=== PATIENT | female | born 1945 | race Caucasian/White ===

== ENCOUNTER 2025-03-04 10:39 | Emergency (ER) | payer MEDICARE, SELFPAY ==
[2025-03-04] VITALS (7 sets, daily range): BP systolic 109–129; BP diastolic 63–90; PULSE 73–83; RESP 12–18; TEMP 36.4; O2SAT 96–100
--- NOTE | ~2025-03-04 | XR_ITS ---
Clinical Indication: Shortness of breath PA and lateral views of the chest: Comparison: None Findings: Questionable minimal bibasilar pulmonary edema. Cardiomediastinal silhouette is prominent, with pacemaker device. Bones and soft tissues are unremarkable. Impression: Questionable minimal bibasilar pulmonary edema. Mild cardiomegaly, with pacemaker device. Reviewed, dictated and finalized at location . Impression: Questionable minimal bibasilar pulmonary edema. Mild cardiomegaly, with pacemaker device.
--- NOTE | 2025-03-04 10:40 | ECG_ITS ---
Test Date: 2025-03-04 11:11:01 Measurements Intervals [place] Rate: 79 P: -4 OR: 148 QRS: -59 QRSD: 126 T: 107 QT: 410 QTc: 471 Interpretive Statements ATRIAL SENSE- ELECTRONIC VENTRICULAR PACEMAKER BASELINE ARTIFACT- I, II, III, AVR, AVL NO FURTHER INTERPRETATION IS POSSIBLE ATYPICAL ECG No previous ECG available for comparison Electronically Signed On 03-04-2025 11:39:24 CDT by Sherwin Perrin D.O.
[2025-03-04 11:42] LABS: Basophils Absolute Auto 0.1 K/mm3 (0.0-0.1); Basophils Percent Auto 0.7 % (0.2-1.2); Eosinophils Absolute Auto 0.2 K/mm3 (0-0.3); Eosinophils Percent Auto 1.2 % (0-4.4); Hematocrit 46.8 % (37.0-47.0); Hemoglobin 14.5 g/dL (12.0-15.0); Immature Granulocyte Percent A 0.8 % (0-0.5); Lymphocytes Absolute Auto 1.68 K/mm3 (0.9-3.2); Lymphocytes Percent Auto 13.5 % (18.3-44.2); Mean Corpuscular Hemoglobin 29.1 pg (26-34); Mean Platelet Volume 10.1 fl (7.4-10.4); Monocytes Percent Auto 8.3 % (2.6-8.5); Neutrophils Absolute Auto 9.4 K/mm3 (1.3-6.7); Neutrophils Percent Auto 75.5 % (45.5-73.1); Platelet Count Result 170 k/mm3 (150-375); Red Blood Count 4.98 M/mm3 (4.2-5.4); Red Cell Distribution Width 14.6 % (11.5-14.5); White Blood Count 12.4 K/mm3 (4.5-10.0)
[2025-03-04 11:54] LABS: Alanine Aminotransferase 14 U/L (6-35); Albumin Level 4.7 g/dL (3.5-5.1); Alkaline Phosphatase 141 U/L (38-126); Anion Gap 10 mmol/L (4-12); Aspartate Amino Transferase 27 U/L (14-36); Bilirubin,Total 1.7 mg/dL (0.2-1.3); Blood Urea Nitrogen 46 mg/dL (7-17); Calcium 10.1 mg/dL (8.4-10.2); Carbon Dioxide 30 mmol/L (22-30); Chloride 100 mmol/L (98-107); Estimated Glomerular Filt Rate 31; Glucose 124 mg/dL (65-110); Potassium 4.3 mmol/L (3.4-5.0); Sodium 140 mmol/L (137-145)
--- OUTSIDE RECORDS SUMMARY | 2025-03-04 11:58 | XMS_ITS | CONTINUITY OF CARE DOCUMENT ---
Author Name amilcar fitzgerald Address Unknown Organization [facility] Address [address] [place] [address] Phone [phone] Care Team Providers Care Lottery Office Manager Name Role Phone Emi BLANCO, Doe Unavailable Pancho Velazquez MD Unavailable Pancho Velazquez MD Unavailable PROBLEMS Condition Status Date Provider Notes S/P BiV ICD gen change Medtronic 02/13/17// Gen change BiV ICD Biotronik 02/11/24 (NOT MRI SAFE //Medtronic Leads) active Valarie Daniel Preoperative cardiovascular examination active Gita Lee OBESITY active Hailey Stahlschmidt FIBROMYALGIA active Hailey Stahlschmidt ARTHRITIS active Hailey Stahlschmidt DIABETES MELLITUS active Hailey Stamckaymid t SHORTNESS OF BREATH completed - David Deleon MD 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 Doe Middleton MD Family History Coronary Heart Disease female < 65: active ? Doe Middleton MD Family History of Sudden Cardiac : active ? Doe Middleton MD Fatigue active Doe Middleton MD C V A / Stroke active ? Doe Middleton MD (His tory of) Edema, chronic active Doe Middleton MD Cardiology examination active Doe Middleton MD Family History of Sudden Cardiac : active ? Doe Middleton MD CAD;NEG COR ANGIO AND CAROTID DUPELX active David Deleon MD HTN ESSENTIAL;LABS PER PRIMARY active David Deleon MD CHF-04/13 CATH LV DYS LBBB EF 15 completed - David Deleon MD ENCOUNTERS Date Type Provider Location Encounter Diag nosis - In-person encounter Office Visit Doe Middleton MD [facility] Cardiology examination - In-person encounter Office Visit Doe Middleton MD [facility] - In-person encounter Office Visit Doe Middleton MD [facility] - In-person encounter Office Visit Doe Middleton MD [facility] Office - In-person encounter Office Visit Doe Middleton MD [facility] - In-person encounter Office Visit Doe Middleton MD [facility] - In-person encounter Office Visit Doe Middleton MD [facility] - In-person encounter Office Visit Doe Middleton MD [facility] Edema, chronic - In-person encounter Office Visit Doe Middleton MD [facility] - In-person encounter Office Visit Doe Middleton MD [facility] - In-person encounter Office Visit Doe Middleton MD [facility] - In-person encounter Office Visit Doe Middleton MD [facility] - In-person encounter Office Visit Doe Middleton MD [facility] - In-person encounter Office Visit Doe Middleton MD [facility] - In-person encounter Office Visit Doe Middleton MD [facility] - In-person encounter Office Visit Tariq Garay MD [facility] - In-person encounter Office Visit Doe Middleton MD [facility] - In-person encounter Office Visit Doe Middleton MD [facility] - In-person encounter Office Visit Doe Middleton MD [facility] - In-person encounter Office Visit Doe Middleton MD [facility] - In-person encounter Office Visit Doe Middleton MD [facility] - In-person encounter Office Visit Doe Middleton MD [facility] - In-person encounter Office Visit Jeremiah Nelson MD [facility] - In-person encounter Office Visit Doe Middleton MD [facility] - In-person encounter Office Visit Doe Middleton MD [facility] - In-person encounter Office Visit Doe Middleton MD [facility] - In-person encounter Office Visit Doe Middleton MD [facility] - In-person encounter Office Visit Doe Middleton MD [facility] - In-person encounter Office Visit Doe Middleton MD [facility] C V A / Stroke - In-person encounter Office Visit Doe Middleton MD [facility] Fatigue - In-person encounter Office Visit Doe Middleton MD [facility] - In-person encounter Office Visit Doe Middleton MD [facility] Cardiomyopathy, dilated - In-person encounter Office Visit Doe Middleton MD [facility] - In-person encounter Office Visit Doe Middleton MD [facility] - In-person encounter Office Visit Doe Middleton MD [facility] CHF - In-person encounter Office Visit Doe Middleton MD [facility] - In-person encounter Office Visit Doe Middleton MD [facility] Family History of Sudden Cardiac :Family History Coronary Heart Disease female < 65:Family History of Sudden Cardiac : - In-person encounter Office Visit Doe Middleton MD [facility] - In-person encounter Office Visit Doe Middleton MD [facility] PALPITATIONS - In-person encounter Office Visit Doe Middleton MD [facility] - In-person encounter Office Visit David Deleon MD [facility] SHORTNESS OF BREATHCHF-04/13 CATH LV DYS LBBB EF 15HTN ESSENTIAL;LABS PER PRIMARY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 ECHO LV HYPOK LVE EF 15CAD;NEG COR ANGIO AND CAROTID DUPELXVENOUS INSUFFICIENCYBI-VAICD - MEDTRONICSCardiomyopa thy, dilatedMITRAL REGURGITATION, MILDCHFSLEEP APNEA - In-person encounter Office Visit Doe Middleton MD [facility] - In-person encounter Office Visit Doe Middleton MD [facility] VENOUS INSUFFICIENCY - In-person encounter Office Visit Doe Middleton MD [facility] - In-person encounter Office Visit Doe Middleton MD [facility] - In-person encounter Office Visit Doe Middleton MD [facility] - In-person encounter Office Visit Doe Middleton MD [facility] - In-person encounter Office Visit Doe Middleton MD [facility] - In-person encounter Office Visit Tariq Garay MD [facility] - In-person encounter Office Visit Doe Middleton MD [facility] - In-person encounter Office Visit Doe Middleton MD [facility] - In-person encounter Office Visit Doe Middleton MD [facility] - In-person encounter Office Visit Doe Middleton MD [facility] - In-person encounter Office Visit Doe Middleton MD [facility] - In-person encounter Office Visit Doe Middleton MD [facility] - In-person encounter Office Visit Doe Middleton MD [facility] 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 ECHO LV HYPOK LVE EF 15 VITAL SIGNS Date Observation Value Provider Body Mass Index (Ratio) 30.82 kg/m2 Hiram Middleton MD blood pressure, diastolic 67 mm[Hg] Viktoriya [facility] blood pressure, systolic 124 mm[Hg] Imelda [facility] oxygen saturation, oximetry 95 % [facility] pulse rate 82 /min [facility] weight E&M 191 [lb_av] [facility] height E&M 66 [in_i] Esther Wilson Body Mass Index (Ratio) 33.50 kg/m2 Hiram Middleton MD weight E&M 207.6 [lb_av] Alicia Gilbert blood pressure, cuff size regular Ta judi Gilbert blood pressure, diastolic 68 mm[Hg] Ta judi Gilbert blood pressure, systolic 122 mm[Hg] Tab pierre Gilbert pulse rate 77 /min Alicia Gilbert oxygen saturation, oximetry 95 % Alicia Gilbert respiratory rate E&M 12 /min Alicia Gilbert height E&M 66 [in_i] [facility] Body Mass Index (Ratio) 33.41 kg/m2 Hiram Middleton MD blood pressure, cuff size regular Bryan [facility] blood pressure, diastolic 61 mm[Hg] [facility] blood pressure, systolic 109 mm[Hg] [facility] pulse rate 81 /min [place] respiratory rate E&M 16 /min [place] oxygen saturation, oximetry 96 % [place] weight E&M 207 [lb_av] [place] [facility] y height E&M 66 [in_i] [facility] y Body Mass Index (Ratio) 33.89 kg/m2 Hiram Middleton MD blood pressure, cuff size regular [facility] blood pressure, diastolic 62 mm[Hg] [facility] blood pressure, systolic 103 mm[Hg] [facility] 80 /min Emma Gilbert oxygen saturation, oximetry 98 % Emma Gilbert respiratory rate E&M 16 /min Emma manzanares weight E&M 210 [lb_av] [facility] height E&M 66 [in_i] [facility] Body Mass Index (Ratio) 34.86 kg/m2 Hiram Middleton MD Inhaled O2 2 L/min [facility] blood pressure, cuff size regular [facility] blood pressure, diastolic 81 mm[Hg] [facility] blood pressure, systolic 116 mm[Hg] [facility] pulse rate 72 /min [facility] oxygen saturation, oximetry 99 % [facility] respiratory rate E&M 16 /min Emma Mani [facility] weight E&M 216 [lb_av] [facility] height E&M 66 [in_i] [facility] Body Mass Index (Ratio) 34.21 kg/m2 Hiram Middleton MD pulse rate 70 /min [place] y blood pressure, cuff size regular [facility] blood pressure, diastolic 68 mm[Hg] Ja rret blood pressure, systolic 114 mm[Hg] Jar ret oxygen saturation, oximetry 98 % [place] respiratory rate E&M 12 /min [place] weight E&M 212 [lb_av] [place] y height E&M 66 [in_i] [place] y Body Mass Index (Ratio) 35.02 kg/m2 Hiram Middleton MD pulse rate 61 /min [place] y blood pressure, cuff size regular rret blood pressure, diastolic 57 mm[Hg] Ja rret blood pressure, systolic 115 mm[Hg] Jar ret respiratory rate E&M 12 /min [place] oxygen saturation, oximetry 95 % [place] weight E&M 217 [lb_av] [place] y height E&M 66 [in_i] [place] y Body Mass Index (Ratio) 35.34 kg/m2 Hiram Middleton MD blood pressure, diastolic 68 mm[Hg] nkLogjuan carlos blood pressure, systolic 121 mm[Hg] Debbie og blood pressure, diastolic 68 mm[Hg] eddieLog blood pressure, systolic 121 mm[Hg] [facility] pulse rate 76 /min Valeria Bates blood pressure, diastolic 68 mm[Hg] Donta Bates blood pressure, systolic 121 mm[Hg] Carline Bates blood pressure, cuff size regular Donta Bates oxygen saturation, oximetry 98 % Valeria Bates respiratory rate E&M 18 /min Valeria Bates weight E&M 219 [lb_av] Valeria Bates height E&M 66 [in_i] Valeria Bates Body Mass Index (Ratio) 35.18 kg/m2 Hiram Middleton MD blood pressure, diastolic 54 mm[Hg] [place] blood pressure, systolic 113 mm[Hg] [facility] joana [place] oxygen saturation, oximetry 98 % Angelique Angeles pulse rate 69 /min Angelique fisher weight E&M 218 [lb_av] Angelique fisher respiratory rate E&M 16 /min Aishwarya [place] blood pressure, cuff size large [place] height E&M 66 [in_i] Angelique fisher Body Mass Index (Ratio) 35.34 kg/m2 Hiram Middleton MD blood pressure, cuff size large [place] pino Austin blood pressure, diastolic 95 mm[Hg] [place] pino Austin blood pressure, systolic 159 mm[Hg] Kam bernard Austin oxygen saturation, oximetry 98 % Angelique Angeles respiratory rate E&M 16 /min Aishwarya daugherty [place] pulse rate 80 /min Angelique Ocasio micki weight E&M 219 [lb_av] Angelique Ocasio micki height E&M 66 [in_i] Angelique Ocasio micki Body Mass Index (Ratio) 35.18 kg/m2 Hiram Middleton MD blood pressure, cuff size large Tr garo Arnaud blood pressure, diastolic 70 mm[Hg] Tr mauricedarcy Lares blood pressure, systolic 122 mm[Hg] Len darcy Lares oxygen saturation, oximetry 91 % Kyra Lares respiratory rate E&M 18 /min Kyra Lares pulse rate 97 /min Kyra Lares weight E&M 218 [lb_av] Kyra Lares height E&M 66 [in_i] Kyra Lares Body Mass Index (Ratio) 36.34 kg/m2 Hiram Middleton MD blood pressure, diastolic 70 mm[Hg] Martha Richards blood pressure, systolic 112 mm[Hg] Melissa Richards oxygen saturation, oximetry 97 % Haylee Richards respiratory rate E&M 16 /min Taran Richards pulse rate 100 /min Haylee steven weight E&M 225.2 [lb_av] Haylee rae height E&M 66 [in_i] Haylee steven Body Mass Index (Ratio) 35.83 kg/m2 Hiram Middleton MD blood pressure, diastolic 77 mm[Hg] Sh patricia Hartmanford blood pressure, systolic 126 mm[Hg] She evan Hartmanford oxygen saturation, oximetry 98 % Maira Layne pulse rate 86 /min Maira Hartman clark respiratory rate E&M 18 /min Gale Layne weight E&M 222 [lb_av] Maira Hartman clark height E&M 66 [in_i] Maira Hartman clark Body Mass Index (Ratio) 35.51 kg/m2 Hiram Middleton MD blood pressure, cuff size regular Cy harpal Aldana blood pressure, diastolic 72 mm[Hg] Cy ntcolin Aldana blood pressure, systolic 128 mm[Hg] Shweta edel Aldana oxygen saturation, oximetry 98 % Lynnette Aldana pulse rate 96 /min Lynnette Campbel l respiratory rate E&M 16 /min Lynnette Aldana weight E&M 220 [lb_av] Lynnette Campbel l height E&M 66 [in_i] Lynnette Campbel l Body Mass Index (Ratio) 37.12 kg/m2 Taryn Garay MD blood pressure, cuff size large Ke rri Gruenenfelder blood pressure, diastolic 62 mm[Hg] Ke rri Gruenenfelder blood pressure, systolic 98 mm[Hg] Ubaldo Alberto oxygen saturation, oximetry 96 % Dafne Dolly respiratory rate E&M 18 /min Dafne peña pulse rate 87 /min Dafne Alston lder weight E&M 230 [lb_av] Dafne Alston lder height E&M 66 [in_i] Dafne Alston [facility] Body Mass Index (Ratio) 36.80 kg/m2 Hiram Middleton MD blood pressure, diastolic 67 mm[Hg] Cy harpal Aldana blood pressure, systolic 127 mm[Hg] Shweta edel Aldana blood pressure, cuff size regular Cy ntcolin Aldana pulse rate 69 /min Lynnette Travonbel l oxygen saturation, oximetry 95 % Lynnette Aldana respiratory rate E&M 16 /min Lynnette Aldana weight E&M 228 [lb_av] Lynnette Campbel l height E&M 66 [in_i] Lynnette Campbel l Body Mass Index (Ratio) 37.12 kg/m2 Hiram Middleton MD blood pressure, diastolic 63 mm[Hg] Cy ntcolin Aldana blood pressure, systolic 108 mm[Hg] Hsweta edel Aldana blood pressure, cuff size regular Cy ntcolin Aldana pulse rate 70 /min Lynnette Campbel l respiratory rate E&M 16 /min Lynnette Aldana oxygen saturation, oximetry 93 % Lynnetteedel Aldana weight E&M 230 [lb_av] Lynnette Campbel l height E&M 66 [in_i] Lynnette Campbel l Body Mass Index (Ratio) 37.28 kg/m2 Hiram Middleton MD blood pressure, diastolic 62 mm[Hg] Cy ntcolin Aldana blood pressure, systolic 107 mm[Hg] Shweta charmainea Aldana respiratory rate E&M 16 /min Lynnette Aldana pulse rate 98 /min Lynnette Campbel l oxygen saturation, oximetry 94 % Lynnette Aldana weight E&M 231 [lb_av] Lynnette Campbel l blood pressure, cuff size regular Cy harpal Aldana height E&M 66 [in_i] Lynnette Campbel l temperature site temporal Juliette [facility] temperature E&M 96.4 [degF] Juliette Sirena mackenzie Body Mass Index (Ratio) 38.25 kg/m2 Hiram Middleton MD blood pressure, diastolic 78 mm[Hg] Martha Richards blood pressure, systolic 132 mm[Hg] Melissa Roberto Richards oxygen saturation, oximetry 96 % HayleeAdelia Richards respiratory rate E&M 18 /min Taran Richards pulse rate 96 /min Haylee Rosas martinezjacek weight E&M 237 [lb_av] Haylee Rosas jacek height E&M 66 [in_i] Haylee Rosas jacek temperature site temporal Juliette [facility] temperature E&M 96.8 [degF] Juliette Sirena mackenzie Body Mass Index (Ratio) 37.60 kg/m2 Hiram Middleton MD blood pressure, cuff size regular Cy harpal Aldana blood pressure, diastolic 80 mm[Hg] Cy ntmelea Aldana blood pressure, systolic 122 mm[Hg] Shweta charmainevalerie Aldana oxygen saturation, oximetry 97 % Lynnette Aldana respiratory rate E&M 16 /min Lynnette Aldana pulse rate 99 /min Lynnette Campbel l weight E&M 233 [lb_av] Lynnette Campbel l height E&M 66 [in_i] Lynnette Campbel l Body Mass Index (Ratio) 37.93 kg/m2 Hiram Midldeton MD blood pressure, diastolic 93 mm[Hg] Martha vaughan O'Alex blood pressure, systolic 112 mm[Hg] Melissa houston O'Alex oxygen saturation, oximetry 96 % Marianna Rasheed respiratory rate E&M 16 /min Marianna OArnoldAlex pulse rate 98 /min Marianna OArnoldAlex weight E&M 235 [lb_av] Marianna O'Alex height E&M 66 [in_i] [facility] OArnoldAlex Body Mass Index (Ratio) 37.93 kg/m2 Puma Nelson MD blood pressure, cuff size regular Bryan grijalva Olivares RN blood pressure, diastolic 72 mm[Hg] Bryan Olivares RN blood pressure, systolic 123 mm[Hg] Galen Olivares RN oxygen saturation, oximetry 97 % Galen Lunaarlene NAYLOR respiratory rate E&M 18 /min Galen Florinda arlene NAYLOR pulse rate 88 /min Galen Lunas RN weight E&M 235 [lb_av] Galen Lunas RN Body Mass Index (Ratio) 37.93 kg/m2 Hiram Middleton MD blood pressure, cuff size regular Cy harpal Aldana blood pressure, diastolic 64 mm[Hg] Cy harpal Jovan blood pressure, systolic 120 mm[Hg] Shweta hollingsworth Aldana respiratory rate E&M 18 /min Lynnette Aldana oxygen saturation, oximetry 96 % Lynnette Aldana pulse rate 95 /min Lynnette Coolcharlotte l weight E&M 235 [lb_av] Lynnette Campbel l height E&M 66 [in_i] Lynnette Campbel l Body Mass Index (Ratio) 37.44 kg/m2 Hiram Middleton MD oxygen saturation, oximetry 96 % Torie Lehman pulse rate 68 /min Torie jacobs respiratory rate E&M 17 /min Torie Lehman blood pressure, cuff size large Cr sondra Lehman blood pressure, diastolic 60 mm[Hg] Cr sondra Lehman blood pressure, systolic 110 mm[Hg] Cry marco Dominik weight E&M 232 [lb_av] Torie Roman s height E&M 66 [in_i] Torie Roman s blood pressure, diastolic 70 mm[Hg] Cy harpal Aldana blood pressure, systolic 110 mm[Hg] Shweta Aldana pulse rate 91 /min Lynnette sutherland height E&M 66 [in_i] Lynnette Murillo l height in centimeters E&M 167.64 cm Cy harpal Aldana Body Mass Index (Ratio) 38.89 kg/m2 Hiram Middleton MD blood pressure, cuff size large Ke trace Alberto blood pressure, diastolic 71 mm[Hg] Ke trace Alberto blood pressure, systolic 117 mm[Hg] Ubaldo Alberto oxygen saturation, oximetry 98 % Dafne Alberto respiratory rate E&M 20 /min Dafen peña pulse rate 97 /min Dafne Alston [facility] weight E&M 241 [lb_av] Dafne Alston er height E&M 66 [in_i] Dafne Alston er Body Mass Index (Ratio) 38.57 kg/m2 Hiram Middleton MD blood pressure, diastolic 80 mm[Hg] Da hayes Hardy blood pressure, systolic 122 mm[Hg] Dac ia Hardy oxygen saturation, oximetry 96 % Eryn Hardy respiratory rate E&M 16 /min Eryn V oss pulse rate 97 /min Eryn Hardy weight E&M 239 [lb_av] Eryn Hardy height E&M 66 [in_i] Eryn Hardy Body Mass Index (Ratio) 38.15 kg/m2 Hiram Middleton MD blood pressure, diastolic 73 mm[Hg] Martha Yoni Richards blood pressure, systolic 130 mm[Hg] Melissa Avilezenson oxygen saturation, oximetry 97 % Haylee Richards respiratory rate E&M 20 /min IvonneSarah Avilezenson pulse rate 89 /min Haylee steven weight E&M 236.4 [lb_av] Haylee rae height E&M 66 [in_i] Haylee steven Body Mass Index (Ratio) 38.25 kg/m2 Hiram Middleton MD blood pressure, diastolic 67 mm[Hg] Martha Yoni Richards blood pressure, systolic 125 mm[Hg] Melissa Avilezenson oxygen saturation, oximetry 97 % Haylee Richards respiratory rate E&M 18 /min Taran vladislav Maurice pulse rate 97 /min Haylee steven weight E&M 237 [lb_av] Haylee steven height E&M 66 [in_i] Haylee steven Body Mass Index (Ratio) 38.22 kg/m2 Hiram Middleton MD blood pressure, resting Yes Ivonne Richards blood pressure, diastolic 69 mm[Hg] Martha Yoni Richards blood pressure, systolic 115 mm[Hg] Melissa Richards oxygen saturation, oximetry 96 % Haylee Richards respiratory rate E&M 20 /min Taran Richards pulse rate 85 /min Haylee steven weight E&M 236.8 [lb_av] Haylee rae height E&M 66 [in_i] Haylee steven Body Mass Index (Ratio) 38.25 kg/m2 Hiram Middleton MD blood pressure, cuff size large Ke rrdiane Arthurulisesakira blood pressure, diastolic 80 mm[Hg] Garcia rrdiane Dolly blood pressure, systolic 122 mm[Hg] Ubaldo oscar Dolly oxygen saturation, oximetry 96 % Dafne Dolly respiratory rate E&M 18 /min Dafne Dominique mariana pulse rate 84 /min Dafne Alecia lder weight E&M 237 [lb_av] Dafne Alston lder height E&M 66 [in_i] Dafne Riancassulisesdat er Body Mass Index (Ratio) 37.76 kg/m2 Hiram Middleton MD blood pressure, cuff size large Ernestine ragland Brendon blood pressure, diastolic 62 mm[Hg] Ernestine ragland Brendon blood pressure, systolic 130 mm[Hg] Julienne Olivas oxygen saturation, oximetry 97 % Rayna Olivas respiratory rate E&M 16 /min Rayna Olivas pulse rate 62 /min Rayna Olivas weight E&M 234 [lb_av] Rayna Olivas height E&M 66 [in_i] Rayna Olivas Body Mass Index (Ratio) 38.15 kg/m2 Hiram Middleton MD blood pressure, diastolic 68 mm[Hg] Martha Richards blood pressure, systolic 117 mm[Hg] Melissa Richards oxygen saturation, oximetry 96 % Haylee Richards respiratory rate E&M 18 /min Taran Richards pulse rate 91 /min Haylee steven weight E&M 236.4 [lb_av] Haylee rae height E&M 66 [in_i] Haylee steven blood pressure, diastolic 64 mm[Hg] Garcia thompsoni Rianneuliseslesterer blood pressure, systolic 130 mm[Hg] Ubaldo ri Zaidmarconenfelder pulse rate 78 /min Dafne Munoze lder oxygen saturation, oximetry 97 % Dafne Munozlesterer respiratory rate E&M 16 /min Dafne Dominique whitneyenenfelder Body Mass Index (Ratio) 39.70 kg/m2 Walker diane Arthurulisesakira weight E&M 246 [lb_av] Dafne Modineulisese lder blood pressure, diastolic 68 mm[Hg] Martha Richards blood pressure, systolic 124 mm[Hg] Melissa Richards Body Mass Index (Ratio) 41.09 kg/m2 Ivonne Delvalle Richards pulse rate 84 /min Haylee Rosas martinezjacek oxygen saturation, oximetry 97 % Haylee Richards respiratory rate E&M 18 /min Taran Richards weight E&M 254.6 [lb_av] Haylee rae blood pressure, diastolic 73 mm[Hg] Martha Richards blood pressure, systolic 129 mm[Hg] Melissa Richards Body Mass Index (Ratio) 41.25 kg/m2 Ivonne Richards pulse rate 94 /min Haylee Rosas martinezjacek oxygen saturation, oximetry 96 % Haylee Richards respiratory rate E&M 18 /min Taran Richards weight E&M 255.6 [lb_av] Haylee rae Body Mass Index (Ratio) 39.38 kg/m2 Marina ssa Julian blood pressure, diastolic 76 mm[Hg] Me junie Julian blood pressure, systolic 133 mm[Hg] Agatha jayna Julian pulse rate 100 /min Milagros Julian oxygen saturation, oximetry 97 % Milagros Julian respiratory rate E&M 16 /min Milagros Julian weight E&M 244 [lb_av] Milagros Julian Body Mass Index (Ratio) 38.88 kg/m2 Marina ball Julian blood pressure, diastolic 72 mm[Hg] Me zaman Julian blood pressure, systolic 131 mm[Hg] Agatha dorantes Julian pulse rate 80 /min Milagros Julian oxygen saturation, oximetry 97 % Milagros Julian respiratory rate E&M 16 /min Milagros Julian weight E&M 240 [lb_av] Milagros Julian blood pressure, diastolic 64 mm[Hg] Bryan Olivares RN blood pressure, systolic 120 mm[Hg] Galen Olivares RN pulse rate 87 /min Galen Olivares RN oxygen saturation, oximetry 97 % Galen Olivares RN respiratory rate E&M 14 /min Galen lockwood RN Body Mass Index (Ratio) 39.20 kg/m2 Galen Olivares RN weight E&M 242 [lb_av] Galen Olivares RN blood pressure, diastolic 61 mm[Hg] Bryan Olivares RN blood pressure, systolic 112 mm[Hg] Galen Olivares RN pulse rate 73 /min Galen Olivares RN oxygen saturation, oximetry 97 % Galen Olivares RN respiratory rate E&M 22 /min Galen lockwood RN Body Mass Index (Ratio) 38.39 kg/m2 Galen Olivares RN weight E&M 237 [lb_av] Galen Olivares RN blood pressure, diastolic 96 mm[Hg] Bryan Olivares RN blood pressure, systolic 168 mm[Hg] Galen Olivares RN pulse rate 112 /min Galen Olivares RN oxygen saturation, oximetry 96 % Galen Olivares RN respiratory rate E&M 22 /min Galen coffmanarlene RN Body Mass Index (Ratio) 43.25 kg/m2 Galen Olivares CYNDY weight E&M 267 [lb_av] Galen Olivares CYNDY Body Mass Index (Ratio) 43.06 kg/m2 Dot padilla Stueber blood pressure, diastolic 68 mm[Hg] Ta rubio Stueber blood pressure, systolic 128 mm[Hg] Jaya mojica Stueber pulse rate 74 /min Jeniffer Stueber oxygen saturation, oximetry 98 % Jeniffer Stueber respiratory rate E&M 16 /min Jeniffer burgesseber weight E&M 265.8 [lb_av] Jeniffer Stueber height E&M 66 [in_i] Jeniffer [facility] blood pressure, diastolic 76 mm[Hg] Bryan grijalva Marshall CYNDY blood pressure, systolic 122 mm[Hg] Galen Olivares CYNDY pulse rate 84 /min Galen Olivares CYNDY oxygen saturation, oximetry 96 % Galen Olivares CYNDY respiratory rate E&M 20 /min Galen lockwood RN Body Mass Index (Ratio) 42.28 kg/m2 Galen Olivares CYNDY weight E&M 269.0 [lb_av] Galen Olivares CYNDY Body Mass Index (Ratio) 40.87 kg/m2 Darron blanco [place] blood pressure, diastolic 68 mm[Hg] Gita seph [place] blood pressure, systolic 120 mm[Hg] Edward eph [place] pulse rate 78 /min [place] oxygen saturation, oximetry 95 % [place] respiratory rate E&M 20 /min [place] weight E&M 260 [lb_av] [place] Body Mass Index (Ratio) 40.87 kg/m2 Jordan Epps blood pressure, diastolic 84 mm[Hg] Lim blood pressure, systolic 160 mm[Hg] Ko Epps pulse rate 80 /min Tony Epps oxygen saturation, oximetry 96 % Tony Epps respiratory rate E&M 18 /min Tony Epps weight E&M 260 [lb_av] Tony Epps height E&M 67 [in_i] Tony Epps blood pressure, diastolic 59 mm[Hg] Lim blood pressure, systolic 112 mm[Hg] Ko Epps pulse rate 85 /min Tony Epps oxygen saturation, oximetry 96 % Tony Epps respiratory rate E&M 16 /min Tony Epps weight E&M 256 [lb_av] Tony Epps blood pressure, diastolic 80 mm[Hg] Lim blood pressure, systolic 166 mm[Hg] Ko Epps pulse rate 86 /min Tony Epps oxygen saturation, oximetry 93 % Tony Epps respiratory rate E&M 16 /min Tony Epps weight E&M 254 [lb_av] Tony Epps blood pressure, diastolic 74 mm[Hg] Martha rsha O'Alex blood pressure, systolic 180 mm[Hg] Melissa sha O'[place] pulse rate 85 /min Marianna O'Alex oxygen saturation, oximetry 96 % Marianna O'Alex respiratory rate E&M 18 /min Marianna O'Alex weight E&M 255 [lb_av] Marianna O'Alex blood pressure, diastolic 74 mm[Hg] Martha rsha O'Alex blood pressure, systolic 161 mm[Hg] Melissa sha [place] pulse rate 104 /min Marianna O'Alex oxygen saturation, oximetry 96 % Marianna O'Alex respiratory rate E&M 18 /min Marianna O'Alex weight E&M 259 [lb_av] Marianna O'Alex blood pressure, diastolic 113 mm[Hg] Martha vaughan O'Alex blood pressure, systolic 159 mm[Hg] Melissa houston O'Alex pulse rate 96 /min Marianna O'Alex oxygen saturation, oximetry 98 % Marianna O'Alex respiratory rate E&M 18 /min Marianna O'Alex weight E&M 255 [lb_av] Marianna O'Alex blood pressure, diastolic 87 mm[Hg] Bryan Olivares RN blood pressure, systolic 156 mm[Hg] Galen Olivares RN pulse rate 86 /min Galen Olivares RN oxygen saturation, oximetry 95 % Galen Olivares RN respiratory rate E&M 20 /min Galen lockwood RN weight E&M 257 [lb_av] Galen Olivares RN blood pressure, diastolic 77 mm[Hg] Eddie Tavarez blood pressure, systolic 138 mm[Hg] [place] pulse rate 82 /min Kady Tavarez oxygen saturation, oximetry 94 % Kady Tavarez respiratory rate E&M 18 /min Mike Tavarez weight E&M 248 [lb_av] Kady Tavarez blood pressure, diastolic 82 mm[Hg] Bryan Olivares RN blood pressure, systolic 149 mm[Hg] Galen Olivares RN pulse rate 85 /min Galen Olivares RN oxygen saturation, oximetry 97 % Galen Olivares RN respiratory rate E&M 18 /min Galen lockwood RN weight E&M 250 [lb_av] Galen Olivares RN blood pressure, diastolic 79 mm[Hg] Bryan Olivares RN blood pressure, systolic 155 mm[Hg] Galen Olivares RN pulse rate 82 /min Galen Olivares RN oxygen saturation, oximetry 98 % Galen Olivares RN respiratory rate E&M 18 /min Galen lockwood RN weight E&M 240 [lb_av] Galen Marshall NAYLOR blood pressure, diastolic 72 mm[Hg] Gita seph [place] blood pressure, systolic 119 mm[Hg] Edward eph [place] pulse rate 81 /min [place] oxygen saturation, oximetry 98 % [place] respiratory rate E&M 16 /min [place] weight E&M 231 [lb_av] [place] blood pressure, diastolic 81 mm[Hg] Bryan Olivares RN blood pressure, systolic 145 mm[Hg] Galen Olivares RN pulse rate 83 /min Galen Olivares RN oxygen saturation, oximetry 98 % Galen Olivares RN respiratory rate E&M 16 /min Galen lockwood RN weight E&M 244 [lb_av] Galen Olivares RN ALLERGIES Allergy Name Onset Date Reaction Criticality Status DYES High Criticality suspende d IVP DYE High Criticality suspende d CILLIANS Low Criticality active IODINE Low Criticality active GLYBURIDE Low Criticality active DIOVAN Low Criticality active RESULTS Date Observation Value Provider Reference Range Interpretation Location ferritin, serum 265 ng/mL [facility] 15-150 High iron saturation percent, serum 24 % [facility] 15-55 iron, serum 92 ug/dL [facility] 27-139 iron binding capacity, unsaturated 288 ug/dL [facility] 312-225 6367/11 /29 iron binding capacity, total 380 ug/dL [facility] 309-111 8174/11 /29 basophil count, absolute 0.1 x10E3/uL [facility] 0.0-0.2 Eosinophil Absolute Count 0.2 X10E3/UL [facility] 0.0-0.4 monocyte count, blood, automated 0.9 X10E3/UL [facility] 0.1-0.9 lymphocyte count, blood, automated 3.5 X10E3/UL [facility] 0.7-3.1 High Absolute Neutrophils 5.7 X10E3/UL [facility] 1.4-7.0 basophils as percent of blood leukocytes 1 % [facility] Not Estab. eosinophils as percent of blood leukocytes 2 % [facility] Not Estab. monocytes as percent of blood leukocytes 8 % [facility] Not Estab. lymphocytes as percent of blood leukocytes 34 % [facility] Not Estab. neutrophils as percent of blood leukocytes 55 % [facility] Not Estab. platelet count 242 X10E3/UL [facility] 927-270 6963/11 /29 red blood cell distribution width 13.2 % [facility] 12.3-15.4 mean corpuscular hemoglobin concentration, RBC 32.3 G/DL [facility] 31.5-35.7 mean corpuscular hemoglobin, RBC 31.0 pg [facility] 26.6-33.0 mean corpuscular volume, RBC 96 fL [facility] 79-97 hematocrit, blood 42.7 % [facility] 34.0-46.6 hemoglobin, blood 13.8 g/dL [facility] 11.1-15.9 erythrocyte (RBC) count 4.45 X10E6/UL [facility] 3.77-5.28 leukocyte count, blood 10.4 X10E3/UL [facility] 3.4-10.8 trichomonas vaginalis, urine None seen [facility] urine crystals, microscopic Present [facility] casts, urine, microscopic None seen [facility] mucus on urinalysis None seen [facility] Not Estab. bacteria, urine microscopy Moderate [facility] None seen / Few epithelial cells, urine > 10 / lpf [facility] 0 - 10 /lpf (non renal) RBC urine by microscopy 0 - 3 /hpf [facility] 0 - 3 /hpf WBC urine on microscopy 21-30 /hpf [facility] 0 - 5 /hpf Nitrite Urine Negative [facility] Negative urobilinogen, urine 0.2 E.U./dL mg/dl [facility] 0.2 - 1.0 specific gravity, urine >=1.030 [facility] 1.001 - 1.035 KETONES, URINE Trace [facility] Negative bilirubin, urine 1+ [facility] Negative Glucose Urine Negative [facility] Negative clarity, urine, point Slightly Cloudy [facility] Yellow urine color [place] [facility] yellow to calixto red blood cell distribution width, size density 51.0 fL [facility] - immature granulocytes, percentage of total cells, blood 0.7 % [facility] - nucleated red blood cells as percent of blood leukocytes 0.0 % [facility] - red blood cell (erythrocyte) count, per high power field 0.0 10*3/UL [facility] - eosinophils as percent of blood leukocytes 1.3 % [facility] - neutrophils as percent of blood leukocytes 55.5 % [facility] - Absolute Neutrophils 5.5 CELLS/UL [facility] 1.5 - 7.8 basophils as percent of blood leukocytes 0.9 % [facility] - Absolute Basophils 0.1 CELLS/UL [facility] 0.0 - 0.2 monocytes as percent of blood leukocytes 8.1 % [facility] - Absolute Monocytes 0.8 CELLS/UL [facility] 0.2 - 1.0 lymphocytes as percent of blood leukocytes 33.5 % [facility] - Absolute Lymphocytes 3.3 CELLS/UL [facility] 0.9 - 3.9 mean platelet volume 10.8 (?) [facility] - platelet count 204.0 THOUSAND/UL [facility] 100.0 - 400.0 mean corpuscular hemoglobin concentration, RBC 31.7 G/DL [facility] 31.0 - 38.0 mean corpuscular hemoglobin, RBC 31.7 pg [facility] 25.0 - 35.0 mean corpuscular volume, RBC 100.0 fL [facility] 75.0 - 100.0 hematocrit, blood 43.6 % [facility] 35.0 - 55.0 hemoglobin, blood 13.8 g/dL [facility] 11.5 - 16.5 erythrocyte count, whole blood 4.4 MILLION/UL [facility] 3.5 - 5.5 activated partial thromboplastin time 24.3 SECONDS [facility] 23.0 - 33.0 prothrombin time (patient) 10.2 s [facility] 9.0 - 11.5 international normalized ratio (INR) 1.0 [facility] 0.9 - 1.1 anion gap, serum 14.6 [facility] - albumin/globulin ratio, serum 2.8 g/dL [facility] 1.1 - 2.5 High globulin, serum 3.1 [facility] 2.3 - 3.8 urea nitrogen/creatinine ratio, serum 14.0 [facility] - Estimated Glomerular Filtration Rate (calc) 36.8 (?) [facility] 59.0 - Low chloride, serum 101.4 mmol/L [facility] 98.0 - 107.0 potassium, serum 4.6 mmol/L [facility] 3.5 - 5.1 sodium, serum 142.0 mmol/L [facility] 136.0 - 145.0 creatine, serum 1.5 mg/dL [facility] 0.5 - 0.9 High carbon dioxide, venous blood 26.0 mmol/L [facility] 23.0 - 31.0 albumin, serum 4.7 g/dL [facility] 3.5 - 5.2 calcium, serum 10.0 mg/dL [facility] 8.6 - 10.2 aspartate aminotransferase (SGOT), serum 16.0 1/L [facility] 0.0 - 32.0 alkaline phosphatase, serum 94.0 1/L [facility] 40.0 - 130.0 alanine aminotransferase (SGPT), serum 12.0 1/L [facility] 0.0 - 33.0 protein, total, serum 7.8 g/dL [facility] 6.6 - 8.7 urea nitrogen, blood 21.0 mg/dL [facility] 8.0 - 23.0 Glucose Urine 224.0 mg/dL [facility] 74.0 - 99.0 High bilirubin, serum, total 1.0 mg/dL [facility] 0.0 - 1.2 thyroid stimulating hormone, serum 1.750 u[IU]/mL Araceli Man calcium, serum 10.0 mg/dL [facility] 8.6-10.0 Normal blood glucose, random 256 mg/dL [facility] 74-109 High eGFR if 64 mL/min/{1.73_ m2} [facility] >60 Normal eGFR if not 53 mL/min/{1.73_ m2} [facility] >60 Low urea nitrogen/creatinine ratio, serum 16.4 ratio [facility] 8.0-25.0 Normal creatinine, serum 1.1 mg/dL [facility] 0.50-0.90 High urea nitrogen, blood 18 mg/dL [facility] 6-20 Normal carbon dioxide, venous blood 28 mmol/L [facility] 22-29 Normal chloride, serum 96 MEQ/L [facility] 98-107 Low potassium, serum 4.4 MEQ/L [facility] 3.5-5.1 Normal sodium, serum 139 MEQ/L [facility] 136-145 Normal platelet count 260 10*3/mm3 [facility] hematocrit, blood 45.2 % [facility] international normalized ratio (INR) 1.1 [facility] B-type natriuretic peptide 652 pg/mL [facility] alanine aminotransferase (SGPT), serum 30 1/L [facility] aspartate aminotransferase (SGOT), serum 31 1/L [facility] creatinine, serum 1.47 mg/dL [facility] potassium, serum 3.7 mmol/L [facility] sodium, serum 144 mmol/L [facility] folate, serum 17.6 ng/mL [facility] Normal B-12, serum 294 [facility] Normal thyroid stimulating hormone, serum 1.20 u[IU]/mL [facility] 0.40-4.50 Normal basophils as percent of blood leukocytes 0.6 % [facility] Normal eosinophils as percent of blood leukocytes 1.3 % [facility] Normal monocyte count, blood 7.1 % [facility] Normal lymphocyte count, blood 34.1 % [facility] Normal neutrophils as percent of blood leukocytes 56.9 % [facility] Normal basophils, absolute, manual 47 cells/mcL [facility] 0-200 Normal eosinophils, absolute, manual 101 cells/mcL [facility] 15-500 Normal monocytes, absolute, manual 554 cells/mcL [facility] 200-950 Normal lymphocytes, absolute 2660 CELLS/UL [facility] 850-3900 Normal Absolute Neutrophil count 4438 cells/mcL [facility] 1731-5558 Normal platelet count 187 THOUSAND/UL [facility] 140-400 Normal red blood cell distribution width 13.3 % [facility] 11.0-15.0 Normal mean corpuscular hemoglobin concentration, RBC 34.0 G/DL [facility] 32.0-36.0 Normal mean corpuscular hemoglobin, RBC 32.4 pg [facility] 27.0-33.0 Normal mean corpuscular volume, RBC 95.5 fL [facility] 80.0-100.0 Normal hematocrit, blood 38.5 % [facility] 35.0-45.0 Normal hemoglobin electrophoresis, blood 13.1 [facility] 11.7-15.5 Normal erythrocyte (RBC) count 4.04 MILLION/UL [facility] 3.80-5.10 Normal leukocyte (white blood cells) count, blood 7.8 THOUSAND/UL [facility] 3.8-10.8 Normal alanine aminotransferase (SGPT), serum 13 1/L [facility] 6-40 Normal aspartate aminotransferase (SGOT), serum 13 1/L [facility] 10-35 Normal alkaline phosphatase, serum 81 1/L [facility] 33-130 Normal bilirubin, serum, total 0.7 mg/dL [facility] 0.2-1.2 Normal albumin/globulin ratio, serum 2.0 (calc) [facility] 1.0-2.1 Normal globulins, serum, total 2.3 G/DL (CALC) [facility] 2.2-3.9 Normal albumin, serum 4.5 g/dL [facility] 3.6-5.1 Normal protein, total, serum 6.8 g/dL [facility] 6.2-8.3 Normal calcium, serum 9.5 mg/dL [facility] 8.6-10.4 Normal carbon dioxide, venous blood 26 mmol/L [facility] 21-33 Normal chloride, serum 104 mmol/L [facility] 98-110 Normal potassium, serum 4.1 mmol/L [facility] 3.5-5.3 Normal sodium, serum 140 mmol/L [facility] 135-146 Normal urea nitrogen/creatinine ratio, serum NOT APPLICABLE (calc) [facility] 6-22 Estimated Glomerular Filtration Rate (calc) 78 mL/min/{1.73_ m2} [facility] > OR = 60 Normal creatinine, serum 0.90 mg/dL [facility] 0.50-0.99 Normal urea nitrogen, blood 15 mg/dL [facility] 7-25 Normal blood glucose, random 161 mg/dL [facility] 65-99 High calcium, serum 9.6 mg/dL [facility] (8.6-10.2) Normal carbon dioxide, venous blood 22 mmol/L [facility] (21-33) Normal chloride, serum 104 mmol/L [facility] (98-110) Normal potassium, serum 4.3 mmol/L [facility] (3.5-5.3) Normal sodium, serum 140 mmol/L [facility] (135-146) Normal urea nitrogen/creatinine ratio, serum NOT APPLICABLE (calc) [facility] (6-22) Estimated Glomerular Filtration Rate (calc) >60 mL/min/1.73m2 [facility] (> OR = 60) Normal creatinine, serum 0.84 mg/dL [facility] (0.60-1.18) Normal urea nitrogen, blood 16 mg/dL [facility] (7-25) Normal blood glucose, random 162 mg/dL [facility] (65-99) High rheumatoid factor 12 [iU]/mL [facility] <14 Normal erythrocyte sedimentation rate 27 mm/h [facility] < OR = 30 Normal creatine kinase, serum 74 1/L [facility] 29-143 Normal alanine aminotransferase (SGPT), serum 16 1/L [facility] 6-40 Normal aspartate aminotransferase (SGOT), serum 17 1/L [facility] 10-35 Normal alkaline phosphatase, serum 73 1/L [facility] 33-130 Normal bilirubin, serum, total 0.8 mg/dL [facility] 0.2-1.2 Normal albumin/globulin ratio, serum 1.6 (calc) [facility] 1.0-2.1 Normal globulins, serum, total 2.8 G/DL (CALC) [facility] 2.2-3.9 Normal albumin, serum 4.6 g/dL [facility] 3.6-5.1 Normal protein, total, serum 7.4 g/dL [facility] 6.2-8.3 Normal calcium, serum 9.9 mg/dL [facility] 8.6-10.2 Normal carbon dioxide, venous blood 23 mmol/L [facility] 21-33 Normal chloride, serum 106 mmol/L [facility] 98-110 Normal potassium, serum 4.2 mmol/L [facility] 3.5-5.3 Normal sodium, serum 142 mmol/L [facility] 135-146 Normal urea nitrogen/creatinine ratio, serum NOT APPLICABLE (calc) [facility] 6-22 Estimated Glomerular Filtration Rate (calc) >60 mL/min/1.73m2 [facility] > OR = 60 Normal creatinine, serum 0.98 mg/dL [facility] 0.60-1.18 Normal urea nitrogen, blood 17 mg/dL [facility] 7-25 Normal blood glucose, random 143 mg/dL [facility] 65-99 High thyroid stimulating hormone, serum 1.84 u[IU]/mL [facility] 0.40-4.50 Normal free thyroxine index 3.3 [facility] 1.4-3.8 Normal thyroxine, serum, total 10.6 ug/dL [facility] 4.5-12.5 Normal triiodothyronine resin uptake 31 % [facility] 22-35 Normal B-type natriuretic peptide 91 pg/mL [facility] <100 Normal calcium, serum 9.3 mg/dL [facility] 8.6-10.2 Normal carbon dioxide, venous blood 28 mmol/L [facility] 21-33 Normal chloride, serum 104 mmol/L [facility] 98-110 Normal potassium, serum 4.1 mmol/L [facility] 3.5-5.3 Normal sodium, serum 141 mmol/L [facility] 135-146 Normal urea nitrogen/creatinine ratio, serum NOT APPLICABLE (calc) [facility] 6-22 Estimated Glomerular Filtration Rate (calc) >60 mL/min/1.73m2 [facility] > OR = 60 Normal creatinine, serum 0.83 mg/dL [facility] 0.60-1.18 Normal urea nitrogen, blood 18 mg/dL [facility] 7-25 Normal blood glucose, random 143 mg/dL [facility] 65-99 High thyroid stimulating hormone, serum 1.790 u[IU]/mL Araceli Man mucus on urinalysis Yes [facility] epithelial cells, urine, per microscopy 0-10 Araceli aMn casts, urine Present abnormal Denbecca Man WBC urine on microscopy 1+ abnormal [facility] bacteria, urine microscopy Few Denetrobinna Man RBC urine by microscopy 0-3 [facility] urobilinogen, urine, semiquantitative (dipstick) 0.2 Araceli Man nitrite, urine, semiquantitative Negative [facility] RBC, urine, dipstick Negative [facility] bilirubin, urine Negative [facility] ketones, urine, by test strip Negative [facility] glucose, urine, semiquantitative Negative [facility] protein, urine, semiquantitative (dipstick) Negative [facility] pH, urine, semiquantitative 5.0 Araceli Man specific gravity, urine 1.011 Koetrobinna Man urine color Yellow Denbecca Man appearance, urine Clear [facility] albumin/globulin ratio, serum 1.4 [facility] protein, total, serum 7.8 g/dL [facility] albumin, serum 4.6 g/dL [facility] bilirubin, serum, total 0.6 mg/dL [facility] alkaline phosphatase, serum 84 1/L [facility] alanine aminotransferase (SGPT), serum 15 1/L [facility] aspartate aminotransferase (SGOT), serum 18 1/L [facility] calcium, serum 9.6 mg/dL [facility] blood glucose, fasting 113 mg/dL [facility] creatinine, serum 0.84 mg/dL [facility] urea nitrogen, blood 15 mg/dL [facility] carbon dioxide, serum, total 26 mmol/L [facility] chloride, serum 102 mmol/L [facility] potassium, serum 4.4 mmol/L [facility] sodium, serum 141 mmol/L [facility] alanine aminotransferase (SGPT), serum 18 1/L [facility] 6-40 Normal aspartate aminotransferase (SGOT), serum 21 1/L [facility] 10-35 Normal alkaline phosphatase, serum 104 1/L [facility] 33-130 Normal bilirubin, serum, total 0.6 mg/dL [facility] 0.2-1.2 Normal albumin/globulin ratio, serum 1.4 (calc) [facility] 1.0-2.1 Normal globulins, serum, total 3.1 G/DL (CALC) [facility] 2.2-3.9 Normal albumin, serum 4.3 g/dL [facility] 3.6-5.1 Normal protein, total, serum 7.4 g/dL [facility] 6.2-8.3 Normal calcium, serum 9.7 mg/dL [facility] 8.6-10.2 Normal carbon dioxide, venous blood 26 mmol/L [facility] 21-33 Normal chloride, serum 103 mmol/L [facility] 98-110 Normal potassium, serum 4.4 mmol/L [facility] 3.5-5.3 Normal sodium, serum 141 mmol/L [facility] 135-146 Normal urea nitrogen/creatinine ratio, serum NOT APPLICABLE (calc) [facility] - Estimated Glomerular Filtration Rate (calc) >60 mL/min/1.73m2 [facility] > OR = 60 Normal creatinine, serum 0.91 mg/dL [facility] 0.60-1.18 Normal urea nitrogen, blood 14 mg/dL [facility] 7-25 Normal blood glucose, random 142 mg/dL [facility] 65-99 High thyroid stimulating hormone, serum 1.83 u[IU]/mL [facility] 0.40-4.50 Normal free thyroxine index 2.6 [facility] 1.4-3.8 Normal thyroxine, serum, total 9.2 ug/dL [facility] 4.5-12.5 Normal triiodothyronine resin uptake 28 % [facility] 22-35 Normal B-type natriuretic peptide 145 pg/mL [facility] <100 High calcium, serum 9.6 mg/dL [facility] 8.6-10.2 Normal carbon dioxide, venous blood 28 mmol/L [facility] 21-33 Normal chloride, serum 103 mmol/L [facility] 98-110 Normal potassium, serum 4.0 mmol/L [facility] 3.5-5.3 Normal sodium, serum 141 mmol/L [facility] 135-146 Normal urea nitrogen/creatinine ratio, serum NOT APPLICABLE (calc) [facility] - Estimated Glomerular Filtration Rate (calc) >60 mL/min/1.73m2 [facility] > OR = 60 Normal creatinine, serum 0.83 mg/dL [facility] 0.60-1.18 Normal urea nitrogen, blood 13 mg/dL [facility] 7-25 Normal blood glucose, random 124 mg/dL [facility] 65-99 High blood glucose, random 139 mg/dL [facility] creatinine, serum 0.99 mg/dL [facility] urea nitrogen, blood 18 mg/dL [facility] carbon dioxide, serum, total 28 mmol/L [facility] chloride, serum 106 mmol/L [facility] potassium, serum 5.1 mmol/L [facility] sodium, serum 145 mmol/L [facility] platelet count 238 10*3/uL [facility] hematocrit, blood 43.1 % [facility] hemoglobin, blood 14.1 g/dL [facility] erythrocyte (RBC) count 4.63 10*6/mm3 [facility] leukocyte count, blood 8.6 10*3/mm3 [facility] urine crystals, microscopic none [facility] epithelial cells, urine, per microscopy many [facility] casts, urine none [facility] WBC urine on microscopy 40-60 [facility] bacteria, urine microscopy few [facility] RBC urine by microscopy 2-4 [facility] leukocyte esterase, urine, by dipstick 500 [facility] urobilinogen, urine, semiquantitative (dipstick) normal [facility] nitrite, urine, semiquantitative Negative [facility] RBC, urine, dipstick 25 [facility] bilirubin, urine Negative [facility] ketones, urine, by test strip Negative [facility] glucose, urine, semiquantitative Negative [facility] protein, urine, semiquantitative (dipstick) Negative [facility] pH, urine, semiquantitative 5.0 [facility] Steven NAYLOR specific gravity, urine 1.020 Ivonen Steven NAYLOR urine color calixto Ivonne Harris RN appearance, urine sl cloudy Ivonne Harris RN HISTORY OF MEDICATION USE Medication Status Instructions Dates Provider Indications Com ments carvedilol 6.25 mg tablet active TAKE 1 TABLET BY MOUTH TWICE A DAY 12/24 Laverne Beverly RN furosemide 40 mg tablet active TAKE 2 TABLETS BY MOUTH EVERY MORNING AND 1 TABLET BY MOUTH EVERY EVENING DIRECTED 07/03 Luli Lehman RN aspirin 81 mg capsule active Take 1 capsule by mouth once a day [facility] clindamycin HCl 300 mg capsule completed Take 1 capsule by mouth every six hours 02/12 - 03/18 [facility] Bactrim DS 800-160 mg tablet completed 1 tablet twice a day 02/10 - 03/18 [facility] Cipro 500 mg tablet completed 1 tablet twi ce a day 02/10 - 02/10 Doe Middleton MD tramadol 50 mg tablet active 1 tablet every six hours for pain 02/10 Doe Middleton MD spironolactone 50 mg tablet active TAKE 1 TABLET BY MOUTH TWICE A DAY *white pills only* (Dye allergy) 12/06 Amanda Anuj PAGE Specialist furosemide 40 mg tablet completed TAKE TWO TABLETS BY MOUTH EVERY MORNING AND TAKE ONE TABLET BY MOUTH EVERY EVENING DIRECTED 12/01 - 07/03 Luli Lehman RN spironolactone 50 mg tablet completed TAKE 1 TABLET BY MOUTH TWICE A DAY 12/01 - [facility] Diflucan 150 mg tablet completed 1 tablet by mouth single dose 07/17 - 03/18 [facility] Farxiga 10 mg tablet completed 1 tablet by mouth once a day - 12/02 Esther Valencia NP furosemide 40 mg tablet completed Take 2 tablet by mouth as directed TAKE TWO TABLETS BY MOUTH EVERY MORNING AND TAKE ONE TABLET BY MOUTH EVERY EVENING 12/04 - 12/01 Yvonne Cotton spironolactone 50 mg tablet completed Take 1 tablet by mouth twice a day 12/04 - 12/01 Yvonne Cotton nitroglycerin 0.4 mg tablet, sublingual active 1 tablet under tongue as directed as needed 1 tablet under tongue for chest pain. May repeat every 5 minutes if still having chest pain- to max of 3 tablets per episode.If no relief after 3rd dose, go to ER 11/28 [facility] hydroxychloroquine 200 mg tablet completed - 05/29 [facility] spironolactone 50 mg tablet completed TAKE 1 TABLET BY MOUTH TWICE A DAY 04/19 - 12/04 Dafne Alberto albuterol sulfate 90 mcg/actuation HFA aerosol inhaler completed Inhale - 05/30 Angelique Angeles Corlanor 5 mg tablet active Take 1 tabl et by mouth twice a day 05/31 Doe Middleton MD 4 sample bottles 01/24/23 dicyclomine 10 mg capsule completed - 05/30 Angelique Angeles duloxetine 30 mg capsule, delayed rel sprinkle completed - 02/27 [facility] fluticasone propion-salmeterol unspecified unspecified active as needed [facility] furosemide 40 mg tablet completed - 12/04 Dafne Alberto glimepiride 4 mg tablet completed - 05/30 Angelique Angeles metolazone 2.5 mg tablet completed - 05/30 Angelique Angeles rosuvastatin 20 mg tablet completed - 02/27 [facility] spironolactone 50 mg tablet completed - 04/19 Kyra Vasquez Respimat 2.5-2.5 mcg/actuation mist completed - 05/30 Angelique Angeles Vitamin B-12 1,000 mcg tablet extended release active Take 1 tablet by mouth once a day [facility] Vitamin D3 125 mcg (5,000 unit) tablet completed - 03/18 [facility] spironolactone 50 mg tablet completed TAKE ONE TABLET BY MOUTH TWICE A DAY 08/03 - 04/19 Tia Ella aspirin 325 mg capsule completed 1 capsule by mouth once a day - 03/18 [place] Spivey Spiriva with HandiHaler 18 mcg capsule, w/inhalation device active 2 puff by mouth once a day Haylee Richards tramadol 50 mg tablet completed Take 1 tablet once a day as needed 01/11 - 02/10 Doe Middleton MD EMGALITY 120 MG/ML SUBCUTANEOUS SOLUTION AUTO-INJECTOR completed inject once a month 01/12 - 06/07 Haylee Richards Restasis 0.05% dropperette completed 11/30 - 07/19 Galen Olivares RN Arnuity Ellipta 100 mcg/actuation blister with device completed 11/30 - 07/19 Galen Olivares RN metolazone 2.5 mg tablet completed 1 by mouth every morning as needed 07/15 - 05/30 Angelique Angeles PRAVASTATIN SODIUM 20 MG ORAL TABLET completed take 1 tab daily 07/15 - 06/07 Haylee Richards SPIRIVA RESPIMAT 2.5 MCG/ACT INHALATION AEROSOL SOLUTION completed TAke 1 puff twice a day 07/15 - 11/30 Galen Olivares RN LEVAQUIN 500 MG ORAL TABLET completed 1 po q day x 7 days 11/29 - 07/15 Lynnette Aldana CORLANOR 5 MG ORAL TABLET completed one tab twice daily 04/03 - 06/07 Haylee Richards ENTRESTO 24-26 MG ORAL TABLET completed one tablet twice a day 04/03 - 01/12 Doe Middleton MD ASPIRIN 81 325mg TBEC completed 1 tablet by mouth once a day 04/03 - 07/19 Haylee Richards ENTRESTO (SACUBITRIL/VALSARTA N) 24MG/26MG completed 1 po bid 03/26 - 06/07 Dafne Alberto PRAVASTATIN SODIUM 20 MG ORAL TABLET completed ONE TAB. DAILY - 06/07 Dafne Alberto CALCIUM TABLET completed once a day 06/26 - 06/07 Haylee Richards TRIAMCINOLONE ACETONIDE 0.1 % EXTERNAL CREAM completed as directed 06/26 - 06/07 Haylee Richards ONDANSETRON 4 MG ORAL TABLET DISINTEGRATING completed take as needed 03/13 - 06/07 Haylee Richards ergocalciferol (vitamin D2) 1,250 mcg (50,000 unit) capsule completed once a week - 05/29 Dayton Spivey Pepcid 40 mg tablet active 1 tablet onc e a day 12/26 Haylee Richards METFORMIN HCL 500 MG ORAL TABLET completed twice daily - 06/07 Dafne Alberto potassium chloride 10 mEq tablet,ER particles/crystals completed 1 tablet once a day 03/15 - 03/18 [place] Spivey Probiotic 10 billion cell capsule completed once a day - 05/30 Angelique Angeles Aldactone 50 mg tablet completed 1 twice a day 11/29 - 08/03 David Deleon MD CALCIUM CARBONATE 600 MG ORAL TABLET completed ONE TAB BY MOUTH DAILY - 12/26 Haylee Richards hydrocodone-acetamin ophen 5-325 mg tablet completed 1 three times a day as needed 03/30 - 05/29 [place] Spivey LEVOTHROXINE 500 MCG completed once daily - 06/07 Dafne Alberto SPIRONOLACTONE 25 MG ORAL TABLET completed ONE TAB. DAILY 02/10 - 11/29 Galen Brantley RN METOLAZONE 5 MG ORAL TABLET completed as needed 11/22 - 06/07 Haylee Richards KLOR-CON M10 10 MEQ ORAL TABLET EXTENDED RELEASE completed 1 Tab; Once a Day. 11/22 - 11/29 Galen Brantley RN DICLOFENAC SODIUM 75 MG ORAL TABLET DELAYED RELEASE completed 1 bid 11/22 - 06/07 Haylee Richards NEXIUM 40 MG ORAL CAPSULE DELAYED RELEASE completed 1 daily 11/22 - 06/07 Dafne Alberto PROAIR HFA 108 (90 Base) MCG/ACT INHALATION AEROSOL SOLUTION completed NEEDED - 11/22 Milagros Julian OMEPRAZOLE 40 MG ORAL CAPSULE DELAYED RELEASE completed 1 capsule by mouth daily 04/10 - 11/22 Milagros Julian furosemide 40 mg tablet completed TAKE TWO TABLETS BY MOUTH EVERY MORNING AND TAKE ONE TABLET BY MOUTH EVERY EVENING 01/18 - 12/04 Dafne Alberto ASPIRIN 81 MG ORAL TABLET DELAYED RELEASE completed Take one (1) tablet by mouth daily 02/24 - 11/22 Milagros Julian HYDROXYZINE HCL 25 MG ORAL TABLET completed tid - 06/07 Haylee Richards SPIRONOLACTONE 25 MG ORAL TABLET completed ONE TAB DAILY 01/20 - 11/22 Doe Middleton MD ISOSORBIDE MONONITRATE ER 30 MG ORAL TABLET EXTENDED RELEASE 24 HOUR completed one tab daily 01/20 - 06/07 Dafne Alberto CARVEDILOL 6.25 MG ORAL TABLET completed bid 01/20 - 04/28 Doe Middleton MD PROTONIX 40 MG ORAL TABLET DELAYED RELEASE completed daily - 06/07 Milagros Julian FLAGYL 500 MG ORAL TABLET completed bid - 02/24 Galen Olivares RN ULTRAM 50 MG ORAL TABLET completed - 06/07 Haylee Richards ASPIRIN 325 MG ORAL TABLET completed ONE TAB. DAILY - 11/22 Milagros Julian LEVAQUIN 500 MG ORAL TABLET completed 1 tab daily till gone - 01/20 Galen Olivares RN Cinnamon 500 mg capsule completed 2-3 capsule once a day - 05/30 Angelique Angeles METOLAZONE 5 MG ORAL TABLET completed 1/2 tab daily - 01/20 Galen Olivares RN FLUOXETINE HCL 10 MG ORAL TABLET completed 1 tab daily as needed - 01/20 Galen Olivares RN LORAZEPAM 0.5 MG ORAL TABLET completed 1 tab daily as needed - 01/20 Galen Olivares RN ASTELIN SOLUTION active 2 spray once a day as needed Hayleevalentine OLIVARESZEM CD 240 MG ORAL CAPSULE EXTENDED RELEASE 24 HOUR completed one tablet daily 07/08 - 12/25 David Deleon MD METOPROLOL SUCCINATE ER 50 MG ORAL TABLET EXTENDED RELEASE 24 HOUR completed 1 tab by mouth daily - 07/11 Doe Middleton MD METOPROLOL SUCCINATE ER 50 MG ORAL TABLET EXTENDED RELEASE 24 HOUR completed 1 tab po qd 12/14 - 12/23 Gita Lee LISINOPRIL 10 MG ORAL TABLET completed 1 tablet twice daily 07/11 - 01/08 Doe Middleton MD KLOR-CON M10 10 MEQ ORAL TABLET EXTENDED RELEASE completed 1 daily 01/20 - 02/24 Galen Olivares RN DICLOFENAC SODIUM 75 MG ORAL TABLET DELAYED RELEASE completed 1 tablet twice daily 07/11 - 01/20 Galen Olivares RN AVELOX 400 MG ORAL TABLET completed ONE TAB. DAILY - 06/07 Tony Epps LEXAPRO 10 MG ORAL TABLET completed one per day 11/27 - 12/14 Galen Olivares RN CARDIZEM CD 360 MG ORAL CAPSULE EXTENDED RELEASE 24 HOUR completed one daily 11/27 - 12/14 Tariq Garay MD NORVASC 10 MG ORAL TABLET completed ONE TAB. DAILY - 11/27 Doe Middleton MD PREDNISONE 10 MG ORAL TABLET completed Alternate 1 tab with 1/2 tab daily for 2 weeks. Then 1/2 tab daily. - 12/14 Galen Olivares RN LEXAPRO 10 MG ORAL TABLET completed 1 tablet daily 07/11 - 06/07 Tony Epps JANUVIA 100 MG ORAL TABLET completed once daily - 06/07 Doe Middleton MD NITROFURANTOIN MONOHYD MACRO 100 MG ORAL CAPSULE completed as directed - 12/14 Galen Olivares RN glimepiride 2 mg tablet completed 2 tablet twice a day 12/15 - 05/30 Angelique Angeles AMIODARONE HCL 200 MG ORAL TABLET completed ONE TAB. DAILY 06/29 - 06/07 Renea Figueroa MA VISTARIL 50 MG ORAL CAPSULE completed 1 tablet every 8 hours as needed 06/29 - 06/07 Tony Epps PEPCID AC completed as needed - 06/07 Renea Figueroa MA DARVOCET-N 100 TABS completed as needed - 06/07 Tony Epps METFORMIN HCL 500 MG ORAL TABLET completed 1 tablet by mouth daily - 06/07 Renea Figueroa MA GLYBURIDE 2.5 MG ORAL TABLET completed 1./2 tablet by mouth twice daily - 06/07 Renea Figueroa MA RELAFEN 500MG completed 1 tablet by mouth twice daily - 12/14 Galen Olivares RN ProAir HFA 90 mcg/actuation HFA aerosol inhaler active as directed 02/04 Doe Middleton MD FLOVENT HFA 110 MCG/ACT INHALATION AEROSOL completed 2 puffs twice a day 11/10 - 06/07 Humbel Manacop LEVAQUIN 250 MG ORAL TABLET completed 1 tablet by mouth daily - 06/07 Humble Manacoshala LORAZEPAM 0.5 MG ORAL TABLET completed 1 tablet by mouth every four hours as needed - 06/07 Tony Epps KLOR-CON M20 20 MEQ ORAL TABLET EXTENDED RELEASE completed 1 tablet by mouth daily - 06/07 Doe Middleton MD SPIRONOLACTONE 25 MG ORAL TABLET completed 1/2 tablet by mouth daily - 06/07 Doe Middleton MD CARVEDILOL 6.25 MG ORAL TABLET completed ONE TAB. TWICE DAILY - 06/07 Doe Middleton MD LASIX 40 MG ORAL TABLET completed 1 tablets in am and 1/2 to 1 tablet pm - 01/20 Galen Olivares RN GLYBURIDE 2.5 MG ORAL TABLET completed 1/2 tablet by mouth twice daily - 05/11 Galen Olivares RN SOCIAL HISTORY Date Observation Value Provider drug use no Doe Fisher alcohol use no Doe Fisher passive cigarette sm john exposure yes Doe Middleton MD smoking status Never smoker Doe Middleton MD drug use no Doe Fisher alcohol use no Doe Fisher passive cigarette sm john exposure yes Doe Middleton MD smoking status Never smoker Doe Middleton MD drug use no Doe Fisher alcohol use no Doe Fisher passive cigarette sm john exposure yes Doe Middleton MD smoking status Never smoker Doe Middleton MD drug use no Doe Fsiher alcohol use no Doe Fisher passive cigarette sm john exposure yes Doe Middleton MD smoking status Never smoker Doe Middleton MD drug use no [facility] alcohol use no [facility] passive cigarette sm john exposure yes [facility] smoking status Never smoker [facility] drug use no Esther C 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 alcohol use no Esther C 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 passive cigarette sm john exposure yes Esther C Tourville SUPERVISOR WELDING EQUIPMENT REPAIRER smoking status Never smoker Esther C Tourv ille SUPERVISOR WELDING EQUIPMENT REPAIRER drug use no Cecy Ventimig mahamed [facility] alcohol use no Cecy Ventimig mahamed [facility] smoking status Never smoker Cecy Ventim iglia [facility] social history reviewed E&M revi ewed - no changes required Doe Middleton MD smoking status Never smoker Valeria Bates drug use no Cecy Ventimig mahamed [facility] alcohol use no Cecy Ventimig mahamed [facility] smoking status Never smoker Cecy Ventim iglia [facility] social history E&M Marital Statu s: Single L fozia alone E thnicity: Smoking History: P atyuriy has never smoked. Doe Middleton MD social history reviewed E&M revi ewed - no changes required Doe Middleton MD seatbelt usage 0 % Angelique Blake and caffeine use, averag e drinks per day Yes Angelique Blakeand passive cigarette sm john exposure yes Angelique Blakeand smoking status Never smoker Angelique Blake and social history E&M Marital Statu s: Single L fozia alone E thnicity: Smoking History: P atyuriy has never smoked. Doe Middleton MD social history reviewed E&M revi ewed - no changes required Doe Middleton MD smoking status Never smoker Kyra meehan social history E&M Marital Statu s: Single L fozia alone E thnicity: Smoking History: P atyuriy has never smoked. Doe Middleton MD social history reviewed E&M revi ewed - no changes required Doe Middleton MD seatbelt usage 0 % Haylee Renteria caffeine use, averag e drinks per day Yes Haylee Maurice passive cigarette sm john exposure yes Haylee Maurice smoking status Never smoker Haylee Tank cohn social history E&M Marital Statu s: Single L fozia alone E thnicity: Smoking History: P atyuriy has never smoked. Doe Middleton MD social history reviewed E&M revi ewed - no changes required Doe Middleton MD seatbelt usage 0 % Maira fox caffeine use, averag e drinks per day Yes Maira Layne passive cigarette sm john exposure yes Maira Layne smoking status Never smoker Maira fox social history E&M Marital Statu s: Single L fozia alone E thnicity: Smoking History: P manish has never smoked. Doe Middleton MD social history reviewed E&M revi ewed - no changes required Doe Middleton MD seatbelt usage 0 % Lynnette alvares caffeine use, averag e drinks per day Yes Lynnette Aldana passive cigarette sm john exposure yes Lynnette Aldana smoking status Never smoker Lynnette alvares number of grandchildren Tariq Garay MD U cecilia Garay MD drug use none Tariq Garay MD alcohol use no Tariq Garay MD social history E&M Marital Statu s: Single L fozia alone E thnicity: Smoking History: P manish has never smoked. Tariq Garay MD social history reviewed E&M revi ewed - no changes required Tariq Garay MD seatbelt usage 0 % Dafne christensen caffeine use, averag e drinks per day Yes Dafne Alberto passive cigarette sm john exposure yes Dafne Alberto smoking status Never smoker Dafne christensen social history E&M Marital Statu s: Single L fozia alone E thnicity: Smoking History: P manish has never smoked. Doe Middleton MD social history reviewed E&M revi ewed - no changes required Doe Middleton MD seatbelt usage 0 % Lynnette alvares caffeine use, averag e drinks per day Yes Lynnette Aldana passive cigarette sm john exposure yes Lynnette Aldana smoking status Never smoker Lynnette alvares social history E&M Marital Statu s: Single L fozia alone E thnicity: Smoking History: P manish has never smoked. Doe Middleton MD social history reviewed E&M revi ewed - no changes required Doe Middleton MD seatbelt usage 0 % Lynnette alvares caffeine use, averag e drinks per day Yes Lynnette Aldana passive cigarette sm john exposure yes Lynnette Aldana smoking status Never smoker Lynnette alvares social history E&M Marital Statu s: Single L fozia alone E thnicity: Smoking History: P manish has never smoked. Doe Middleton MD social history reviewed E&M revi ewed - no changes required Doe Middleton MD seatbelt usage 0 % Lynnette alvares caffeine use, averag e drinks per day Yes Lynnette Aldana passive cigarette sm john exposure yes Lynnette Aldana smoking status Never smoker Lynnette alvares social history E&M Marital Statu s: Single L fozia alone E thnicity: Smoking History: P manish has never smoked. Doe Middleton MD social history reviewed E&M revi ewed - no changes required Doe Middleton MD seatbelt usage 0 % Haylee Renteria caffeine use, averag e drinks per day Yes Haylee Richards passive cigarette sm john exposure yes Haylee Richards smoking status Never smoker HayleeAdelia Renteria social history E&M Marital Statu s: Single L fozia alone E thnicity: Smoking History: P manish has never smoked. Doe Middleton MD social history reviewed E&M revi ewed - no changes required Doe Middleton MD seatbelt usage 0 % Lynnette alvares caffeine use, averag e drinks per day Yes Lynnette Aldana passive cigarette sm john exposure yes Lynnette Aldana smoking status Never smoker Lynnette alvares social history E&M Marital Statu s: Single L fozia alone E thnicity: Smoking History: P atient has never smoked. Doe Middleton MD social history reviewed E&M revi ewed - no changes required Doe Middleton MD seatbelt usage 0 % Marianna O'Alex caffeine use, averag e drinks per day Yes Marianna O'Alex passive cigarette sm john exposure yes Marianna O'Alex smoking status Never smoker Marianna O'Alex number of grandchildren Jeremiah Nelson MD T davis Nelson MD social history reviewed E&M revi ewed - no changes required Jeremiah Nelson MD social history E&M Marital Statu s: Single L fozia alone E thnicity: Smoking History: P atient has never smoked. Doe Middleton MD social history reviewed E&M revi ewed - no changes required Doe Middleton MD seatbelt usage 0 % Lynnette alvares caffeine use, averag e drinks per day Yes Lynnette Aldana passive cigarette sm john exposure yes Lynnette Aldana smoking status Never smoker Lynnette Julius alvares social history E&M Marital Statu s: Single L fozia alone E thnicity: Smoking History: P atyuriy has never smoked. Doe Middleton MD social history reviewed E&M revi ewed - no changes required Doe Middleton MD smoking status Never smoker Torei Gongora [facility] social history E&M Marital Statu s: Single L fozia alone E thnicity: Smoking History: P atyuriy has never smoked. Doe Middleton MD social history reviewed E&M revi ewed - no changes required Doe Middleton MD seatbelt usage 0 % Dafne christensen alcohol use, average drinks per day none Dafne Alberto alcohol use no Dafne Alston lder caffeine use, averag e drinks per day Yes Dafne Alberto drug use none Dafne Alston lder passive cigarette sm john exposure yes Dafne Alberto smoking status Never smoker Dafne Call amparo social history E&M Marital Statu s: Single L fozia alone E thnicity: Smoking History: P manish has never smoked. Doe Middleton MD social history reviewed E&M revi ewed - no changes required Doe Middleton MD seatbelt usage 0 % Eryn Hardy alcohol use, average drinks per day none Eryn Hardy alcohol use no Eryn Hardy caffeine use, averag e drinks per day Yes Eryn Hardy drug use none Eryn Hardy passive cigarette sm john exposure yes Eryn Hardy smoking status Never smoker Eryn Hardy seatbelt usage 0 % Haylee Renteria alcohol use, average drinks per day none Haylee Richards alcohol use no Haylee steven caffeine use, averag e drinks per day Yes Haylee Richards drug use none Haylee steven passive cigarette sm john exposure yes Haylee Richards smoking status Never smoker Haylee Renteria social history E&M Marital Statu s: Single L fozia alone E thnicity: Smoking History: P manish has never smoked. Doe Middleton MD social history reviewed E&M revi ewed - no changes required Doe Middleton MD seatbelt usage 0 % Haylee Renteria alcohol use, average drinks per day none Haylee Richards alcohol use no Haylee steven caffeine use, averag e drinks per day Yes Haylee Richards drug use none Haylee steven passive cigarette sm john exposure yes Haylee Richards smoking status Never smoker Haylee Renteria social history E&M Marital Statu s: Single L fozia alone E thnicity: Smoking History: Shala hammond has never smoked. Doe Middleton MD social history reviewed E&M revi ewed - no changes required Doe Middleton MD seatbelt usage 0 % Haylee Renteria alcohol use, average drinks per day none Haylee Richards alcohol use no Haylee steven caffeine use, averag e drinks per day Yes Haylee Richards drug use none Haylee steven passive cigarette sm john exposure yes Haylee Richards smoking status Never smoker Haylee Renteria social history E&M Marital Statu s: Single L fozia alone E thnicity: Smoking History: Shala hammond has never smoked. Doe Middleton MD social history reviewed E&M revi ewed - no changes required Doe Middleton MD seatbelt usage 0 % Dafne christensen alcohol use, average drinks per day none Dafne Alberto alcohol use no Dafne gomez caffeine use, averag e drinks per day Yes Dafne Alberto drug use none Dafne gomez passive cigarette sm john exposure yes Dafne Alberto smoking status Never smoker Dafne christensen social history reviewed E&M revi ewed - no changes required Doe Middleton MD seatbelt usage 0 % Rayna Olivas alcohol use, average drinks per day none Rayna Olivas alcohol use no Rayna Olivas caffeine use, averag e drinks per day Yes Rayna Olivas drug use none Rayna Olivas passive cigarette sm john exposure yes Rayna Olivas smoking status Never smoker Rayna Olivas social history reviewed E&M revi ewed - no changes required Doe Middleton MD seatbelt usage 0 % Haylee Fu suki alcohol use, average drinks per day none Haylee Richards alcohol use no Haylee Rosas nson caffeine use, averag e drinks per day Yes Haylee Richards drug use none Haylee Ralph nson passive cigarette sm john exposure yes Haylee Richards smoking status Never smoker Hayleevalentine Renteria social history reviewed E&M revi ewed - no changes required Doe Middleton MD alcohol use no Dafne Alecia gomez smoking status Never smoker Dafne Jakub christensen social history reviewed E&M revi ewed - no changes required Doe Middleton MD seatbelt usage 0 % Haylee Tank suki alcohol use, average drinks per day none Haylee Richards caffeine use, averag e drinks per day Yes Haylee Richards drug use none HayleeAdelia Rosas nson passive cigarette sm john exposure yes Haylee Richards smoking status Never smoker Haylee Fu suki social history reviewed E&M revi ewed - no changes required Doe Middleton MD smoking status Never smoker Haylee Fu suki seatbelt usage 0 % Milagros grijalva alcohol use, average drinks per day none Milagros Julian caffeine use, averag e drinks per day Yes Milagros Julian drug use none Milagros Julian passive cigarette sm john exposure yes Milagros Julian smoking status Never smoker Milagros Lott valentine social history reviewed E&M reviewed Doe Middleton MD social history reviewed E&M reviewed Galen Olivares RN social history reviewed E&M reviewed Galen Olivares RN social history reviewed E&M reviewed Galen Olivares RN social history reviewed E&M reviewed Doe Middleton MD social history reviewed E&M reviewed Galen Olivares RN drug use none Doe Fisher social history reviewed E&M reviewed Galen Olivares RN caffeine use, averag e drinks per day Yes Humble Valenzuela passive cigarette sm john exposure yes Humble Manacop seatbelt usage 0 % Doe Middleton MD drug use no Doe Fisher passive cigarette sm john exposure no Doe Middleton MD smoking status never smoker Doe Middleton MD social history reviewed E&M reviewed Doe Middleton MD social history reviewed E&M reviewed Galen Olivares RN social history reviewed E&M reviewed Doe Middleton MD social history reviewed E&M reviewed Doe Middleton MD social history reviewed E&M reviewed Galen Olivares RN social history reviewed E&M reviewed Doe Middleton MD social history reviewed E&M reviewed Galen Olivares RN social history reviewed E&M reviewed Doe Middleton MD social history reviewed E&M reviewed Galen Olivares RN social history reviewed E&M reviewed Galen Olivares RN social history reviewed E&M reviewed Galen Olivares RN drug use none Doe Fisher social history E&M Marital Statu s: Single L fozia alone E thnicity: Galen Olivares RN social history reviewed E&M reviewed Galen Olivares RN alcohol use, average drinks per day none [employer] smoking status Non-smoker [employer] FUNCTIONAL STATUS Date Observation Value Provider HRA, CV Assess/Plan, Angina (inactive) Management Plan continue current therapy Esther Valencia SUPERVISOR WELDING EQUIPMENT 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 HRA, CV Assess/Plan, Angina (inactive) Management Plan continue current therapy Cecy Ventimiglia ASSISTANT PROFESSOR OF DIETETICS HRA, CV Assess/Plan, Angina (inactive) Management Plan continue current therapy Cecy Ventimiglia ASSISTANT PROFESSOR OF DIETETICS HRA, CV Assess/Plan, Angina (inactive) Management Plan continue current therapy Doe Mdidleton MD HRA, CV Assess/Plan, Angina (inactive) Management Plan continue current therapy Doe Middleton MD HRA, CV Assess/Plan, Angina (inactive) Management Plan continue current therapy Doe Middleton MD HRA, CV Assess/Plan, Angina (inactive) Management Plan continue current therapy Doe Middleton MD HRA, CV Assess/Plan, Angina (inactive) Management Plan continue current therapy Doe Middleton MD HRA, CV Assess/Plan, Angina (inactive) Management Plan continue current therapy Doe Middleton MD HRA, CV Assess/Plan, Angina (inactive) Management Plan continue current therapy Doe Middleton MD HRA, CV Assess/Plan, Angina (inactive) Management Plan continue current therapy Doe Middleton MD HRA, CV Assess/Plan, Angina (inactive) Management Plan continue current therapy Doe Middleton MD HRA, CV Assess/Plan, Angina (inactive) Management Plan continue current therapy Jeremiah Nelson MD HRA, CV Assess/Plan, Angina (inactive) Management Plan continue current therapy Doe Middleton MD HRA, CV Assess/Plan, Angina (inactive) Management Plan continue current therapy Doe Middleton MD HRA, CV Assess/Plan, Angina (inactive) Management Plan continue current therapy Doe Middleton MD HRA, CV Assess/Plan, Angina (inactive) Management Plan continue current therapy Doe Middleton MD HRA, CV Assess/Plan, Angina (inactive) Management Plan continue current therapy Deo Middleton MD HRA, CV Assess/Plan, Angina (inactive) Management Plan continue current therapy Doe Middleton MD HRA, CV Assess/Plan, Angina (inactive) Management Plan continue current therapy Doe Middleton MD HRA, CV Assess/Plan, Angina (inactive) Management Plan continue current therapy Doe Middleton MD HRA, CV Assess/Plan, Angina (inactive) Management Plan continue current therapy Doe Middleton MD HRA, CV Assess/Plan, Angina (inactive) Management Plan continue current therapy Doe Middleton MD HRA, CV Assess/Plan, Angina (inactive) Management Plan continue current therapy Doe Middleton MD MENTAL STATUS Date Observation Value Provider assessment of judgme nt and insight E&M Alert and oriented to time, place and person. Mood and affect are normal. Doe Middleton MD assessment of judgme nt and insight E&M Alert and oriented to time, place and person. Mood and affect are normal. Galen Olivares RN assessment of judgme nt and insight E&M Alert and oriented to time, place and person. Mood and affect are normal. Galen Olivares RN assessment of judgme nt and insight E&M Alert and oriented to time, place and person. Mood and affect are normal. David Deleon MD assessment of judgme nt and insight E&M Alert and oriented to time, place and person. Mood and affect are normal. Doe Middleton MD assessment of judgme nt and insight E&M Alert and oriented to time, place and person. Mood and affect are normal. Galen Olivares RN assessment of judgme nt and insight E&M Alert and oriented to time, place and person. Mood and affect are normal. Galen Olivares RN assessment of judgme nt and insight E&M Alert and oriented to time, place and person. Mood and affect are normal. Doe Middleton MD assessment of judgme nt and insight E&M Alert and oriented to time, place and person. Mood and affect are normal. Galen Olivares RN assessment of judgme nt and insight E&M Alert and oriented to time, place and person. Mood and affect are normal. Doe Middleton MD assessment of judgme nt and insight E&M Alert and oriented to time, place and person. Mood and affect are normal. Doe Middleton MD assessment of judgme nt and insight E&M Alert and oriented to time, place and person. Mood and affect are normal. Galen Olivares RN assessment of judgme nt and insight E&M Alert and oriented to time, place and person. Mood and affect are normal. Doe Middleton MD assessment of judgme nt and insight E&M Alert and oriented to time, place and person. Mood and affect are normal. Galen Olivares RN assessment of judgme nt and insight E&M Alert and oriented to time, place and person. Mood and affect are normal. Doe Middleton MD assessment of judgme nt and insight E&M Alert and oriented to time, place and person. Mood and affect are normal. Galen Olivares RN assessment of judgme nt and insight E&M Alert and oriented to time, place and person. Mood and affect are normal. Galen Olivares RN assessment of judgme nt and insight E&M Alert and oriented to time, place and person. Mood and affect are normal. Galen Olivares RN assessment of judgme nt and insight E&M Alert and oriented to time, place and person. Mood and affect are normal. Galen Olivares RN FAMILY HISTORY Family Member Condition Mother [place] female <65 Full Sister Family History of Co ronary Artery Disease: Mother Family History of Lazo dden Cardiac : Mother Family History Coron cornelia Heart Disease female < 65: Father Family History of Lazo dden Cardiac : INSURANCE PROVIDERS Payer name Policy type / Coverage type Desdemona red libertarian ID [employer] MEDICARE ADVANTAGE ST [id number] 003 (O POS) Medicare [id number] ADVANCE DIRECTIVES Name Date SEE ADVANCE DIRECTIVE ON FILE DISCUSSED - NO DECISION MADE TREATMENT PLAN Date Name Performer [id number],S,weight loss e ncouraged. Cecy Chacon [facility] [id number],S, Cecy saez [facility] [id number],C,B P well controlled will continue present regimen H er updated medication list for this problem includes: Furosemide 40 Mg Tablet (Furosemide) ..... Take 2 tablet by mouth as directed take two tablets by mouth every morning and take one tablet by mouth every evening Spironolactone 50 Mg Tablet (Spironolactone) ..... Take 1 tablet by mouth twice a day [place] Rochellemari [facility] [id number],C,c hronic. some fatigue may be residual post covid. Will monitor Cecysamantha Byrdmari [facility] [id number],C,E F 15%. On tolerated medication therapy. ICD in placed. H er updated medication list for this problem includes: Furosemide 40 Mg Tablet (Furosemide) ..... Take 2 tablet by mouth as directed take two tablets by mouth every morning and take one tablet by mouth every evening Spironolactone 50 Mg Tablet (Spironolactone) ..... Take 1 tablet by mouth twice a day Nitroglycerin 0.4 Mg Tablet, Sublingual (Nitroglycerin) ..... 1 tablet under tongue as directed as needed 1 tablet under tongue for chest pain. may repeat every 5 minutes if still having chest pain- to max of 3 tablets per episode.if no relief after 3rd dose, go to er Cecysamantha Chacon [facility] [id number],C,P atient compensated and at baseline. Farxiga added on IP basis. patient however reporting yeast symptoms. We will treat yeast infection. Will have her hold farxiga. Concern yeast related to recent abx use. Will retrial farxiga after yeast resolved. Will return in one month as scheduled or sooner if needed. H er updated medication list for this problem includes: Furosemide 40 Mg Tablet (Furosemide) ..... Take 2 tablet by mouth as directed take two tablets by mouth every morning and take one tablet by mouth every evening Spironolactone 50 Mg Tablet (Spironolactone) ..... Take 1 tablet by mouth twice a day Nitroglycerin 0.4 Mg Tablet, Sublingual (Nitroglycerin) ..... 1 tablet under tongue as directed as needed 1 tablet under tongue for chest pain. may repeat every 5 minutes if still having chest pain- to max of 3 tablets per episode.if no relief after 3rd dose, [facility] [id number],S, Doe grijalva [place] [id number],S, Doe grijalva [place] [id number],S, Doe grijalva [place] [id number],S, Doe grijalva [place] [id number],B, Doejareth grijalva [place] [id number],C,Venous duplex Doe Middleton [place] [id number],C,off statin d/ t intolerance. [facility] [id number],C,follows with endocrionolgy [facility] [id number],C,c ontrolled. continue present medication regimen H er updated medication list for this problem includes: Furosemide 40 Mg Tablet (Furosemide) ..... Take 2 tablet by mouth as directed take two tablets by mouth every morning and take one tablet by mouth every evening Spironolactone 50 Mg Tablet (Spironolactone) ..... Take 1 tablet by mouth twice a day [facility] [id number],C,E F of 15% per last echo. Will continue present medication regimen as noted above. 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 Take 2 tablet by mouth as directed take two tablets by mouth every morning and take one tablet by mouth every evening Spironolactone 50 Mg Tablet (Spironolactone) ..... Take 1 tablet by mouth twice a day Nitroglycerin 0.4 Mg Tablet, Sublingual (Nitroglycerin) ..... 1 tablet under tongue as directed as needed 1 tablet under tongue for chest pain. may repeat every 5 minutes if still having chest pain- to max of 3 tablets per episode.if no relief after 3rd dose, go to er [facility] [id number],C,m ild to moderate on most recent echo. Will montior [facility] [id number],C,s ystolic dysfunction, EF of 15% per recent echo with mild-mod MR. She is on aldactone, lasix and corlanor. She does not tolerate BB and declines resuming. She did not toleate Entresto d/t hypotension. Jardiance caused yeast infection. Have recommended Verquvo trial as not afffordable for her. Patient will reach out to research to enroll er updated medication list for this problem includes: Furosemide 40 Mg Tablet (Furosemide) ..... Take 2 tablet by mouth as directed take two tablets by mouth every morning and take one tablet by mouth every evening Spironolactone 50 Mg Tablet (Spironolactone) ..... Take 1 tablet by mouth twice a day Nitroglycerin 0.4 Mg Tablet, Sublingual (Nitroglycerin) ..... 1 tablet under tongue as directed as needed 1 tablet under tongue for chest pain. may repeat every 5 minutes if still having chest pain- to max of 3 tablets per episode.if no relief after 3rd dose, go to er [facility] [id number],C,c ontrolled today 113/54. continue present medication regimen er updated medication list for this problem includes: Furosemide 40 Mg Tablet (Furosemide) ..... Take two tablets by mouth every morning and take one tablet by mouth every evening Spironolactone 50 Mg Tablet (Spironolactone) ..... Take 1 tablet by mouth twice a day Furosemide 40 Mg Tablet (Furosemide) Cecysamantha Chacon [facility] [id number],C,encouraged us e of home night O2 Cecysamantha Chacon [facility] [id number],C,will update e cho [place] Oswaldo [facility] [id number],C,H Fref-EF of 20% per last echo. Will update echo and labs as some mild LE edema and crackles on exam. Will add additional lasix to home regimen x 1 week. Will f/u in 3 mos or sooner if needed. H er updated medication list for this problem includes: Nitroglycerin 0.4 Mg Tablet, Sublingual (Nitroglycerin) ..... 1 tablet under tongue as directed as needed 1 tablet under tongue for chest pain. may repeat every 5 minutes if still having chest pain- to max of 3 tablets per episode.if no relief after 3rd dose, go to er Furosemide 40 Mg Tablet (Furosemide) ..... Take two tablets by mouth every morning and take one tablet by mouth every evening Spironolactone 50 Mg Tablet (Spironolactone) ..... Take 1 tablet by mouth twice a day Furosemide 40 Mg Tablet (Furosemide) Cecysamantha Chacon [facility] [id number],C,c ontinues to have these chronic issues of chest pain and SOB. She had cardiac cath in 2019 that revealed nml coronaries. 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 Will have her take evening lasix, update labs and echo. We will also prescribe nitro to see if it helps with recurrent episodes. Patient seen and examined with Dr. Middleton and plan reviewed. O rders: 9213 MOD 30-39min (CPT-06567) 9213 MOD 30-39min (CPT-85184) C omplete Echo (CPT-97383) C omplete Echo (CPT-22030) C OMPREHENSIVE METABOLIC PANEL, W/EGFR (72073) C OMPREHENSIVE METABOLIC PANEL, W/EGFR (03259) P ROBNP, N TERMINAL (63917) C BC (H/H, RBC, INDICES, WBC, PLT) (1759) Cecy Ventimiglia ASSISTANT PROFESSOR OF DIETETICS [id number],S, Doe Ramada n [id number],S, Doe Ramada n [id number],S, Doe Ramada n [id number],S, Doe Ramada n [id number],S,Needs Preethio r Doe Ramadan [id number],S, Doe Ramada n [id number],S, Doe Ramada n [id number],S, Doe Ramada n [id number],S, Doe Ramada n [id number],S, Doe Ramada n [id number],S, Doe Ramada n [id number],S, Doe Ramada n [id number],S, Doe Ramada n [id number],S, Doe Ramada n [id number],S, Doe Ramada n [id number],S, Doe Ramada n [id number],S, Doe Ramada valentine [facility] Doe Ramana [facility] Doe Ramadavalentine [facility] Doe Ramadavalentine [facility] Doe Ramadavalentine [facility] Cardiology:This visi t has been a part of the consistent, comprehensive, and ongoing management of the chronic medical condition(s) listed above for the patient. S/P ICD Doe Emi [facility] Doe Ramadan Cardiology Doe Ramadan Cardiology Doe Ramadan Cardiology Doe Ramadan Cardiology Doe Ramadan Cardiology Doe Ramadan Cardiology Doe Ramadan Cardiology Doe Ramadan Cardiology Doe Ramadan Cardiology Doe Ramadan Cardiology Doe Ramadan Cardiology Doe Ramadan Cardiology Doe Ramadan Cardiology Doe Ramadan Cardiology Doe Ramadan Cardiology Doe Ramadan Cardiology Doe Ramadan Cardiology Doe Ramadan Cardiology:ICD at ER I S chedule replacement Doe Middleton MD Cardiology: E F 15%. On tolerated medication therapy. ICD in placed. N o farxiga d/t recurrent yeast infections. Her updated medication list for this problem includes: Spironolactone 50 Mg Tablet (Spironolactone) ..... Take 1 tablet by mouth twice a day Furosemide 40 Mg Tablet (Furosemide) ..... Take two tablets by mouth every morning and take one tablet by mouth every evening as directed Nitroglycerin 0.4 Mg Tablet, Sublingual (Nitroglycerin) ..... 1 tablet under tongue as directed as needed 1 tablet under tongue for chest pain. may repeat every 5 minutes if still having chest pain- to max of 3 tablets per episode.if no relief after 3rd dose, go to er Esther Valencia SUPERVISOR WELDING EQUIPMENT REPAIRER Cardiology:per patie nt a1c 6.3 u nable to take farxiga due to recurrent yeast infections Esther Valencia SUPERVISOR WELDING EQUIPMENT REPAIRER Cardiology: B P today: 116/81 P rior BP: 114/68 (07/17/2023) Labs Reviewed: Isaiah reat: 1.1 (02/26/2014) Her updated medication list for this problem includes: Spironolactone 50 Mg Tablet (Spironolactone) ..... Take 1 tablet by mouth twice a day Furosemide 40 Mg Tablet (Furosemide) ..... Take two tablets by mouth every morning and take one tablet by mouth every evening as directed Esther Valencia SUPERVISOR WELDING EQUIPMENT REPAIRER Cardiology: i mproved o n diuretics V enous insufficinecy of L GSV Estherphoenix Valencia SUPERVISOR WELDING EQUIPMENT REPAIRER Cardiology:weight loss encourage d. [facility] Cardiology:BP well c ontrolled will continue present regimen H er updated medication list for this problem includes: Furosemide 40 Mg Tablet (Furosemide) ..... Take 2 tablet by mouth as directed take two tablets by mouth every morning and take one tablet by mouth every evening Spironolactone 50 Mg Tablet (Spironolactone) ..... Take 1 tablet by mouth twice a day [facility]:chronic. some fatigue may be residual post covid. Will monitor [facility] Cardiology:EF 15%. O n tolerated medication therapy. ICD in placed. H er updated medication list for this problem includes: Furosemide 40 Mg Tablet (Furosemide) ..... Take 2 tablet by mouth as directed take two tablets by mouth every morning and take one tablet by mouth every evening Spironolactone 50 Mg Tablet (Spironolactone) ..... Take 1 tablet by mouth twice a day Nitroglycerin 0.4 Mg Tablet, Sublingual (Nitroglycerin) ..... 1 tablet under tongue as directed as needed 1 tablet under tongue for chest pain. may repeat every 5 minutes if still having chest pain- to max of 3 tablets per episode.if no relief after 3rd dose, [facility] er [facility] Cardiology:Patient c ompensated and at baseline. Farxiga added on IP basis. patient however reporting yeast symptoms. We will treat yeast infection. Will have her hold harinder. Concern yeast related to recent abx use. Will retrial harinder after yeast resolved. Will return in one month as scheduled or sooner if needed. H er updated medication list for this problem includes: Furosemide 40 Mg Tablet (Furosemide) ..... Take 2 tablet by mouth as directed take two tablets by mouth every morning and take one tablet by mouth every evening Spironolactone 50 Mg Tablet (Spironolactone) ..... Take 1 tablet by mouth twice a day Nitroglycerin 0.4 Mg Tablet, Sublingual (Nitroglycerin) ..... 1 tablet under tongue as directed as needed 1 tablet under tongue for chest pain. may repeat every 5 minutes if still having chest pain- to max of 3 tablets per episode.if no relief after 3rd dose, go to er Cecysamantha Chacon [facility] Cardiology Doe Middleton MD Cardiology Doe Middleton MD Cardiology Doe Middleton MD Cardiology Doe Middleton MD Cardiology Doe Middleton MD Cardiology:Venous duplex Doe cain MD Cardiology:off statin d/t intole hammad. Cecysamantha Chacon [facility] Cardiology:follows with alycia gamez [place] Oswaldo [facility] Cardiology:controlle d. continue present medication regimen H er updated medication list for this problem includes: Furosemide 40 Mg Tablet (Furosemide) ..... Take 2 tablet by mouth as directed take two tablets by mouth every morning and take one tablet by mouth every evening Spironolactone 50 Mg Tablet (Spironolactone) ..... Take 1 tablet by mouth twice a day Cecysamantha Chacon [facility] Cardiology:EF of 15% per last echo. Will continue present medication regimen as noted above. 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 Take 2 tablet by mouth as directed take two tablets by mouth every morning and take one tablet by mouth every evening Spironolactone 50 Mg Tablet (Spironolactone) ..... Take 1 tablet by mouth twice a day Nitroglycerin 0.4 Mg Tablet, Sublingual (Nitroglycerin) ..... 1 tablet under tongue as directed as needed 1 tablet under tongue for chest pain. may repeat every 5 minutes if still having chest pain- to max of 3 tablets per episode.if no relief after 3rd dose, go to er [facility] Cardiology:mild to m oderate on most recent echo. Will montior [facility] Cardiology:systolic dysfunction, EF of 15% per recent echo with mild-mod MR. She is on aldactone, lasix and corlanor. She does not tolerate BB and declines resuming. She did not toleate Entresto d/t hypotension. Jardiance caused yeast infection. Have recommended Verquvo trial as not afffordable for her. Patient will reach out to research to enroll H er updated medication list for this problem includes: Furosemide 40 Mg Tablet (Furosemide) ..... Take 2 tablet by mouth as directed take two tablets by mouth every morning and take one tablet by mouth every evening Spironolactone 50 Mg Tablet (Spironolactone) ..... Take 1 tablet by mouth twice a day Nitroglycerin 0.4 Mg Tablet, Sublingual (Nitroglycerin) ..... 1 tablet under tongue as directed as needed 1 tablet under tongue for chest pain. may repeat every 5 minutes if still having chest pain- to max of 3 tablets per episode.if no relief after 3rd dose, go to er [facility] Cardiology:controlle d today 113/54. continue present medication regimen H er updated medication list for this problem includes: Furosemide 40 Mg Tablet (Furosemide) ..... Take two tablets by mouth every morning and take one tablet by mouth every evening Spironolactone 50 Mg Tablet (Spironolactone) ..... 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 Will update echo and labs as some mild LE edema and crackles on exam. Will add additional lasix to home regimen x 1 week. Will f/u in 3 mos or sooner if needed. H er updated medication list for this problem includes: Nitroglycerin 0.4 Mg Tablet, Sublingual (Nitroglycerin) ..... 1 tablet under tongue as directed as needed 1 tablet under tongue for chest pain. may repeat every 5 minutes if still having chest pain- to max of 3 tablets per episode.if no relief after 3rd dose, go to er Furosemide 40 Mg Tablet (Furosemide) ..... Take two tablets by mouth every morning and take one tablet by mouth every evening Spironolactone 50 Mg Tablet (Spironolactone) ..... Take 1 tablet by mouth twice a day Furosemide 40 Mg Tablet (Furosemide) Cecy Byrdrafael [facility] Cardiology:continues to have these chronic issues of chest pain and SOB. She had cardiac cath in 2019 that revealed nml coronaries. 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 Will have her take evening lasix, update labs and echo. We will also prescribe nitro to see if it helps with recurrent episodes. Patient seen and examined with Dr. Middleton and plan reviewed. O rders: 9 9214 MOD 30-39min (CPT-08299) 9 9214 MOD 30-39min (CPT-36726) C omplete Echo (CPT-32258) C omplete Echo (CPT-91300) C OMPREHENSIVE METABOLIC PANEL, W/EGFR (35792) C OMPREHENSIVE METABOLIC PANEL, W/EGFR (80522) P ROBNP, N TERMINAL (33573) C BC (H/H, RBC, INDICES, WBC, PLT) (1759) Cecy Chacon [facility] Cardiology Doe Middleton MD Cardiology Doe Middleton MD Cardiology Doe Middleton MD Cardiology Doe Middleton MD Cardiology:Needs Corlanor Doe Middleton MD Cardiology Doe Middleton MD Cardiology Doe Emi BLANCO Cardiology Doe Emi BLANCO Cardiology Doe Emi BLANCO Cardiology Doe Emi BLANCO Cardiology Ode Emi [facility] Cardiology Doe Emi BL[facility] Cardiology Doe Emi BLANCO Cardiology Doe Emi BLANCO Cardiology Doe Emi BLANCO Cardiology Doe Emi BLANCO Cardiology Doe Emi BLANCO Cardiology Doe Emi BLANCO Cardiology Doe Emi BLANCO Cardiology Doe Emi BLANCO Cardiology Doe Emi BLANCO Cardiology Doe Emi BLANCO Cardiology:K+ low. K CL called in. Doe Middleton MD Cardiology follow up Doe arreola MD Cardiology follow up Doe arreola MD Cardiology follow up Doe arreola MD Cardiology follow up Doe arreola MD Cardiology follow up Doe arreola MD Cardiology follow up Doe arreola MD Cardiology Follow up :Per PCP Us andrea Garay MD Cardiology Follow up : B P today: 98/62 P rior BP: 127/67 (2020) Labs Reviewed: C reat: 1.1 (02/26/2014) Her updated medication list for this problem includes: Metolazone 2.5 Mg Oral Tablet (Metolazone) ..... 1 po q sunday, Aspirin 81 81 Mg Oral Tablet Delayed Release (Aspirin) ..... One tab by mouth daily Aldactone 50 Mg Oral Tablet (Spironolactone) ..... One pill twide a day Furosemide 40 Mg Tablet (Furosemide) ..... Take two tablets by mouth every morning and take one tablet by mouth every evening Tariq Garay MD Cardiology Follow up :Has pain, hyperpigmentation and swelling worse on the RLE than L. 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 No wounds at present. Recommended that she obtain compression socks. 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 Tariq Garay MD Cardiology follow up Doe arreola MD Cardiology follow up Doe arreola MD Cardiology follow up Doe arreola MD Cardiology follow up Doe arreola MD Cardiology follow up Doe arreola MD Cardiology follow up :Take 2 metolazone and 2 lasix in AM for 7 days. Doe Middleton MD Cardiology follow up Doe arreola MD Cardiology follow up Doe arreola MD Cardiology follow up Doe arreola MD Cardiology follow up Doe arreola MD Cardiology follow up Doe arreola MD Cardiology Doe Middleton MD Cardiology Doe Middleton MD Cardiology Doe Middleton MD Cardiology Doe Middleton MD Cardiology Doe Middleton MD Cardiology:Patient t o weigh herself daily. If 2-3 pound weight gain, she is to take a 3rd lasix. Cannot afford metolazone. Doe Middleton MD Cardiology Doe Middleton MD Cardiology Doe Middleton MD Cardiology Doe Middleton MD Cardiology:Needs 2 week monitor. Doe Middleton MD Cardiology follow up Doe arreola MD Cardiology follow up Doe arreola MD Cardiology follow up Doe arreola MD Cardiology follow up Doe arreola MD Cardiology follow up Doe arreola MD Cardiology follow up Doe arreola MD Cardiology Doe Middleton MD Cardiology Doe Middleton MD Cardiology Doe Middleton MD Cardiology Doejareth Middleton MD Cardiology Doejareth Middleton MD Cardiology Jeremiah Nelson MD Cardiology Jeremiah Nelson MD Cardiology Jeremiah Nelson MD Cardiology Jeremiah Nelson MD Cardiology followup Doejareth grijalva MD Cardiology followup Doejareth grijalva MD Cardiology followup Doejareth grijalva MD Cardiology followup Doe grijalva MD Cardiology followup Doejareth grijalva MD Cardiology followup :Average EF is 15% Doe Middleton MD Cardiology Doejareth Middleton MD Cardiology Doejareth Middleton MD Cardiology Doejareth Middleton MD Cardiology Doejareth Middleton MD Cardiology Doejareth Middleton MD Cardiology Follow up Doe arreola MD Cardiology Follow up Doe arreola MD Cardiology Follow up Doe arreola MD Cardiology Follow up Doe arreola MD Cardiology Follow up Doe arreola MD Cardiology Follow up Doe arreola MD Cardiology Follow up Doe arreola MD Cardiology follow up Doe arreola MD Cardiology follow up Doe arreola MD Cardiology follow up Doe arreola MD Cardiology follow up Doe arreola MD Cardiology follow up Doe arreola MD Cardiology Doe Middleton MD Cardiology Doejareth Middleton MD Cardiology Doe Middleton MD Cardiology Doejareth Middleton MD Cardiology Doe Middleton MD Cardiology Doejareth Middleton MD Cardiology Doe Middleton MD Cardiology Doe Middleton MD Cardiology Doe Middleton MD Cardiology Doe Middleton MD Cardiology Doe Middleton MD Cardiology Doe Middleton MD Cardiology Doe Middleton MD Cardiology Doe Middleton MD Cardiology Doe Middleton MD Cardiology Doe Middleton MD Cardiology Follow up Doe arreola MD Cardiology Follow up Doe arreola MD Cardiology Follow up Doe arreola MD Cardiology Follow up Doe arreola MD Cardiology Follow up Doe arreola MD Cardiology Follow up Doe arreola MD Cardiology Hospital Follow up [facility] Follow [facility] Follow [facility] Follow up [facility] Follow [facility] Follow up [facility] Follow up Ra fiq Emi [facility] Cardiology Doe Middleton MD Cardiology Doe Middleton MD Cardiology Doe Middleton MD Cardiology Doe Middleton MD Cardiology Doe Middleton MD Cardiology Follow up Doe arreola MD Cardiology Follow up Doe arreola MD Cardiology Follow up Doe arreola MD Cardiology Follow up Doe arreola MD Cardiology Follow up Doe arreola MD Cardiology Follow up :Battery at [facility], but patient declines to have generator replaced. Offered change to BiV pacer, but still declined. Doe Middleton MD Cardiology Doe Middleton MD Cardiology Doe Middleton MD Cardiology Doe Middleton MD Cardiology Doe Middleton MD Cardiology Doe Middleton MD defib check & FU: H er updated medication list for this problem includes: Isosorbide Mononitrate Cr 30 Mg Tb24 (Isosorbide mononitrate) ..... One tab daily Doe Middleton MD defib check & FU Doe Fisher defib check & FU: H er updated medication list for this problem includes: Spironolactone 25 Mg Tabs (Spironolactone) ..... One tab. daily Metolazone 5 Mg Tabs (Metolazone) ..... As needed Furosemide 40 Mg Tabs (Furosemide) ..... 2 tablets in am and 1 tablet in pm Isosorbide Mononitrate Cr 30 Mg Tb24 (Isosorbide mononitrate) ..... One tab daily Doe Middleton MD defib check & FU: T he following medications were removed from the medication list: Hydroxyzine Hcl 25 Mg Tabs (Hydroxyzine hcl) ..... Tid Her updated medication list for this problem includes: Isosorbide Mononitrate Cr 30 Mg Tb24 (Isosorbide mononitrate) ..... One tab daily Orders: E KG (CPT-29700) Doe Middleton MD defib check & FU: H er updated medication list for this problem includes: Spironolactone 25 Mg Tabs (Spironolactone) ..... One tab. daily Metolazone 5 Mg Tabs (Metolazone) ..... As needed Furosemide 40 Mg Tabs (Furosemide) ..... 2 tablets in am and 1 tablet in pm Isosorbide Mononitrate Cr 30 Mg Tb24 (Isosorbide mononitrate) ..... One tab daily Orders: B i-V AICD Implant - GC (*) Doe Middleton MD follow up Doe Middleton MD follow up Doe Middleton MD follow up: T he following medications were removed from the medication list: Aspirin 81 Mg Ec Tab (Aspirin) ..... Take one (1) tablet by mouth daily Aspirin 325 Mg Tabs (Aspirin) ..... One tab. daily Her updated medication list for this problem includes: Metolazone 5 Mg Tabs (Metolazone) ..... As needed Furosemide 40 Mg Tabs (Furosemide) ..... 2 tablets in am and 1 tablet in pm Spironolactone 25 Mg Tabs (Spironolactone) ..... One tab daily Doe Middleton MD follow up Doe Middleton MD FOLLOW UP: H er updated medication list for this problem includes: Glimepiride 2 Mg Tabs (Glimepiride) ..... Twice daily Aspirin 325 Mg Tabs (Aspirin) ..... One tab. daily Aspirin 81 Mg Ec Tab (Aspirin) ..... Take one (1) tablet by mouth daily Doe Middleton MD FOLLOW UP: T he following medications were removed from the medication list: Carvedilol 6.25 Mg Tabs (Carvedilol) ..... Bid Her updated medication list for this problem includes: Aspirin 325 Mg Tabs (Aspirin) ..... One tab. daily Lasix 40 Mg Tabs (Furosemide) ..... One and half tablet in am and one tablet in pm Isosorbide Mononitrate Cr 30 Mg Tb24 (Isosorbide mononitrate) ..... One tab daily Spironolactone 25 Mg Tabs (Spironolactone) ..... One tab daily Aspirin 81 Mg Ec Tab (Aspirin) ..... Take one (1) tablet by mouth daily Doe Middleton MD FOLLOW UP: T he following medications were removed from the medication list: Carvedilol 6.25 Mg Tabs (Carvedilol) ..... Bid Her updated medication list for this problem includes: Aspirin 325 Mg Tabs (Aspirin) ..... One tab. daily Isosorbide Mononitrate Cr 30 Mg Tb24 (Isosorbide mononitrate) ..... One tab daily Hydroxyzine Hcl 25 Mg Tabs (Hydroxyzine hcl) ..... Tid Aspirin 81 Mg Ec Tab (Aspirin) ..... Take one (1) tablet by mouth daily Doe Middleton MD : P rior BP: 112/61 (01/20/2014) Labs Reviewed: C reat: 1.47 (12/30/2013) Doe Middleton MD : B P today: / Prior BP: 112/61 (01/20/2014) Labs Reviewed: C reat: 1.47 (12/30/2013) Doe Middleton MD : B P today: / Prior BP: 112/61 (01/20/2014) C ardiac Cath: Nonobstructive coronary artery disease involving the major vessels. Likely 50% to 70% lesion in a 1st diagonal branch and a small caliber vessel, which really is not amenable for revascularization, which may be a cause of this patient?s intermittent chest discomfort. Markedly dilated left ventricular chamber, severe left ventricular systolic dysfunction with global h ypokinesis. EF 25% Markedly elevation of left ventricular end-diastolic pressure. Systemic hypertension. - [facility] (12/28/2013) C arotid Doppler/Duplex: Negative bilateral carotid and vertebral system. [facility] (07/21/2010) C K: 74 (06/10/2010) Hgb: 14.1 (05/21/2009) HCT: 45.2 (12/30/2013) Platelets: 260 (12/30/2013) R BC: 4.04 MILLION/UL (03/01/2012) WBC: 8.6 (05/21/2009) B UN: 15 (03/01/2012) Creat: 1.47 (12/30/2013) Glucose: 161 (03/01/2012) N a+: 144 (12/30/2013) K+: 3.7 (12/30/2013) Cl: 104 (03/01/2012) INR: 1.1 (12/30/2013) T SH: 1.20 (03/01/2012) T4 (total): 10.6 (06/10/2010) Doe Middleton MD : B P today: / Prior BP: 112/61 (01/20/2014) H gb: 14.1 (05/21/2009) HCT: 45.2 (12/30/2013) Platelets: 260 (12/30/2013) R BC: 4.04 MILLION/UL (03/01/2012) WBC: 8.6 (05/21/2009) B UN: 15 (03/01/2012) Creat: 1.47 (12/30/2013) Glucose: 161 (03/01/2012) N a+: 144 (12/30/2013) K+: 3.7 (12/30/2013) Cl: 104 (03/01/2012) TSH: 1.20 (03/01/2012) T4 (total): 10.6 (06/10/2010) C ardiac Cath: Nonobstructive coronary artery disease involving the major vessels. Likely 50% to 70% lesion in a 1st diagonal branch and a small caliber vessel, which really is not amenable for revascularization, which may be a cause of this patient?s intermittent chest discomfort. Markedly dilated left ventricular chamber, severe left ventricular systolic dysfunction with global h ypokinesis. EF 25% Markedly elevation of left ventricular end-diastolic pressure. Systemic hypertension. - [facility] (12/28/2013) Doe Middleton MD : B P today: / Prior BP: 112/61 (01/20/2014) C ardiac Cath: Nonobstructive coronary artery disease involving the major vessels. Likely 50% to 70% lesion in a 1st diagonal branch and a small caliber vessel, which really is not amenable for revascularization, which may be a cause of this patient?s intermittent chest discomfort. Markedly dilated left ventricular chamber, severe left ventricular systolic dysfunction with global h ypokinesis. EF 25% Markedly elevation of left ventricular end-diastolic pressure. Systemic hypertension. - [facility] (12/28/2013) C arotid Doppler/Duplex: Negative bilateral carotid and vertebral system. [facility] (07/21/2010) C K: 74 (06/10/2010) Hgb: 14.1 (05/21/2009) HCT: 45.2 (12/30/2013) Platelets: 260 (12/30/2013) R BC: 4.04 MILLION/UL (03/01/2012) WBC: 8.6 (05/21/2009) B UN: 15 (03/01/2012) Creat: 1.47 (12/30/2013) Glucose: 161 (03/01/2012) N a+: 144 (12/30/2013) K+: 3.7 (12/30/2013) Cl: 104 (03/01/2012) INR: 1.1 (12/30/2013) T SH: 1.20 (03/01/2012) T4 (total): 10.6 (06/10/2010) Doe Middleton MD : B P today: / Prior BP: 112/61 (01/20/2014) C ardiac Cath: Nonobstructive coronary artery disease involving the major vessels. Likely 50% to 70% lesion in a 1st diagonal branch and a small caliber vessel, which really is not amenable for revascularization, which may be a cause of this patient?s intermittent chest discomfort. Markedly dilated left ventricular chamber, severe left ventricular systolic dysfunction with global h ypokinesis. EF 25% Markedly elevation of left ventricular end-diastolic pressure. Systemic hypertension. - [facility] (12/28/2013) C arotid Doppler/Duplex: Negative bilateral carotid and vertebral system. [facility] (07/21/2010) C K: 74 (06/10/2010) Hgb: 14.1 (05/21/2009) HCT: 45.2 (12/30/2013) Platelets: 260 (12/30/2013) R BC: 4.04 MILLION/UL (03/01/2012) WBC: 8.6 (05/21/2009) B UN: 15 (03/01/2012) Creat: 1.47 (12/30/2013) Glucose: 161 (03/01/2012) N a+: 144 (12/30/2013) K+: 3.7 (12/30/2013) Cl: 104 (03/01/2012) INR: 1.1 (12/30/2013) T SH: 1.20 (03/01/2012) T4 (total): 10.6 (06/10/2010) Doe Middleton MD : B P today: / Prior BP: 168/96 (12/25/2013) C ardiac Cath: Nonobstructive coronary artery disease involving the major vessels. Likely 50% to 70% lesion in a 1st diagonal branch and a small caliber vessel, which really is not amenable for revascularization, which may be a cause of this patient?s intermittent chest discomfort. Markedly dilated left ventricular chamber, severe left ventricular systolic dysfunction with global h ypokinesis. EF 25% Markedly elevation of left ventricular end-diastolic pressure. Systemic hypertension. - [facility] (12/28/2013) C arotid Doppler/Duplex: Negative bilateral carotid and vertebral system. [facility] (07/21/2010) C K: 74 (06/10/2010) Hgb: 14.1 (05/21/2009) HCT: 38.5 (03/01/2012) Platelets: 187 THOUSAND/UL (03/01/2012) R BC: 4.04 MILLION/UL (03/01/2012) WBC: 8.6 (05/21/2009) B UN: 15 (03/01/2012) Creat: 0.90 (03/01/2012) Glucose: 161 (03/01/2012) N a+: 140 (03/01/2012) K+: 4.1 (03/01/2012) Cl: 104 (03/01/2012) TSH: 1.20 (03/01/2012) T4 (total): 10.6 (06/10/2010) Her updated medication list for this problem includes: Aspirin 81 Mg Chw Tab (Aspirin) ..... Take one (1) tablet by mouth daily Carvedilol 6.25 Mg Tabs (Carvedilol) ..... Bid Isosorbide Mononitrate Cr 30 Mg Tb24 (Isosorbide mononitrate) ..... One tab daily Doe Middleton MD : T he following medications were removed from the medication list: Lasix 40 Mg Tabs (Furosemide) ..... 1 tablets in am and 1/2 to 1 tablet pm Metolazone 5 Mg Tabs (Metolazone) ..... 1/2 tab daily Her updated medication list for this problem includes: Aspirin 81 Mg Chw Tab (Aspirin) ..... Take one (1) tablet by mouth daily Bumetanide 2 Mg Tabs (Bumetanide) ..... 1 tab daily Carvedilol 6.25 Mg Tabs (Carvedilol) ..... Bid Spironolactone 25 Mg Tabs (Spironolactone) ..... One tab daily Prior BP: 168/96 (12/25/2013) Labs Reviewed: C reat: 0.90 (03/01/2012) Doe Middleton MD : H er updated medication list for this problem includes: Glimepiride 2 Mg Tabs (Glimepiride) ..... Twice daily Aspirin 81 Mg Chw Tab (Aspirin) ..... Take one (1) tablet by mouth daily B P today: / Prior BP: 168/96 (12/25/2013) Labs Reviewed: C reat: 0.90 (03/01/2012) Doe Middleton MD : H er updated medication list for this problem includes: Aspirin 81 Mg Chw Tab (Aspirin) ..... Take one (1) tablet by mouth daily Carvedilol 6.25 Mg Tabs (Carvedilol) ..... Bid Isosorbide Mononitrate Cr 30 Mg Tb24 (Isosorbide mononitrate) ..... One tab daily BP today: / Prior BP: 168/96 (12/25/2013) C ardiac Cath: Nonobstructive coronary artery disease involving the major vessels. Likely 50% to 70% lesion in a 1st diagonal branch and a small caliber vessel, which really is not amenable for revascularization, which may be a cause of this patient?s intermittent chest discomfort. Markedly dilated left ventricular chamber, severe left ventricular systolic dysfunction with global h ypokinesis. EF 25% Markedly elevation of left ventricular end-diastolic pressure. Systemic hypertension. - [facility] (12/28/2013) C arotid Doppler/Duplex: Negative bilateral carotid and vertebral system. [facility] (07/21/2010) C K: 74 (06/10/2010) Hgb: 14.1 (05/21/2009) HCT: 38.5 (03/01/2012) Platelets: 187 THOUSAND/UL (03/01/2012) R BC: 4.04 MILLION/UL (03/01/2012) WBC: 8.6 (05/21/2009) B UN: 15 (03/01/2012) Creat: 0.90 (03/01/2012) Glucose: 161 (03/01/2012) N a+: 140 (03/01/2012) K+: 4.1 (03/01/2012) Cl: 104 (03/01/2012) TSH: 1.20 (03/01/2012) T4 (total): 10.6 (06/10/2010) Doe Middleton MD : T he following medications were removed from the medication list: Lasix 40 Mg Tabs (Furosemide) ..... 1 tablets in am and 1/2 to 1 tablet pm Metolazone 5 Mg Tabs (Metolazone) ..... 1/2 tab daily Her updated medication list for this problem includes: Aspirin 81 Mg Chw Tab (Aspirin) ..... Take one (1) tablet by mouth daily Bumetanide 2 Mg Tabs (Bumetanide) ..... 1 tab daily Carvedilol 6.25 Mg Tabs (Carvedilol) ..... Bid Isosorbide Mononitrate Cr 30 Mg Tb24 (Isosorbide mononitrate) ..... One tab daily Spironolactone 25 Mg Tabs (Spironolactone) ..... One tab daily BP today: / Prior BP: 168/96 (12/25/2013) C ardiac Cath: Nonobstructive coronary artery disease involving the major vessels. Likely 50% to 70% lesion in a 1st diagonal branch and a small caliber vessel, which really is not amenable for revascularization, which may be a cause of this patient?s intermittent chest discomfort. Markedly dilated left ventricular chamber, severe left ventricular systolic dysfunction with global h ypokinesis. EF 25% Markedly elevation of left ventricular end-diastolic pressure. Systemic hypertension. - [facility] (12/28/2013) C arotid Doppler/Duplex: Negative bilateral carotid and vertebral system. [facility] (07/21/2010) C K: 74 (06/10/2010) Hgb: 14.1 (05/21/2009) HCT: 38.5 (03/01/2012) Platelets: 187 THOUSAND/UL (03/01/2012) RBC: 4.04 MILLION/UL (03/01/2012) WBC: 8.6 (05/21/2009) B UN: 15 (03/01/2012) Creat: 0.90 (03/01/2012) Glucose: 161 (03/01/2012) N a+: 140 (03/01/2012) K+: 4.1 (03/01/2012) Cl: 104 (03/01/2012) TSH: 1.20 (03/01/2012) T4 (total): 10.6 (06/10/2010) Doe Middleton MD : T he following medications were removed from the medication list: Lasix 40 Mg Tabs (Furosemide) ..... 1 tablets in am and 1/2 to 1 tablet pm Metolazone 5 Mg Tabs (Metolazone) ..... 1/2 tab daily Her updated medication list for this problem includes: Bumetanide 2 Mg Tabs (Bumetanide) ..... 1 tab daily Carvedilol 6.25 Mg Tabs (Carvedilol) ..... Bid Isosorbide Mononitrate Cr 30 Mg Tb24 (Isosorbide mononitrate) ..... One tab daily Spironolactone 25 Mg Tabs (Spironolactone) ..... One tab daily BP today: / Prior BP: 168/96 (12/25/2013) H gb: 14.1 (05/21/2009) HCT: 38.5 (03/01/2012) Platelets: 187 THOUSAND/UL (03/01/2012) R BC: 4.04 MILLION/UL (03/01/2012) WBC: 8.6 (05/21/2009) B UN: 15 (03/01/2012) Creat: 0.90 (03/01/2012) Glucose: 161 (03/01/2012) N a+: 140 (03/01/2012) K+: 4.1 (03/01/2012) Cl: 104 (03/01/2012) TSH: 1.20 (03/01/2012) T4 (total): 10.6 (06/10/2010) C ardiac Cath: Nonobstructive coronary artery disease involving the major vessels. Likely 50% to 70% lesion in a 1st diagonal branch and a small caliber vessel, which really is not amenable for revascularization, which may be a cause of this patient?s intermittent chest discomfort. Markedly dilated left ventricular chamber, severe left ventricular systolic dysfunction with global h ypokinesis. EF 25% Markedly elevation of left ventricular end-diastolic pressure. Systemic hypertension. - [facility] (12/28/2013) Doe Middleton MD : T he following medications were removed from the medication list: Lasix 40 Mg Tabs (Furosemide) ..... 1 tablets in am and 1/2 to 1 tablet pm Metolazone 5 Mg Tabs (Metolazone) ..... 1/2 tab daily Her updated medication list for this problem includes: Aspirin 81 Mg Chw Tab (Aspirin) ..... Take one (1) tablet by mouth daily Bumetanide 2 Mg Tabs (Bumetanide) ..... 1 tab daily Carvedilol 6.25 Mg Tabs (Carvedilol) ..... Bid Isosorbide Mononitrate Cr 30 Mg Tb24 (Isosorbide mononitrate) ..... One tab daily Spironolactone 25 Mg Tabs (Spironolactone) ..... One tab daily BP today: / Prior BP: 168/96 (12/25/2013) C ardiac Cath: Nonobstructive coronary artery disease involving the major vessels. Likely 50% to 70% lesion in a 1st diagonal branch and a small caliber vessel, which really is not amenable for revascularization, which may be a cause of this patient?s intermittent chest discomfort. Markedly dilated left ventricular chamber, severe left ventricular systolic dysfunction with global h ypokinesis. EF 25% Markedly elevation of left ventricular end-diastolic pressure. Systemic hypertension. - [facility] (12/28/2013) C arotid Doppler/Duplex: Negative bilateral carotid and vertebral system. [facility] (07/21/2010) C K: 74 (06/10/2010) Hgb: 14.1 (05/21/2009) HCT: 38.5 (03/01/2012) Platelets: 187 THOUSAND/UL (03/01/2012) RBC: 4.04 MILLION/UL (03/01/2012) WBC: 8.6 (05/21/2009) B UN: 15 (03/01/2012) Creat: 0.90 (03/01/2012) Glucose: 161 (03/01/2012) N a+: 140 (03/01/2012) K+: 4.1 (03/01/2012) Cl: 104 (03/01/2012) TSH: 1.20 (03/01/2012) T4 (total): 10.6 (06/10/2010) Doe Middleton MD : H er updated medication list for this problem includes: Aspirin 81 Mg Chw Tab (Aspirin) ..... Take one (1) tablet by mouth daily Carvedilol 6.25 Mg Tabs (Carvedilol) ..... Bid Isosorbide Mononitrate Cr 30 Mg Tb24 (Isosorbide mononitrate) ..... One tab daily BP today: / Prior BP: 168/96 (12/25/2013) C ardiac Cath: Nonobstructive coronary artery disease involving the major vessels. Likely 50% to 70% lesion in a 1st diagonal branch and a small caliber vessel, which really is not amenable for revascularization, which may be a cause of this patient?s intermittent chest discomfort. Markedly dilated left ventricular chamber, severe left ventricular systolic dysfunction with global h ypokinesis. EF 25% Markedly elevation of left ventricular end-diastolic pressure. Systemic hypertension. - [facility] (12/28/2013) C arotid Doppler/Duplex: Negative bilateral carotid and vertebral system. [facility] (07/21/2010) C K: 74 (06/10/2010) Hgb: 14.1 (05/21/2009) HCT: 38.5 (03/01/2012) Platelets: 187 THOUSAND/UL (03/01/2012) R BC: 4.04 MILLION/UL (03/01/2012) WBC: 8.6 (05/21/2009) B UN: 15 (03/01/2012) Creat: 0.90 (03/01/2012) Glucose: 161 (03/01/2012) N a+: 140 (03/01/2012) K+: 4.1 (03/01/2012) Cl: 104 (03/01/2012) TSH: 1.20 (03/01/2012) T4 (total): 10.6 (06/10/2010) Doe Middleton MD : O rders: S leep Study (*) David Deleon MD David Deleon MD : H er updated medication list for this problem includes: Glimepiride 1 Mg Tabs (Glimepiride) ..... 1 tab twice daily Aspirin 81 Mg Chw Tab (Aspirin) ..... Take one (1) tablet by mouth daily David Deleon MD : T he following medications were removed from the medication list: Cardizem Cd 240 Mg [id number] (Diltiazem hcl coated beads) ..... One tablet daily Her updated medication list for this problem includes: Lasix 40 Mg Tabs (Furosemide) ..... 1 tablets in am and 1/2 to 1 tablet pm Metolazone 5 Mg Tabs (Metolazone) ..... 1/2 tab daily Aspirin 81 Mg Chw Tab (Aspirin) ..... Take one (1) tablet by mouth daily Orders: S leep Study (*) David Deleon MD : O rders: S leep Study (*) David Deleon MD : O rders: S leep Study (*) David Deleon MD : T he following medications were removed from the medication list: Cardizem Cd 240 Mg [id number] (Diltiazem hcl coated beads) ..... One tablet daily David Deleon MD : T he following medications were removed from the medication list: Cardizem Cd 240 Mg [id number] (Diltiazem hcl coated beads) ..... One tablet daily Her updated medication list for this problem includes: Lasix 40 Mg Tabs (Furosemide) ..... 1 tablets in am and 1/2 to 1 tablet pm Metolazone 5 Mg Tabs (Metolazone) ..... 1/2 tab daily David Deleon MD Follow up: O rders: e Prescribe - Check this box if eRx is used (CPT-G8553) Doe Middleton MD Follow up: O rders: E KG (CPT-[id number]) Doe Middleton MD edema: H er updated medication list for this problem includes: Furosemide 20 Mg Tabs (Furosemide) ..... 2 am, 1 pm Potassium Chloride Magda Cr 20 Meq Tbcr (Potassium chloride magda cr) ..... One tab. daily Verapamil Hcl Cr 360 Mg [id number] (Verapamil hcl) ..... One tablet daily Metolazone 5 Mg Tabs (Metolazone) ..... 1/2 tab daily BP today: / Prior BP: 120/68 (09/03/2012) C ardiac Cath: Normal coronary arteries. Severe LV dysfunction with EF 15% and a LBBB. [facility] (04/30/2009) C K: 74 (06/10/2010) Hgb: 14.1 (05/21/2009) HCT: 38.5 (03/01/2012) Platelets: 187 THOUSAND/UL (03/01/2012) R BC: 4.04 MILLION/UL (03/01/2012) WBC: 8.6 (05/21/2009) B UN: 15 (03/01/2012) Creat: 0.90 (03/01/2012) Glucose: 161 (03/01/2012) N a+: 140 (03/01/2012) K+: 4.1 (03/01/2012) Cl: 104 (03/01/2012) SGOT (AST): 13 (03/01/2012) SGPT (ALT): 13 (03/01/2012) TSH: 1.20 (03/01/2012) T4 (total): 10.6 (06/10/2010) Doe Middleton MD edema: H er updated medication list for this problem includes: Furosemide 20 Mg Tabs (Furosemide) ..... 2 am, 1 pm Verapamil Hcl Cr 360 Mg [id number] (Verapamil hcl) ..... One tablet daily Metolazone 5 Mg Tabs (Metolazone) ..... 1/2 tab daily BP today: / Prior BP: 120/68 (09/03/2012) C ardiac Cath: Normal coronary arteries. Severe LV dysfunction with EF 15% and a LBBB. [facility] (04/30/2009) C arotid Doppler/Duplex: Negative bilateral carotid and vertebral system. [facility] (07/21/2010) C K: 74 (06/10/2010) Hgb: 14.1 (05/21/2009) HCT: 38.5 (03/01/2012) Platelets: 187 THOUSAND/UL (03/01/2012) R BC: 4.04 MILLION/UL (03/01/2012) WBC: 8.6 (05/21/2009) B UN: 15 (03/01/2012) Creat: 0.90 (03/01/2012) Glucose: 161 (03/01/2012) N a+: 140 (03/01/2012) K+: 4.1 (03/01/2012) Cl: 104 (03/01/2012) TSH: 1.20 (03/01/2012) T4 (total): 10.6 (06/10/2010) Doe Middleton MD edema: H er updated medication list for this problem includes: Furosemide 20 Mg Tabs (Furosemide) ..... 2 am, 1 pm Verapamil Hcl Cr 360 Mg [id number] (Verapamil hcl) ..... One tablet daily Metolazone 5 Mg Tabs (Metolazone) ..... 1/2 tab daily Prior BP: 120/68 (09/03/2012) Labs Reviewed: C reat: 0.90 (03/01/2012) Doe Middleton MD edema: H er updated medication list for this problem includes: Glimepiride 1 Mg Tabs (Glimepiride) ..... 1 tab twice daily BP today: / Prior BP: 120/68 (09/03/2012) Labs Reviewed: C reat: 0.90 (03/01/2012) Doe Middleton MD edema: H er updated medication list for this problem includes: Furosemide 20 Mg Tabs (Furosemide) ..... 2 am, 1 pm Verapamil Hcl Cr 360 Mg [id number] (Verapamil hcl) ..... One tablet daily Metolazone 5 Mg Tabs (Metolazone) ..... 1/2 tab daily BP today: / Prior BP: 120/68 (09/03/2012) C ardiac Cath: Normal coronary arteries. Severe LV dysfunction with EF 15% and a LBBB. [facility] (04/30/2009) C arotid Doppler/Duplex: Negative bilateral carotid and vertebral system. [facility] (07/21/2010) C K: 74 (06/10/2010) Hgb: 14.1 (05/21/2009) HCT: 38.5 (03/01/2012) Platelets: 187 THOUSAND/UL (03/01/2012) R BC: 4.04 MILLION/UL (03/01/2012) WBC: 8.6 (05/21/2009) B UN: 15 (03/01/2012) Creat: 0.90 (03/01/2012) Glucose: 161 (03/01/2012) N a+: 140 (03/01/2012) K+: 4.1 (03/01/2012) Cl: 104 (03/01/2012) TSH: 1.20 (03/01/2012) T4 (total): 10.6 (06/10/2010) Orders: E cho - Bi-V Study (CPT-[id number]) Doe Middleton MD edema: C arotid Duplex Scan: N egative bilateral carotid and vertebral system. [facility] (07/21/2010) Doe Middleton MD Follow-up: H er updated medication list for this problem includes: Furosemide 20 Mg Tabs (Furosemide) ..... 2 am, 1 pm Potassium Chloride Magda Cr 20 Meq Tbcr (Potassium chloride magda cr) ..... One tab. daily Verapamil Hcl Cr 360 Mg [id number] (Verapamil hcl) ..... One tablet daily Metolazone 5 Mg Tabs (Metolazone) ..... 1 tab daily for 1 week, then as needed for swelling BP today: 120/68 Prior BP: 160/84 (07/16/2012) C ardiac Cath: Normal coronary arteries. Severe LV dysfunction with EF 15% and a LBBB. [facility] (04/30/2009) C K: 74 (06/10/2010) Hgb: 14.1 (05/21/2009) HCT: 38.5 (03/01/2012) Platelets: 187 THOUSAND/UL (03/01/2012) R BC: 4.04 MILLION/UL (03/01/2012) WBC: 8.6 (05/21/2009) B UN: 15 (03/01/2012) Creat: 0.90 (03/01/2012) Glucose: 161 (03/01/2012) N a+: 140 (03/01/2012) K+: 4.1 (03/01/2012) Cl: 104 (03/01/2012) SGOT (AST): 13 (03/01/2012) SGPT (ALT): 13 (03/01/2012) TSH: 1.20 (03/01/2012) T4 (total): 10.6 (06/10/2010) Doe Middleton MD Follow-up: H er updated medication list for this problem includes: Furosemide 20 Mg Tabs (Furosemide) ..... 2 am, 1 pm Verapamil Hcl Cr 360 Mg [id number] (Verapamil hcl) ..... One tablet daily Metolazone 5 Mg Tabs (Metolazone) ..... 1 tab daily for 1 week, then as needed for swelling BP today: 120/68 Prior BP: 160/84 (07/16/2012) C ardiac Cath: Normal coronary arteries. Severe LV dysfunction with EF 15% and a LBBB. [facility] (04/30/2009) C arotid Doppler/Duplex: Negative bilateral carotid and vertebral system. [facility] (07/21/2010) C K: 74 (06/10/2010) Hgb: 14.1 (05/21/2009) HCT: 38.5 (03/01/2012) Platelets: 187 THOUSAND/UL (03/01/2012) R BC: 4.04 MILLION/UL (03/01/2012) WBC: 8.6 (05/21/2009) B UN: 15 (03/01/2012) Creat: 0.90 (03/01/2012) Glucose: 161 (03/01/2012) N a+: 140 (03/01/2012) K+: 4.1 (03/01/2012) Cl: 104 (03/01/2012) TSH: 1.20 (03/01/2012) T4 (total): 10.6 (06/10/2010) Doe Middleton MD Follow-up: H er updated medication list for this problem includes: Furosemide 20 Mg Tabs (Furosemide) ..... 2 am, 1 pm Verapamil Hcl Cr 360 Mg [id number] (Verapamil hcl) ..... One tablet daily Metolazone 5 Mg Tabs (Metolazone) ..... 1 tab daily for 1 week, then as needed for swelling Orders: E KG (CPT-53662) BP today: 120/68 P rior BP: 160/84 (07/16/2012) Labs Reviewed: C reat: 0.90 (03/01/2012) Doe Middleton MD Follow-up: H er updated medication list for this problem includes: Glimepiride 1 Mg Tabs (Glimepiride) ..... 1 tab twice daily BP today: 120/68 Prior BP: 160/84 (07/16/2012) Labs Reviewed: C reat: 0.90 (03/01/2012) Doe Middleton MD Follow-up: H er updated medication list for this problem includes: Furosemide 20 Mg Tabs (Furosemide) ..... 2 am, 1 pm Verapamil Hcl Cr 360 Mg [id number]-[id number] (Verapamil hcl) ..... One tablet daily Metolazone 5 Mg Tabs (Metolazone) ..... 1 tab daily for 1 week, then as needed for swelling BP today: 120/68 Prior BP: 160/84 (07/16/2012) C ardiac Cath: Normal coronary arteries. Severe LV dysfunction with EF 15% and a LBBB. [facility] (04/30/2009) C arotid Doppler/Duplex: Negative bilateral carotid and vertebral system. [facility] (07/21/2010) C K: 74 (06/10/2010) Hgb: 14.1 (05/21/2009) HCT: 38.5 (03/01/2012) Platelets: 187 THOUSAND/UL (03/01/2012) R BC: 4.04 MILLION/UL (03/01/2012) WBC: 8.6 (05/21/2009) B UN: 15 (03/01/2012) Creat: 0.90 (03/01/2012) Glucose: 161 (03/01/2012) N a+: 140 (03/01/2012) K+: 4.1 (03/01/2012) Cl: 104 (03/01/2012) TSH: 1.20 (03/01/2012) T4 (total): 10.6 (06/10/2010) Doe Middleton MD Follow-up: C arotid Duplex Scan: N egative bilateral carotid and vertebral system. [facility] (07/21/2010) Doe Middleton MD : H er updated medication list for this problem includes: Furosemide 20 Mg Tabs (Furosemide) ..... 1 tab three times daily Potassium Chloride Magda Cr 20 Meq Tbcr (Potassium chloride magda cr) ..... One tab. daily Verapamil Hcl Cr 360 Mg [id number] (Verapamil hcl) ..... One tablet daily BP today: 160/84 Prior BP: 112/59 (01/09/2012) C ardiac Cath: Normal coronary arteries. Severe LV dysfunction with EF 15% and a LBBB. [facility] (04/30/2009) C K: 74 (06/10/2010) Hgb: 14.1 (05/21/2009) HCT: 38.5 (03/01/2012) Platelets: 187 THOUSAND/UL (03/01/2012) R BC: 4.04 MILLION/UL (03/01/2012) WBC: 8.6 (05/21/2009) B UN: 15 (03/01/2012) Creat: 0.90 (03/01/2012) Glucose: 161 (03/01/2012) N a+: 140 (03/01/2012) K+: 4.1 (03/01/2012) Cl: 104 (03/01/2012) SGOT (AST): 13 (03/01/2012) SGPT (ALT): 13 (03/01/2012) TSH: 1.20 (03/01/2012) T4 (total): 10.6 (06/10/2010) Doe Middleton MD : H er updated medication list for this problem includes: Furosemide 20 Mg Tabs (Furosemide) ..... 1 tab three times daily Verapamil Hcl Cr 360 Mg [id number] (Verapamil hcl) ..... One tablet daily BP today: 160/84 P rior BP: 112/59 (01/09/2012) Labs Reviewed: C reat: 0.90 (03/01/2012) Doe Middleton MD : H er updated medication list for this problem includes: Glimepiride 1 Mg Tabs (Glimepiride) ..... 1 tab twice daily BP today: 160/84 Prior BP: 112/59 (01/09/2012) Labs Reviewed: C reat: 0.90 (03/01/2012) Doe Middleton MD : H er updated medication list for this problem includes: Furosemide 20 Mg Tabs (Furosemide) ..... 1 tab three times daily Verapamil Hcl Cr 360 Mg [id number] (Verapamil hcl) ..... One tablet daily Orders: E cho - Bi-V Study (CPT-63329) V enous Doppler Bilateral LE (97938) C omplete Echo (CPT-62891) BP today: 160/84 Prior BP: 112/59 (01/09/2012) C ardiac Cath: Normal coronary arteries. Severe LV dysfunction with EF 15% and a LBBB. [facility] (04/30/2009) C arotid Doppler/Duplex: Negative bilateral carotid and vertebral system. [facility] (07/21/2010) C K: 74 (06/10/2010) Hgb: 14.1 (05/21/2009) HCT: 38.5 (03/01/2012) Platelets: 187 THOUSAND/UL (03/01/2012) R BC: 4.04 MILLION/UL (03/01/2012) WBC: 8.6 (05/21/2009) B UN: 15 (03/01/2012) Creat: 0.90 (03/01/2012) Glucose: 161 (03/01/2012) N a+: 140 (03/01/2012) K+: 4.1 (03/01/2012) Cl: 104 (03/01/2012) TSH: 1.20 (03/01/2012) T4 (total): 10.6 (06/10/2010) Doe Middleton MD follow up: T he following medications were removed from the medication list: Lisinopril 10 Mg Tabs (Lisinopril) ..... 1 tablet twice daily Her updated medication list for this problem includes: Furosemide 20 Mg Tabs (Furosemide) ..... 1 tab three times daily Potassium Chloride Magda Cr 20 Meq Tbcr (Potassium chloride magda cr) ..... One tab. daily Verapamil Hcl Cr 240 Mg Tbcr (Verapamil hcl) ..... One tab. daily BP today: 112/59 Prior BP: 166/80 (07/11/2011) E chocardiogram: Normal left ventricular wall thickness. Severe global left ventricular systolic hypokinesis. Moderate enlargement of left ventricular chamber. There is E to A wave reversal consistent with impaired LV relaxation . E/E` is abnormal, suggestive of elevated end diastolic filling pressures.15.0. Left ventricular ejection fraction is e stimated at 15%. No significant valvular abnormalities. Normal aortic root. Normal pericardium with no significant pericardial effusion. & #13;[facility] (06/10/2010) C ardiac Cath: Normal coronary arteries. Severe LV dysfunction with EF 15% and a LBBB. [facility] (04/30/2009) C K: 74 (06/10/2010) Hgb: 14.1 (05/21/2009) HCT: 43.1 (05/21/2009) RBC: 4.63 (05/21/2009) WBC: 8.6 (05/21/2009) B UN: 16 (11/09/2010) Creat: 0.84 (11/09/2010) Glucose: 162 (11/09/2010) N a+: 140 (11/09/2010) K+: 4.3 (11/09/2010) Cl: 104 (11/09/2010) SGOT (AST): 17 (06/10/2010) SGPT (ALT): 16 (06/10/2010) TSH: 1.84 (06/10/2010) T4 (total): 10.6 (06/10/2010) oDe Middleton MD follow up: T he following medications were removed from the medication list: Lisinopril 10 Mg Tabs (Lisinopril) ..... 1 tablet twice daily Her updated medication list for this problem includes: Furosemide 20 Mg Tabs (Furosemide) ..... 1 tab three times daily Verapamil Hcl Cr 240 Mg Tbcr (Verapamil hcl) ..... One tab. daily BP today: 112/59 Prior BP: 166/80 (07/11/2011) C ardiac Cath: Normal coronary arteries. Severe LV dysfunction with EF 15% and a LBBB. [facility] (04/30/2009) C arotid Doppler/Duplex: Negative bilateral carotid and vertebral system. [facility] (07/21/2010) C K: 74 (06/10/2010) Hgb: 14.1 (05/21/2009) HCT: 43.1 (05/21/2009) RBC: 4.63 (05/21/2009) WBC: 8.6 (05/21/2009) B UN: 16 (11/09/2010) Creat: 0.84 (11/09/2010) Glucose: 162 (11/09/2010) N a+: 140 (11/09/2010) K+: 4.3 (11/09/2010) Cl: 104 (11/09/2010) TSH: 1.84 (06/10/2010) T4 (total): 10.6 (06/10/2010) Doe Middleton MD follow up: T he following medications were removed from the medication list: Lisinopril 10 Mg Tabs (Lisinopril) ..... 1 tablet twice daily Her updated medication list for this problem includes: Furosemide 20 Mg Tabs (Furosemide) ..... 1 tab three times daily Verapamil Hcl Cr 240 Mg Tbcr (Verapamil hcl) ..... One tab. daily BP today: 112/59 P rior BP: 166/80 (07/11/2011) Labs Reviewed: C reat: 0.84 (11/09/2010) Doe Middleton MD follow up: T he following medications were removed from the medication list: Lisinopril 10 Mg Tabs (Lisinopril) ..... 1 tablet twice daily BP today: 112/59 Prior BP: 166/80 (07/11/2011) Labs Reviewed: C reat: 0.84 (11/09/2010) Doe Middleton MD follow up: T he following medications were removed from the medication list: Lisinopril 10 Mg Tabs (Lisinopril) ..... 1 tablet twice daily Her updated medication list for this problem includes: Furosemide 20 Mg Tabs (Furosemide) ..... 1 tab three times daily Verapamil Hcl Cr 240 Mg Tbcr (Verapamil hcl) ..... One tab. daily BP today: 112/59 Prior BP: 166/80 (07/11/2011) C ardiac Cath: Normal coronary arteries. Severe LV dysfunction with EF 15% and a LBBB. [facility] (04/30/2009) C arotid Doppler/Duplex: Negative bilateral carotid and vertebral system. [facility] (07/21/2010) C K: 74 (06/10/2010) Hgb: 14.1 (05/21/2009) HCT: 43.1 (05/21/2009) RBC: 4.63 (05/21/2009) WBC: 8.6 (05/21/2009) B UN: 16 (11/09/2010) Creat: 0.84 (11/09/2010) Glucose: 162 (11/09/2010) N a+: 140 (11/09/2010) K+: 4.3 (11/09/2010) Cl: 104 (11/09/2010) TSH: 1.84 (06/10/2010) T4 (total): 10.6 (06/10/2010) Doe Middleton MD follow up: C arotid Duplex Scan: N egative bilateral carotid and vertebral system. [facility] (07/21/2010) Echocardiogram: N ormal left ventricular wall thickness. Severe global left ventricular systolic hypokinesis. Moderate enlargement of left ventricular chamber. There is E to A wave reversal consistent with impaired LV relaxation . E/E` is abnormal, suggestive of elevated end diastolic filling pressures.15.0. Left ventricular ejection fraction is e stimated at 15%. No significant valvular abnormalities. Normal aortic root. Normal pericardium with no significant pericardial effusion. [facility] (06/10/2010) Doe Middleton MD follow up: T he following medications were removed from the medication list: Metoprolol Succinate 50 Mg [id number] (Metoprolol succinate) ..... 1 tab by mouth daily Her updated medication list for this problem includes: Furosemide 20 Mg Tabs (Furosemide) ..... 2 tablets in am, 1 tablet in pm K-99 Caps (Potassium gluconate caps) ..... One daily Lisinopril 10 Mg Tabs (Lisinopril) ..... 1 tablet twice daily Verapamil Hcl Cr 240 Mg Tbcr (Verapamil hcl) ..... One tab. daily BP today: 166/80 Prior BP: 180/74 (01/03/2011) E chocardiogram: Normal left ventricular wall thickness. Severe global left ventricular systolic hypokinesis. Moderate enlargement of left ventricular chamber. There is E to A wave reversal consistent with impaired LV relaxation . E/E` is abnormal, suggestive of elevated end diastolic filling pressures.15.0. Left ventricular ejection fraction is e stimated at 15%. No significant valvular abnormalities. Normal aortic root. Normal pericardium with no significant pericardial effusion. [facility] (06/10/2010) C ardiac Cath: Normal coronary arteries. Severe LV dysfunction with EF 15% and a LBBB. [facility] (04/30/2009) C K: 74 (06/10/2010) Hgb: 14.1 (05/21/2009) HCT: 43.1 (05/21/2009) RBC: 4.63 (05/21/2009) WBC: 8.6 (05/21/2009) B UN: 16 (11/09/2010) Creat: 0.84 (11/09/2010) Glucose: 162 (11/09/2010) N a+: 140 (11/09/2010) K+: 4.3 (11/09/2010) Cl: 104 (11/09/2010) SGOT (AST): 17 (06/10/2010) SGPT (ALT): 16 (06/10/2010) TSH: 1.84 (06/10/2010) T4 (total): 10.6 (06/10/2010) Doe Middleton MD follow up: T he following medications were removed from the medication list: Metoprolol Succinate 50 Mg [id number] (Metoprolol succinate) ..... 1 tab by mouth daily Her updated medication list for this problem includes: Furosemide 20 Mg Tabs (Furosemide) ..... 2 tablets in am, 1 tablet in pm Lisinopril 10 Mg Tabs (Lisinopril) ..... 1 tablet twice daily Verapamil Hcl Cr 240 Mg Tbcr (Verapamil hcl) ..... One tab. daily BP today: 166/80 Prior BP: 180/74 (01/03/2011) C ardiac Cath: Normal coronary arteries. Severe LV dysfunction with EF 15% and a LBBB. [facility] (04/30/2009) C arotid Doppler/Duplex: Negative bilateral carotid and vertebral system. [facility] (07/21/2010) C K: 74 (06/10/2010) Hgb: 14.1 (05/21/2009) HCT: 43.1 (05/21/2009) RBC: 4.63 (05/21/2009) WBC: 8.6 (05/21/2009) B UN: 16 (11/09/2010) Creat: 0.84 (11/09/2010) Glucose: 162 (11/09/2010) N a+: 140 (11/09/2010) K+: 4.3 (11/09/2010) Cl: 104 (11/09/2010) TSH: 1.84 (06/10/2010) T4 (total): 10.6 (06/10/2010) Doe Middleton MD follow up: T he following medications were removed from the medication list: Metoprolol Succinate 50 Mg [id number] (Metoprolol succinate) ..... 1 tab by mouth daily Her updated medication list for this problem includes: Furosemide 20 Mg Tabs (Furosemide) ..... 2 tablets in am, 1 tablet in pm Lisinopril 10 Mg Tabs (Lisinopril) ..... 1 tablet twice daily Verapamil Hcl Cr 240 Mg Tbcr (Verapamil hcl) ..... One tab. daily Orders: E KG (CPT-35765) BP today: 166/80 P rior BP: 180/74 (01/03/2011) Labs Reviewed: C reat: 0.84 (11/09/2010) Doe Middleton MD follow up: H er updated medication list for this problem includes: Lisinopril 10 Mg Tabs (Lisinopril) ..... 1 tablet twice daily BP today: 166/80 Prior BP: 180/74 (01/03/2011) Labs Reviewed: C reat: 0.84 (11/09/2010) Doe Middleton MD follow up: T he following medications were removed from the medication list: Metoprolol Succinate 50 Mg [id number] (Metoprolol succinate) ..... 1 tab by mouth daily Her updated medication list for this problem includes: Furosemide 20 Mg Tabs (Furosemide) ..... 2 tablets in am, 1 tablet in pm Lisinopril 10 Mg Tabs (Lisinopril) ..... 1 tablet twice daily Verapamil Hcl Cr 240 Mg Tbcr (Verapamil hcl) ..... One tab. daily BP today: 166/80 Prior BP: 180/74 (01/03/2011) C ardiac Cath: Normal coronary arteries. Severe LV dysfunction with EF 15% and a LBBB. [facility] [place] (04/30/2009) C arotid Doppler/Duplex: Negative bilateral carotid and vertebral system. [facility] (07/21/2010) C K: 74 (06/10/2010) Hgb: 14.1 (05/21/2009) HCT: 43.1 (05/21/2009) RBC: 4.63 (05/21/2009) WBC: 8.6 (05/21/2009) B UN: 16 (11/09/2010) Creat: 0.84 (11/09/2010) Glucose: 162 (11/09/2010) N a+: 140 (11/09/2010) K+: 4.3 (11/09/2010) Cl: 104 (11/09/2010) TSH: 1.84 (06/10/2010) T4 (total): 10.6 (06/10/2010) Doe Middleton MD follow up and PMC: H er updated medication list for this problem includes: Furosemide 20 Mg Tabs (Furosemide) ..... 2 tablets in am, 1 tablet in pm Lisinopril 10 Mg Tabs (Lisinopril) ..... 2 tablets daily Metoprolol Succinate 50 Mg [id number] (Metoprolol succinate) ..... 1 tab by mouth daily BP today: 180/74 P rior BP: 161/74 (10/13/2010) Labs Reviewed: C reat: 0.84 (11/09/2010) Doe Middleton MD follow up and PMC: H er updated medication list for this problem includes: Lisinopril 10 Mg Tabs (Lisinopril) ..... 2 tablets daily BP today: 180/74 Prior BP: 161/74 (10/13/2010) Labs Reviewed: C reat: 0.84 (11/09/2010) Doe Middleton MD follow up and PMC: H er updated medication list for this problem includes: Furosemide 20 Mg Tabs (Furosemide) ..... 2 tablets in am, 1 tablet in pm K-99 Caps (Potassium gluconate caps) ..... One daily Lisinopril 10 Mg Tabs (Lisinopril) ..... 2 tablets daily Metoprolol Succinate 50 Mg [id number] (Metoprolol succinate) ..... 1 tab by mouth daily BP today: 180/74 Prior BP: 161/74 (10/13/2010) E chocardiogram: Normal left ventricular wall thickness. Severe global left ventricular systolic hypokinesis. Moderate enlargement of left ventricular chamber. There is E to A wave reversal consistent with impaired LV relaxation . E/E` is abnormal, suggestive of elevated end diastolic filling pressures.15.0. Left ventricular ejection fraction is e stimated at 15%. No significant valvular abnormalities. Normal aortic root. Normal pericardium with no significant pericardial effusion. O (06/10/2010) C ardiac Cath: Normal coronary arteries. Severe LV dysfunction with EF 15% and a LBBB. [facility] (04/30/2009) C K: 74 (06/10/2010) Hgb: 14.1 (05/21/2009) HCT: 43.1 (05/21/2009) RBC: 4.63 (05/21/2009) WBC: 8.6 (05/21/2009) B UN: 16 (11/09/2010) Creat: 0.84 (11/09/2010) Glucose: 162 (11/09/2010) N a+: 140 (11/09/2010) K+: 4.3 (11/09/2010) Cl: 104 (11/09/2010) SGOT (AST): 17 (06/10/2010) SGPT (ALT): 16 (06/10/2010) TSH: 1.84 (06/10/2010) T4 (total): 10.6 (06/10/2010) Doe Middleton MD follow up and PMC: H er updated medication list for this problem includes: Furosemide 20 Mg Tabs (Furosemide) ..... 2 tablets in am, 1 tablet in pm Lisinopril 10 Mg Tabs (Lisinopril) ..... 2 tablets daily Metoprolol Succinate 50 Mg [id number] (Metoprolol succinate) ..... 1 tab by mouth daily BP today: 180/74 Prior BP: 161/74 (10/13/2010) C ardiac Cath: Normal coronary arteries. Severe LV dysfunction with EF 15% and a LBBB. [facility] (04/30/2009) C arotid Doppler/Duplex: Negative bilateral carotid and vertebral system. [facility] (07/21/2010) C K: 74 (06/10/2010) Hgb: 14.1 (05/21/2009) HCT: 43.1 (05/21/2009) RBC: 4.63 (05/21/2009) WBC: 8.6 (05/21/2009) B UN: 16 (11/09/2010) Creat: 0.84 (11/09/2010) Glucose: 162 (11/09/2010) N a+: 140 (11/09/2010) K+: 4.3 (11/09/2010) Cl: 104 (11/09/2010) TSH: 1.84 (06/10/2010) T4 (total): 10.6 (06/10/2010) Doe Middleton MD follow up:will stop the cardiazem and try toprol and add an acei as she has lv dysfunction. H er updated medication list for this problem includes: Furosemide 20 Mg Tabs (Furosemide) ..... 2 tablets in am, 1 tablet in pm Cardizem 60 Mg Tabs (Diltiazem hcl) ..... One tab daily Amlodipine Besylate 10 Mg Tabs (Amlodipine besylate) ..... One tab. daily BP today: 161/74 Prior BP: 159/113 (09/27/2010) C ardiac Cath: Normal coronary arteries. Severe LV dysfunction with EF 15% and a LBBB. [facility] (04/30/2009) C arotid Doppler/Duplex: Negative bilateral carotid and vertebral system. [facility] (07/21/2010) C K: 74 (06/10/2010) Hgb: 14.1 (05/21/2009) HCT: 43.1 (05/21/2009) RBC: 4.63 (05/21/2009) WBC: 8.6 (05/21/2009) B UN: 17 (06/10/2010) Creat: 0.98 (06/10/2010) Glucose: 143 (06/10/2010) N a+: 142 (06/10/2010) K+: 4.2 (06/10/2010) Cl: 106 (06/10/2010) TSH: 1.84 (06/10/2010) T4 (total): 10.6 (06/10/2010) Orders: E KG (CPT-01899) Tariq Garay MD follow up: C arotid Duplex Scan: N egative bilateral carotid and vertebral system. [facility] (07/21/2010) Echocardiogram: N ormal left ventricular wall thickness. Severe global left ventricular systolic hypokinesis. Moderate enlargement of left ventricular chamber. There is E to A wave reversal consistent with impaired LV relaxation . E/E` is abnormal, suggestive of elevated end diastolic filling pressures.15.0. Left ventricular ejection fraction is e stimated at 15%. No significant valvular abnormalities. Normal aortic root. Normal pericardium with no significant pericardial effusion. [facility] [place] (06/10/2010) Tariq Garay MD follow up: T he following medications were removed from the medication list: Norvasc 10 Mg Tabs (Amlodipine besylate) ..... One tab. daily Her updated medication list for this problem includes: Furosemide 20 Mg Tabs (Furosemide) ..... 2 tablets in am, 1 tablet in pm Cardizem Cd 360 Mg Cp24 (Diltiazem hcl coated beads) ..... One daily Orders: E KG (CPT-09568) B P today: 159/113 Prior BP: 156/87 (08/09/2010) C ardiac Cath: Normal coronary arteries. Severe LV dysfunction with EF 15% and a LBBB. [facility] (04/30/2009) C arotid Doppler/Duplex: Negative bilateral carotid and vertebral system. [facility] (07/21/2010) C K: 74 (06/10/2010) Hgb: 14.1 (05/21/2009) HCT: 43.1 (05/21/2009) RBC: 4.63 (05/21/2009) WBC: 8.6 (05/21/2009) B UN: 17 (06/10/2010) Creat: 0.98 (06/10/2010) Glucose: 143 (06/10/2010) N a+: 142 (06/10/2010) K+: 4.2 (06/10/2010) Cl: 106 (06/10/2010) TSH: 1.84 (06/10/2010) T4 (total): 10.6 (06/10/2010) Doe Middleton MD follow up: T he following medications were removed from the medication list: Norvasc 10 Mg Tabs (Amlodipine besylate) ..... One tab. daily Her updated medication list for this problem includes: Furosemide 20 Mg Tabs (Furosemide) ..... 2 tablets in am, 1 tablet in pm Cardizem Cd 360 Mg Cp24 (Diltiazem hcl coated beads) ..... One daily BP today: 159/113 P rior BP: 156/87 (08/09/2010) Labs Reviewed: C reat: 0.98 (06/10/2010) Doe Middleton MD follow up: T he following medications were removed from the medication list: Norvasc 10 Mg Tabs (Amlodipine besylate) ..... One tab. daily Her updated medication list for this problem includes: Furosemide 20 Mg Tabs (Furosemide) ..... 2 tablets in am, 1 tablet in pm Cardizem Cd 360 Mg Cp24 (Diltiazem hcl coated beads) ..... One daily BP today: 159/113 Prior BP: 156/87 (08/09/2010) C ardiac Cath: Normal coronary arteries. Severe LV dysfunction with EF 15% and a LBBB. [facility] (04/30/2009) C arotid Doppler/Duplex: Negative bilateral carotid and vertebral system. [facility] (07/21/2010) C K: 74 (06/10/2010) Hgb: 14.1 (05/21/2009) HCT: 43.1 (05/21/2009) RBC: 4.63 (05/21/2009) WBC: 8.6 (05/21/2009) B UN: 17 (06/10/2010) Creat: 0.98 (06/10/2010) Glucose: 143 (06/10/2010) N a+: 142 (06/10/2010) K+: 4.2 (06/10/2010) Cl: 106 (06/10/2010) TSH: 1.84 (06/10/2010) T4 (total): 10.6 (06/10/2010) Doe Middleton MD routine : H er updated medication list for this problem includes: Furosemide 20 Mg Tabs (Furosemide) ..... 2 tablets in am, 1 tablet in pm Norvasc 10 Mg Tabs (Amlodipine besylate) ..... One tab. daily Coreg 6.25 Mg Tabs (Carvedilol) ..... One tab. twice daily BP today: / Prior BP: 138/77 (06/07/2010) E chocardiogram: Normal left ventricular wall thickness. Severe global left ventricular systolic hypokinesis. Moderate enlargement of left ventricular chamber. There is E to A wave reversal consistent with impaired LV relaxation . E/E` is abnormal, suggestive of elevated end diastolic filling pressures.15.0. Left ventricular ejection fraction is e stimated at 15%. No significant valvular abnormalities. Normal aortic root. Normal pericardium with no significant pericardial effusion. [facility] [place] (06/10/2010) C ardiac Cath: Normal coronary arteries. Severe LV dysfunction with EF 15% and a LBBB. [facility] (04/30/2009) C K: 74 (06/10/2010) Hgb: 14.1 (05/21/2009) HCT: 43.1 (05/21/2009) RBC: 4.63 (05/21/2009) WBC: 8.6 (05/21/2009) B UN: 17 (06/10/2010) Creat: 0.98 (06/10/2010) Glucose: 143 (06/10/2010) N a+: 142 (06/10/2010) K+: 4.2 (06/10/2010) Cl: 106 (06/10/2010) SGOT (AST): 17 (06/10/2010) SGPT (ALT): 16 (06/10/2010) TSH: 1.84 (06/10/2010) T4 (total): 10.6 (06/10/2010) Doe Middleton MD routine : H er updated medication list for this problem includes: Furosemide 20 Mg Tabs (Furosemide) ..... 2 tablets in am, 1 tablet in pm Norvasc 10 Mg Tabs (Amlodipine besylate) ..... One tab. daily Coreg 6.25 Mg Tabs (Carvedilol) ..... One tab. twice daily Doe Middleton MD routine : H er updated medication list for this problem includes: Furosemide 20 Mg Tabs (Furosemide) ..... 2 tablets in am, 1 tablet in pm Norvasc 10 Mg Tabs (Amlodipine besylate) ..... One tab. daily Coreg 6.25 Mg Tabs (Carvedilol) ..... One tab. twice daily Prior BP: 138/77 (06/07/2010) Labs Reviewed: C reat: 0.98 (06/10/2010) Doe Middleton MD routine : H er updated medication list for this problem includes: Glimepiride 4 Mg Tabs (Glimepiride) ..... Once daily BP today: / Prior BP: 138/77 (06/07/2010) Labs Reviewed: C reat: 0.98 (06/10/2010) Doe Middleton MD routine : H er updated medication list for this problem includes: Furosemide 20 Mg Tabs (Furosemide) ..... 2 tablets in am, 1 tablet in pm Norvasc 10 Mg Tabs (Amlodipine besylate) ..... One tab. daily Coreg 6.25 Mg Tabs (Carvedilol) ..... One tab. twice daily BP today: / Prior BP: 138/77 (06/07/2010) C ardiac Cath: Normal coronary arteries. Severe LV dysfunction with EF 15% and a LBBB. [facility] (04/30/2009) C K: 74 (06/10/2010) Hgb: 14.1 (05/21/2009) HCT: 43.1 (05/21/2009) RBC: 4.63 (05/21/2009) WBC: 8.6 (05/21/2009) B UN: 17 (06/10/2010) Creat: 0.98 (06/10/2010) Glucose: 143 (06/10/2010) N a+: 142 (06/10/2010) K+: 4.2 (06/10/2010) Cl: 106 (06/10/2010) TSH: 1.84 (06/10/2010) T4 (total): 10.6 (06/10/2010) Doe Middleton MD defib check with F/U : T he following medications were removed from the medication list: Carvedilol 6.25 Mg Tabs (Carvedilol) ..... One tab. twice daily Spironolactone 25 Mg Tabs (Spironolactone) ..... 1/2 tablet by mouth daily Klor-con M20 20 Meq Cr-tabs (Potassium chloride magda cr) ..... 1 tablet by mouth daily Her updated medication list for this problem includes: Furosemide 20 Mg Tabs (Furosemide) ..... 2 tablets in am, 1 tablet in pm Orders: E cho - Bi-V Study (CPT-50358) T HYROID PANEL WITH TSH, 3RD GENERATION (7444) BP today: 138/77 Prior BP: 149/82 (11/30/2009) E chocardiogram: Limited study for AV optimization. Severe global left ventricular systolic hypokinesis. LV/RV timing began at 0 ms and was changes to LV 20ms before RV. Senced AV remained at 100 ms. Normal left ventricular wall thickness. Severe enlargement of left ventricular chamber. Normal right ventricular size. Normal right ventricular systolic function. Linear artifact seen in the right ventricle is suggestive of a catheter, pacer lead, or ICD lead. The right atrium is normal in size. Linear artifact in right atrium suggestive of catheter, pacer lead, or ICD lead. There is trace physiologic mitral valve regurgitation. Both MV leaflets are t hickened (sclerotic). - GC (08/10/2009) C ardiac Cath: Normal coronary arteries. Severe LV dysfunction with EF 15% and a LBBB. [facility] (04/30/2009) H gb: 14.1 (05/21/2009) HCT: 43.1 (05/21/2009) RBC: 4.63 (05/21/2009) WBC: 8.6 (05/21/2009) B UN: 18 (11/09/2009) Creat: 0.83 (11/09/2009) Glucose: 143 (11/09/2009) N a+: 141 (11/09/2009) K+: 4.1 (11/09/2009) Cl: 104 (11/09/2009) SGOT (AST): 18 (09/27/2009) SGPT (ALT): 15 (09/27/2009) TSH: 1.790 (09/27/2009) T4 (total): 9.2 (08/16/2009) Doe Middleton MD defib check with F/U : T he following medications were removed from the medication list: Januvia 100 Mg Tabs (Sitagliptin phosphate) ..... Once daily Her updated medication list for this problem includes: Glimepiride 4 Mg Tabs (Glimepiride) ..... Once daily BP today: 138/77 Prior BP: 149/82 (11/30/2009) Labs Reviewed: C reat: 0.83 (11/09/2009) Doe Middleton MD defib check with F/U : O rders: C OMPREHENSIVE METABOLIC PANEL W/EGFR (12062) S ED RATE BY MODIFIED WESTERGREN (809) R HEUMATOID FACTOR (4418) C REATINE KINASE, TOTAL (374) T HYROID PANEL WITH TSH, 3RD GENERATION (7444) Doe Middleton MD defib check with F/U : T he following medications were removed from the medication list: Carvedilol 6.25 Mg Tabs (Carvedilol) ..... One tab. twice daily Spironolactone 25 Mg Tabs (Spironolactone) ..... 1/2 tablet by mouth daily Her updated medication list for this problem includes: Furosemide 20 Mg Tabs (Furosemide) ..... 2 tablets in am, 1 tablet in pm Orders: Echo - Bi-V Study (CPT-37697) C omplete Echo (CPT-36028) BP today: 138/77 Prior BP: 149/82 (11/30/2009) C ardiac Cath: Normal coronary arteries. Severe LV dysfunction with EF 15% and a LBBB. [facility] (04/30/2009) H gb: 14.1 (05/21/2009) HCT: 43.1 (05/21/2009) RBC: 4.63 (05/21/2009) WBC: 8.6 (05/21/2009) B UN: 18 (11/09/2009) Creat: 0.83 (11/09/2009) Glucose: 143 (11/09/2009) N a+: 141 (11/09/2009) K+: 4.1 (11/09/2009) Cl: 104 (11/09/2009) TSH: 1.790 (09/27/2009) T4 (total): 9.2 (08/16/2009) Doe Middleton MD FU w/ Defib check: H er updated medication list for this problem includes: Furosemide 20 Mg Tabs (Furosemide) ..... 2 tablets in am, 1 tablet in pm Carvedilol 6.25 Mg Tabs (Carvedilol) ..... One tab. twice daily Spironolactone 25 Mg Tabs (Spironolactone) ..... 1/2 tablet by mouth daily Klor-con M20 20 Meq Cr-tabs (Potassium chloride magda cr) ..... 1 tablet by mouth daily B P today: 149/82 Prior BP: 155/79 (08/10/2009) E chocardiogram: Limited study for AV optimization. Severe global left ventricular systolic hypokinesis. LV/RV timing began at 0 ms and was changes to LV 20ms before RV. Senced AV remained at 100 ms. Normal left ventricular wall thickness. Severe enlargement of left ventricular chamber. Normal right ventricular size. Normal right ventricular systolic function. Linear artifact seen in the right ventricle is suggestive of a catheter, pacer lead, or ICD lead. The right atrium is normal in size. Linear artifact in right atrium suggestive of catheter, pacer lead, or ICD lead. There is trace physiologic mitral valve regurgitation. Both MV leaflets are t hickened (sclerotic). - (08/10/2009) C ardiac Cath: Normal coronary arteries. Severe LV dysfunction with EF 15% and a LBBB. [facility] (04/30/2009) H gb: 14.1 (05/21/2009) HCT: 43.1 (05/21/2009) RBC: 4.63 (05/21/2009) WBC: 8.6 (05/21/2009) B UN: 18 (11/09/2009) Creat: 0.83 (11/09/2009) Glucose: 143 (11/09/2009) N a+: 141 (11/09/2009) K+: 4.1 (11/09/2009) Cl: 104 (11/09/2009) SGOT (AST): 18 (09/27/2009) SGPT (ALT): 15 (09/27/2009) TSH: 1.790 (09/27/2009) T4 (total): 9.2 (08/16/2009) Doe Middleton MD FU w/ Defib check: H er updated medication list for this problem includes: Furosemide 20 Mg Tabs (Furosemide) ..... 2 tablets in am, 1 tablet in pm Carvedilol 6.25 Mg Tabs (Carvedilol) ..... One tab. twice daily Spironolactone 25 Mg Tabs (Spironolactone) ..... 1/2 tablet by mouth daily BP today: 149/82 Prior BP: 155/79 (08/10/2009) C ardiac Cath: Normal coronary arteries. Severe LV dysfunction with EF 15% and a LBBB. [facility] (04/30/2009) H gb: 14.1 (05/21/2009) HCT: 43.1 (05/21/2009) RBC: 4.63 (05/21/2009) WBC: 8.6 (05/21/2009) B UN: 18 (11/09/2009) Creat: 0.83 (11/09/2009) Glucose: 143 (11/09/2009) N a+: 141 (11/09/2009) K+: 4.1 (11/09/2009) Cl: 104 (11/09/2009) TSH: 1.790 (09/27/2009) T4 (total): 9.2 (08/16/2009) Doe Middleton MD FU w/ Defib check: H er updated medication list for this problem includes: Furosemide 20 Mg Tabs (Furosemide) ..... 2 tablets in am, 1 tablet in pm Carvedilol 6.25 Mg Tabs (Carvedilol) ..... One tab. twice daily Spironolactone 25 Mg Tabs (Spironolactone) ..... 1/2 tablet by mouth daily BP today: 149/82 P rior BP: 155/79 (08/10/2009) Labs Reviewed: C reat: 0.83 (11/09/2009) Doe Middleton MD FU w/ Defib check: H er updated medication list for this problem includes: Glimepiride 4 Mg Tabs (Glimepiride) ..... Once daily Januvia 100 Mg Tabs (Sitagliptin phosphate) ..... Once daily BP today: 149/82 Prior BP: 155/79 (08/10/2009) Labs Reviewed: C reat: 0.83 (11/09/2009) Doe Middleton MD FU w/ Defib check: H er updated medication list for this problem includes: Furosemide 20 Mg Tabs (Furosemide) ..... 2 tablets in am, 1 tablet in pm Carvedilol 6.25 Mg Tabs (Carvedilol) ..... One tab. twice daily Spironolactone 25 Mg Tabs (Spironolactone) ..... 1/2 tablet by mouth daily BP today: 149/82 Prior BP: 155/79 (08/10/2009) C ardiac Cath: Normal coronary arteries. Severe LV dysfunction with EF 15% and a LBBB. [facility] (04/30/2009) H gb: 14.1 (05/21/2009) HCT: 43.1 (05/21/2009) RBC: 4.63 (05/21/2009) WBC: 8.6 (05/21/2009) B UN: 18 (11/09/2009) Creat: 0.83 (11/09/2009) Glucose: 143 (11/09/2009) N a+: 141 (11/09/2009) K+: 4.1 (11/09/2009) Cl: 104 (11/09/2009) TSH: 1.790 (09/27/2009) T4 (total): 9.2 (08/16/2009) Doe Middleton MD routine: H er updated medication list for this problem includes: Glimepiride 4 Mg Tabs (Glimepiride) ..... Once daily BP today: 155/79 Prior BP: 119/72 (06/29/2009) Labs Reviewed: C reat: 0.83 (06/11/2009) Doe Middleton MD routine: H er updated medication list for this problem includes: Furosemide 20 Mg Tabs (Furosemide) ..... 1 tablet by mouth twice daily Carvedilol 6.25 Mg Tabs (Carvedilol) ..... One tab. twice daily Spironolactone 25 Mg Tabs (Spironolactone) ..... 1/2 tablet by mouth daily Klor-con M20 20 Meq Cr-tabs (Potassium chloride magda cr) ..... 1 tablet by mouth daily BP today: 155/79 Prior BP: 119/72 (06/29/2009) E chocardiogram: TDS. MAC. LVH. Severe LV systolic dysfunction. EF 25%. Severe vivian-septal wall hypokiness compatible with ischemia or infarction. Severe inferior and apical wall hypokinesis compatible with ischemia or infarction. Mild MR & TR. [facility] (04/30/2009) C ardiac Cath: Normal coronary arteries. Severe LV dysfunction with EF 15% and a LBBB. [facility] (04/30/2009) H gb: 14.1 (05/21/2009) HCT: 43.1 (05/21/2009) RBC: 4.63 (05/21/2009) WBC: 8.6 (05/21/2009) B UN: 13 (06/11/2009) Creat: 0.83 (06/11/2009) Glucose: 124 (06/11/2009) N a+: 141 (06/11/2009) K+: 4.0 (06/11/2009) Cl: 103 (06/11/2009) Doe Middleton MD routine: H er updated medication list for this problem includes: Furosemide 20 Mg Tabs (Furosemide) ..... 1 tablet by mouth twice daily Carvedilol 6.25 Mg Tabs (Carvedilol) ..... One tab. twice daily Spironolactone 25 Mg Tabs (Spironolactone) ..... 1/2 tablet by mouth daily BP today: 155/79 Prior BP: 119/72 (06/29/2009) C ardiac Cath: Normal coronary arteries. Severe LV dysfunction with EF 15% and a LBBB. [facility] (04/30/2009) H gb: 14.1 (05/21/2009) HCT: 43.1 (05/21/2009) RBC: 4.63 (05/21/2009) WBC: 8.6 (05/21/2009) B UN: 13 (06/11/2009) Creat: 0.83 (06/11/2009) Glucose: 124 (06/11/2009) N a+: 141 (06/11/2009) K+: 4.0 (06/11/2009) Cl: 103 (06/11/2009) Doe Middleton MD routine: H er updated medication list for this problem includes: Furosemide 20 Mg Tabs (Furosemide) ..... 1 tablet by mouth twice daily Carvedilol 6.25 Mg Tabs (Carvedilol) ..... One tab. twice daily Spironolactone 25 Mg Tabs (Spironolactone) ..... 1/2 tablet by mouth daily BP today: 155/79 P rior BP: 119/72 (06/29/2009) Labs Reviewed: C reat: 0.83 (06/11/2009) Doe Middleton MD routine: H er updated medication list for this problem includes: Furosemide 20 Mg Tabs (Furosemide) ..... 1 tablet by mouth twice daily Carvedilol 6.25 Mg Tabs (Carvedilol) ..... One tab. twice daily Spironolactone 25 Mg Tabs (Spironolactone) ..... 1/2 tablet by mouth daily BP today: 155/79 Prior BP: 119/72 (06/29/2009) C ardiac Cath: Normal coronary arteries. Severe LV dysfunction with EF 15% and a LBBB. [facility] (04/30/2009) H gb: 14.1 (05/21/2009) HCT: 43.1 (05/21/2009) RBC: 4.63 (05/21/2009) WBC: 8.6 (05/21/2009) B UN: 13 (06/11/2009) Creat: 0.83 (06/11/2009) Glucose: 124 (06/11/2009) N a+: 141 (06/11/2009) K+: 4.0 (06/11/2009) Cl: 103 (06/11/2009) Doe Middleton MD Routine office visit -letter fxd: H er updated medication list for this problem includes: Furosemide 20 Mg Tabs (Furosemide) ..... 1 tablet by mouth twice daily Spironolactone 25 Mg Tabs (Spironolactone) ..... 1/2 tablet by mouth daily Klor-con M20 20 Meq Cr-tabs (Potassium chloride magda cr) ..... 1 tablet by mouth daily BP today: 119/72 Prior BP: 145/81 (05/11/2009) E chocardiogram: TDS. MAC. LVH. Severe LV systolic dysfunction. EF 25%. Severe vivian-septal wall hypokiness compatible with ischemia or infarction. Severe inferior and apical wall hypokinesis compatible with ischemia or infarction. Mild MR & TR. [facility] (04/30/2009) C ardiac Cath: Normal coronary arteries. Severe LV dysfunction with EF 15% and a LBBB. [facility] (04/30/2009) H gb: 14.1 (05/21/2009) HCT: 43.1 (05/21/2009) RBC: 4.63 (05/21/2009) WBC: 8.6 (05/21/2009) B UN: 13 (06/11/2009) Creat: 0.83 (06/11/2009) Glucose: 124 (06/11/2009) N a+: 141 (06/11/2009) K+: 4.0 (06/11/2009) Cl: 103 (06/11/2009) Doe Middleton MD Routine office visit -letter fxd: H er updated medication list for this problem includes: Furosemide 20 Mg Tabs (Furosemide) ..... 1 tablet by mouth twice daily Spironolactone 25 Mg Tabs (Spironolactone) ..... 1/2 tablet by mouth daily BP today: 119/72 Prior BP: 145/81 (05/11/2009) C ardiac Cath: Normal coronary arteries. Severe LV dysfunction with EF 15% and a LBBB. & #13;[facility] (04/30/2009) H gb: 14.1 (05/21/2009) HCT: 43.1 (05/21/2009) RBC: 4.63 (05/21/2009) WBC: 8.6 (05/21/2009) B UN: 13 (06/11/2009) Creat: 0.83 (06/11/2009) Glucose: 124 (06/11/2009) N a+: 141 (06/11/2009) K+: 4.0 (06/11/2009) Cl: 103 (06/11/2009) Doe Middleton MD Routine office visit -letter fxd: H er updated medication list for this problem includes: Furosemide 20 Mg Tabs (Furosemide) ..... 1 tablet by mouth twice daily Spironolactone 25 Mg Tabs (Spironolactone) ..... 1/2 tablet by mouth daily BP today: 119/72 P rior BP: 145/81 (05/11/2009) Labs Reviewed: C reat: 0.83 (06/11/2009) Doe Middleton MD Routine office visit -letter fxd: H er updated medication list for this problem includes: Glyburide 2.5 Mg Tabs (Glyburide) ..... 1./2 tablet by mouth twice daily Metformin Hcl 500 Mg Tabs (Metformin hcl) ..... 1 tablet by mouth daily BP today: 119/72 Prior BP: 145/81 (05/11/2009) Labs Reviewed: C reat: 0.83 (06/11/2009) Doe Middleton MD Routine office visit -letter fxd: H er updated medication list for this problem includes: Furosemide 20 Mg Tabs (Furosemide) ..... 1 tablet by mouth twice daily Spironolactone 25 Mg Tabs (Spironolactone) ..... 1/2 tablet by mouth daily BP today: 119/72 Prior BP: 145/81 (05/11/2009) C ardiac Cath: Normal coronary arteries. Severe LV dysfunction with EF 15% and a LBBB. & #13;[facility] (04/30/2009) H gb: 14.1 (05/21/2009) HCT: 43.1 (05/21/2009) RBC: 4.63 (05/21/2009) WBC: 8.6 (05/21/2009) B UN: 13 (06/11/2009) Creat: 0.83 (06/11/2009) Glucose: 124 (06/11/2009) N a+: 141 (06/11/2009) K+: 4.0 (06/11/2009) Cl: 103 (06/11/2009) O rders: E KG (CPT-86726) E cho - Bi-V Study (CPT-62225) Doe Middleton MD post hops-? aicd true cement- letter fxd: T he following medications were removed from the medication list: Glyburide 2.5 Mg Tabs (Glyburide) ..... 1/2 tablet by mouth twice daily BP today: 145/81 Prior BP: / () Doe Middleton MD post hops-? aicd true cement- letter fxd: H er updated medication list for this problem includes: Furosemide 20 Mg Tabs (Furosemide) ..... 1 tablet by mouth twice daily Carvedilol 3.125 Mg Tabs (Carvedilol) ..... 1 tablet by mouth twice daily Spironolactone 25 Mg Tabs (Spironolactone) ..... 1/2 tablet by mouth daily BP today: 145/81 Doe Middleton MD post hops-? aicd true cement- letter fxd: H er updated medication list for this problem includes: Furosemide 20 Mg Tabs (Furosemide) ..... 1 tablet by mouth twice daily Carvedilol 3.125 Mg Tabs (Carvedilol) ..... 1 tablet by mouth twice daily Spironolactone 25 Mg Tabs (Spironolactone) ..... 1/2 tablet by mouth daily BP today: 145/81 Prior BP: / () C ardiac Cath: Normal coronary arteries. Severe LV dysfunction with EF 15% and a LBBB. [facility] (04/30/2009) Doe Middleton MD Date Name PARTIAL THROMBOPLAST IN TIME, ACTIVATED URINALYSIS, COMPLETE W/REFLEX TO CULTURE COMPREHENSIVE METABO LIC PANEL W/EGFR PROTHROMBIN TIME WIT H INR LIPID PANEL CBC (INCLUDES DIFF/P LT) Venous Doppler Bilat eral LE - Reflux CBC (H/H, RBC, INDIC ES, WBC, PLT) PROBNP, N TERMINAL COMPREHENSIVE METABO LIC PANEL, W/EGFR Complete Echo IRON AND TOTAL IRON BINDING CAPACITY FERRITIN Venous Doppler Bilat eral LE Complete Echo Mobile Cardiac Tele Echo - Bi-V Study Echo - Bi-V Study IRON AND TOTAL IRON BINDING CAPACITY FERRITIN CBC (INCLUDES DIFF/P LT) Echo - Bi-V Study URINALYSIS, COMPLETE W/REFLEX TO CULTURE CBC (INCLUDES DIFF/P LT) PARTIAL THROMBOPLAST IN TIME, ACTIVATED PROTHROMBIN TIME WIT H INR COMPREHENSIVE METABO LIC PANEL W/EGFR Bi-V AICD Implant - GC Sleep Study Complete Echo Venous Doppler Bilat eral LE Echo - Bi-V Study Complete Echo Venous Doppler Bilat eral LE Echo - Bi-V Study BASIC METABOLIC PANE L W/EGFR Complete Echo THYROID PANEL WITH T SH, 3RD GENERATION Echo - Bi-V Study CREATINE KINASE, TOT AL RHEUMATOID FACTOR SED RATE BY MODIFIED WESTERGREN COMPREHENSIVE METABO LIC PANEL W/EGFR THYROID PANEL WITH T SH, 3RD GENERATION COMPREHENSIVE METABO LIC PANEL W/EGFR CALCIUM Echo - Bi-V Study B TYPE NATRIURETIC P EPTIDE (BNP) BASIC METABOLIC PANE L W/EGFR Bi-V AICD Implant - CNE HISTORY OF PROCEDURES Procedure Date Procedure Name Provider Procedure Notes S tatus Complex e/m visit ad d on Doe Middleton MD completed EKG Doe Middleton MD complete d Complex e/m visit ad d on Doe Middleton MD completed EKG Valeria Bates completed EKG Jeremiah Nelson MD completed Mobile Cardiac Telemetry - Tech Doe Middleton MD completed Mobile Cardiac Telemetry - Prof Doe Middleton MD completed EKG Galen Olivares RN completed EKG Doe Middleton MD complete d EKG Doe Middleton MD complete d SNOMED-CT: 869467362301495 Current Medications Documented Doe Middleton MD completed EKG Doe Middleton MD complete d SNOMED-CT: 307004975502071 Current Medications Documented Doe Middleton MD completed SNOMED-CT: 668512256425797 Current Medications Documented Doe Middleton MD completed SNOMED-CT: 350718926217417 Current Medications Documented Doe Middleton MD completed EKG Doe Middleton MD complete d SNOMED-CT: [id number] Current Medications Documented Doe Middleton MD completed EKG Doe Middleton MD complete d EKG Doe Middleton MD complete d ePrescribe - Check t his box if eRx is used Doe Middleton MD completed EKG Doe Middleton MD complete d TI, OPTIVOL, ICM Interrogation (Office) Doe Middleton MD INTERROGATION EVAL F2F IMPLANTABLE CV MNTR SYS completed AICD Programming (Multiple Lead, BI-V) Doe Middleton MD PROGRM EVAL IMPLANTABLE IN PRSN [employer]ERSON HOSIERY LD CARD/DFB completed ePrescribe - Check t his box if eRx is used Doe Middleton MD completed EKG Doe Middleton MD complete d EKG Doe Middleton MD complete d EKG Tariq Garay MD completed EKG Doe Middleton MD complete d EKG Doe Middleton MD complete d
[2025-03-04 12:01] LABS: INR 1.1; Prothrombin Time 14.4 Seconds (11.1-14.7)
[2025-03-04 12:02] LABS: Partial Thromboplastin Time 23.4 Seconds (22.3-36.8)
[2025-03-04 12:06] LABS: NT Pro B Type Natriuretic Pept 6370 pg/mL (19.9-100); Troponin I 0.026 ng/mL (0.000-0.034)
--- NOTE | 2025-03-04 12:22 | ED.GENADULT ---
HPI - General Adult General Chief complaint: Shortness of Breath/Dyspnea Stated complaint: shortness of breath Time Seen by Provider: 03/04/25 12:06 History of Present Illness HPI narrative: Patient 79-year-old female presents emergency department chief complaint of shortness of breath. The patient has history of COPD and CHF reports he has had increasing edema in her lower extremities the the patient reports that today she was short of breath with exertion and reports that she feels as though she is not getting enough air is sitting on the stretcher. Related Data Allergies Allergy/AdvReac Type Severity Reaction Status Date / Time Penicillins Allergy Intermediate Itching Verified 03/04/25 10:48 Sulfa (Sulfonamide Allergy Intermediate Itching Verified 03/04/25 10:48 Antibiotics) tetracycline Allergy Intermediate Itching Verified 03/04/25 10:48 buspirone (From BuSpar) Allergy Unknown Verified 03/04/25 10:48 cefuroxime (From Ceftin) Allergy Unknown Verified 03/04/25 10:48 cephalexin (From Keflex) Allergy Itching Verified 03/04/25 10:48 clarithromycin (From Biaxin) Allergy Itching Verified 03/04/25 10:48 iohexol (From contrast - CT, Allergy Itching Verified 03/04/25 10:48 X-RAY) neomycin Allergy Itching Verified 03/04/25 10:48 povidone-iodine (From Allergy Rash Verified 03/04/25 10:48 Betadine) Review of Systems Review of Systems: A 10 system review of systems was completed on the patient and is negative except for what is stated in the HPI. Nursing and ancillary documentation was reviewed. Exam Narrative: GENERAL: Well-appearing, well-nourished, and in no acute distress. HEAD: Normocephalic, atraumatic. EYES: PERRLA and EOMI. ENT: Nares clear, no rhinorrhea or epistaxis. Mucous membranes moist. NECK: Supple. CHEST: Clear to auscultation. No respiratory distress. HEART: Regular rate and rhythm. No murmur heard. Normal peripheral pulses. ABDOMEN: Soft, nontender, nondistended, normal active bowel sounds. EXTREMITIES: Normal range of motion. 1+ edema. SKIN: Warm, dry, no rash. NEURO: No focal deficits. Alert and oriented x3. PSYCH: Normal mood and affect. Course Vital Signs Vital signs: Vital Signs Temperature 36.4 C 03/04/25 10:42 Pulse Rate 83 03/04/25 10:42 Respiratory Rate 18 03/04/25 10:42 Blood Pressure 116/65 03/04/25 10:42 Pulse Oximetry 100 03/04/25 10:42 Temperature 36.4 C 03/04/25 10:42 Pulse Rate 78 03/04/25 13:28 Respiratory Rate 15 03/04/25 13:28 Blood Pressure 122/90 03/04/25 13:28 Pulse Oximetry 99 03/04/25 13:28 Oxygen Delivery Room Air 03/04/25 11:10 Medical Decision Making MDM Narrative Medical decision making narrative: Differential diagnosis includes pneumonia, CHF, COPD, The patient was not hypoxic with ambulation nor hypoxic with resting on the stretcher. Patient given 240 mg of IV Lasix in the emergency department is negative for COVID negative flu negative for strep chest x-ray did show some pulmonary vascular congestion and BNP was 6370. Patient will be instructed to increase her Lasix and she follow-up with her primary care provider The case was discussed with the hospitalist who did not feel as though the patient met criteria for hospitalization since the patient was not hypoxic with ambulation or hypoxic at rest Vital Signs Vital Signs: Vital Signs Temperature 36.4 C 03/04/25 10:42 Pulse Rate 83 03/04/25 10:42 Respiratory Rate 18 03/04/25 10:42 Blood Pressure 116/65 03/04/25 10:42 Pulse Oximetry 100 03/04/25 10:42 Temperature 36.4 C 03/04/25 10:42 Pulse Rate 78 03/04/25 13:28 Respiratory Rate 15 03/04/25 13:28 Blood Pressure 122/90 03/04/25 13:28 Pulse Oximetry 99 03/04/25 13:28 Oxygen Delivery Room Air 03/04/25 11:10 Lab Data 03/04/25 11:34 03/04/25 11:34 Labs: Lab Results 03/04/25 03/04/25 Range/Units 11:34 12:31 WBC 12.4 H (4.5-10.0) K/mm3 RBC 4.98 (4.2-5.4) M/mm3 Hgb 14.5 (12.0-15.0) g/dL Hct 46.8 (37.0-47.0) % MCV 94.0 (80-100) fl MCH 29.1 (26-34) pg MCHC 31.0 L (32-36) g/dl RDW 14.6 H (11.5-14.5) % Plt Count 170 (150-375) k/mm3 MPV 10.1 (7.4-10.4) fl Immature Gran % (Auto) 0.8 H (0-0.5) % Neut % (Auto) 75.5 H (45.5-73.1) % Lymph % (Auto) 13.5 L (18.3-44.2) % Amelia % (Auto) 8.3 (2.6-8.5) % Eos % (Auto) 1.2 (0-4.4) % Baso % (Auto) 0.7 (0.2-1.2) % Lymph # (Auto) 1.68 (0.9-3.2) K/mm3 Amelia # (Auto) 1.0 H (0.1-0.6) K/mm3 Eos # (Auto) 0.2 (0-0.3) K/mm3 Baso # (Auto) 0.1 (0.0-0.1) K/mm3 Abs Immat Gran (auto) 0.10 H (0.00-0.031) K/mm3 Absolute Neuts (auto) 9.4 H (1.3-6.7) K/mm3 Absolute Nucleated RBC 0.000 (0.0-0.012) K/mm3 Nucleated RBC % 0.0 (0.0-0.2) % PT 14.4 (11.1-14.7) Seconds INR 1.1 APTT 23.4 (22.3-36.8) Seconds Sodium 140 (137-145) mmol/L Potassium 4.3 (3.4-5.0) mmol/L Chloride 100 (98-107) mmol/L Carbon Dioxide 30 (22-30) mmol/L Anion Gap 10 (4-12) mmol/L BUN 46 H (7-17) mg/dL Creatinine 1.63 H (0.7-1.0) mg/dL Estim Creat Clear Calc Not Reportable Estimated GFR 31 L (59 - ) Glucose 124 H (65-110) mg/dL Calcium 10.1 (8.4-10.2) mg/dL Total Bilirubin 1.7 H (0.2-1.3) mg/dL AST 27 (14-36) U/L ALT 14 (6-35) U/L Alkaline Phosphatase 141 H (38-126) U/L Troponin I 0.026 (0.000-0.034) ng/mL NT-Pro-B Natriuret Pep 6370 H (19.9-100) pg/mL Total Protein 9.0 H (6.3-8.2) g/dL Albumin 4.7 (3.5-5.1) g/dL Influenza A (RT-PCR) Negative (Negative) Influenza B (RT-PCR) Negative (Negative) RSV (RT-PCR) Negative (Negative) SARS-CoV-2 RNA (RT-PCR) Negative (Negative) Group A Strep (PCR) Not detected (Negative) Discharge Plan Discharge Clinical Impression: Congestive heart failure Patient Disposition: Home Condition: Stable Instructions: Antibiotic Form, Heart Failure (ED) Additional Instructions: Please double your Lasix dose in the evening for the next 5 days. 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
[2025-03-04] MEDS: FUROSEMIDE INJ 40 MG/4 ML VIAL IV PUSH (12:26)
[2025-03-04 13:03] LABS: Strep Group A RT-PCR NOT DETECTED (Negative)
[2025-03-04 13:17] LABS: Influenza A QL RT-PCR Negative (Negative); Influenza B QL RT-PCR Negative (Negative); RSV RNA, RT-PCR Negative (Negative); SARS-CoV-2 RNA PCR Negative (Negative)
--- OUTSIDE RECORDS SUMMARY | 2025-03-04 13:44 | XMS_ITS | Data Portability ---
Author Organization [facility] [employer], Main Office Address [address] [place] [address] Care Team Providers Care Medical Assembler Name Role Phone MANUEL OLGUIN Primary Care Provider MANUEL OLGUIN Referring Provider [phone] MANUEL OLGUIN Primary Care Provider [phone] Assessment No assessment recorded. Plan of Treatment Reminders Order Date Submit Date Provider Last Modified By Organization Details Last Modified Time Details Appointments Any 15 2024 01:30P M Manuel Olguin MD Not available Not available Not available Lab None recorde d. [facility]erral [facility] 2023 024 [email or web address] [facility], [address] [place], [address], 06/17/2024 08:31:42 Procedures None recorde d. Surgeries None recorde d. Imaging None recorde d. Medication Orders levoflo xacin 500 mg tablet 2024 025 [facility] [id number], [address], 01/21/2025 15:27:37 nystati n 100,000 unit/gr am topical cream 2024 025 [facility] [id number] [place], [address], 11/25/2024 15:19:05 clindam ycin HCl 300 mg capsule 2024 025 [email or web address] [address], [address], 01/21/2025 14:58:32 prednis one 20 mg tablet 2024 025 amanda [facility] [address], [address], 01/21/2025 14:59:41 levoflo xacin 500 mg tablet 2024 025 [facility] [address], [address], 01/21/2025 14:59:05 levoflo xacin 500 mg tablet 2023 024 [facility] [address], [address], 01/21/2025 14:59:05 nystati n 100,000 unit/gr am topical cream 2023 024 [facility] [address], [address], 09/02/2024 16:18:50 triamci nolone acetoni de 0.1 % topical cream 2023 024 [facility] [address], [address], 09/02/2024 16:05:55 Patient TargetsNo targets recorded. Patient Instructions Encounter Date Encounter Id Patient Instructions Last Modified By Organization Details Last Modified Time 09/02/2024 [id number] looks like she had old stroke willing to take Plavix does not want to take any cho meds as rec has appt with neuro dr ratliff [email or web address] Not available 09/02/2024 15:40:45 01/21/2025 [id number] looks like she had old stroke willing to take Plavix does not want to take any cho meds as rec has appt with neuro dr evy patel Not available 01/21/2025 14:47:23 Reason for Referral Home Health Referral for Con gestive heart failure Referring Physician: Manuel Olguin, Internal Medicine, Encounter Date: 05/13/2024 Results Created Date Observation Date Name Description Value Unit Range Abnormal Flag Note LastModifiedBy Organization Detail LastModifiedTime 04/22/20 24 04/16/2024 ale choli ne chall enge* No observ ation record ed. [facility] ([facility]) [address] [place], [address], 04/22/2024 12:38:24 Result Notes None recorded. Problems Name Problem SNOMED Code Status Onset Date Resolution Date Notes Provider Name and Address Organization Details Recorded Time Deliveri es by 042711119 Active 2022 Not Available [employer] 3 16:45:06 Gestatio nal hyperten jered Completed 202207/16/2023 MARCO A Barajas null, [employer] 3 15:35:17 Uncontro lled type 2 diabetes mellitus 140695123 Completed 202207/16/2023 MARCO A Barajas null, [employer] 3 15:35:01 Renal insuffic iency 532267735 Active 2022 Not Available [facility] 3 16:45:06 Thick sputum 815706149 Completed 202207/16/2023 Brent Donato MD [address], [facility] [address], [place], [address] , [employer] 4 15:19:28 Diabetic peripher al neuropat hy 252104909 Active 2022 Not Available [facility] 3 16:45:06 Irritabl e bowel syndrome 87520216 Active 2021 Not Available [facility] 3 16:45:06 Bilatera l knee pain Completed 201906/29/2022 Not Available [facility] 3 03:03:22 Benign essentia l hyperten jered 1292297 Completed 07/16/2023 MARCO A Barajas null, [employer] 3 15:35:52 Cellulit is 392583928 Completed Not Available [facility] 3 03:03:22 Disorder of sacrum 20855262 Completed Not Available [facility] 3 03:03:22 Chronic back pain 150788710 Active Bulging disc lumber, thoraic, work related Not Available [facility] 3 16:45:06 Parotiti s 58411056 Completed 202006/29/2022 Not Available [facility] 3 03:03:22 Constipa tion 77071178 Completed Not Available [facility] 3 03:03:22 Acute sinusiti s 12930505 Completed 202111/02/2022 Manuel Olguin MD [address] [facility], [place], [address] , [employer] [facility] 4 16:18:15 Acute sinusiti s 34235118 Completed 201906/29/2022 Manuel Olguin MD [address] [facility], [address], [place], [address] , [employer] [facility] 4 16:18:15 Right flank pain 444482886 Completed 202106/29/2022 Not Available [facility] 3 03:03:22 Mammogra phy abnormal 212024135 Completed 202111/02/2022 Not Available [facility] 3 03:03:22 Anxiety disorder 446924274 Completed 07/16/2023 MARCO A Barajas null, [employer] 3 15:35:54 Localize d, 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 705008224 Completed Not Available [facility] 3 03:03:23 Abdomina l pain 20141836 Completed Not Available [facility] 3 03:03:23 Gastroes ophageal reflux disease 331396762 Active Not Available [facility] 3 16:45:06 Thyroid nodule 337852777 Active Not Available [facility] 3 16:45:06 Seroposi tive rheumato id arthriti s 349889672 Active 2021 Not Available [facility] 3 16:45:06 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 Not Available [facility] 3 16:45:06 Dyspnea 046326050 Completed 201906/29/2022 Not Available [facility] 3 03:03:24 Edema 536758310 Completed Not Available [facility] 3 03:03:24 Eruption 408218340 Completed Not Available [facility] 3 03:03:24 Proteinu karon 84645481 Completed Not Available [facility] 3 03:03:24 Chest pain 64247948 Completed 201806/29/2022 Not Available [facility] 3 03:03:24 Adhesive capsulit is of right shoulder 39838900040 9109 Completed 202006/29/2022 Not Available [facility] 3 03:03:24 Vaginiti s 29794785 Completed Not Available [facility] 3 03:03:24 Pain associat ed with prosthes is of hip joint 407118908 Completed Not Available [facility] 3 03:03:25 Medial epicondy litis of right elbow joint 70213254801 9109 Completed 202006/29/2022 Not Available [facility] 3 03:03:25 Sinusiti s 43822600 Completed ELAINA Abarca, [place] [facility] 4 09:12:59 Dyslipid emia 405467585 Active 2021 Not Available [facility] 3 16:45:06 Malignan t melanoma 258419960 Active right leg 15 years ago Not Available [facility] 3 16:45:06 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 65503800 Completed 202006/29/2022 Not Available [facility] 3 03:03:25 Paronych ia of toe 789508012 Completed Not Available [facility] 3 03:03:26 Umbilica l hernia 383730123 Active Not Available [facility] 3 16:45:06 Rosacea 835483709 Active Not Available [facility] 3 16:45:06 Tinea cruris 214860943 Completed Not Available [facility] 3 03:03:26 Obesity 418922309 Active Not Available [facility] 3 16:45:06 Pain in eye 75898069 Completed Not Available [facility] 3 03:03:27 Furuncle 686948320 Completed Not Available [facility] 3 03:03:27 Itching of skin 304939749 Completed Not Available [facility] 3 03:03:27 Congesti ve heart failure 19312136 Active EF 15-20% Not Available [facility] 3 16:45:06 Pain of hip region 42394160 Completed Not Available [facility] 3 03:03:27 Dysuria 00257007 Completed Not Available [facility] 3 03:03:28 Upper respirat ory infectio n 48506037 Completed Not Available [facility] 3 03:03:28 Essentia l hyperten jered 46578519 Active Not Available [facility] 3 16:45:06 Disorder of coccyx 04607229 Completed Not Available [facility] 3 03:03:28 Allergic rhinitis 85942619 Completed Not Available [facility] 3 03:03:28 Urinary tract infectio us disease 93956308 Completed Not Available [facility] 3 03:03:28 Candidia sis of vagina 50818469 Completed 202106/29/2022 Not Available [facility] 3 03:03:29 Pancreat itis 80121421 Completed Not Available [facility] 3 03:03:29 Neck pain 33218212 Completed Not Available [facility] 3 03:03:29 Fatigue 78142360 Completed 202106/29/2022 Not Available [facility] 3 03:03:29 Fatigue 87048561 Completed Not Available [facility] 3 03:03:29 Cardiomy opathy 62980391 Active s/p pace maker, ICD Not Available [facility] 3 16:45:06 Dependen ce on suppleme ntal oxygen 63294998361 7 Active 2021 Not Available [facility] 3 16:45:06 Disorder of skin 13764584 Completed Not Available [facility] 3 03:03:30 COVID-19 348656692 Active 2022 Not Available [facility] 3 16:45:06 Congesti on of nasal sinus 93901511 Completed 202207/16/2023 Brent Donato MD [address] [employer] [address], [address], [place], [address] , [facility] 4 17:14:40 Anxiety 94308111 Active 2022 Paulina Kowalski MA null, [place] - [facility] 3 12:11:54 Fibromya lgia 555188867 Active 2023 Cristel grijalva RMA null, [place] [facility] 4 14:59:00 Osteoart hritis 256420783 Active 2023 Cristel grijalva RMKerry null, [place] [facility] 4 14:59:00 Mild persiste nt asthma 935327593 Active 2023 Brent Donato MD [address], [address], [place], [address] , [facility] [email or web address] [facility] 4 16:34:05 Weakness of bilatera l lower limb Active 2023 Manuel Olguin MD [address] [employer] [address], [address], [place], [address] , [place] [facility] 4 15:44:46 Asthma 580766531 Active 2023 Manuel Olguin MD [address], [address], [place], [address] , [facility] 4 15:47:31 Candidia sis of skin 40827415 Active 2023 Cristel Holden n, RMA null, [place] [facility] 4 17:28:27 Diabetes mellitus 75989020 Active 2023 Cristel Stufflebea n, RMA null, [place] [facility] 4 15:40:44 Dyspnea on exertion 42502635 Active 2023 Cristel Stufflebea n, RMA null, [place] [facility] 4 15:40:44 Chronic obstruct anabela pulmonar y disease 22292715 Active 2023 Cristel Stufflebea n, RMA null, [place] [facility] 4 15:40:44 Kidney disease 25916046 Active 2023 Cristel Stufflebea n, RMA null, [place] [facility] 4 15:40:44 Acute sinusiti s 44424698 Active 2023 Manuel Olguin MD [address], [facility] [address], [place], [address] , [facility] [place] [facility] 4 16:18:15 Impacted cerumen in left ear 54631958644 92836 Active 2023 Manuel Olguin MD [address], [facility] [address], [place], [address] , [facility] [place] [facility] 4 16:19:04 Sinusiti s 21244577 Active 2023 [place] Richmond MA null, [place] [facility] 4 09:12:59 Notes:Medical History: Rosac ea Anxiety/Depression Migraine headaches Bilateral hearing loss L>R tinnitus COVID infections 06/2023, 10/2023 Rhinitis with postnasal drip IgE 16 IU/mL Eosinophils 250/uL Right thyroid nodules AAT PiMM 131 mg% Methacholine (+) mild persistent asthma 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 Procedures Surgical History Date Name Laterality Status Provider Name and Address Organization Details Recorded Time Pacemaker completed Not Available [facility] 0 01/03/2023 02:55:59 lumpectomy of left breast completed Not Available [facility] 01/03/2023 02:55:59 Orthopedic Surgery completed Not Available [facility] 01/03/2023 02:55:59 other completed Not Available [facility] 11/2022 02:55:59 [facility]lectomy completed [facility] 01/03/2023 02:55:59 Masectomy completed Not Available [facility] 0 01/03/2023 02:55:59 Ingrown Toenail completed Not Available [facility] 01/03/2023 02:55:59 Imaging Results Imaging Date Name Status LastModified by Organization Details LastModified Time 04/16/2024 methacholine challenge* completed [facility] ([facility]) [address] [place], [address], 04/22/2024 12:38:24 Procedure Notes None recorded. Medical Equipment None Reported. Allergies Allergen ID Allergen Name Allergen Category Reaction Reaction Severity Criticality Documentation Date Start Date Code Code System Note Provider Name and Address Organization Details Recorded Time 5495 yellow dye medicatio n Not available Not available Not available 01/03/2023 UNK Not Available [facility] 03:13:31 5496 Medicinal product containin g tetracycl ine structure and acting as antibacte rial agent (product) medicatio n Not available Not available Not available 01/03/2023 51767 1004 SNOMED Not Available [facility] 3 03:13:31 5497 red dye food,medi cation Not available Not available Not available 01/03/2023 56655 UNK Not Available [facility] 3 03:13:31 5498 Product containin g penicilli n (product) medicatio n Not available Not available Not available 01/03/2023 05934 8001 SNOMED Not Available [facility] 3 03:13:31 5499 nystatin medicatio n Not available Not available Not available 01/03/2023 7597 RxNorm cream for funga l- Nysta tin made it worse Not Available [facility] 3 03:13:31 5500 nickel environme nt Not available Not available Not available 01/03/2023 63865 29 RxNorm Not Available [facility] 3 03:13:31 5501 neomycin medicatio n Not available Not available Not available 01/03/2023 7299 RxNorm Not Available [facility] 3 03:13:31 5502 Mucinex medicatio n lighthead edness Not available Not available 01/03/2023 91135 7 RxNorm Not Available [facility] 3 03:13:31 5503 Keflex medicatio n Not available Not available Not available 01/03/2023 31257 7 RxNorm Not Available [facility] 3 03:13:31 5504 iodine medicatio n Not available Not available Not available 01/03/2023 5933 RxNorm Not Available [facility] 3 03:13:31 5505 Iodinated contrast media (substanc e) medicatio n Not available Not available Not available 01/03/2023 79813 2004 SNOMED Not Available [facility] 3 03:13:31 5506 Ceftin medicatio n Not available Not available Not available 01/03/2023 56753 6 RxNorm Not Available [facility] 3 03:13:31 5507 Buspar medicatio n Not available Not available Not available 01/03/2023 52162 0 RxNorm Not Available [facility] 3 03:13:31 5508 blue dye medicatio n Not available Not available Not available 01/03/2023 94768 UNK Not Available [facility] 3 03:13:32 5509 Biaxin medicatio n Not available Not available Not available 01/03/2023 51715 9 RxNorm Not Available [facility] 3 03:13:32 5510 Bevespi medicatio n Not available Not available Not available 01/03/2023 44196 40 RxNorm Gives her the shake s Not Available [facility] 3 03:13:32 5511 Betadine medicatio n Not available Not available Not available 01/03/2023 83610 0 RxNorm Not Available [facility] 3 03:13:32 5512 Bactrim medicatio n Not available Not available Not available 01/03/2023 81999 9 RxNorm Not Available [facility] 3 03:13:32 5513 Anoro medicatio n Not available Not available Not available 01/03/2023 51591 20 RxNorm gives her the shake s Not Available [facility] 3 03:13:32 5514 amoxicill in medicatio n Not available Not available Not available 01/03/2023 723 RxNorm Not Available [facility] 3 03:13:32 5515 clindamyc in Not available Not available Not available Not available 01/03/2023 2582 RxNorm Not Available [facility] 3 03:13:32 03300 Breztri medicatio n Not available Not available Not available 02/28/2023 29107 25 RxNorm Aleisha kidd [facility] [employer] 3 15:25:51 81039 ciproflox acin medicatio n other Not available Not available 02/11/2024 2551 RxNorm contr aindi catio n to heart med Corla ELAINA Felipe, [place] - [facility] [employer] 4 16:02:40 99659 Cymbalta medicatio n Not available Not available Not available 09/02/2024 31569 4 RxNorm Cristel arreola, MARCO A null, [place] [facility] [place] [employer] [facility] 4 15:46:01 Medications Name Sig Start Date Stop Date Status Note LastModified by Organization Details LastModified Time furosemid e 40 mg tablet TAKE 2 TABLETS BY MOUTH EVERY MORNING AND 1 TABLET BY MOUTH EVERY EVENING DIRECTED active Not Available Not Available No t Available metolazon e 2.5 mg tablet TAKE 1 TABLET BY MOUTH EVERY MORNING FOR 7 DAYS AND NEEDED FOR SWELLING /WEIGHT GAIN 03/02 completed Not Available Not Available Not Available lamotrigi ne 150 mg tablet 12/24 completed Not Available Not Available Not Available metformin 500 mg tablet 04/12 completed Not Available Not Available Not Available atorvasta tin 80 mg tablet active Not Available Not Available Not Available nystatin 100,000 unit/mL oral suspensio n 04/12 completed Not Available Not Available Not Available potassium chloride ER 10 mEq capsule,e xtended release 2020 active does not take every day. Not Available Not Available Not Available carvedilo l 6.25 mg tablet TAKE 1 TABLET BY MOUTH TWICE A DAY active Not Available Not Available No t Available prednison e 10 mg tablet 02/03 completed Not Available Not Available Not Available carvedilo l 12.5 mg tablet TAKE 1 TABLET BY MOUTH TWICE A DAY active Not Available Not Available No t Available bumetanid e 2 mg tablet Take 1 tablet every day by oral route. 06/12 completed Not Available Not Available Not Available clindamyc in HCl 300 mg capsule TAKE 1 CAPSULE BY MOUTH EVERY 8 HOURS 01/21 completed Not Available Not Available Not Available verapamil ER 360 mg 24 hr capsule,e xtended release 05/05 completed Not Available Not Available Not Available azithromy palomo 250 mg tablet 04/25 completed Not Available Not Available Not Available aspirin 325 mg tablet Take 1 tablet every day by oral route. 02/06 completed Not Available Not Available Not Available alprazola m 1 mg tablet Take 1 tablet(s ) 30 MIN BEFORE THE PROCEDUR E 05/05 completed Not Available Not Available Not Available fluconazo le 150 mg tablet TAKE 1 TABLET BY MOUTH EVERY DAY FOR 3 DAYS 01/21 completed Not Available Not Available Not Available sulfameth oxazole 400 mg-trimet hoprim 80 mg tablet 07/24 completed Not Available Not Available Not Available hydrocodo ne 5 mg-acetam inophen 325 mg tablet active Not Available Not Available Not Available diltiazem CD 240 mg capsule,e xtended release 24 hr 06/12 completed Not Available Not Available Not Available ondansetr on HCl 4 mg tablet 12/24 completed Not Available Not Available Not Available prednison e 20 mg tablet Take 1 tablet every day by oral route for 5 days. 01/21 completed Not Available Not Available Not Available isosorbid e mononitra te ER 30 mg tablet,ex tended release 24 hr 12/24 completed Not Available Not Available Not Available spironola ctone 100 mg tablet 04/29 completed Not Available Not Available Not Available metolazon e 5 mg tablet Take 1 tablet as needed by oral route. 12/24 completed Not Available Not Available Not Available Nexium 40 mg capsule,d elayed release ONE DAILY NEEDED 12/24 completed Not Available Not Available Not Available topiramat e 25 mg tablet 04/12 completed Not Available Not Available Not Available metronida zole 500 mg tablet 05/05 completed Not Available Not Available Not Available clopidogr el 75 mg tablet active Not Available Not Available Not Available fenofibra te micronize d 67 mg capsule Take 1 capsule every day by oral route for 90 days. 11/15 completed Not Available Not Available Not Available ciproflox acin 250 mg tablet TAKE 1 TABLET BY MOUTH EVERY 12 HOURS FOR 10 DAYS 06/26 completed Not Available Not Available Not Available levofloxa palomo 250 mg tablet 04/12 completed Not Available Not Available Not Available allopurin ol 100 mg tablet TAKE 1 TABLET BY MOUTH EVERY DAY FOR 90 DAYS active Not Available Not Available No t Available ciproflox acin 500 mg tablet 07/08 completed Not Available Not Available Not Available sulfameth oxazole 800 mg-trimet hoprim 160 mg tablet Take 1 tablet twice a day by oral route for 7 days. 02/03 completed Not Available Not Available Not Available omeprazol e 40 mg capsule,d elayed release Take 1 capsule every day by oral route as needed. 05/05 completed Not Available Not Available Not Available aspirin 81 mg tablet,de layed release Take 1 tablet every day by oral route. 05/05 completed Not Available Not Available Not Available tramadol 50 mg tablet Take 1 tablet every 6-8 hours by oral route as needed. 2024 active Not Available Not Available Not Avai lable triamcino lone acetonide 0.1 % topical cream APPLY THIN COAT TO AFFECTED AREA TWICE A DAY active Not Available Not Available No t Available spironola ctone 25 mg tablet 12/03 completed Not Available Not Available Not Available butalbita l-acetami nophen-ca ffeine 50 mg-325 mg-40 mg tablet 07/24 completed Not Available Not Available Not Available glimepiri de 2 mg tablet TAKE 1 TABLET BY MOUTH TWICE A DAY WITH MEALS 2022 active Not Available Not Available Not Avai lable lidocaine -prilocai ne 2.5 %-2.5 % topical cream 06/30 completed Not Available Not Available Not Available glimepiri de 1 mg tablet Take 1 tablet twice a day by oral route before meals for 90 days. 04/12 completed Not Available Not Available Not Available zonisamid e 100 mg capsule 02/06 completed Not Available Not Available Not Available oxycodone -acetamin ophen 5 mg-325 mg tablet 06/12 completed Not Available Not Available Not Available alprazola m 0.5 mg tablet 05/31 completed Not Available Not Available Not Available Marcaine 0.5 % (5 mg/mL) injection solution Take 20 mg by injectio n route. 02/09 completed Not Available Not Available Not Available citalopra m 20 mg tablet 07/24 completed Not Available Not Available Not Available prednisol one acetate 1 % eye drops,rashida pension 07/16 completed Not Available Not Available Not Available lorazepam 0.5 mg tablet TAKE 1 TABLET BY MOUTH TWICE A DAY NEEDED active Not Available Not Available No t Available torsemide 100 mg tablet 05/05 completed Not Available Not Available Not Available triamcino lone acetonide 0.025 % topical cream APPLY A THIN LAYER TO THE AFFECTED AREA(S) BY TOPICAL ROUTE 2 TIMES PER DAY active Not Available Not Available No t Available dicyclomi ne 20 mg tablet TAKE 1 TABLET BY MOUTH THREE TIMES A DAY NEEDED active Not Available Not Available No t Available [employer] Ultra Test strips USE TO TEST BLOOD SUGAR ONCE DAILY active Not Available Not Available No t Available Kenalog 10 mg/mL suspensio n for injection Take 20 mg by injectio n route. 02/09 completed [facility]: [phone] Not Available Not Available Not Available amitripty line 10 mg tablet TAKE 2 TABLETS (20MG) BY MOUTH EVERYDAY AT BEDTIME 02/06 completed Not Available Not Available Not Available benzonata te 100 mg capsule Take 1 capsule 3 times a day by oral route. 04/25 completed Not Available Not Available Not Available econazole nitrate 1 % topical cream Apply 1 applicat ion twice a day by topical route for 10 days. 12/24 completed Not Available Not Available Not Available prednison e 2.5 mg tablet PLEASE SEE ATTACHED FOR DETAILED DIRECTIO NS 02/06 completed Not Available Not Available Not Available cephalexi n 500 mg capsule 04/25 completed Not Available Not Available Not Available pantopraz ole 40 mg tablet,de layed release 06/12 completed Not Available Not Available Not Available nitrofura ntoin macrocrys solo 100 mg capsule Take 1 capsule every 6 hours by oral route for 5 days. 01/24 completed Not Available Not Available Not Available nystatin 100,000 unit/gram topical cream APPLY TO AFFECTED AREA TWICE A DAY active Not Available Not Available No t Available glimepiri de 4 mg tablet TAKE 1 TABLET BY MOUTH TWICE A DAY active Not Available Not Available No t Available nystatin- triamcino lone 100,000 unit/g-0. 1 % topical cream Apply 1 applicat ion every 12 hours by topical route. 06/12 completed Not Available Not Available Not Available fluoxetin e 10 mg capsule Take 1 capsule every day by oral route. 12/24 completed Not Available Not Available Not Available triamcino lone acetonide 0.025 % topical ointment 06/30 completed Not Available Not Available Not Available nitroglyc alfa 0.4 mg sublingua l tablet PLEASE SEE ATTACHED FOR DETAILED DIRECTIO NS active Not Available Not Available No t Available Pepcid 40 mg tablet Take 1 tablet every day by oral route. 08/25 completed Not Available Not Available Not Available diclofena c sodium 75 mg tablet,de layed release Take 1 tablet twice a day by oral route. 04/12 completed Not Available Not Available Not Available bumetanid e 1 mg tablet TK 2 TS PO BID 06/12 completed Not Available Not Available Not Available hydroxyzi ne HCl 25 mg tablet TAKE ONE TABLET BY MOUTH THREE TIMES DAILY NEEDED 02/03 completed Not Available Not Available Not Available cyanocoba jhony (vit B-12) 1,000 mcg sublingua l tablet Place 1 tablet every day by sublingu al route for 90 days. active Not Available Not Available No t Available pravastat in 20 mg tablet Take 1 tablet every day by oral route at bedtime. 04/12 completed Not Available Not Available Not Available mupirocin 2 % topical ointment APPLY TO THE SKIN ONCE DAILY 07/06 completed Not Available Not Available Not Available zolpidem 5 mg tablet Take 1 tablet every day by oral route as needed. 11/15 completed Not Available Not Available Not Available furosemid e 20 mg tablet 12/23 completed Not Available Not Available Not Available lorazepam 1 mg tablet Take 1 tablet 3 times a day by oral route. 04/12 completed Not Available Not Available Not Available hydroxych loroquine 200 mg tablet TAKE 2 TABLETS BY MOUTH EVERY DAY 09/25 completed CURRENTL Y STOPPED 07/31/23 Not Available Not Available Not Available levofloxa palomo 500 mg tablet TAKE 1 TABLET BY MOUTH EVERY DAY FOR 7 DAYS active Not Available Not Available No t Available levofloxa palomo 750 mg tablet TAKE 1 TABLET BY MOUTH EVERY DAY FOR 7 DAYS 04/16 completed Not Available Not Available Not Available methylpre dnisolone 4 mg tablets in a dose pack MDP as directed active Not Available Not Available No t Available albuterol sulfate HFA 90 mcg/actua tion aerosol inhaler INHALE 1 PUFF EVERY 4 HOURS NEEDED active Not Available Not Available No t Available Vitamin D2 1,250 mcg (50,000 unit) capsule 08/25 completed Not Available Not Available Not Available ketoconaz ole 2 % topical cream Apply 1 applicat ion twice a day by topical route. 07/06 completed Not Available Not Available Not Available ondansetr on 4 mg disintegr ating tablet 05/05 completed as needed Not Available Not Available Not Available cefdinir 300 mg capsule Take 1 capsule every 12 hours by oral route. 04/12 completed Not Available Not Available Not Available fluticaso ne propionat e 50 mcg/actua tion nasal spray,rashida pension USE 2 SPRAYS INTO EACH NOSTRIL TWICE A DAY active Not Available Not Available No t Available clotrimaz ole 1 % topical cream APPLY TO THE AFFECTED AND SURROUND ING AREAS OF SKIN BY TOPICAL ROUTE 2 TIMES PER DAY IN THE MORNING AND EVENING active Not Available Not Available No t Available spironola ctone 50 mg tablet TAKE ONE TABLET BY MOUTH TWICE DAILY. active Not Available Not Available No t Available Microlet Lancet test sugars twice daily before meals 02/09 completed Not Available Not Available Not Available Restasis 0.05 % eye drops in a dropperet te INSTILL 1 DROP INTO BOTH EYES TWICE A DAY active Not Available Not Available No t Available OraMagicR x mouthwash Take 15 mL by mucous route. 04/12 completed Not Available Not Available Not Available rosuvasta tin 20 mg tablet TAKE 1 TABLET BY MOUTH EVERY OTHER DAY AT BEDTIME FOR 30 DAYS. 06/26 completed Pt stopped taking Not Available Not Available Not Available Klor-Con M20 mEq tablet,ex tended release 05/05 completed Not Available Not Available Not Available Klor-Con M10 mEq tablet,ex tended release TAKE 1 TABLET BY MOUTH EVERY DAY 07/06 completed Not Available Not Available Not Available Marcaine (PF) 0.5 % (5 mg/mL) injection solution Take 40 mg by injectio n route. 02/09 completed Not Available Not Available Not Available ORTHOVISC 30 mg/2 mL intra-art icular syringe Injectio ns given in the office by the doctor 07/06 completed ND: [id number] Not Available Not Available Not Available duloxetin e 20 mg capsule,d elayed release TAKE 1 CAPSULE BY ONCE A DAY 2022 active Not Available Not Available Not Avai lable duloxetin e 30 mg capsule,d elayed release Take 1 capsule every day by oral route in the morning for 90 days. 04/04 completed Not Available Not Available Not Available Flovent HFA 110 mcg/actua tion aerosol inhaler Inhale 2 puffs twice a day by inhalati on route. 2023 active Not Available Not Available Not Avai lable Metrogel 1 % topical APPLY TO THE AFFECTED AREA(S) BY TOPICAL ROUTE ONCE DAILY ; RUB IN GENTLY AND COMPLETE LY 07/16 completed Not Available Not Available Not Available pregabali n 50 mg capsule TAKE 1 CAPSULE BY MOUTH TWICE A DAY MAY INCREASE TO 2 CAPSULES TWICE A DAY GRADUALL Y IF NECESSAR Y 09/02 completed Not Available Not Available Not Available aspirin 05/05 completed Not Available Not Available Not Available Appearex qd 05/05 completed Not Available Not Available Not Available Cinnamon qd 08/25 completed Not Available Not Available Not Available Hair,Skin and Nails qd 08/25 completed Not Available Not Available Not Available lidocaine (PF) 10 mg/mL (1 %) injection solution In office injectio n administ ered by the provider active [facility]: [phone] 04-21 Not Available Not Available Not Available Januvia 25 mg tablet Take 1 tablet every day by oral route in the morning for 30 days. 08/25 completed Not Available Not Available Not Available Symbicort 80 mcg-4.5 mcg/actua tion HFA aerosol inhaler INHALE 2 PUFFS BY MOUTH 2 TIMES A DAY RINSE MOUTH WITH WATER AFTER USE. DO NOT SWALLOW. active Not Available Not Available No t Available potassium gluconate 595 mg (99 mg) tablet 08/25 completed Not Available Not Available Not Available Mucinex 1,200 mg tablet, extended release Take 1 tablet twice a day by oral route as directed for 30 days. 05/05 completed Not Available Not Available Not Available Probiotic qd 08/25 completed Not Available Not Available Not Available Orencia 125 mg/mL subcutane ous syringe active Not Available Not Available Not Available Vascepa 1 gram capsule Take 2 capsules twice a day by oral route before meals for 30 days. 08/25 completed Not Available Not Available Not Available Fluzone High-Dose (PF) 180 mcg/0.5 mL intramusc ular syringe 06/30 completed Not Available Not Available Not Available Farxiga 5 mg tablet Take 1 tablet every day by oral route. 09/25 completed WAS PUT ON THIS IN THE HOSPITAL , GOT A YEAST INFECTIO N BECAUSE OF IT Not Available Not Available Not Available Anoro Ellipta 62.5 mcg-25 mcg/actua tion powder for inhalatio n INHALE 1 PUFF EVERY DAY DIRECTED FOR 30 DAYS. 03/02 completed Not Available Not Available Not Available Fluzone High-Dose (PF) 180 mcg/0.5 mL intramusc ular syringe 06/30 completed Not Available Not Available Not Available Jardiance 25 mg tablet Take 1 tablet every day by oral route in the morning for 30 days. 04/12 completed drink plenty of water at least 64 ozs with this, if any urinary pain or pressure , call office and need urinalys is Not Available Not Available Not Available Spiriva Respimat 2.5 mcg/actua tion solution for inhalatio n Inhale 2 puffs every day by inhalati on route. 04/16 completed Not Available Not Available Not Available Arnuity Ellipta 100 mcg/actua tion powder for inhalatio n Inhale 1 puff every day by inhalati on route. 03/22 completed Not Available Not Available Not Available Corlanor 5 mg tablet TAKE 1 TABLET BY MOUTH TWICE A DAY active Not Available Not Available No t Available Stiolto Respimat 2.5 mcg-2.5 mcg/actua tion solution for inhalatio n Inhale 2 puffs every day by inhalati on route for 90 days. 04/16 completed per 04/15/24 patient case Not Available Not Available Not Available duloxetin e 40 mg capsule,d elayed release EVERY DAY 12/01 completed Not Available Not Available Not Available Entresto 24 mg-26 mg tablet Take 1 tablet twice a day by oral route. 04/12 completed Not Available Not Available Not Available Spiriva Respimat 1.25 mcg/actua tion solution for inhalatio n Inhale 2 puffs every day by inhalati on route. 11/15 completed Not Available Not Available Not Available Supartz FX 10 mg/mL intra-art icular syringe Injectio ns given in the office by the doctor active [facility]: 10785-72 44-1 Not Available Not Available Not Available Bevespi Aerospher e 9 mcg-4.8 mcg HFA aerosol inhaler INHALE 2 PUFFS INTO THE LUNGS TWICE A DAY DIRECTED FOR 30 DAYS 07/06 completed Not Available Not Available Not Available Qvar RediHaler 40 mcg/actua tion HFA breath activated aerosol INHALE 2 PUFFS BY MOUTH 2 TIMES A DAY RINSE MOUTH WITH WATER AFTER USE. DO NOT SWALLOW. active Not Available Not Available No t Available OneTouch Ultra Blue Test Strip test sugars 1 times daily before meals x 90 days 02/09 completed Not Available Not Available Not Available OneTouch Ultra2 Meter USE DIRECTED . 02/09 completed Not Available Not Available Not Available OneTouch Delica Plus Lancet 33 gauge USE DIRECTED . TEST SUGARS ONCE DAILY 02/09 completed Not Available Not Available Not Available OneTouch Delica Plus Lancet 30 gauge USE DIRECTED TO CHECK BLOOD SUGAR ONCE DAILY active Not Available Not Available No t Available Ubrelvy 50 mg tablet Take by oral route. 11/15 completed Not Available Not Available Not Available aspirin 81 mg capsule Take 2 capsules every day by oral route. active Not Available Not Available No t Available Paxlovid 300 mg (150 mg x 2)-100 mg tablets in a dose pack Take 1 tablet every 12 hours by oral route for 5 days. 11/15 completed Not Available Not Available Not Available Paxlovid 150 mg-100 mg tablets in a dose pack (Moderate Renal Dose) TAKE 1 TABLET OF NIRMATRE LVIR WITH 1 TABLET OF RITONAVI R TOGETHER BY MOUTH TWICE DAILY FOR 5 DAYS 11/15 completed Not Available Not Available Not Available Vitals Date Recorded Body height Body mass index (BMI) Body weight Body temperature Heart rate Oxygen saturation Oxygen saturation in Arterial blood by Pulse oximetry Systolic blood pressure Diastolic blood pressure Provider Name and Address Organization Details Last Updated DateTime 4 167.64 cm 34.1 kg/m2 06454.9 9 g 97.5 [degF] 81 /min 95 % 95 % 116 mm[Hg] 60 mm[Hg] MARCO A [employer] 4 15:22:39 Date Recorded Body height Body mass index (BMI) Body weight Body temperature Heart rate Oxygen saturation Oxygen saturation in Arterial blood by Pulse oximetry Systolic blood pressure Diastolic blood pressure Provider Name and Address Organization Details Last Updated DateTime 4 167.64 cm 33.2 kg/m2 20465.0 3 g 97.4 [degF] 82 /min 97 % 97 % 116 mm[Hg] 68 mm[Hg] Cristel arreola [employer] 4 15:49:14 Date Recorded Body height Body mass index (BMI) Body weight Body temperature Heart rate Oxygen saturation Oxygen saturation in Arterial blood by Pulse oximetry Systolic blood pressure Diastolic blood pressure Provider Name and Address Organization Details Last Updated DateTime 5 167.64 cm 31.3 kg/m2 13308.9 2 g 97.1 [degF] 82 /min 97 % 97 % 109 mm[Hg] 62 mm[Hg] Kiesha ford [employer] 5 14:25:39 Date Recorded Body height Body mass index (BMI) Body weight Body temperature Heart rate Oxygen saturation Oxygen saturation in Arterial blood by Pulse oximetry Systolic blood pressure Diastolic blood pressure Provider Name and Address Organization Details Last Updated DateTime 5 167.64 cm 29.9 kg/m2 95508.5 9 g 97 [degF] 92 /min 97 % 97 % 120 mm[Hg] 64 mm[Hg] MARCO A Chun [employer] 5 14:59:42 Date Recorded Body height Body mass index (BMI) Body weight Body temperature Heart rate Oxygen saturation Oxygen saturation in Arterial blood by Pulse oximetry Provider Name and Address Organization Details Last Updated DateTime 5 167.64 cm 30.3 kg/m2 31628.3 7 g 97.6 [degF] 72 /min 98 % 98 % Kiesha ford [place] [facility] [place] [employer] 5 14:52:15 Social History Question Answer Notes LastModified by Organizat ion Details LastModified Time Tobacco Smoking Status Never Smoker Not Available [facility] 01/03/2023 02:53:40 Do You Have An Advance Directive? Yes MIGRATION.[id number] Information not available 01/03/2023 What Is Your Level Of Alcohol Consumption? None MIGRATION.02689 [id number] Information not available 01/03/2023 Are You Blind Or Do You Have Difficulty Seeing? No MIGRATION.35061 29513 Information not available 01/03/2023 What Is Your Level Of Caffeine Consumption? Moderate MIGRATION.63132 [id number] Information not available 01/03/2023 How Much Tobacco Do You Chew? None MIGRATION.26877 [id number] Information not available 01/03/2023 In The 14 Days Before Symptom Onset, Have You Had Close Contact With A Laboratory-confi rmed COVID-19 While That Case Was Ill? No MIGRATION.01239 [id number] Information not available 01/03/2023 In The 14 Days Before Symptom Onset, Have You Had Close Contact With A Person Who Is Under Investigation For COVID-19 While That Person Was Ill? No MIGRATION.26617 [id number] Information not available 01/03/2023 Are You Deaf Or Do You Have Serious Difficulty Hearing? No MIGRATION.33011 06506 Information not available 01/03/2023 What Type Of Diet Are You Following? REGULAR MIGRATION.87856 94429 Information not available 01/03/2023 Which Illicit Or Recreational Drugs Have You Used? None MIGRATION.54448 95093 Information not available 01/03/2023 Do You Or Have You Ever Used E-cigarettes Or Vape? Never Used Electronic Cigarettes MIGRATION.99452 75815 Information not available 01/03/2023 Do You Have An Electrostatic Air Filter? Yes MIGRATION.38107 08982 Information not available 01/03/2023 What Is Your Occupation? RETIRED MIGRATION.34679 09412 Information not available 01/03/2023 Are There Any Guns Present In Your Home? No MIGRATION.01375 36442 Information not available 01/03/2023 Where Do You Live? 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 No MIGRATION.37722 03606 Information not available 01/03/2023 What Was The Date Of Your Most Recent Tobacco Screening? 09/07/2021 MIGRATION.25000 [id number] Information not available 01/03/2023 Do You Have Any Pets? Yes MIGRATION.78733 [id number] Information not available 01/03/2023 What Is Your Relationship Status? MIGRATION.24708 05233 Information not available 01/03/2023 Do You Use Your Seat Belt Or Car Seat Routinely? Yes MIGRATION.75144 47341 Information not available 01/03/2023 Do You Have Smoke And Carbon Monoxide Detectors In Your Home? Yes MIGRATION.65403 93892 Information not available 01/03/2023 Are You Passively Exposed To Smoke? No MIGRATION.55060 25660 Information not available 01/03/2023 Do You Or Have You Ever Used Smokeless Tobacco? Never Used Smokeless Tobacco MIGRATION.12827 05408 Information not available 01/03/2023 Do You Use Any Illicit Or Recreational Drugs? No MIGRATION.05839 50161 Information not available 01/03/2023 Do You Use Sunscreen Routinely? No MIGRATION.89102 02652 Information not available 01/03/2023 Have You Recently Traveled Abroad? No MIGRATION.36215 20989 Information not available 01/03/2023 Sex: Female Functional Status Question Answer Note LastModified by Organizat ion Details LastModified Time Do you have difficulty walking or climbing stairs? Yes MIGRATION.[id number] [id number] Information not available 01/03/2023 Do you have transportation difficulties? No MIGRATION.[id number] 026 Information not available 01/03/2023 Are you able to walk? YESASSIST MIGRATION.[id number] 026 Information not available 01/03/2023 Do you have difficulty doing errands alone? No MIGRATION.[id number] 026 Information not available 01/03/2023 Are you able to care for yourself? Yes MIGRATION.[id number] 026 Information not available 01/03/2023 Do you have difficulty dressing or bathing? No MIGRATION.[id number] 026 Information not available 01/03/2023 What is your exercise level? None MIGRATION.[id number] 026 Information not available 01/03/2023 Mental Status Question Answer Note LastModified by Organizat ion Details LastModified Time Do you have difficulty concentrating, remembering or making decisions? No MIGRATION.[id number] Information not available 01/03/2023 Family History Relationship Description Onset Age of this Age Resolved Age Notes LastModified by Organization Details LastModified Time Paternal Grandfather Diabetes mellitus MIGRATION.[id number] Not available 01/03/2023 02:56:05 Paternal Grandfather Essential hypertension MIGRATION.[id number] Not available 01/03/2023 02:56:05 Father Diabetes mellitus MIGRATION.832 [id number] Not available 01/03/2023 02:56:05 Father Essential hypertension MIGRATION.737 [id number] Not available 01/03/2023 02:56:05 Father Malignant neoplasm of prostate MIGRATION.536 [id number] Not available 01/03/2023 02:56:05 Mother Diabetes mellitus MIGRATION.503 [id number] Not available 01/03/2023 02:56:05 Mother Essential hypertension MIGRATION.140 [id number] Not available 01/03/2023 02:56:05 Brother Malignant tumor of colon MIGRATION.310 [id number] Not available 01/03/2023 02:56:05 Father Heart disease [email or web address] Not available 2023 15:18:16 Mother Heart disease [email or web address] Not available 2023 15:18:16 Mother Malignant neoplasm of uterus [email or web address] Not available 2023 14:49:07 Paternal Grandfather Cerebrovascu lar accident [email or web address] Not available 02/2024 14:49:21 Paternal Grandmother Cerebrovascu lar accident [email or web address] Not available 02/2024 14:49:30 Medical History Condition Response CHEST XRAY N BLINDNESS N NERVE DISEASE N POLIO N LUNG DISEASE/DISORDER Y RADIATION / CHEMOTHERAPY N COPD Y BLOOD DISEASES N EAR OR HEARING PROBLEMS N DEPRESSION (INCLUDING POST ) N FEMALE PROBLEMS / INFECTIONS N BOWEL PROBLEMS Y STROKE/TIA Y CHEST CT N ULCERS N RENAL INSUFFICIENCY N BENIGN PROSTATIC HYPERPLASIA N TB SKIN TEST N OBESITY Y EXCESSIVE PERSPIRATION N GERD/NAUSEA N ANEURYSM N URINARY/BLADDER/KIDNEY PROBLEMS Y CORONARY ARTERY DISEASE (CAD) N USE OF BLOOD THINNERS N SKIN PROBLEMS Y EMPHYSEMA N SHORTNESS OF BREATH Y GASTROINTESTINAL DISORDER N PARATHYROID DISEASE N PERIPHERAL VASCULAR DISEASE N BLOOD CLOTS N ASTHMA N CONCUSSION OR SPINAL TRAUMA N VARICOSITIES N GI PROBLEMS N CHF N AIDS/HIV N HYPERTENSION Y TOURETTE'S N ANXIETY DISORDER N BLOOD TRANSFUSION N ANEMIA/BLOOD DISORDER N BRONCHITIS N TUBERCULOSIS N GLAUCOMA N SLEEP APNEA N ALLERGIES/HAYFEVER N INFECTIOUS DISEASE N HEART ARRHYTHMIA N PROSTATE N INSOMNIA N HIGH CHOLESTEROL / HYPERLIPIDEMIA Y EDEMA N CAROTID BLOCKAGE N BACK / NECK PROBLEMS Y HAVE YOU BEEN HOSPITALIZED OR SEEN IN [facility] ER IN THE PAST YEAR ? Y ATHEROSCLEROSIS N BREAST PROBLEMS N HERNIATED DISC N DIALYSIS N FIBROMYALGIA N OSTEOPOROSIS N ARTHRITIS Y NO SIGNIFICANT PAST MEDICAL HISTORY N DIABETES, TYPE Y SEASONAL ALLERGIES N HEARTBURN / REFLUX N PLEURISY N ADD/ADHD N Bronchoscopy N HEPATITIS / LIVER DISEASE N PULMONARY DISEASE Y GOUT N SLEEP DISORDER N ALZHEIMER'S DISEASE N FATIGUE N DEMENTIA N HERPES N RETINOPATHY N SEIZURES/EPILEPSY N HEADACHES/MIGRAINES N SLEEP STUDY N VASCULAR DISEASE N DIZZINESS N HEAD TRAUMA OR INJURY N HEART DISEASE/HEART PROBLEMS Y MULTIPLE SCLEROSIS N PULMONARY FUNCTION TEST N CARDIAC ARRHYTHMIA N CANCER: SPECIFY Y ANESTHESIA COMPLICATIONS N PNEUMONIA N ATRIAL FIBRILLATION N PULMONARY EMBOLISM N AUTOIMMUNE DISEASE N Gynecological HistoryNo gynecological history recorded. Obstetrics History GPAL:G 0 P 0 0 0 0 Immunizations Vaccine Type Date Status Note Provider Nam e and Address Organization Details Recorded Time Influenza, high-dose, trivalent, PF 3 completed Not Available [facility] 07/27/2023 00:56:29 Influenza, high-dose, quadrivalent, PF 1 completed Not Available [facility] 07/27/2023 00:56:29 Pneumococcal conjugate PCV 13 5 completed Not Available [facility] 07/27/2023 00:56:29 Influenza, high-dose, quadrivalent, PF 0 completed Not Available [facility] 07/27/2023 00:56:29 Influenza, high-dose, trivalent, PF 8 completed Not Available [facility] 07/27/2023 00:56:29 Influenza, high-dose, trivalent, PF 6 completed Not Available [facility] 07/27/2023 00:56:29 Influenza, high-dose, trivalent, PF 7 completed Not Available [facility] 07/27/2023 00:56:29 pneumococcal polysaccharide PPV23 5 completed Not Available [facility] 07/27/2023 00:56:29 Influenza, high-dose, trivalent, PF 9 completed Not Available [facility] 07/27/2023 00:56:29 Past Encounters Encounter ID Performer Location Encounter Start Date Encounter Closed Date Diagnosis/Indication Diagnosis SNOMED-CT Code Diagnosis ICD10 Code Diagnosis Note [id number] MD LOUISA Negron IGRATION_ DEFAULT_1 _1 , 02/03/2021 00:00:00 02/03/2021 18:46:06 [id number] Beto King MD [facility] [place] [address] [facility] [address] [place] [address] 02/15/2021 00:00:00 02/15/2021 15:53:43 [id number] Manuel Olguin MD [facility] [address] [address] 03/10/2021 00:00:00 03/10/2021 17:29:31 [id number] [facility] [address] [address] 03/22/2021 00:00:00 03/22/2021 16:50:39 [id number] Krissy Hayward MD _SHRADDHA IGRATION_ DEFAULT_1 _1 , 05/05/2021 00:00:00 05/05/2021 18:45:23 [id number] Manuel Olguin MD [facility] [address] [place] [address] 06/30/2021 00:00:00 06/30/2021 17:35:42 [id number] [facility] [place] [address] [place] [address] 08/03/2021 00:00:00 08/03/2021 16:59:33 [id number] Krissy Hayward MD _MARISSA_Mani IGRATION_ DEFAULT_1 _1 , 08/25/2021 00:00:00 08/25/2021 17:40:18 [id number] [facility] [facility] ic_Gateway AHS_GMG Pulmonolo gy [place] [address] [place] [address] 09/07/2021 00:00:00 09/07/2021 16:19:53 [id number] Beto King MD S_GMG Ortho [place] [address] [place] [address] 09/20/2021 00:00:00 09/20/2021 15:32:48 [id number] Beto King MD [facility] Orth[facility] [place] [address] [place] [address] 10/04/2021 00:00:00 10/04/2021 15:23:14 [id number] Manuel Olguin MD [facility] Internal Med [address] [facility] [place] [address] 10/06/2021 00:00:00 10/06/2021 17:37:08 [id number] Beto King MD [facility] Orth[facility] [place] [address] [place] [address] 10/11/2021 00:00:00 10/11/2021 15:27:35 [id number] Beto King MD S_GMG Orth[facility] [place] [address] [place] [address] 10/18/2021 00:00:00 10/18/2021 16:17:34 [id number] Beto King MD S_[facility]G Orth[facility] [place] [address] [place] [address] 10/25/2021 00:00:00 10/25/2021 15:33:42 [id number] Beto King MD [facility] Orth[facility] [place] [address] [place] [address] 11/01/2021 00:00:00 11/01/2021 15:23:37 [id number] MD AVERY Negron_Mani IGRATION_ DEFAULT_1 _1 , 12/01/2021 00:00:00 12/01/2021 18:06:05 [id number] S_Histor ic_Gateway AHS_[facility]G Pulmonolo gy [place] [address] [place] [address] 12/05/2021 00:00:00 12/05/2021 21:23:42 [id number] Manuel Olguin MD S_GMG Internal Med [address] [place] [address] 03/02/2022 00:00:00 03/02/2022 16:32:51 [id number] AHS_Histor ic_Gateway _ATHNABIL_Mani IGRATION_ DEFAULT_1 _1 , 03/30/2022 00:00:00 03/30/2022 17:21:31 [id number] S_Histor ic_Gateway AHS_[facility] Pulmonolo gy [place] [address] [place] [address] 04/04/2022 00:00:00 04/04/2022 16:03:45 [id number] EMMA Woodruff S_GMG Pulmonolo gy [place] [address] [place] [address] 05/17/2022 00:00:00 05/17/2022 15:56:16 [id number] Manuel Olguin MD [facility] Internal Med [address] [place] [address] 07/06/2022 00:00:00 07/06/2022 15:34:22 [id number] EMMA Woodruff AHS_[facility] Pulmonolo gy [place] [address] [place] [address] 08/30/2022 00:00:00 08/30/2022 16:39:05 [id number] Krissy Hayward MD [facility] Endo [place] [address] [place] [address] 09/07/2022 00:00:00 09/07/2022 20:13:28 [id number] Abigail Anthony, BREAD PAN GRE[employer]ER-BC [facility]_G Pulmonolo gy [place] [address] [place] [address] 02/28/2023 15:03:29 03/02/2023 08:32:13 Thick sputum 576520706 R09.3 Start flutter valve Chronic ob structive pulmonary disease 89042035 J44.9 Mild expiratory coving on original PFT, possible overlap syndromeRe peat 10/03/21 with FEV1 68%Mild restrictio n as well, likely associated with obesityPla n to repeat this fallContin ue Spiriva Respimat 2.5 two puffs dailySampl es to patient (1.25 4 puffs a day) - instructed on techniqueI have educated her on reportable signs and symptomsEn couraged 100% compliance with oxygenAlbu terol PRN -discussed indication s for useDiscuss ed reportable signs and symptoms.R TC in 6 months, PRN for concerns. Dyspnea on exertion 6084 5006 R06.09 Quantifero n GOLD, IGE, IGGs, RAST, Alpha 1 all normalMult ifactoral Dependence on supplemental oxygen 5826861801 07 Z99.81 2 liters with sleepDiscu ssed the risks of hypoxia, including [id number] Krissy Hayward MD [facility] Endo [place] [address] [place] [address] 03/02/2023 15:32:41 03/02/2023 16:41:10 Well controlled type 2 diabetes mellitus 904647765 E11.9 a1c of 6.6%- sugars are running 75 mg/dL up to 143 mg/dL- continue glimepirid e scale prior to meals- she is aware to hold if premeal sugars under 110 mg/L and cut in half if 111-150 mg/dL and take full tablet if over 150 mg/dL. She has no hypoglycem ia and tolerating therapy well. Discussed carb counting and how to read food labels. Recommende d patient to utilize the diabetesfo [employer] from the ADA website to help with food preparatio n as this presents ideal carb content per meal so this will make carb counting much easier for patient. Recommende d she incorporat e natural insulin leaflet distributor s such as pears, apples, cinnamon, jose david and sweet potatoes to help mobilize her endogenous insulin. Recommende d up to 150 minutes of moderate level activity/e xercise weekly. Dyslipidemia 032875917 E 78.5 Continue rosuvastat in -patient encouraged to take daily as she has been inconsiste nt as a result LDL is not in ideal range. Diabetic p eripheral neuropathy 932054075 E11.40 Will change her duloxetine to once daily as this has been effective in management of neuropathy - higher doses make her more fatigued. Spent up to 28 minutes preparing to see the patient (eg, review of tests), obtaining and/or reviewing separately obtained history, performing a medically appropriat e examinatio n and evaluation , counseling and educating the patient, ordering medication s, tests, along with documentin g clinical informatio n in the electronic health record, independen tly interpreti ng results and communicat ing results to the patient. RTC in 6 months. Patient was provided a handwritte n lab order which contains our fax number. If she chooses to go outside of the [facility] system to obtain labwork she was advised to provide our fax number and my informatio n to the lab she will be obtaining labwork from in order to have her labs properly forwarded over for me to review so there is no loss of follow up due to use of outside network. She was also advised to contact our clinic informing us that she has completed her labwork so we are aware we will need to reach out to the appropriat e laboratory to request her results be forwarded to us so I might have the ability to review and make further medical decision making in her case. She voiced understand ing. [id number] Manuel Olguin MD S_[facility] Internal Med [address] [place] [address] 07/16/2023 15:15:43 07/16/2023 16:12:44 Diabetes mellitus 59996154 E11.9 under control Congestive heart failure 22323915 I50.9 Farxiga 5 mg , samples Dyspnea on exertion 6084 5006 R06.09 on o2 prn Essential hypertension 83717202 I10 under control Fibromyalgia 096918234 M 79.7 Gastroesop hageal reflux disease 816166803 K21.9 stable Irritable bowel syndrome 04151482 K58.9 watching diet Kidney disease 09056271 N08 seeing nephrology u Malignant tumor of breast 205499984 C50.919 nl ultra sound Obesity 174948895 E66.9 has Osteoarthritis 767813305 M19.90 Thyroid nodule 164484745 E04.1 Umbilical hernia 5466747 07 K42.9 Diabetic p eripheral neuropathy 057089913 E11.40 Chronic ob structive pulmonary disease 20001585 J44.9 stable Chronic back pain 518717 002 G89.29 otc tylenol Adult heal th examination 520913814 Z00.00 COVID-19 412654559 U07.1 has recovered Cardiomyopathy 38115563 I42.9 on meds [id number] Krissy Hayward MD [facility] Endo [place] [address] [place] [address] 07/31/2023 15:55:40 08/01/2023 13:58:30 Well controlled type 2 diabetes mellitus 704573758 E11.9 a1c of 6.3% down from 6.7% in ideal range- she was trialed on farxiga in hospital but experience d a yeast infection on lowest dose; I agree the farxiga is an option for CHF but if there are alternativ e options would recommend at least at trial of these over farxiga as her sugars are in optimal range and she does have concern for pancreatit is which is not common but there have been several case reports. Patient is aware however if she does experience more heart failure exacerbati ons she should trial farxiga again. Continue on glimepirid e scale as sugars ranging from 75 mg/dL up to 170 mg/dL with average of 125 mg/dL. She has no significan t hypoglycem ia and aware to hold her glimepirid e if sugars under 120 mg/dL and to take full dosage if over 180 mg/dL- she cannot have any yellow or green dye and can only take the white tablets so will stick to current dose of 4 mg. Refer to endocrinol ogy per patient request. Dyslipidemia 813428659 E 78.5 patient encouraged to restart rosuvastat in -patient reminded to stay consistent in taking this as LDL not in ideal range. She does follow with cardiology who can also manage. Spent up to 25 minutes preparing to see the patient (eg, review of tests), obtaining and/or reviewing separately obtained history, performing a medically appropriat e examinatio n and evaluation , counseling and educating the patient, ordering medication s, tests, along with documentin g clinical informatio n in the electronic health record, independen tly interpreti ng results and communicat ing results to the patient. Patient can be followed by PCP - she/he is aware of my resignatio n and last day of August 17. If needed his/her PCP can refer patient to another endocrinol ogist in the area. All questions /concerns answered and refills necessary at visit today. [id number] Manuel Olguin MD [facility] Internal Med [address] [place] [address] 08/13/2023 15:03:47 08/13/2023 15:35:39 Contusion 659985058 T14.8XXA bruise due to being on asa, reassured Impacted c erumen of bilateral ears 1071969733 928533 H61.23 she is going to see ENT [id number] Abigail Cruz, BREAD PAN GREASER-BC [facility] Pulmonolo gy [place] [address] [place] [address] 08/31/2023 15:34:18 08/31/2023 16:23:48 Chronic obstructive pulmonary disease 80211515 J44.9 Mild expiratory coving on original PFT, possible overlap syndromeRe peat 10/03/21 with FEV1 68%Mild restrictio n as well, likely associated with obesityPla n to repeat this fall, she declines at this timeContin ue Spiriva Respimat 2.5 two puffs dailySampl es to patientI have educated her on reportable signs and symptomsEn couraged 100% compliance with oxygenAlbu terol PRN -discussed indication s for useDiscuss ed reportable signs and symptoms.A dvised vaccines this fallShe should follow up in 6 months Thick sputum 945213975 R 09.3 Continue flutter valve Dyspnea on exertion 6084 5006 R06.09 Quantifero n GOLD, IGE, IGGs, RAST, Alpha 1 all normalMult ifactoral Dependence on supplemental oxygen 0041198913 07 Z99.81 2 liters with sleepDiscu ssed the risks of hypoxia, including [id number] Manuel Olguin MD [facility] Internal Med [facility] [address] [place] [address] 09/25/2023 14:01:18 09/25/2023 14:36:17 Insomnia 020582754 G47.00 Neuropathy due to diabetes mellitus 689657954 E11.40 try low dose duloxetine [id number] Manuel Olguin MD [facility] Internal Med [facility] [address] [place] [address] 11/15/2023 15:30:20 11/15/2023 16:12:14 Diabetes mellitus 17923091 E11.9 under control, keep taking Glimepride , has not seen new endo yet Congestive heart failure 35375478 I50.9 Farxiga 5 mg , samples were given, did not take, does not want to take Dyspnea on exertion 6084 5006 R06.09 on o2 prn Essential hypertension 90726414 I10 under control Fibromyalgia 121494534 M 79.7 Gastroesop hageal reflux disease 523011786 K21.9 stable Irritable bowel syndrome 03367411 K58.9 watching diet Kidney disease 52726004 N08 seeing nephrology Malignant tumor of breast 849399881 C50.919 nl ultra sound Obesity 221419630 E66.9 Osteoarthritis 197844207 M19.90 otc Thyroid nodule 254346242 E04.1 Umbilical hernia 5815203 07 K42.9 no pain Diabetic p eripheral neuropathy 940236711 E11.40 does not want meds Chronic ob structive pulmonary disease 97562358 J44.9 stable Chronic back pain 273148 002 G89.29 otc tylenol Adult heal th examination 711417849 Z00.00 Mammogram( doesn't want them)Dexa( hasn't had one in yrs) doesn't wantColono scopy (doesn't want it)Pneumov ax 07/2015Prev taty 07/19/2015F MICHELLE- OVID Vacc- MOTIVATED TO GET IT Cardiomyopathy 32063339 I42.9 seeing cardiology [id number] Manuel Olguin MD [facility] Internal Med [facility] [address] [place] [address] 11/29/2023 14:33:49 11/29/2023 15:08:06 Anterior chest wall pain 210353110 R07.89 likely fx, take precaution s,heat applicatio nct chest recommende d as pain is not much better, wants to wait,take tramadol 1/2 tab prn [id number] Chico Flores MD [facility] Orth[facility] [place] [address] [place] [address] 02/07/2024 14:59:34 02/07/2024 16:27:51 Low back pain 856105671 M54.50 Pain of bi lateral hip joints 2330787080 5935540 M25.551 M25.552 Bilateral trochanteric bursitis 3245629030 0075561 M70.61 M70.62 Pain in ri ght sacroiliac joint 7782789276 4626186 M53.3 Lumbar spondylosis 99761 0009 M47.853 [id number] Manuel Olguin MD [facility] Internal Med [address] [place] [address] 03/13/2024 14:54:23 03/13/2024 15:37:13 Diabetes mellitus 85418633 E11.9 under control, Congestive heart failure 78366754 I50.9 stable Dyspnea on exertion 6084 5006 R06.09 on o2 prn Essential hypertension 71893027 I10 under control Fibromyalgia 427742822 M 79.7 Gastroesop hageal reflux disease 554270349 K21.9 stable Irritable bowel syndrome 81007392 K58.9 watching diet Kidney disease 86902292 N08 seeing nephrology , GFR low but stable Malignant tumor of breast 753108024 C50.919 nl ultra sound Obesity 992060646 E66.9 advised to lose Osteoarthritis 542672111 M19.90 otc Thyroid nodule 053558301 E04.1 Umbilical hernia 5653227 07 K42.9 no pain Diabetic p eripheral neuropathy 123454214 E11.40 does not want meds Chronic ob structive pulmonary disease 99060987 J44.9 stable Chronic back pain 038297 002 G89.29 otc tylenol Adult heal th examination 368556341 Z00.00 Mammogram( doesn't want them)Dexa( hasn't had one in yrs) doesn't wantColono scopy (doesn't want it)Pneumov ax 07/2015Prev taty 07/19/2015F MICHELLE- 3COVID Vacc- MOTIVATED TO GET IT Cardiomyopathy 03757848 I42.9 seeing cardiology , battery was just changed [id number] Brent Donato MD [facility] [place] [address] 04/08/2024 14:01:12 04/09/2024 09:49:28 Dyspnea on exertion 92889047 R06.09 [id number] Brent Donato MD [facility] [place] [address] 04/16/2024 16:11:32 04/17/2024 09:04:20 Mild persistent asthma 758716498 J45.30 [id number] Manuel Olguin MD [facility] Internal Med [address] [address] 05/13/2024 15:08:48 05/13/2024 16:00:31 Congestive heart failure 82993117 I50.9 stable Asthma 801743327 J45.90 9 on inhalers [id number] Manuel Olguin MD [facility] Internal Med [address] [address] 09/02/2024 15:34:19 09/02/2024 16:18:20 Diabetes mellitus 79362228 E11.9 under control, Congestive heart failure 63241739 I50.9 watching diet Dyspnea on exertion 6084 5006 R06.09 on o2 prn Essential hypertension 00617424 I10 under control Fibromyalgia 951102489 M 79.7 Gastroesop hageal reflux disease 352317381 K21.9 stable Irritable bowel syndrome 53692643 K58.9 watching diet Kidney disease 46218793 N08 seeing nephro Malignant tumor of breast 022056736 C50.919 nl ultra sound Obesity 403176569 E66.9 advised to lose Osteoarthritis 532620952 M19.90 otc Thyroid nodule 773591970 E04.1 Umbilical hernia 6478249 07 K42.9 no pain Diabetic p eripheral neuropathy 120376154 E11.40 does not want meds Chronic ob structive pulmonary disease 49800347 J44.9 stable Chronic back pain 311338 002 G89.29 otc tylenol Adult heal th examination 142181927 Z00.00 Mammogram- nl in 01/26Dexa(h asn't had one in yrs) doesn't wantColono scopy (doesn't want it)Pneumov ax 07/2015Prev taty 07/19/2015F MICHELLE- 3COVID Vacc- MOTIVATED TO GET IT Cardiomyopathy 88126451 I42.9 no symptoms Rosacea 167676187 L71.9 Candidiasis of skin 4988 3006 B37.2 Acute sinusitis 99880947 J01.90 Impacted c erumen in left ear 3153541726 058878 H61.22 care discussed [id number] Manuel Olguin MD [facility] Internal Med [address] [place] [address] 11/06/2024 14:01:40 11/06/2024 14:37:20 Acute sinusitis 77169374 J01.90 completed the levaquin and still having head and ear pressure and congestion ; discussed may need assistance getting into ENT soonerdoes not feel well enough to go now [id number] Manuel Olguin MD [facility] Internal Med [address] [address] 11/25/2024 14:38:10 11/25/2024 15:26:46 Acute sinusitis 00218301 J01.90 she is allergic to many abx Candidiasis of skin 4988 3006 B37.2 under the breasts [id number] Manuel Olguin MD [facility] Internal Med [address] [address] 01/21/2025 14:45:14 01/21/2025 15:31:20 Diabetes mellitus 32433215 E11.9 under control, Congestive heart failure 95150541 I50.9 unchanged Dyspnea on exertion 6084 5006 R06.09 on o2 prn Essential hypertension 89069470 I10 under control Fibromyalgia 998748432 M 79.7 Gastroesop hageal reflux disease 122576322 K21.9 stable Irritable bowel syndrome 55443650 K58.9 watching diet Kidney disease 53569311 N08 seeing nephrology Malignant tumor of breast 748341623 C50.919 nl ultra sound Obesity 300230657 E66.9 Osteoarthritis 191516806 M19.90 otc Thyroid nodule 313847800 E04.1 Umbilical hernia 5403199 07 K42.9 no pain Diabetic p eripheral neuropathy 177044411 E11.40 does not want meds Chronic ob structive pulmonary disease 24873947 J44.9 stable Chronic back pain 826610 002 G89.29 otc tylenol Adult heal th examination 169375462 Z00.00 Mammogram- nl in 01/26Dexa(h asn't had one in yrs) doesn't wantColono scopy (doesn't want it)Pneumov ax 07/2015Prev taty 07/19/2015F MICHELLE- 3COVID Vacc- MOTIVATED TO GET IT Cardiomyopathy 28914030 I42.9 no symptoms Rosacea 259601391 L71.9 Candidiasis of skin 4988 3006 B37.2 under the breasts Acute sinusitis 97659922 J01.90 Health Concerns Section Related Observation LastModified by Organization Detai ls LastModified Time None Recorded Concern Status LastModified by Organization Details LastModified Time None Recorded Advance Directives Directive Y: Payers Encounter Date Sequence Insurance Name Policy Number Policy Foster Covered Member ID Foster Member ID Guarantor Name 05/13/2024 1 [facility] (MEDICARE REPLACEMENT/A DVANTAGE - HMO) [id number] Eloina Kang [id number] Eloina Kang 09/02/2024 1 [facility] (MEDICARE REPLACEMENT/A DVANTAGE - HMO) [id number] Eloina Kang [id number] Eloina Kang 11/06/2024 1 [facility] (MEDICARE REPLACEMENT/A DVANTAGE - HMO) [id number] Eloina Kang [id number] Eloina Kang 11/25/2024 1 [facility] (MEDICARE REPLACEMENT/A DVANTAGE - HMO) [id number] Eloina Kang [id number] Eloina Kang 01/21/2025 1 [facility] (MEDICARE REPLACEMENT/A DVANTAGE - HMO) [id number] Eloina Kang [id number] Eloina Kang Notes Date Note Type Note Provider Name and Address Organization Details Recorded Time 4 text/html She is here today for a 2 month follow up.Last OV was a follow up from the hospital- [facility] pacemaker changed States that since she has been having trouble breathing, has a productive cough and it yellow in color, states that her inhalers has not been working. Sometimes her heart palpitates. Sees Dr. Middleton, no cp Was at Endocrinology last month and passed out, Did not go to the ER, states that the Just checked her out. Glucose and b/p was good, was given some water and later went home Manuel Olguin MD [address] [facility], [place], [address], [facility] [employer] 05/13/2024 17:27:54 4 text/html Here for routine f/u, compliant to meds.No longer taking Sertraline or PregabalinNeurologist - @ [facility] Also has a rash up under her right breast and in the groin area.Has been using Miconazole cream OTC and not helping Left ear is clogged nasal congestion, sinus pressure and drainage x a month, no fever , some cough DM- diet is under control, getting eye exam,accu checks are better,A1c was 6.4 [facility] recently, Dr Sierra eye exam- 3Does have numbness in both of her feet, not every day , does not want to take medsMeds- Glimepiride 4 mg bid, has taken Jardiance in the past Diabetic neuropathy- does not want meds Kidney disease- 33 GFR , has seen dr buckley HTN- under control COPD- under control, using o2, alb and spirivaMeds- Spiriva 2.5mg, alb prn Knee pain- had knee injections from Dr. King Hyperlipidemia- was on RosuvastatinMeds-Atorvasta tin 80 mg was rec, does not want to take due to joint pain Cardiomyopathy/CHF- s/p AICD, on lasix 40 mg 2 in am, 1 in pm, dr Urrutia- Furosemide and Spironolactone 50 mg BID, Corlanor 5mg BID Osteoarthritis/ back pain- using crutches Rheumatoid arthritis- Sees Dr. Bragg and was on Plaquenil , not any more Edema- Has been wearing TIANNA hoses, stableMeds- on Furosemide H/O melanoma- does not want to see derm, recommended to f/u, needs derm every year Anxiety- stable, not on meds any moreCymbalta was too strong, GERD- better without med Breast cancer- in 1989 s/p mastectomy, did not want any chemo/RT, had abn mammogram 10/26 but ultra sound was nl Rosacea- better with medMeds- Triamcinolone cream Thyroid nodule- seen ENT, no biopsy was recommended, ultra sound 02/25, all rhinitis- otcMeds- Flonase Insomnia- does not want to take zolpidem Manuel Olguin MD [address], [facility] [address], [place], [address], [facility] [employer] [facility] 09/02/2024 16:19:41 5 text/html pt is here for a sick visit onset 1 month. pt has no appetite.pt is diabetic. hard to swallow throat hurts. thick phlegm yellowish color. pt is lethargic .pt has not ran a temp. she is congested sometimes gets a glob in chest to cough up but takes awhile to do so. Rosalee Sousa NP [address], [place], [address], [facility] [employer] 11/06/2024 14:35:20 5 text/html Pt is here today for CongestionWhen she was hear last (seeing [facility] on 11/06/24) still had fluid in her left ear, still feels stopped up. was given levofloxacin and prednisoneWhen on Levaquin she was having right lower quad pain and diarrhea. X 4days Did not take full course and never started the prednisone.Still C/o head/chest congestion. Uses both inhalers daily. Cough is productive and sometimes white and sometimes a thick yellow. Gets SOB a lot, can not talk long and gets SOBFYI When taking Levaquin had hallucinations, abd pain, diarrhea Manuel Olguin MD [address], [place], [address], [place] [facility] [employer] 11/25/2024 15:23:03 5 text/html Here for routine f/u, compliant to meds.Needs you to looks at feet Pt is having a lot of sinus drainage, mucus color is white/yellow sometimes. Sore throat, bilateral ear pain has had abx since october. Her last round was in November clindamycin and prednisone but didn't help. Pt is not fasting.. ([facility]) Neurologist - @ [facility] DM- diet is under control, getting eye exam,accu checks are better, 90-130A1c was nl, Dr Sierra eye exam- oes have numbness in both of her feet, not every day , does not want to take medsMeds- Glimepiride 4 mg bid, has taken Jardiance in the past Diabetic neuropathy- does not want meds Kidney disease- 35 GFR , has seen dr buckley HTN- under control COPD- under control, using o2, alb and spirivaMeds- Spiriva 2.5mg, alb prn Knee pain- had knee injections from Dr. King Hyperlipidemia- was on RosuvastatinMeds-Atorvasta tin 80 mg was rec, does not want to take due to joint pain Cardiomyopathy/CHF- s/p AICD, on lasix 40 mg 2 in am, 1 in pm, dr Urrutia- Furosemide and Spironolactone 50 mg BID, Corlanor 5mg BID Osteoarthritis/ back pain- using crutches Rheumatoid arthritis- Sees Dr. Westbrook and was on Plaquenil , not any more Edema- Has been wearing TIANNA hoses, stableMeds- on Furosemide H/O melanoma- does not want to see derm, recommended to f/u, needs derm every year Anxiety- stable, not on meds any moreCymbalta was too strong, GERD- better without med Breast cancer- in 1989 s/p mastectomy, did not want any chemo/RT, had abn mammogram 10/26 but ultra sound was nl Rosacea- better with medMeds- Triamcinolone cream Thyroid nodule- seen ENT, no biopsy was recommended, ultra sound 02/25, all rhinitis- otcMeds- Flonase Insomnia- does not want to take zolpidem Manuel Olguin MD [address] [facility] [address], [place], [address], [place] - [facility] 01/21/2025 15:58:11 OBGyn Episode No OBEpisode recorded.
--- OUTSIDE RECORDS SUMMARY | 2025-03-04 13:45 | XMS_ITS | Clinical Summary ---
Author Organization [facility] Address [address] [place] [address] Care Team Providers Care Lumpia Wrapper Maker Name Role Phone Unavailable Primary Care Provider Unavailabl e Social History Tobacco Use Types Packs/Day Years Used Date Smoking Tobacco: Never Assessed Comments Unknown Sex and Gender Information Value Date Recorded Sex Assigned at Not on file Legal Sex Female 8:31 PM CDT Gender Identity Not on file Sexual Orientation Not on file Plan of Treatment Health Maintenance Due Date Last Done Comments Hepatitis C 1965 DTaP, Tdap and Td Vaccines ( 1 - Tdap) 1966 Pneumococcal Vaccine: 50+ Ye ars (1 of 1 - PCV) 1997 Zoster Vaccines (1 of 2) 1997 Dexa Scan (General) 2012 RSV Immunization or 60+ Years (1 - 1-dose 75+ series) 2022 COVID-19 Vaccine (2023-2 5 season) 2024 Meningococcal B Vaccine Aged Out No l onger eligible based on patient's age to complete this topic Meningococcal Vaccine Aged Out No yue cherelle eligible based on patient's age to complete this topic RSV Immunizations Under 20 Months Aged Out No longer eligible based on patient's age to complete this topic Advance Directives Documents on File Type Date Recorded 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
--- OUTSIDE RECORDS SUMMARY | 2025-03-04 13:45 | XMS_ITS | Patient Health Record ---
Author Organization [facility] Address [address] [place] [address] Care Team Providers Care School Speech Therapist Name Role Phone Marjorie Manning Unavailable [phone] Art Nelsonjit Unavailable [phone] REASON FOR REFERRAL No Information MEDICATIONS Medication SIG (Take, Route, Frequency, Duration) Notes Start Date End Date Status Hydroxychloroquine Sulfate 2 00 MG as directed Orally 05/22/2022 Active Paxlovid (150/100) 10 x 150 MG & 10 x 100MG 1 pack as directed Orally 1 pack for 5 days 06/29/2023 Active PROBLEMS Problem Type ICD Code Onset Dates Problem Status W/U Status Risk SNOMED Code Notes Problem Type 2 diabetes mellitus with hyperglycemia (E11.65) Active confirmed Hyperglycemia d ue to type 2 diabetes mellitus (118069741046257) Problem Vitamin D deficiency, unspecified (E55.9) Active confirmed Vitamin D deficiency (46220576) Problem Hyperlipidemia, unspecified (E78.5) Active confirmed Hyperlipidemia (27013126) Problem 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 and tophaceous disease (E79.0) Active confirmed Hyperuricemi a without signs of inflammatory arthritis and tophaceous disease (862173194) Problem Essential (primary) hypertension (I10) Active confirmed Essential hypertension (60031939) Problem Chronic kidney disease, stage 3 unspecified (N18.30) Active confirmed Chronic kidney disease stage 3 (disorder) (075733776) Problem Chronic kidney disease, stage 3a (N18.31) Active confirmed Chronic kidney disease stage 3A (disorder) (847167776) Problem Chronic kidney disease, stage 3b (N18.32) Active confirmed Chronic kidney disease stage 3B (disorder) (082038730) Encounters Encounter Location Date Provider Diagnosis [facility] [address] [place] [address] 04/14/2024 Marjorie Nigel Chronic kidney disease, stage 3 unspecified N18.30 ; Essential (primary) hypertension I10 ; Type 2 diabetes mellitus with hyperglycemia E11.65 ; 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 and tophaceous disease E79.0 and Vitamin D deficiency, unspecified E55.9 [facility] [address] [address] 07/21/2024 Marjorie Nigel Chronic kidney disease, stage 3a N18.31 ; Type 2 diabetes mellitus with hyperglycemia E11.65 ; 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 and tophaceous disease E79.0 and Essential (primary) hypertension I10 [facility] [address] [place] [address] 10/20/2024 Marjorie Nigel [facility] [address] [address] 11/17/2024 Marjorie Nigel [facility] [address] [place] [address] 02/23/2025 Marjorie Nigel Chronic kidney disease, stage 3b N18.32 ; Type 2 diabetes mellitus with hyperglycemia E11.65 ; Essential (primary) hypertension I10 and Hyperlipidemia, unspecified E78.5 [facility] [address] [place] [address] 04/14/2024 Chaitanya Nelson ASSESSMENTS Encounter Date Diagnosis Assessment Notes Treatment Notes Treatment Clinical Notes Section Notes 04/14/2024 Chronic kidney disease, stage 3 unspecified (ICD-10 - N18.30) 07/21/2024 Chronic kidney disease, stage 3a (ICD-10 - N18.31) 02/23/2025 Chronic kidney disease, stage 3b (ICD-10 - N18.32) 02/23/2025 Type 2 diabetes mellitus with hyperglycemia (ICD-10 - E11.65) 07/21/2024 Type 2 diabetes mellitus with hyperglycemia (ICD-10 - E11.65) 04/14/2024 Essential (primary) hypertension (ICD-10 - I10) 04/14/2024 Type 2 diabetes mellitus with hyperglycemia (ICD-10 - E11.65) 07/21/2024 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 and tophaceous disease (ICD-10 - E79.0) 02/23/2025 Essential (primary) hypertension (ICD-10 - I10) 02/23/2025 Hyperlipidemia, unspecified (ICD-10 - E78.5) 07/21/2024 Essential (primary) hypertension (ICD-10 - I10) 04/14/2024 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 and tophaceous disease (ICD-10 - E79.0) 04/14/2024 Vitamin D deficiency, unspecified (ICD-10 - E55.9) PLAN OF TREATMENT Next Appt Details Provider Name:Marjorie padilla, 05/25/2025 03:00:00 PM, [address], [place], [place], [address],
--- OUTSIDE RECORDS SUMMARY | 2025-03-04 13:45 | XMS_ITS ---
Author Organization [facility] Address [address] [place] [address] Care Team Providers Care Chemical Dependency Attendant Name Role Phone Spenser Hernadez Unavailable [phone] Encounters Encounter Location Date Provider Diagnosis [facility] [address] [facility] [address] [place] [address] 10/20/2024 Spenser Hernadez PLAN OF TREATMENT Next Appt Details Provider Name:Spenser padilla, 05/25/2025 03:00:00 PM, [address], [place], [address], Progress Notes * BISMARK VÁSQUEZOB:1945 ( 79 yo F)Acc No.[id number]:10/20/2024 Progress Notes Patient: ADDY VÁSQUEZ Provider: SPENSER HERNADEZ M.D :1945 Age:79 Y Sex:Female Date:10/20/2024 Address:[address] [place], [place] [id number] Subjective: * Chief Complaints: * * Medical History: Objective: Assessment: Plan: * Treatment: * Billing Information: * Visit Code: * Procedure Codes: * Sign off status: Pending * Provider: SPENSER HERNADEZ M.D Date: 10/20/2024
--- OUTSIDE RECORDS SUMMARY | 2025-03-04 13:45 | XMS_ITS ---
Author Organization [facility] Address [address] [place] [address] Care Team Providers Care Human Resource Analyst Name Role Phone Spenser Hernadez Unavailable [phone] REASON FOR VISIT lvm about appt Encounters Encounter Location Date Provider Diagnosis [facility] [address] [facility] [address] [place] [address] 11/17/2024 Spenser Hernadez PLAN OF TREATMENT Next Appt Details Provider Name:Spenser padilla, 05/25/2025 03:00:00 PM, [address], [place], [address], Progress Notes * BISMARK VÁSQUEZOB:1945 ( 79 yo F)Acc No.[id number]:11/17/2024 Progress Notes Patient: ADDY VÁSQUEZ Provider: SPENSER HERNADEZ M.D :1945 Age:79 Y Sex:Female Date:11/17/2024 Address:[address] [place] [address] Subjective: * Chief Complaints: * 1. Lvm about appt. * Medical History: Objective: Assessment: Plan: * Treatment: * Billing Information: * Visit Code: * Procedure Codes: * Sign off status: Pending * Provider: SPENSER HERNADEZ M.D Date: 11/17/2024
--- OUTSIDE RECORDS SUMMARY | 2025-03-04 13:45 | XMS_ITS ---
Author Organization [facility] Address [address] [place] [address] Care Team Providers Care Automation Machine Builder Name Role Phone Spenser Hernadez Unavailable [phone] PROBLEMS Problem Type ICD Code Onset Dates Problem Status W/U Status Risk SNOMED Code Notes Problem Chronic kidney disease, stage 3b (N18.32) Active confirmed Chronic kidney disease stage 3B (disorder) (179822289) Problem Hyperlipidemia, unspecified (E78.5) Active confirmed Hyperlipidemia (46518825) Encounters Encounter Location Date Provider Diagnosis [facility] [address] [facility] [address] [place] [address] 02/23/2025 Spenser Hernadez Chronic kidney disea se, stage 3b N18.32 ; Type 2 diabetes mellitus with hyperglycemia E11.65 ; Essential (primary) hypertension I10 and Hyperlipidemia, unspecified E78.5 ASSESSMENTS Encounter Date Diagnosis Assessment Notes Treatment Notes Treatment Clinical Notes Section Notes 02/23/2025 Chronic kidney disease, stage 3b (ICD-10 - N18.32) 02/23/2025 Type 2 diabetes mellitus with hyperglycemia (ICD-10 - E11.65) 02/23/2025 Essential (primary) hypertension (ICD-10 - I10) 02/23/2025 Hyperlipidemia, unspecified (ICD-10 - E78.5) PLAN OF TREATMENT Next Appt Details Provider Name:Spenser padilla, 05/25/2025 03:00:00 PM, [address], [place], [address], Progress Notes * BISMARK VÁSQUEZOB:1945 ( 79 yo F)Acc No.[id number]:02/23/2025 Progress Notes Patient: DENISE VÁSQUEZRA Provider: SPENSER HERNADEZ M.D :1945 Age:79 Y Sex:Female Date:02/23/2025 Address:[address] [place] [address] Subjective: * Chief Complaints: * * Medical History: Objective: Assessment: * Assessment: 1. Chronic kidney disease, stage 3b - N18.32 (Primary) 2. Type 2 diabetes mellitus with hyperglycemia - E11.65 3. Essential (primary) hypertension - I10 4. Hyperlipidemia, unspecified - E78.5 Plan: * Treatment: * Billing Information: * Visit Code: 33605 Office Visit, Est Pt., Level 3. * Procedure Codes: * Sign off status: Pending * Provider: SPENSER HERNADEZ M.D Date: 02/23/2025
== END 2025-03-04 14:36 | disposition home or self-care (01) ==
PROVIDERS: Emergency Medicine; Emergency Provider Emergency Medicine; PCP Internal Medicine
DX: I50.9 Heart failure, unspecified (principal); J44.9 Chronic obstructive pulmonary disease, unspecified; Z20.822 Contact with and (suspected) exposure to COVID-19; Z95.0 Presence of cardiac pacemaker
CPT/HCPCS: 36415; 71046; 80053; 83880; 84484; 85025; 85610; 85730; 87637; 87651; 93005; 96374; 99284; J1938

== ENCOUNTER 2025-05-05 14:08 | Outpatient (CLI) | payer MEDICARE, SELFPAY ==
--- OUTSIDE RECORDS SUMMARY | 2025-05-05 14:16 | XMS_ITS | Patient Health Record ---
Author Organization [facility] Address [address] [facility] [address] [place] [address] Care Team Providers Care Floor Representative Name Role Phone Marjorie Manning Unavailable [phone] Reason For Referral No Information Medications Medication SIG (Take, Route, Frequency, Duration) Notes Start Date End Date Status Hydroxychloroquine Sulfate 2 00 MG as directed Orally 05/22/2022 Active Paxlovid (150/100) 10 x 150 MG & 10 x 100MG 1 pack as directed Orally 1 pack; Duration: 5 days 06/29/2023 Active Problems Problem Type SNOMED Code ICD Code Onset Dates Problem Status W/U Status Risk Notes Problem Hyperglycemia due to type 2 diabetes mellitus (569990438170764) Type 2 diabetes mellitus with hyperglycemia (E11.65) Active confirmed Problem Vitamin D deficiency (34657987) Vitamin D deficiency, unspecified (E55.9) Active confirmed Problem Hyperlipidemia, unspecified (E78.5) Active confirmed Problem 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 and tophaceous disease (986948482) 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 and tophaceous disease (E79.0) Active confirmed Problem Essential hypertension (85641594) Essential (primary) hypertension (I10) Active confirmed Problem Chronic kidney disease stage 3 (disorder) (973585617) Chronic kidney disease, stage 3 unspecified (N18.30) Active confirmed Problem Chronic kidney disease stage 3A (disorder) (442058050) Chronic kidney disease, stage 3a (N18.31) Active confirmed Problem Chronic kidney disease stage 3B (disorder) (322384897) Chronic kidney disease, stage 3b (N18.32) Active confirmed Encounters Encounter Location Date Provider Diagnosis [facility] [facility] [address] [facility] [address] [place] [address] 07/21/2024 Marjorie Manning Chronic kidney disea se, stage 3a N18.31 ; Type 2 diabetes mellitus with hyperglycemia E11.65 ; 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 and tophaceous disease E79.0 and Essential (primary) hypertension I10 [place] [facility] [address] [facility] [address] [place] [address] 02/23/2025 Marjorie Manning Chronic kidney disea se, stage 3b N18.32 [...] Treatment Next Appt Details Provider Name:Marjorie padilla, 05/25/2025 03:00:00 PM, [address] [facility], [address], [place], [address],
--- OUTSIDE RECORDS SUMMARY | 2025-05-05 14:16 | XMS_ITS ---
Author Organization [facility] Address [address] [facility] [address] [facility] [address] [place] [address] Care Team Providers Care Hook Tender Name Role Phone Nigle Marjorie Unavailable [phone] REASON FOR VISIT lvm about appt Encounters Encounter Location Date Provider Diagnosis [facility] [address] [facility] [address] [place] [address] 11/17/2024 Marjorie Hernadez Plan Of Treatment Next Appt Details Provider Name:Marjorie padilla, 05/25/2025 03:00:00 PM, [address] [facility], [facility] [address], [place], [address], Progress Notes * BISMARK VÁSQUEZOB:1945 ( 79 yo F)Acc No.[id number]:11/17/2024 Progress Notes Patient: ADDY AGUILERA Provider: Kerry HERNADEZ M.D :1945 A ge:79 Y S ex:Female Date:11/17/2024 Address:[address] [place] [address] Subjective: * Chief Complaints: * 1 . Lvm about appt. * Medical History: Objective: * Vitals: Assessment: Plan: * Treatment: * Billing Information: * Visit Code: * Procedure Codes: * Electronic signature of Santiago Hernadez MD on 05/05/2025 at 02:16 PM CDT Sign off status: Pending * Provider: Kerry HERNADEZ M.D Date: 11/17/2024 Generated for Aaliyahi kwabena/Famalik/eTransmitting on: 05/05/2025 02:16 PM CDT
--- OUTSIDE RECORDS SUMMARY | 2025-05-05 14:16 | XMS_ITS ---
Author Organization [facility] Address [address] [facility] [address] [facility] [address] [place] [address] Care Team Providers Care Diamond Blender Name Role Phone Marjorie Hernadez Unavailable [phone] Encounters Encounter Location Date Provider Diagnosis [facility] [address] [place] [address] [address] [place] [address] 10/20/2024 Marjorie Hernadez Plan Of Treatment Next Appt Details Provider Name:Marjorie padilla, 05/25/2025 03:00:00 PM, [address] [facility] [address], [place], [address], Progress Notes * DENISE VÁSQUEZNIKOSOB:1945 ( 79 yo F)Acc No.[id number]:10/20/2024 Progress Notes Patient: ADDY AGUILERA Provider: Kerry HERNADEZ M.D :1945 A ge:79 Y S ex:Female Date:10/20/2024 Address:[address] [place] [address] Subjective: * Chief Complaints: * * Medical History: Objective: * Vitals: Assessment: Plan: * Treatment: * Billing Information: * Visit Code: * Procedure Codes: * Electronic signature of Santiago Hernadez MD on 05/05/2025 at 02:16 PM CDT Sign off status: Pending * Provider: Kerry HERNADEZ M.D Date: 12/21/2023 Generated for Darren yuan/Dharmesh/eTransmitting on: 0 05/05/2025 02:16 PM CDT
--- OUTSIDE RECORDS SUMMARY | 2025-05-05 14:16 | XMS_ITS | Data Portability ---
Author Organization [facility] [employer], Main Office Address [address] [place] [address] Care Team Providers Care Stockroom Selector Name Role Phone MANUEL OLGUIN Primary Care Provider MANUEL OLGUIN Referring Provider MANUEL OLGUIN Primary Care Provider Assessment No assessment recorded. Plan of Treatment Reminders Order Date Submit Date Provider Last Modified By Organization Details Last Modified Time Details Appointments Any 2024 03:30P M Manuel Olguin MD Not available Not available Not available Any 2024 01:30P M Manuel Olguin MD Not available Not available Not available Lab None recorde d. Referral None recorde d. Procedures None recorde d. Surgeries None recorde d. Imaging None recorde d. Medication Orders levoflo xacin 500 mg tablet 2024 025 [email or web address] [facility] [id number], [address], 03/09/2025 14:29:47 nystati n 100,000 unit/gr am topical cream 2024 025 [facility] [address], [address], 11/25/2024 15:19:05 clindam ycin HCl 300 mg capsule 2024 025 [email or web address] [facility] [address], [address], 01/21/2025 14:58:32 prednis one 20 mg tablet 2024 025 amanda [facility] [address], [address], 01/21/2025 14:59:41 levoflo xacin 500 mg tablet 2024 025 [email or web address] [facility] [address], [address], 03/09/2025 14:29:47 levoflo xacin 500 mg tablet 2023 024 [email or web address] [facility] [address], [address], 03/09/2025 14:29:47 nystati n 100,000 unit/gr am topical cream 2023 024 MAR[facility]SA [facility] [address], [address], 09/02/2024 16:18:50 triamci nolone acetoni de 0.1 % topical cream 2023 024 [facility] [address], [address], 09/02/2024 16:05:55 Patient TargetsNo targets recorded. Patient Instructions Encounter Date Encounter Id Patient Instructions Last Modified By Organization Details Last Modified Time 09/02/2024 [id number] looks like she had old stroke willing to take Plavix does not want to take any cho meds as rec has appt with neuro dr ratliff [email or web address] Not available 09/02/2024 15:40:45 01/21/2025 [id number] looks like she had old stroke willing to take Plavix does not want to take any cho meds as rec has appt with neuro dr evy patel Not available 01/21/2025 14:47:23 03/09/2025 [id number] Patient to follow up with cardiology. [email or web address] Not available 03/09/2025 15:00:16 Discussed medication compliance. Patient refusal of advise at this time. Discussed healthy diet. Patient will follow up with cardiology. [email or web address] Not available 03/09/2025 14:59:47 Reason for Referral None Reported. Results Created Date Observation Date Name Description Value Unit Range Abnormal Flag Note LastModifiedBy Organization Detail LastModifiedTime 04/02/20 25 04/02/2025 US, echoc ardio gram, trans thora cic, compl ete, w/ color flow No observ ation record ed. [email or web address] Doe Middleton MD [address], [place], [address], 04/07/2025 11:11:49 Result Notes None recorded. Problems Name Problem SNOMED Code Status Onset Date Resolution Date Notes Provider Name and Address Organization Details Recorded Time Deliveri es by 536727191 Active 2022 Not Available [facility] 3 16:45:06 Gestatio nal hyperten jered Completed 202207/16/2023 Cristel grijalva RMKerry kidd, [employer] 3 15:35:17 Uncontro lled type 2 diabetes mellitus 259276894 Completed 202207/16/2023 Cristel grijalva RMKerry kidd, [employer] 3 15:35:01 Renal insuffic iency 207190665 Active 2022 Not Available [facility] 3 16:45:06 Thick sputum 595509420 Completed 202207/16/2023 Brent Donato MD [address], [place], [address] , [place] [employer] [facility] 4 15:19:28 Diabetic peripher al neuropat hy 180052902 Active 2022 Not Available [employer] 3 16:45:06 Irritabl e bowel syndrome 96965358 Active 2021 Not Available [facility] 3 16:45:06 Bilatera l knee pain Completed 201906/29/2022 Not Available [facility] 3 03:03:22 Benign essentia l hyperten jered 9662021 Completed 07/16/2023 MARCO A Barajas, [employer] [facility] 3 15:35:52 Cellulit is 548862678 Completed Not Available [facility] 3 03:03:22 Disorder of sacrum 50140613 Completed Not Available [facility] 3 03:03:22 Chronic back pain 314137573 Active Bulging disc lumber, thoraic, work related Not Available [facility] 3 16:45:06 Parotiti s 17435573 Completed 202006/29/2022 Not Available [facility] 3 03:03:22 Constipa tion 38481822 Completed Not Available [facility] 3 03:03:22 Acute sinusiti s 07928619 Completed 202111/02/2022 Manuel Olguin MD [address], [place], [address] , [employer] 4 16:18:15 Acute sinusiti s 53564837 Completed 201906/29/2022 Manuel Olguin MD [address], [place], [address] , [employer] [facility] 4 16:18:15 Right flank pain 492645535 Completed 202106/29/2022 Not Available [facility] 3 03:03:22 Mammogra phy abnormal 684853569 Completed 202111/02/2022 Not Available [facility] 3 03:03:22 Anxiety disorder 957594181 Completed 07/16/2023 MARCO A Barajas, [employer] [facility] 3 15:35:54 Localize d, 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 791895068 Completed Not Available [facility] 3 03:03:23 Abdomina l pain 57923419 Completed Not Available [facility] 3 03:03:23 Gastroes ophageal reflux disease 548269831 Active Not Available [facility] 3 16:45:06 Thyroid nodule 816536777 Active Not Available [facility] 3 16:45:06 Seroposi tive rheumato id arthriti s 771873399 Active 2021 Not Available [facility] 3 16:45:06 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 Not Available [facility] 3 16:45:06 Dyspnea 597440429 Completed 201906/29/2022 Not Available [facility] 3 03:03:24 Edema 588330487 Completed Not Available [facility] 3 03:03:24 Eruption 278045183 Completed Not Available [facility] 3 03:03:24 Proteinu karon 65995408 Completed Not Available [facility] 3 03:03:24 Chest pain 62409917 Completed 201806/29/2022 Not Available [facility] 3 03:03:24 Adhesive capsulit is of right shoulder 04035625381 9109 Completed 202006/29/2022 Not Available [facility] 3 03:03:24 Vaginiti s 69315754 Completed Not Available [facility] 3 03:03:24 Pain associat ed with prosthes is of hip joint 161103440 Completed Not Available [facility] 3 03:03:25 Medial epicondy litis of right elbow joint 22619099407 9109 Completed 202006/29/2022 Not Available [facility] 3 03:03:25 Sinusiti s 18312152 Completed ELAINA Abarca, [place] [employer] [facility] 4 09:12:59 Dyslipid emia 930386479 Active 2021 Not Available [facility] 3 16:45:06 Malignan t melanoma 108969015 Active right leg 15 years ago Not Available [facility] 3 16:45:06 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 47850745 Completed 202006/29/2022 Not Available [facility] 3 03:03:25 Paronych ia of toe 672338474 Completed Not Available [facility] 3 03:03:26 Umbilica l hernia 464288323 Active Not Available [facility] 3 16:45:06 Rosacea 448765595 Active Not Available [facility] 3 16:45:06 Tinea cruris 106873863 Completed Not Available [facility] 3 03:03:26 Obesity 549030854 Active Not Available [facility] 3 16:45:06 Pain in eye 73814902 Completed Not Available [facility] 3 03:03:27 Furuncle 094856886 Completed Not Available [facility] 3 03:03:27 Itching of skin 632187196 Completed Not Available [facility] 3 03:03:27 Congesti ve heart failure 16559434 Active EF 15-20% Not Available [facility] 3 16:45:06 Pain of hip region 45900879 Completed Not Available [facility] 3 03:03:27 Dysuria 57451825 Completed Not Available [facility] 3 03:03:28 Upper respirat ory infectio n 12836607 Completed Not Available [facility] 3 03:03:28 Essentia l hyperten jered 69448456 Active Not Available [facility] 3 16:45:06 Disorder of coccyx 77392100 Completed Not Available [employer] 3 03:03:28 Allergic rhinitis 88022444 Completed Not Available [employer] 3 03:03:28 Urinary tract infectio us disease 32937694 Completed Not Available [facility] 3 03:03:28 Candidia sis of vagina 58892993 Completed 202106/29/2022 Not Available [employer] 3 03:03:29 Pancreat itis 65283918 Completed Not Available [facility] 3 03:03:29 Neck pain 16086343 Completed Not Available [facility] 3 03:03:29 Fatigue 09880798 Completed 202106/29/2022 Not Available [facility] 3 03:03:29 Fatigue 58569542 Completed Not Available [facility] 3 03:03:29 Cardiomy opathy 16128303 Active s/p pace maker, ICD Not Available [facility] 3 16:45:06 Dependen ce on suppleme ntal oxygen 85343052715 7 Active 2021 Not Available [facility] 3 16:45:06 Disorder of skin 18298588 Completed Not Available [facility] 3 03:03:30 COVID-19 710498368 Active 2022 Not Available [facility] 3 16:45:06 Congesti on of nasal sinus 24150352 Completed 202207/16/2023 Brent Donato MD [address], [place], [address] , [facility] [employer] [facility] 4 17:14:40 Anxiety 95946107 Active 2022 Paulina Kowalski MA null, [facility] [employer] [facility] 3 12:11:54 Fibromya lgia 899666593 Active 2023 MARCO A Barajas null, [facility] [employer] [facility] 4 14:59:00 Osteoart hritis 031793908 Active 2023 MARCO A Barajas null, [facility] [employer] [facility] 4 14:59:00 Mild persiste nt asthma 223490988 Active 2023 Brent Donato MD [address], [place], [address] , [facility] [employer] [facility] 4 16:34:05 Weakness of bilatera l lower limb Active 2023 Manuel Olguin MD [address], [place], [address] , [facility] 4 15:44:46 Asthma 637426055 Active 2023 Manuel Olguin MD [address], [place], [address] , [facility] 4 15:47:31 Candidia sis of skin 87222426 Active 2023 Cristel Stevanlebea n, RMA null, [place] [facility] 4 17:28:27 Diabetes mellitus 56138295 Active 2023 Cristel Stufflebea n, RMA null, [place] [facility] 4 15:40:44 Dyspnea on exertion 14046618 Active 2023 Cristel Stufflebea n, RMA null, [place] [facility] 4 15:40:44 Chronic obstruct anabela pulmonar y disease 82072782 Active 2023 Cristel Stufflebea n, RMA null, [place] [facility] 4 15:40:44 Kidney disease 68513376 Active 2023 Cristel Stufflebea n, RMA null, [place] [facility] 4 15:40:44 Acute sinusiti s 80043651 Active 2023 Manuel Olguin MD [address], [place], [address] , [facility] 4 16:18:15 Impacted cerumen in left ear 88685888243 91372 Active 2023 Manuel Olguin MD [address], [place], [address] , [facility] - [facility] 4 16:19:04 Sinusiti s 98457439 Active 2023 [place] Richmond MA null, [place] - [facility] 4 09:12:59 Notes:Medical History: Rosac ea Anxiety/Depression [...] TR RVSP 57 mmHg CHF EF 20% RATSA Gallstone pancreatitis IBS CKD Vit B12 deficiency Vit D deficiency Lumbar DDD Levoscoliosis 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 Procedures Surgical History Date Name Laterality Status Provider Name and Address Organization Details Recorded Time Pacemaker completed Not Available [facility] [address] 01/03/2023 02:55:59 lumpectomy of left breast completed Not Available [facility] 01/03/2023 02:55:59 Orthopedic Surgery completed Not Available [facility] 01/03/2023 02:55:59 other completed Not Available [facility] 11/2022 02:55:59 tonsillectomy completed Not Available [facility] 01/03/2023 02:55:59 Masectomy completed Not Available [facility] 0 01/03/2023 02:55:59 Ingrown Toenail completed Not Available [facility] 01/03/2023 02:55:59 Imaging Results None recorded. Procedure Notes None recorded. Medical Equipment None Reported. Allergies Allergen ID Allergen Name Allergen Category Reaction Reaction Severity Criticality Documentation Date Start Date Code Code System Note Provider Name and Address Organization Details Recorded Time 5495 yellow dye medicatio n Not available Not available Not available 01/03/2023 UNK Not Available [facility] 03:13:31 5496 Medicinal product containin g tetracycl ine structure and acting as antibacte rial agent (product) medicatio n Not available Not available Not available 01/03/2023 39958 1004 SNOMED Not Available [facility] 03:13:31 5497 red dye food,medi cation Not available Not available Not available 01/03/2023 07044 UNK Not Available [facility] 3 03:13:31 5498 Product containin g penicilli n (product) medicatio n Not available Not available Not available 01/03/2023 25520 8001 SNOMED Not Available [facility] 3 03:13:31 5499 nystatin medicatio n Not available Not available Not available 01/03/2023 7597 RxNorm cream for funga l- Nysta tin made it worse Not Available [facility] 3 03:13:31 5500 nickel environme nt Not available Not available Not available 01/03/2023 13984 29 RxNorm Not Available [facility] 3 03:13:31 5501 neomycin medicatio n Not available Not available Not available 01/03/2023 7299 RxNorm Not Available [facility] 3 03:13:31 5502 Mucinex medicatio n lighthead edness Not available Not available 01/03/2023 00738 7 RxNorm Not Available [facility] 3 03:13:31 5503 Keflex medicatio n Not available Not available Not available 01/03/2023 80111 7 RxNorm Not Available [facility] 3 03:13:31 5504 iodine medicatio n Not available Not available Not available 01/03/2023 5933 RxNorm Not Available [facility] 3 03:13:31 5505 Iodinated contrast media (substanc e) medicatio n Not available Not available Not available 01/03/2023 09465 2004 SNOMED Not Available [facility] 3 03:13:31 5506 Ceftin medicatio n Not available Not available Not available 01/03/2023 92969 6 RxNorm Not Available [facility] 3 03:13:31 5507 Buspar medicatio n Not available Not available Not available 01/03/2023 19592 0 RxNorm Not Available [facility] 3 03:13:31 5508 blue dye medicatio n Not available Not available Not available 01/03/2023 68273 UNK Not Available [facility] 3 03:13:32 5509 Biaxin medicatio n Not available Not available Not available 01/03/2023 96402 9 RxNorm Not Available [facility] 3 03:13:32 5510 Bevespi medicatio n Not available Not available Not available 01/03/2023 60297 40 RxNorm Gives her the shake s Not Available [facility] 3 03:13:32 5511 Betadine medicatio n Not available Not available Not available 01/03/2023 93808 0 RxNorm Not Available [facility] 3 03:13:32 5512 Bactrim medicatio n Not available Not available Not available 01/03/2023 39735 9 RxNorm Not Available [facility] 3 03:13:32 5513 Anoro medicatio n Not available Not available Not available 01/03/2023 44693 20 RxNorm gives her the shake s Not Available [facility] 3 03:13:32 5514 amoxicill in medicatio n Not available Not available Not available 01/03/2023 723 RxNorm Not Available [facility] 3 03:13:32 5515 clindamyc in Not available Not available Not available Not available 01/03/2023 2582 RxNorm Not Available [facility] 3 03:13:32 41841 Breztri medicatio n Not available Not available Not available 02/28/2023 98424 25 RxNorm Aleisha kidd [facility] [employer] [facility] 3 15:25:51 42020 ciproflox acin medicatio n other Not available Not available 02/11/2024 2551 RxNorm contr aindi catio n to heart med Corla ELAINA Felipe [facility] [employer] [facility] 4 16:02:40 83239 Cymbalta medicatio n Not available Not available Not available 09/02/2024 20634 4 RxNorm MARCO A Chun, [facility] [employer] [facility] 4 15:46:01 Medications Name Sig Start Date [...] Available atorvasta tin 80 mg tablet active cardiolo gy Not Available Not Available Not Available nystatin [...] 1 TABLET BY MOUTH TWICE A DAY 03/09 completed Not taking 12.5mg tablet Not Available Not Available Not Available bumetanid e 2 mg tablet Take [...] BY MOUTH EVERY DAY FOR 3 DAYS 03/19 /2025 completed Not Available Not Available Not Available [...] Available clopidogr el 75 mg tablet active cardiolo gy Not Available Not Available Not Available fenofibra [...] BY MOUTH EVERY DAY FOR 90 DAYS 03/09 completed Patient no longer takes this medicati on Not Available Not Available Not Available ciproflox acin 500 mg tablet 07/08 [...] Available Not Available tramadol 50 mg tablet TAKE 1 TABLET BY MOUTH EVERY 6 TO 8 HOURS NEEDED active Not Available Not Available No t Available triamcino lone acetonide 0.1 % topical cream [...] Not Available No t Available OneTouch Ultra Test strips USE TO TEST BLOOD SUGAR ONCE DAILY active Not Available Not Available No t Available Kenalog 10 mg/mL suspensio n for injection Take 20 mg by injectio n route. 02/[address] [facility]: [id number] 02-22 Not Available Not Available Not Available amitripty [...] SEE ATTACHED FOR DETAILED DIRECTIO NS active cardiolo gy Not Available Not Available Not Available Pepcid 40 mg tablet Take 1 [...] BY MOUTH EVERY DAY FOR 7 DAYS 03/09 completed Not Available Not Available Not Available levofloxa palomo 750 mg tablet TAKE 1 TABLET BY MOUTH EVERY DAY FOR 7 DAYS 04/16 completed Not Available Not Available Not Available methylpre dnisolone 4 mg tablets in a dose pack MDP as directed active Not Available Not Available No t Available albuterol sulfate HFA 90 mcg/actua tion aerosol inhaler INHALE 2 PUFFS BY MOUTH EVERY 6 HOURS NEEDED FOR WHEEZING OR SHORTNES S OF BREATH active Not Available Not Available No t [...] ctone 50 mg tablet TAKE ONE TABLET TWICE DAILY EVERY MORNING & EVENING active Not Available Not Available No [...] completed Not Available Not Available Not Available metoprolo l tartrate 25 mg tablet TAKE 1 TABLET BY MOUTH TWICE A DAY active Not Available Not Available No t Available ORTHOVISC 30 mg/2 mL intra-art icular syringe Injectio ns given in the office by the doctor 07/[address] [facility]: [id number] 001 Not Available Not Available Not Available [...] n administ ered by the provider active ND: 0409-427 04-21 Not Available Not Available Not [...] completed Not Available Not Available Not Available ivabradin e 5 mg tablet TAKE 1 TABLET BY [...] in the office by the doctor active [facility]: 16972-96 44-1 Not Available Not Available Not Available [...] Updated DateTime 5 167.64 cm 31.3 kg/m2 96743.9 2 g 97.1 [degF] 82 /min 97 % 97 % 109 mm[Hg] 62 mm[Hg] Kiesha ford [employer] 5 14:25:39 Date Recorded Body height Body mass index (BMI) Body weight Body temperature Heart rate Oxygen saturation Oxygen saturation in Arterial blood by Pulse oximetry Systolic blood pressure Diastolic blood pressure Provider Name and Address Organization Details Last Updated DateTime 5 167.64 cm 29.9 kg/m2 51562.5 9 g 97 [degF] 92 /min 97 % 97 % 120 mm[Hg] 64 mm[Hg] MARCO A Chun [employer] 5 14:59:42 Date Recorded Body height Body mass index (BMI) Body weight Body temperature Heart rate Oxygen saturation Oxygen saturation in Arterial blood by Pulse oximetry Provider Name and Address Organization Details Last Updated DateTime 5 167.64 cm 30.3 kg/m2 45847.3 7 g 97.6 [degF] 72 /min 98 % 98 % Kiesha ford [employer] 5 14:52:15 Date Recorded Body height Body mass index (BMI) Body weight Body temperature Heart rate Oxygen saturation Oxygen saturation in Arterial blood by Pulse oximetry Systolic blood pressure Diastolic blood pressure Provider Name and Address Organization Details Last Updated DateTime 5 167.64 cm 30.7 kg/m2 79380.5 5 g 97.4 [degF] 74 /min 96 % 96 % 120 mm[Hg] 70 mm[Hg] MARCO A Chun [employer] 5 14:21:18 Date Recorded Body height Body mass index (BMI) Body weight Body temperature Heart rate Oxygen saturation Oxygen saturation in Arterial blood by Pulse oximetry Systolic blood pressure Diastolic blood pressure Provider Name and Address Organization Details Last Updated DateTime 4 167.64 cm 33.2 kg/m2 15258.0 3 g 97.4 [degF] 82 /min 97 % 97 % 116 mm[Hg] 68 mm[Hg] MARCO A Chun [place] [employer] [facility] 4 15:49:14 Social History Question Answer Notes LastModified by Organizat ion Details LastModified Time Tobacco Smoking Status Never Smoker Not Available [employer] 01/03/2023 02:53:40 Do You Have An Advance Directive? Yes [id number] Information not available 01/03/2023 Are You Blind Or Do You Have Difficulty Seeing? No [id number] Information not available 01/03/2023 What Is Your Level Of Caffeine Consumption? Moderate [id number] Information not available 01/03/2023 How Much Tobacco Do You Chew? None [id number] Information not available 01/03/2023 In The 14 Days Before Symptom Onset, Have You Had Close Contact With A Laboratory-confir med COVID-19 While That Case Was Ill? No [id number] Information not available 01/03/2023 In The 14 Days Before Symptom Onset, Have You Had Close Contact With A Person Who Is Under Investigation For COVID-19 While That Person Was Ill? No [id number] Information not available 01/03/2023 Are You Deaf Or Do You Have Serious Difficulty Hearing? No [id number] Information not available 01/03/2023 What Type Of Diet Are You Following? REGULAR [id number].[id number] [id number] Information not available 01/03/2023 Which Illicit Or Recreational Drugs Have You Used? None [id number] Information not available 01/03/2023 Do You Have An Electrostatic Air Filter? Yes [id number] [id number] Information not available 01/03/2023 Are There Any Guns Present In Your Home? No [id number] Information not available 01/03/2023 Where Do You Live? SingleLevelHouse MIGRATION.87529 [id number] Information not available 01/03/2023 Do You Have A Medical Power Of Churn Driller? Yes MIGRATION.44024 44810 Information not available 01/03/2023 Do You Have Moisture Problems In Your Home? No MIGRATION.48735 25413 Information not available 01/03/2023 What Was The Date Of Your Most Recent Tobacco Screening? 09/07/2021 MIGRATION.46285 85035 Information not available 01/03/2023 Do You Have Any Pets? Yes MIGRATION.81874 08998 Information not available 01/03/2023 What Is Your Relationship Status? MIGRATION.04721 20323 Information not available 01/03/2023 Do You Use Your Seat Belt Or Car Seat Routinely? Yes MIGRATION.55968 62646 Information not available 01/03/2023 Do You Have Smoke And Carbon Monoxide Detectors In Your Home? Yes MIGRATION.37730 52942 Information not available 01/03/2023 Are You Passively Exposed To Smoke? No MIGRATION.14201 13859 Information not available 01/03/2023 Do You Use Sunscreen Routinely? No MIGRATION.70439 18487 Information not available 01/03/2023 Have You Recently Traveled Abroad? No MIGRATION.35933 92371 Information not available 01/03/2023 Do You Have Difficulty Walking Or Climbing Stairs? Yes MIGRATION.45922 38636 Information not available 01/03/2023 Sex: Female Functional Status Question Answer Note LastModified by Organizat ion Details LastModified Time Do you use any illicit or recreational drugs? No MIGRATION.631573 5547 Information not available 01/03/2023 What is your level of alcohol consumption? None MIGRATION.462579 6574 Information not available 01/03/2023 Do you or have you ever used smokeless tobacco? Never used smokeless tobacco MIGRATION.996837 9007 Information not available 01/03/2023 Do you have transportation difficulties? No MIGRATION.749601 3948 Information not available 01/03/2023 Are you able to walk? YESASSIST MIGRATION.094669 1732 Information not available 01/03/2023 Do you have difficulty doing errands alone? No MIGRATION.009963 8730 Information not available 01/03/2023 Are you able to care for yourself? Yes MIGRATION.021757 1144 Information not available 01/03/2023 What is your occupation? RETIRED MIGRATION.491778 1454 Information not available 01/03/2023 Do you have difficulty dressing or bathing? No MIGRATION.169122 3693 Information not available 01/03/2023 Do you or have you ever used e-cigarettes or vape? Never used electronic cigarettes MIGRATION.690140 2477 Information not available 01/03/2023 What is your exercise level? None MIGRATION.880853 8047 Information not available 01/03/2023 Mental Status Question Answer Note LastModified by Organizat ion Details LastModified Time Do you have difficulty concentrating, remembering or making decisions? No MIGRATION.[id number] 6 Information not available 01/03/2023 Family History Relationship Description Onset Age of this Age Resolved Age Notes LastModified by Organization Details LastModified Time Paternal Grandfather Diabetes mellitus MIGRATION.425 [id number] Not available 01/03/2023 02:56:05 Paternal Grandfather Essential hypertension MIGRATION.646 [id number] Not available 01/03/2023 02:56:05 Father Diabetes mellitus MIGRATION.304 [id number] Not available 01/03/2023 02:56:05 Father Essential hypertension MIGRATION.421 [id number] Not available 01/03/2023 02:56:05 Father Malignant neoplasm of prostate MIGRATION.355 [id number] Not available 01/03/2023 02:56:05 Mother Diabetes mellitus MIGRATION.617 [id number] Not available 01/03/2023 02:56:05 Mother Essential hypertension MIGRATION.500 8302366 Not available 01/03/2023 02:56:05 Brother Malignant tumor of colon MIGRATION.576 [id number] Not available 01/03/2023 02:56:05 Father Heart disease [email or web address] Not available 2023 15:18:16 Mother Heart disease [email or web address] Not available 2023 15:18:16 Mother Malignant neoplasm of uterus [email or web address] Not available 2023 14:49:07 Paternal Grandfather Cerebrovascu lar accident [email or web address] Not available 02/2024 14:49:21 Paternal Grandmother Cerebrovascu lar accident [email or web address] Not available 02/2024 14:49:30 Medical History Condition Response CHEST XRAY N NERVE DISEASE N BLINDNESS N POLIO N LUNG DISEASE/DISORDER Y COPD Y RADIATION / CHEMOTHERAPY N BLOOD DISEASES N EAR OR HEARING PROBLEMS N BOWEL PROBLEMS Y FEMALE PROBLEMS / INFECTIONS N DEPRESSION (INCLUDING POST ) N STROKE/TIA Y CHEST CT N ULCERS N RENAL INSUFFICIENCY N BENIGN PROSTATIC HYPERPLASIA N TB SKIN TEST N OBESITY Y GERD/NAUSEA N EXCESSIVE PERSPIRATION N ANEURYSM N URINARY/BLADDER/KIDNEY PROBLEMS Y CORONARY [...] HAVE YOU BEEN HOSPITALIZED OR SEEN IN [facility] IN THE PAST YEAR ? Y ATHEROSCLEROSIS [...] high-dose, trivalent, PF 3 completed Not Available [facility] 07/27/2023 00:56:29 Influenza, high-dose, quadrivalent, PF 1 completed Not Available [facility] 07/27/2023 00:56:29 Pneumococcal conjugate PCV 13 5 completed Not Available [facility] 07/27/2023 00:56:29 Influenza, high-dose, quadrivalent, PF 0 completed Not Available [facility] 07/27/2023 00:56:29 Influenza, high-dose, trivalent, PF 8 completed Not Available [facility] 07/27/2023 00:56:29 Influenza, high-dose, trivalent, PF 6 completed Not Available [facility] 07/27/2023 00:56:29 Influenza, high-dose, trivalent, PF 7 completed Not Available [facility] 07/27/2023 00:56:29 pneumococcal polysaccharide PPV23 5 completed Not Available [facility] 07/27/2023 00:56:29 Influenza, high-dose, trivalent, PF 9 completed Not Available [facility] 07/27/2023 00:56:29 Past Encounters Encounter ID Performer Location Encounter Start Date Encounter Closed Date Diagnosis/Indication Diagnosis SNOMED-CT Code Diagnosis ICD10 Code Diagnosis Note [id number] Krissy Hayward MD _SHRADDHA IGRATION_ DEFAULT_1 _1 , 02/03/2021 00:00:00 02/03/2021 18:46:06 [id number] Beto King MD S[facility] [place] [address] [place] [address] 02/15/2021 00:00:00 02/15/2021 15:53:43 [id number] Manuel Olguin MD [facility] Internal Med [address] [address] 03/10/2021 00:00:00 03/10/2021 17:29:31 [id number] S_[facility] ic[facility] [address] [address] 03/22/2021 00:00:00 03/22/2021 16:50:39 [id number] MD LOUISA Negron IGRATION_ DEFAULT_1 _1 , 05/05/2021 00:00:00 05/05/2021 18:45:23 [id number] Manuel Olguin MD S[facility] Internal Med [place] [address] [place] [address] 06/30/2021 00:00:00 06/30/2021 17:35:42 [id number] AHS_Histor ic[facility]Gateway [facility] Pulmonolo gy [place] [address] [place] [address] 08/03/2021 00:00:00 08/03/2021 16:59:33 [id number] Krissy Hayward MD _ATHENA_ IGRATION_ DEFAULT_1 _1 , 08/25/2021 00:00:00 08/25/2021 17:40:18 [id number] S_Histor ic_Gateway [facility] Pul[facility] [place] [address] [place] [address] 09/07/2021 00:00:00 09/07/2021 16:19:53 [id number] Beto King MD [facility] [place] [address] [place] [address] 09/20/2021 00:00:00 09/20/2021 15:32:48 [id number] Beto King MD [facility] [place] [address] [place] [address] 10/04/2021 00:00:00 10/04/2021 15:23:14 [id number] Manuel Olguin MD [facility] Internal [address] [place] [address] 10/06/2021 00:00:00 10/06/2021 17:37:08 [id number] Beto King MD [facility] [place] [address] [place] [address] 10/11/2021 00:00:00 10/11/2021 15:27:35 [id number] Beto King MD [facility] [place] [address] [place] [address] 10/18/2021 00:00:00 10/18/2021 16:17:34 [id number] Beto King MD [facility] [place] [address] [place] [address] 10/25/2021 00:00:00 10/25/2021 15:33:42 [id number] Beto King MD [facility] [place] [address] [place] [address] 11/01/2021 00:00:00 11/01/2021 15:23:37 [id number] Krissy Hayward MD _MARISSA_Mani IGRATION_ DEFAULT_1 _1 , 12/01/2021 00:00:00 12/01/2021 18:06:05 [id number] S_Histor ic_Gateway [facility] Pul[facility] [place] [address] [place] [address] 12/05/2021 00:00:00 12/05/2021 21:23:42 [id number] Manuel Olguin MD [facility] Internal Med [address] [place] [address] 03/02/2022 00:00:00 03/02/2022 16:32:51 [id number] S_Histor ic_Gateway _ATHNABIL_Mani IGRATION_ DEFAULT_1 _1 , 03/30/2022 00:00:00 03/30/2022 17:21:31 [id number] S_Histor ic_Gateway [facility] Pulmon[facility] [place] [address] [place] [address] 04/04/2022 00:00:00 04/04/2022 16:03:45 [id number] [facility] [place] [address] [place] [address] 05/17/2022 00:00:00 05/17/2022 15:56:16 [id number] Manuel Olguin MD [facility] Internal Med [address] [place] [address] 07/06/2022 00:00:00 07/06/2022 15:34:22 [id number] EMMA Woodruff S_[facility] Pulmonolo [facility] [place] [address] [place] [address] 08/30/2022 00:00:00 08/30/2022 16:39:05 [id number] Krissy Hayward MD S[facility] End[facility] [place] [address] [place] [address] 09/07/2022 00:00:00 09/07/2022 20:13:28 [id number] Abigail Anthony, [employer]EN [employer]-BC [facility] Pulmonolo gy [place] [address] [place] [address] 02/28/2023 15:03:29 03/02/2023 08:32:13 Thick sputum 608812720 R09.3 Start flutter valve Chronic ob structive pulmonary disease 37929500 J44.9 Mild expiratory coving on original PFT, [...] all normalMult ifactoral Dependence on supplemental oxygen 3967851040 07 Z99.81 2 liters with sleepDiscu ssed the risks of hypoxia, including [id number] Krissy Hayward MD [facility] Endo [place] [address] [place] [address] 03/02/2023 15:32:41 03/02/2023 16:41:10 Well controlled type 2 diabetes mellitus 391811108 E11.9 a1c of 6.6%- sugars are running [...] Recommende d patient to utilize the diabetesfo [employer] from the ADA website to help with food preparatio n as this presents ideal carb content per meal so this will make carb counting much easier for patient. Recommende d she incorporat e natural insulin farm operations manager s such as pears, apples, cinnamon, jose david and sweet potatoes to help mobilize her endogenous insulin. Recommende d up to 150 minutes of moderate level activity/e xercise weekly. Dyslipidemia 169542544 E 78.5 Continue rosuvastat in -patient encouraged to take daily as she has been inconsiste nt as a result LDL is not in ideal range. Diabetic p eripheral neuropathy 613522300 E11.40 Will change her duloxetine to once [...] she chooses to go outside of the [facility] [facility] to obtain labwork she was [...] in her case. She voiced understand ing. [id number] Manuel Olguin MD [facility] Internal [facility] [address] [place] [address] 07/16/2023 15:15:43 07/16/2023 16:12:44 Diabetes mellitus 11300038 E11.9 under control Congestive heart failure 60046276 I50.9 Farxiga 5 mg , samples Dyspnea on exertion 6084 5006 R06.09 on o2 prn Essential hypertension 05097917 I10 under control Fibromyalgia 957416771 M 79.7 Gastroesop hageal reflux disease 256446340 K21.9 stable Irritable bowel syndrome 21474716 K58.9 watching diet Kidney disease 01921290 N08 seeing nephrology u Malignant tumor of breast 870523532 C50.919 nl ultra sound Obesity 812914410 E66.9 has Osteoarthritis 462736029 M19.90 Thyroid nodule 200770888 E04.1 Umbilical hernia 5723183 07 K42.9 Diabetic p eripheral neuropathy 964401660 E11.40 Chronic ob structive pulmonary disease 34871503 J44.9 stable Chronic back pain 299726 002 G89.29 otc tylenol Adult heal th examination 188760858 Z00.00 COVID-19 204474610 U07.1 has recovered Cardiomyopathy 82325303 I42.9 on meds [id number] Krissy Hayward MD [facility] [place] [address] [place] [address] 07/31/2023 15:55:40 08/01/2023 13:58:30 Well controlled type 2 diabetes mellitus 605966854 E11.9 a1c of 6.3% down from 6.7% [...] to endocrinol ogy per patient request. Dyslipidemia 651221715 E 78.5 patient encouraged to restart rosuvastat [...] answered and refills necessary at visit today. [id number] Manuel Olguin MD [facility] Internal Med [address] [place] [address] 08/13/2023 15:03:47 08/13/2023 15:35:39 Contusion 764613815 T14.8XXA bruise due to being on asa, reassured Impacted c erumen of bilateral ears 6298488118 749472 H61.23 she is going to see ENT [id number] Abigail Cruz, [employer]-BC [facility] Pulmonolo gy [place] [address] [place] [address] 08/31/2023 15:34:18 08/31/2023 16:23:48 Chronic obstructive pulmonary disease 49617530 J44.9 Mild expiratory coving on original PFT, [...] follow up in 6 months Thick sputum 631333662 R 09.3 Continue flutter valve Dyspnea on exertion 6084 5006 R06.09 Quantifero n GOLD, IGE, IGGs, RAST, Alpha 1 all normalMult ifactoral Dependence on supplemental oxygen 4627431846 07 Z99.81 2 liters with sleepDiscu ssed the risks of hypoxia, including [id number] Manuel Olguin MD [facility] Internal [facility] [address] [place] [address] 09/25/2023 14:01:18 09/25/2023 14:36:17 Insomnia 194204461 G47.00 Neuropathy due to diabetes mellitus 519198483 E11.40 try low dose duloxetine [id number] Manuel Olguin MD [facility] Internal [facility] [address] [place] [address] 11/15/2023 15:30:20 11/15/2023 16:12:14 Diabetes mellitus 37579850 E11.9 under control, keep taking Glimepride , has not seen new endo yet Congestive heart failure 61396194 I50.9 Farxiga 5 mg , samples were given, did not take, does not want to take Dyspnea on exertion 6084 5006 R06.09 on o2 prn Essential hypertension 62974029 I10 under control Fibromyalgia 079104440 M 79.7 Gastroesop hageal reflux disease 282411889 K21.9 stable Irritable bowel syndrome 37123916 K58.9 watching diet Kidney disease 43177672 N08 seeing nephrology Malignant tumor of breast 242890481 C50.919 nl ultra sound Obesity 569939925 E66.9 Osteoarthritis 303265110 M19.90 otc Thyroid nodule 753919914 E04.1 Umbilical hernia 2553118 07 K42.9 no pain Diabetic p eripheral neuropathy 137702609 E11.40 does not want meds Chronic ob structive pulmonary disease 52503359 J44.9 stable Chronic back pain 932177 002 G89.29 otc tylenol Adult heal th examination 814471487 Z00.00 Mammogram( doesn't want them)Dexa( hasn't had one in yrs) doesn't wantColono scopy (doesn't want it)Pneumov ax 07/2015Prev taty 07/19/2015F MICHELLE- 3COVID Vacc- MOTIVATED TO GET IT Cardiomyopathy 96256560 I42.9 seeing cardiology [id number] Manuel Olguin MD [facility] Internal Med [facility] [address] [place] [address] 11/29/2023 14:33:49 11/29/2023 15:08:06 Anterior chest wall pain 711945558 R07.89 likely fx, take precaution s,heat applicatio nct chest recommende d as pain is not much better, wants to wait,take tramadol 1/2 tab prn [id number] Chico Flores MD [facility] Orth[facility] [place] [address] [place] [address] 02/07/2024 14:59:34 02/07/2024 16:27:51 Low back pain 599192055 M54.50 Pain of bi lateral hip joints 7566878787 8927513 M25.551 M25.552 Bilateral trochanteric bursitis 2500244672 5606776 M70.61 M70.62 Pain in ri ght sacroiliac joint 3829166903 6015100 M53.3 Lumbar spondylosis 61375 0009 M47.944 [id number] Manuel Olguin MD [facility] Internal [address] [place] [address] 03/13/2024 14:54:23 03/13/2024 15:37:13 Diabetes mellitus 42716540 E11.9 under control, Congestive heart failure 92691613 I50.9 stable Dyspnea on exertion 6084 5006 R06.09 on o2 prn Essential hypertension 78188682 I10 under control Fibromyalgia 791775842 M 79.7 Gastroesop hageal reflux disease 753098598 K21.9 stable Irritable bowel syndrome 40275742 K58.9 watching diet Kidney disease 44947785 N08 seeing nephrology , GFR low but stable Malignant tumor of breast 452118663 C50.919 nl ultra sound Obesity 131318834 E66.9 advised to lose Osteoarthritis 265143213 M19.90 otc Thyroid nodule 453402040 E04.1 Umbilical hernia 5583553 07 K42.9 no pain Diabetic p eripheral neuropathy 756915041 E11.40 does not want meds Chronic ob structive pulmonary disease 03643401 J44.9 stable Chronic back pain 526965 002 G89.29 otc tylenol Adult heal th examination 124808018 Z00.00 Mammogram( doesn't want them)Dexa( hasn't had one in yrs) doesn't wantColono scopy (doesn't want it)Pneumov ax 07/2015Prev taty 07/19/2015F MICHELLE- 3COVID Vacc- MOTIVATED TO GET IT Cardiomyopathy 81493529 I42.9 seeing cardiology , battery was just changed [id number] Brent Donato MD [facility] [place] [address] 04/08/2024 14:01:12 04/09/2024 09:49:28 Dyspnea on exertion 94488388 R06.09 [id number] Brent Donato MD [place] [address] 04/16/2024 16:11:32 04/17/2024 09:04:20 Mild persistent asthma 748228676 J45.30 [id number] Manuel Olguin MD [facility] Internal Med [address] [address] 05/13/2024 15:08:48 05/13/2024 16:00:31 Congestive heart failure 26738176 I50.9 stable Asthma 481450637 J45.90 9 on inhalers [id number] Manuel Olguin MD [facility] Internal [address] [address] 09/02/2024 15:34:19 09/02/2024 16:18:20 Diabetes mellitus 45005685 E11.9 under control, Congestive heart failure 37001882 I50.9 watching diet Dyspnea on exertion 6084 5006 R06.09 on o2 prn Essential hypertension 81253264 I10 under control Fibromyalgia 743833472 M 79.7 Gastroesop hageal reflux disease 434280015 K21.9 stable Irritable bowel syndrome 53712353 K58.9 watching diet Kidney disease 07601639 N08 seeing nephro Malignant tumor of breast 132509680 C50.919 nl ultra sound Obesity 579286587 E66.9 advised to lose Osteoarthritis 595582195 M19.90 otc Thyroid nodule 756422927 E04.1 Umbilical hernia 3725523 07 K42.9 no pain Diabetic p eripheral neuropathy 917451383 E11.40 does not want meds Chronic ob structive pulmonary disease 71373618 J44.9 stable Chronic back pain 078934 002 G89.29 otc tylenol Adult heal th examination 325159987 Z00.00 Mammogram- nl in 01/26Dexa(h asn't had one in yrs) doesn't wantColono scopy (doesn't want it)Pneumov ax 07/2015Prev taty 07/19/2015F MICHELLE- 3COVID Vacc- MOTIVATED TO GET IT Cardiomyopathy 65349398 I42.9 no symptoms Rosacea 593177017 L71.9 Candidiasis of skin 4988 3006 B37.2 Acute sinusitis 51670328 J01.90 Impacted c erumen in left ear 7962403727 135538 H61.22 care discussed [id number] Manuel Olguin MD [facility] Internal Med [address] [address] 11/06/2024 14:01:40 11/06/2024 14:37:20 Acute sinusitis 81320224 J01.90 completed the levaquin and still having head and ear pressure and congestion ; discussed may need assistance getting into ENT soonerdoes not feel well enough to go now [id number] Manuel Olguin MD [facility] Internal Med [address] [address] 11/25/2024 14:38:10 11/25/2024 15:26:46 Acute sinusitis 87013621 J01.90 she is allergic to many abx Candidiasis of skin 4988 3006 B37.2 under the breasts [id number] Manuel Olguin MD [facility] Internal Med [address] [address] 01/21/2025 14:45:14 01/21/2025 15:31:20 Diabetes mellitus 81295590 E11.9 under control, Congestive heart failure 22104441 I50.9 unchanged Dyspnea on exertion 6084 5006 R06.09 on o2 prn Essential hypertension 74311016 I10 under control Fibromyalgia 998017194 M 79.7 Gastroesop hageal reflux disease 137532522 K21.9 stable Irritable bowel syndrome 84635715 K58.9 watching diet Kidney disease 06751271 N08 seeing nephrology Malignant tumor of breast 514856045 C50.919 nl ultra sound Obesity 862770608 E66.9 Osteoarthritis 193132176 M19.90 otc Thyroid nodule 753347143 E04.1 Umbilical hernia 9552513 07 K42.9 no pain Diabetic p eripheral neuropathy 302454722 E11.40 does not want meds Chronic ob structive pulmonary disease 68581926 J44.9 stable Chronic back pain 762228 002 G89.29 otc tylenol Adult heal th examination 072277355 Z00.00 Mammogram- nl in 01/26Dexa(h asn't had one in yrs) doesn't wantColono scopy (doesn't want it)Pneumov ax 07/2015Prev taty 07/19/2015F MICHELLE- 3COVID Vacc- MOTIVATED TO GET IT Cardiomyopathy 61338679 I42.9 no symptoms Rosacea 833451867 L71.9 Candidiasis of skin 4988 3006 B37.2 under the breasts Acute sinusitis 00299000 J01.90 [id number] Manuel Olguin MD S[facility] Internal Med [facility] [address] [place] [address] 03/09/2025 14:06:32 03/13/2025 14:33:22 Health Concerns Section Related Observation LastModified by Organization Detai ls LastModified Time None Recorded Concern Status LastModified by Organization Details LastModified Time None Recorded Advance Directives Directive Y: Payers Insurance Date Sequence Insurance Name Policy Number Policy Foster Covered Member ID Foster Member ID Guarantor Name 05/05/[address] [facility] (MEDICARE REPLACEMENT/A DVANTAGE - HMO) [id number] Eloina Kang [id number] Eloina Kang Notes Date Note Type Note Provider Name and Address Organization Details Recorded Time 4 text/html Here for routine f/u, compliant to meds.No longer taking Sertraline or PregabalinNeurologist - @ [facility] Also has a rash up under her right breast and in the groin area.Has been using Miconazole cream OTC and not helping Left ear is clogged nasal congestion, sinus pressure and drainage x a month, no fever , some cough DM- diet is under control, getting eye exam,accu checks are better,A1c was 6[facility], Dr Sierra eye exam- 3Does have [...] to take zolpidem Manuel Olguin MD [address] [facility], [facility] [address], [place], [address], [place] [employer] 09/02/2024 16:19:41 5 text/html pt is here for a sick visit onset 1 month. pt has no appetite.pt is diabetic. hard to swallow throat hurts. thick phlegm yellowish color. pt is lethargic .pt has not ran a temp. she is congested sometimes gets a glob in chest to cough up but takes awhile to do so. Rosalee Sousa NP [address] [facility], [place], [address], [facility] [employer] 11/06/2024 14:35:20 5 text/html Pt is here today for CongestionWhen she was hear last (seeing [facility] on 11/06/24) still had fluid in her [...] abd pain, diarrhea Manuel Olguin MD [address] [facility], [facility] [address], [place], [address], [employer] 11/25/2024 15:23:03 5 text/html Here for routine f/u, compliant to meds.Needs you to looks at feet Pt is having a lot of sinus drainage, mucus color is white/yellow sometimes. Sore throat, bilateral ear pain has had abx since october. Her last round was in November clindamycin and prednisone but didn't help. Pt is not fasting.. ([facility]) Neurologist - @ [facility]- diet is under control, getting eye exam,accu checks are better, 90-130A1c was nl, Dr Sierra eye exam- 4Does have numbness in both of her feet, [...] to take zolpidem Manuel Olguin MD [address] [employer] [employer] [address], [place], [address], [employer] 01/21/2025 15:58:11 5 text/html Patient is 79y/o female who is here for hospital follow up. Patient reports not taking medications as directed. Patient is aware or risks and problems due to medication compliance. Patient denies chest pain or fevers. REFUSED all advise at this time. States she will call cardiology for appointment. lasix 80mg & 40 at night - Patient states that Dr. Olguin advised to not take doubled dose recommended by hospital employment officer. Refusal of all medications. Needs to call Cardiology for follow up. SAMANTHA Acevedo [address], [place], [address], [employer] 03/09/2025 15:01:04 OBGyn Episode No OBEpisode recorded.
--- OUTSIDE RECORDS SUMMARY | 2025-05-05 14:16 | XMS_ITS | Clinical Summary ---
Author Organization [facility] Address [address] [place] [address] Care Team Providers Care Tube Bending Machine Operator Name Role Phone Unavailable Primary Care Provider [...] Documents on File Type Date Recorded Patient Enzyme Chemist Expl anation Advance Directives and Living Will 08/14/2016 12:00 AM POWER OF PROFESSIONAL WRESTLER FO R HEALTH CARE Advance Directives and Living Will 08/14/2016 12:00 AM LIVING WILL Advance Directives and Living Will 08/14/2016 12:00 AM POWER OF PROFESSIONAL WRESTLER FO R HEALTH CARE Advance Directives and Living Will 08/14/2016 12:00 AM LIVING WILL Advance Directives and Living Will 08/14/2016 12:00 AM POWER OF PROFESSIONAL WRESTLER FO R HEALTH CARE Advance Directives and Living Will 08/14/2016 12:00 AM POWER OF PROFESSIONAL WRESTLER FO R HEALTH CARE
--- OUTSIDE RECORDS SUMMARY | 2025-05-05 14:16 | XMS_ITS ---
Author Organization [facility] Address [address] [facility] 61 [facility] [address] [place] [address] Care Team Providers Care Service Writer Name Role Phone Marjorie Hernadez Unavailable [phone] Problems Problem Type SNOMED Code ICD Code Onset Dates Problem Status W/U Status Risk Notes Problem Chronic kidney disease stage 3B (disorder) (881366161) Chronic kidney disease, stage 3b (N18.32) Active confirmed Problem Hyperlipidemia (29189084) Hyperlipidemia, unspecified (E78.5) Active confirmed Encounters Encounter Location Date Provider Diagnosis [place] [facility] 2043 [facility] 15 [place] [address] 02/23/2025 Marjorie Hernadez Chronic kidney disea se, [...] Provider Name:Marjorie padilla, 05/25/2025 03:00:00 PM, 2043 [facility] 15, [place], [address], Progress Notes * BISMARK VÁSQUEZOB:1945 ( 79 yo F)Acc No.[id number]:02/23/2025 Progress Notes Patient: ADDY AGUILERA Provider: Kerry HERNADEZ M.D :1945 A ge:79 Y S ex:Female Date:02/23/2025 Address:[address] [place], [place] [address] Subjective: * Chief Complaints: * * Medical History: Objective: * Vitals: Assessment: * Assessment: 1. C hronic kidney disease, stage 3b - N18.32 (Primary) 2 . T ype 2 diabetes mellitus with hyperglycemia - E11.65 3 . E ssential (primary) hypertension - I10 4 . H yperlipidemia, unspecified - E78.5 Plan: * Treatment: * Billing Information: * Visit Code: 71145 Office Visit, Est Pt., Level 3. * Procedure Codes: * Electronic signature of Santiago Hernadez MD on 05/05/2025 at 02:16 PM CDT Sign off status: Pending * Provider: Kerry HERNADEZ M.D Date: 0 02/23/2025 Generated for Darren yuan/Dharmesh/Akilasmitting on: 0 05/05/2025 02:16 PM CDT
[2025-05-05 15:03] LABS: Hematocrit 42.4 % (37.0-47.0); Hemoglobin 13.5 g/dL (12.0-15.0); Immature Granulocyte Percent A 0.4 % (0-0.5); Lymphocytes Absolute Auto 1.82 K/mm3 (0.9-3.2); Mean Corpuscular HGB Conc 31.8 g/dl (32-36); Mean Corpuscular Hemoglobin 29.6 pg (26-34); Mean Corpuscular Volume 93.0 fl (80-100); Nucleated Red Blood Cells Absolute Auto 0.000 K/mm3 (0.0-0.012); Nucleated Red Blood Cells Perc 0.0 % (0.0-0.2); Platelet Count Result 174 k/mm3 (150-375); Red Blood Count 4.56 M/mm3 (4.2-5.4); White Blood Count 9.1 K/mm3 (4.5-10.0)
[2025-05-05 15:12] LABS: Albumin Level 4.5 g/dL (3.5-5.1); Anion Gap 10 mmol/L (4-12); Blood Urea Nitrogen 32 mg/dL (7-17); Calcium 9.9 mg/dL (8.4-10.2); Carbon Dioxide 29 mmol/L (22-30); Chloride 102 mmol/L (98-107); Estimated Glomerular Filt Rate 37; Glucose 83 mg/dL (65-110); Potassium 3.9 mmol/L (3.4-5.0); Sodium 141 mmol/L (137-145); Uric Acid 7.9 mg/dL (2.5-7.5)
[2025-05-05 15:14] LABS: Add Urine Microscopic? YES; Appearance Urine Clear (Clear); Glucose Urine UA Negative (Negative); Leukocyte Esterase Ur 2+ LEU/UL (Negative); Nitrate Urine Negative (Negative); Non Pathogenic Casts 0-2; Specific Grav Ur 1.017 (1.001-1.035)
[2025-05-05 15:23] LABS: Parathyroid Intact 63.8 pg/mL (14.5-75.2)
[2025-05-05 19:54] LABS: Total Protein Urine Random < 5 mg/dL; Ur Ttl Prot Creatinine Ratio < 0.04 mg/mg (0-0.20)
[2025-05-05 20:09] LABS: Hemoglobin A1C. 6.4 % (<5.7)
--- NOTE | 2025-05-28 19:35 | WPDPFTINT ---
PFT Procedure Performed PFT Procedure Performed Plethysmography (Lung Vol) Diffusing Cap (DLCO) Flow Vol Loop Spirometry w/o Bronchodil PFT Interpretation DOS: 05/05/2025 REQUESTING: Abigail Cruz METALLURGICAL ANALYSTEver REASON FOR TESTING: Severe systolic CHF PULMONARY FUNCTION TESTS Results are reliable and reproducible. Repeatability of spirometry FEV1 maneuver is Grade A. GLI 2012 reference equations were used. Spirometry: The FEV1 is 1.39 L, 64%, decreased. The FVC is 2.10 L, 74%, normal. The FEV1/FVC ratio is 66%, normal. The FEF 25-75 is 0.68 L, 39%, below normal. Lung volumes: The total lung capacity is 4.30 L, 80%, normal. FRC is 2.97 L, 96%, normal. The residual volume is 2.20 L, 90%, normal. The RV/TLC is 51%, normal. Airway resistance is increased. Diffusion: DLCO is 15.6, 76%, normal. The DLCO/VA is 4.43, 108%, normal. Flow volume loop: The flow volume loop shows a normal pattern. IMPRESSION: Mild decrease in FEV1 without obstruction, normal TLC which is at the at lower end of normal, normal diffusion. Compared to a prior study on 10/03/2021, FEV1 was low, 68% and FVC was decreased, 67%. FEV1/FVC was normal. TLC was below normal, 72%, now at lower end of normal. DLCO was normal. Since 08/27/2020, there is a trend toward lower FEV1 and lower TLC. Air trapping was present in 2019, no longer present. Carrie Teresa MD
== END 2025-05-05 14:09 | disposition home or self-care (01) ==
PROVIDERS: PCP Internal Medicine; Referring Provider Internal Medicine Nephrology; Visit Provider Nurse Practitioner
DX: I50.20 Unspecified systolic (congestive) heart failure (principal); I12.9 Hypertensive chronic kidney disease with stage 1 through stage 4 chronic kidney disease, or unspecified chronic kidney disease; N18.30 Chronic kidney disease, stage 3 unspecified; E11.65 Type 2 diabetes mellitus with hyperglycemia; E78.5 Hyperlipidemia, unspecified
CPT/HCPCS: 36415; 80069; 81001; 82306; 82570; 83036; 83970; 84156; 84550; 85025; 87086; 94375; 94726; 94729

== ENCOUNTER 2025-06-09 14:09 | Outpatient (CLI) | payer MEDICARE, SELFPAY ==
--- NOTE | ~2025-06-09 | US_ITS ---
EXAMINATION: US thyroid DATE: 06/09/2025 15:20 INDICATION: Nontoxic single thyroid nodule TECHNIQUE: Multiple ultrasound images of the thyroid were obtained. COMPARISON: None. FINDINGS: The right thyroid lobe measures 5.9 x 2.0 x 2.2 cm. The left thyroid lobe measures 5.1 x 1.5 x 0.9 c m. The thyroid isthmus measures 8 mm in thickness. Smooth curve linear rim calcification such with a 9 mm right thyroid nodule (TI-RADS 4, moderately suspicious , FNA if >=1.5 cm, annual followup is >=1 cm). There is a 2.2 cm solid wider than tall hypoechoic nodule with ill-defined margins and with coa rse calcifications at the inferior right thyroid lobe, also TI RADS 4. There are a few additional sub centimeter solid wider than tall hypoechoic nodules, a couple with small peripheral echogenic foci (T I-RADS 5, highly suspicious , FNA if >=1.0 cm, annual followup is >0.5 cm) and the remainder without common TI RADS 4. IMPRESSION: 1. Multinodular goiter. Recommend ultrasound-guided biopsy of the largest 2.2 cm Ti RADS 4 nodule at the inferior right thyroid lobe. Reviewed, dictated and finalized at location A. IMPRESSION: 1. Multinodular goiter. Recommend ultrasound-guided biopsy of the largest 2.2 c m Ti RADS 4 nodule at the inferior right thyroid lobe.
--- OUTSIDE RECORDS SUMMARY | 2025-06-09 14:19 | XMS_ITS ---
Author Organization [facility] Address [address] [place] [address] Care Team Providers Care Industrial Editor Name Role Phone Nigel Marjorie Unavailable [phone] Encounters Encounter Location Date Provider Diagnosis [place] [facility] 2043 [facility] [address] [place] [address] 05/25/2025 Marjorie Hernadez Chronic kidney disea se, [...] 02:45:00 PM, [address], [place], [address], Progress Notes * BISMARK VÁSQUEZOB:1945 ( 79 yo F)Acc No.[id number]:05/25/2025 Progress Notes Patient: ADDY AGUILERA Provider: Kerry HERNADEZ M.D :1945 A ge:79 Y S ex:Female Date:05/25/2025 Address:[address] [place], [place] [id number] Subjective: * Chief Complaints: * * Medical History: Objective: * Vitals: Assessment: * Assessment: 1. C hronic kidney disease, stage 3b - N18.32 (Primary) 2 . T ype 2 diabetes mellitus with hyperglycemia - E11.65 3 . E ssential (primary) hypertension - I10 4 . H yperlipidemia, unspecified - E78.5 Plan: * Treatment: * Billing Information: * Visit Code: 08068 Office Visit, Est Pt., Level 3. * Procedure Codes: * Electronic signature of Santiago Hernadez MD on 06/09/2025 at 02:19 PM CDT Sign off status: Pending * Provider: Kerry HERNADEZ M.D Date: 0 05/25/2025 Generated for Darren yuan/Dharmesh/Radha on: 06/09/2025 02:19 PM CDT
--- OUTSIDE RECORDS SUMMARY | 2025-06-09 14:19 | XMS_ITS | Patient Health Record ---
Author Organization [facility] Address [address] [facility] [address] [place] [address] Care Team Providers Care Dry Cleaning Machine Operator Name Role Phone Marjorie Manning Unavailable [phone] Reason For Referral No Information Medications Medication [...] Hyperglycemia due to type 2 diabetes mellitus (711437287724986) Type 2 diabetes mellitus with hyperglycemia (E11.65) Active confirmed Problem Vitamin D deficiency (01991552) Vitamin D deficiency, unspecified (E55.9) Active confirmed Problem Hyperlipidemia (69093594) Hyperlipidemia, unspecified (E78.5) Active confirmed Problem 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 and tophaceous disease (444670312) 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 and tophaceous disease (E79.0) Active confirmed Problem Essential hypertension (27958296) Essential (primary) hypertension (I10) Active confirmed Problem Chronic kidney disease stage 3 (disorder) (721957503) Chronic kidney disease, stage 3 unspecified (N18.30) Active confirmed Problem Chronic kidney disease stage 3A (disorder) (485782805) Chronic kidney disease, stage 3a (N18.31) Active confirmed Problem Chronic kidney disease stage 3B (disorder) (671229992) Chronic kidney disease, stage 3b (N18.32) Active confirmed Encounters Encounter Location Date Provider Diagnosis [place] [facility] 2043 [facility] 15 [place] [address] 07/21/2024 Marjorie Manning Chronic kidney disea se, stage 3a N18.31 ; Type 2 diabetes mellitus with hyperglycemia E11.65 ; 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 and tophaceous disease E79.0 and Essential (primary) hypertension I10 [facility] [address] [address] 02/23/2025 Marjorie Manning Chronic kidney disea se, stage 3b N18.32 ; Type 2 diabetes mellitus with hyperglycemia E11.65 ; Essential (primary) hypertension I10 and Hyperlipidemia, unspecified E78.5 [facility] [address] [address] 05/25/2025 Marjorie Manning Chronic kidney disea se, stage 3b N18.32 ; Type 2 diabetes mellitus with hyperglycemia E11.65 ; Essential (primary) hypertension I10 and Hyperlipidemia, unspecified E78.5 Assessments Encounter Date Diagnosis (ICD Code) Assessment Notes Treatment Notes Treatment Clinical Notes Section Notes 07/21/2024 Chronic kidney disease, stage 3a (ICD-10 - N18.31) 02/23/2025 Chronic kidney disease, stage 3b (ICD-10 - N18.32) 05/25/2025 Chronic kidney disease, stage 3b (ICD-10 - N18.32) 05/25/2025 Type 2 diabetes mellitus with hyperglycemia (ICD-10 - E11.65) 02/23/2025 Type 2 diabetes mellitus with hyperglycemia (ICD-10 - E11.65) 07/21/2024 Type 2 diabetes mellitus with hyperglycemia (ICD-10 - E11.65) 07/21/2024 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 and tophaceous disease (ICD-10 - E79.0) 02/23/2025 Essential (primary) hypertension (ICD-10 - I10) 05/25/2025 Essential (primary) hypertension (ICD-10 - I10) 05/25/2025 Hyperlipidemia, unspecified (ICD-10 - E78.5) 02/23/2025 Hyperlipidemia, unspecified (ICD-10 - E78.5) 07/21/2024 Essential (primary) hypertension (ICD-10 - I10) Plan Of Treatment Next Appt Details Provider Name:Marjorie padilla, 09/21/2025 02:45:00 PM, [address], [place], [address],
--- OUTSIDE RECORDS SUMMARY | 2025-06-09 14:19 | XMS_ITS | Clinical Summary ---
Author Organization [facility] Address [address] [place] [address] Care Team Providers Care Rail Operations Controller Name Role Phone Unavailable Primary Care Provider [...] Documents on File Type Date Recorded Patient Copper Roller Handler Printing Expl anation Advance Directives and Living Will 08/14/2016 12:00 AM POWER OF ORTHO TECH FO R HEALTH CARE Advance Directives and Living Will 08/14/2016 12:00 AM LIVING WILL Advance Directives and Living Will 08/14/2016 12:00 AM POWER OF ORTHO TECH FO R HEALTH CARE Advance Directives and Living Will 08/14/2016 12:00 AM LIVING WILL Advance Directives and Living Will 08/14/2016 12:00 AM POWER OF ORTHO TECH FO R HEALTH CARE Advance Directives and Living Will 08/14/2016 12:00 AM POWER OF ORTHO TECH FO R HEALTH CARE
--- OUTSIDE RECORDS SUMMARY | 2025-06-09 14:19 | XMS_ITS ---
Author Organization [facility] Address [address] [place] [address] Care Team Providers Care Real Estate Asset Manager Name Role Phone Marjorie Hernadez Unavailable [phone] REASON FOR VISIT lvm about appt Encounters Encounter Location Date Provider Diagnosis [place] [facility] 2043 [facility] 15 [place] [address] 11/17/2024 Marjorie Hernadez Plan Of Treatment Next Appt Details Provider Name:Marjorie padilla, 09/21/2025 02:45:00 PM, [address], [place], [address], Progress Notes * BISMARK VÁSQUEZOB:1945 ( 79 yo F)Acc No.[id number]:11/17/2024 Progress Notes Patient: ADDY AGUILERA Provider: Kerry HERNADEZ M.D :1945 A ge:79 Y S ex:Female Date:11/17/2024 Address:[address] [place] [address] Subjective: * Chief Complaints: * 1 . Lvm about appt. * Medical History: Objective: * Vitals: Assessment: Plan: * Treatment: * Billing Information: * Visit Code: * Procedure Codes: * Electronic signature of Santiago Hernadez MD on 06/09/2025 at 02:19 PM CDT Sign off status: Pending * Provider: Kerry HERNADEZ M.D Date: 11/17/2024 Generated for Aaliyahi ng/Famalik/eTransmitting on: 06/09/2025 02:19 PM CDT
== END 2025-06-09 14:10 | disposition home or self-care (01) ==
PROVIDERS: PCP Internal Medicine; Visit Provider Internal Medicine
DX: E04.2 Nontoxic multinodular goiter (principal)
CPT/HCPCS: 76536

== ENCOUNTER 2025-06-15 12:51 | Outpatient (CLI) | payer MEDICARE, SELFPAY ==
--- OUTSIDE RECORDS SUMMARY | 2025-06-15 13:11 | XMS_ITS ---
Author Organization [facility] Address [address] [place] [address] Care Team Providers Care General Contractor Name Role Phone Nigel Marjorie Unavailable [phone] Problems Problem Type SNOMED Code ICD Code Onset Dates Problem Status W/U Status Risk Notes Problem Chronic kidney disease stage 3B (disorder) (915549152) Chronic kidney disease, stage 3b (N18.32) Active confirmed Problem Hyperlipidemia, unspecified (E78.5) Active confirmed Encounters Encounter Location Date Provider Diagnosis [place] [facility] 2043 [facility] 15 [place] [address] 02/23/2025 Marjorie Hernadez Chronic kidney disea se, [...] 02:45:00 PM, [address], [place], [address], Progress Notes * THALIA DENISEGARRY:1945 ( 79 yo F)Acc No.[id number]:02/23/2025 Progress Notes Patient: ADDY AGUILERA Provider: Keryr HERNADEZ M.D :1945 A ge:79 Y S ex:Female Date:02/23/2025 Address:[address] [place], [place] [address] Subjective: * Chief Complaints: * * Medical History: Objective: * Vitals: Assessment: * Assessment: 1. C hronic kidney disease, stage 3b - N18.32 (Primary) 2 . T ype 2 diabetes mellitus with hyperglycemia - E11.65 3 . E ssential (primary) hypertension - I10 4 . H yperlipidemia, unspecified - E78.5 Plan: * Treatment: * Billing Information: * Visit Code: 26266 Office Visit, Est Pt., Level 3. * Procedure Codes: * Electronic signature of Santiago Hernadez MD on 06/15/2025 at 01:11 PM CDT Sign off status: Pending * Provider: Kerry HERNADEZ M.D Date: 0 02/23/2025 Generated for Darren yuan/Dharmesh/Debbiitting on: 0 06/15/2025 01:11 PM CDT
--- OUTSIDE RECORDS SUMMARY | 2025-06-15 13:12 | XMS_ITS | Patient Health Record ---
Author Organization [facility] Address 1400 [facility] [address] [place] [address] Care Team Providers Care Corporate Strategist Name Role Phone Marjorie Manning Unavailable [phone] Reason For Referral No Information Medications Medication [...] Hyperglycemia due to type 2 diabetes mellitus (809967201967173) Type 2 diabetes mellitus with hyperglycemia (E11.65) Active confirmed Problem Vitamin D deficiency (83167049) Vitamin D deficiency, unspecified (E55.9) Active confirmed Problem Hyperlipidemia (71924044) Hyperlipidemia, unspecified (E78.5) Active confirmed Problem 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 and tophaceous disease (532494564) 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 and tophaceous disease (E79.0) Active confirmed Problem Essential hypertension (86712342) Essential (primary) hypertension (I10) Active confirmed Problem Chronic kidney disease stage 3 (disorder) (068983421) Chronic kidney disease, stage 3 unspecified (N18.30) Active confirmed Problem Chronic kidney disease stage 3A (disorder) (555997033) Chronic kidney disease, stage 3a (N18.31) Active confirmed Problem Chronic kidney disease stage 3B (disorder) (987025762) Chronic kidney disease, stage 3b (N18.32) Active confirmed Encounters Encounter Location Date Provider Diagnosis [place] [facility] 2043 [facility] 15 [place] [address] 07/21/2024 Marjorie Manning Chronic kidney disea se, stage 3a N18.31 ; Type 2 diabetes mellitus with hyperglycemia E11.65 ; 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 and tophaceous disease E79.0 and Essential (primary) hypertension I10 [facility] [address] [address] 02/23/2025 Marjorie Manning Chronic kidney disea se, stage 3b N18.32 ; Type 2 diabetes mellitus with hyperglycemia E11.65 ; Essential (primary) hypertension I10 and Hyperlipidemia, unspecified E78.5 [facility] [address] [address] 05/25/2025 Marjorie Manning Chronic kidney disea se, [...] [address], [place], [address],
--- OUTSIDE RECORDS SUMMARY | 2025-06-15 13:12 | XMS_ITS | Clinical Summary ---
Author Organization [facility] Address [address] [place] [address] Care Team Providers Care Morning Show Newscast Producer Name Role Phone Unavailable Primary Care Provider [...] Documents on File Type Date Recorded Patient Sales Operations Consultant Expl anation Advance Directives and Living Will 08/14/2016 12:00 AM POWER OF TAPE TRANSFERRER FO R HEALTH CARE Advance Directives and Living Will 08/14/2016 12:00 AM LIVING WILL Advance Directives and Living Will 08/14/2016 12:00 AM POWER OF TAPE TRANSFERRER FO R HEALTH CARE Advance Directives and Living Will 08/14/2016 12:00 AM LIVING WILL Advance Directives and Living Will 08/14/2016 12:00 AM POWER OF TAPE TRANSFERRER FO R HEALTH CARE Advance Directives and Living Will 08/14/2016 12:00 AM POWER OF TAPE TRANSFERRER FO R HEALTH CARE
--- OUTSIDE RECORDS SUMMARY | 2025-06-15 13:13 | XMS_ITS ---
Author Organization [facility] Office Address [address] [place] [address] Care Team Providers Care Museum Archivist Name Role Phone Marjorie Hernadez Unavailable [phone] REASON FOR VISIT lvm about appt Encounters Encounter Location Date Provider Diagnosis [facility] [address] [facility] [address] [place] [address] 11/17/2024 Marjorie Hernadez Plan Of Treatment Next Appt Details Provider Name:Marjorie padilla, 09/21/2025 02:45:00 PM, [address], [place], [address], Progress Notes * BISMARK VÁSQUEZOB:1945 ( 79 yo F)Acc No.[id number]:11/17/2024 Progress Notes Patient: ADDY AGUILERA Provider: Kerry HERNADEZ M.D :1945 A ge:79 Y S ex:Female Date:11/17/2024 Address:[address] [place] [address] Subjective: * Chief Complaints: * 1 . Lvm about appt. * Medical History: Objective: * Vitals: Assessment: Plan: * Treatment: * Billing Information: * Visit Code: * Procedure Codes: * Electronic signature of Santiago Hernadez MD on 06/15/2025 at 01:12 PM CDT Sign off status: Pending * Provider: Kerry HERNADEZ M.D Date: 11/17/2024 Generated for Aaliyahi ng/Fajasming/eTransmitting on: 0 06/15/2025 01:12 PM CDT
--- OUTSIDE RECORDS SUMMARY | 2025-06-15 13:13 | XMS_ITS ---
Author Organization [facility] Address [address] [place] [address] Care Team Providers Care Chairman Emeritus Name Role Phone Nigel Marjorie Unavailable [phone] Encounters Encounter Location Date Provider Diagnosis [facility] [address] [facility] [address] [place] [address] 05/25/2025 Marjorie Hernadez Chronic kidney disea se, [...] [address], [place], [address], Progress Notes * BISMARK VÁSQUEZOB:1945 ( 79 yo F)Acc No.[id number]:05/25/2025 Progress Notes Patient: ADDY AGUILERA Provider: Kerry HERNADEZ M.D :1945 A ge:79 Y S ex:Female Date:05/25/2025 Address:[address] [place], [place] [id number] Subjective: * Chief Complaints: * * Medical History: Objective: * Vitals: Assessment: * Assessment: 1. C hronic kidney disease, stage 3b - N18.32 (Primary) 2 . T ype 2 diabetes mellitus with hyperglycemia - E11.65 3 . E ssential (primary) hypertension - I10 4 . H yperlipidemia, unspecified - E78.5 Plan: * Treatment: * Billing Information: * Visit Code: 11132 Office Visit, Est Pt., Level 3. * Procedure Codes: * Electronic signature of Santiago Hernadez MD on 06/15/2025 at 01:12 PM CDT Sign off status: Pending * Provider: Kerry HERNADEZ M.D Date: 0 05/25/2025 Generated for Darren yuan/Dharmesh/Radha on: 0 06/15/2025 01:12 PM CDT
--- NOTE | 2025-06-15 15:29 | WPDSIXMINUTE ---
Six Minute Walk Procedure Procedure Performed Pulmonary Stress Test (6 min walk) Six Minute Walk Six Minute Walk: This is a 6 minute walk test. The test was performed and interpreted in accordance with the 2014 ERS/ATS task force guidelines. Of note, patient used a personal crutch for stability Findings: The patient's resting room air oxygen saturation measured by pulse oximetry was 96%, the heart rate was 82 bpm, and the modified Min dyspnea score was 0. Patient ambulated for 152 meters and oxygen saturation remained 95 to 96%. At the end of the study the heart rate was 100 bpm and the modified Min dyspnea score was 3. The patient did not qualify for supplemental oxygen at rest or with ambulation. In comparison to 6 minute walk on 10/03/2021, the patient took 3 breaks for 32nd total break time, walk distance has improved from 76 m to 152 m. Slick saturation remained 95%.
== END 2025-06-15 12:52 | disposition home or self-care (01) ==
PROVIDERS: PCP Internal Medicine; Visit Provider Nurse Practitioner
DX: I50.20 Unspecified systolic (congestive) heart failure (principal)
CPT/HCPCS: 94618

== ENCOUNTER 2025-06-30 12:24 | Outpatient (CLI) | payer MEDICARE, SELFPAY ==
--- OUTSIDE RECORDS SUMMARY | 2024-11-17 09:15 | XMS_ITS ---
Author Organization [facility] Address [address] [place] [address] Care Team Providers Care Claims Adjudicator Name Role Phone Nigel Marjorie Unavailable [phone] REASON FOR VISIT lvm about appt Encounters Encounter Location Date Provider Diagnosis [place] [facility] 2043 [facility] [address] [place] [id number] 11/17/2024 Marjorie Hernadez Plan Of Treatment Next Appt Details Provider Name:Marjorie padilla, 09/21/2025 02:45:00 PM, [address], [place], [address], Progress Notes * BISMARK VÁSQUEZOB:1945 ( 79 yo F)Acc No.[id number]:11/17/2024 Progress Notes Patient: ADDY AGUILERA Provider: Kerry HERNADEZ M.D :1945 A ge:79 Y S ex:Female Date:11/17/2024 Address:[address] [place] [address] Subjective: * Chief Complaints: * 1 . Lvm about appt. * Medical History: Objective: * Vitals: Assessment: Plan: * Treatment: * Billing Information: * Visit Code: * Procedure Codes: * Electronic signature of Santiago Hernadez MD on 06/30/2025 at 12:29 PM CDT Sign off status: Pending * Provider: Kerry HERNADEZ M.D Date: 11/17/2024 Generated for Aaliyahi ng/Fajasming/eTransmitting on: 0 06/30/2025 12:29 PM CDT
--- OUTSIDE RECORDS SUMMARY | 2025-02-23 11:00 | XMS_ITS ---
Author Organization [facility] Address [address] [place] [address] Care Team Providers Care Marketing Intelligence Analyst Name Role Phone Nigel Marjorie Unavailable [phone] Problems Problem Type SNOMED Code ICD Code Onset Dates Problem Status W/U Status Risk Notes Problem Chronic kidney disease stage 3B (disorder) (657238764) Chronic kidney disease, stage 3b (N18.32) Active confirmed Problem Hyperlipidemia, unspecified (E78.5) Active confirmed Encounters Encounter Location Date Provider Diagnosis [place] [facility] 2043 [facility] 15 [place] [address] 02/23/2025 Marjorie Hernadez Chronic kidney disea se, [...] 02:45:00 PM, [address], [place], [address], Progress Notes * THALIA DENISEGARRY:1945 ( 79 yo F)Acc No.[id number]:02/23/2025 Progress Notes Patient: ADDY AGUILERA Provider: Kerry HERNADEZ M.D :1945 A ge:79 Y S ex:Female Date:02/23/2025 Address:[address] [place], [place] [address] Subjective: * Chief Complaints: * * Medical History: Objective: * Vitals: Assessment: * Assessment: 1. C hronic kidney disease, stage 3b - N18.32 (Primary) 2 . T ype 2 diabetes mellitus with hyperglycemia - E11.65 3 . E ssential (primary) hypertension - I10 4 . H yperlipidemia, unspecified - E78.5 Plan: * Treatment: * Billing Information: * Visit Code: 39370 Office Visit, Est Pt., Level 3. * Procedure Codes: * Electronic signature of Santiago Hernadez MD on 06/30/2025 at 12:29 PM CDT Sign off status: Pending * Provider: Kerry HERNADEZ M.D Date: 0 02/23/2025 Generated for Darren yuan/Dharmesh/Debbiitting on: 0 06/30/2025 12:29 PM CDT
--- OUTSIDE RECORDS SUMMARY | 2025-05-25 10:00 | XMS_ITS ---
Author Organization [facility] Address [address] [place] [address] Care Team Providers Care Senior Benefits Manager Name Role Phone Nigel Marjorie Unavailable [phone] Encounters Encounter Location Date Provider Diagnosis [place] [facility] 2043 [facility] [address] [place] [address] 05/25/2025 Marjorie Hernadez Chronic kidney disea se, [...] [address], [place], [address], Progress Notes * BISMARK VÁSQUEZOB:1945 ( 79 yo F)Acc No.[id number]:05/25/2025 Progress Notes Patient: ADDY AGUILERA Provider: Kerry HERNADEZ M.D :1945 A ge:79 Y S ex:Female Date:05/25/2025 Address:[address] [place], [place] [id number] Subjective: * Chief Complaints: * * Medical History: Objective: * Vitals: Assessment: * Assessment: 1. C hronic kidney disease, stage 3b - N18.32 (Primary) 2 . T ype 2 diabetes mellitus with hyperglycemia - E11.65 3 . E ssential (primary) hypertension - I10 4 . H yperlipidemia, unspecified - E78.5 Plan: * Treatment: * Billing Information: * Visit Code: 57335 Office Visit, Est Pt., Level 3. * Procedure Codes: * Electronic signature of Santiago Hernadez MD on 06/30/2025 at 12:29 PM CDT Sign off status: Pending * Provider: Kerry HERNADEZ M.D Date: 0 05/25/2025 Generated for Darren yuan/Dharmesh/Radha on: 0 06/30/2025 12:29 PM CDT
--- OUTSIDE RECORDS SUMMARY | 2025-06-30 12:29 | XMS_ITS | Clinical Summary ---
Author Organization [facility] Address [address] [place] [address] Care Team Providers Care Channel Development Manager Name Role Phone Pancho Velazquez MD Primary Care Provider [phone] Allergies Active Allergy Reactions Criticality Noted Date Comments Amoxicillin Azithromycin Blue Dye Other (See comments) 06/18/2025 Isxaijmsdp-Mhtjooni-Tikkkc erin Other (See comments) 06/18/2025 Buspirone Other (See comments) 06/18/2025 Cephalexin Other (See comments) 06/18/2025 Ciprofloxacin Other (See comments) 06/18/2025 ciprofloxacin Clarithromycin Other (See comments) 06/18/2025 Duloxetine Other (See comments) 06/18/2025 Glyburide Unknown Low 06/13/2016 Glycopyrrolate-Formoterol Other (See comments) 06/18/2025 Bevespi Guaifenesin Dizziness Low 06/18/2025 Iodinated Contrast Media Other (See comments) 0 06/18/2025 Iodine Rash Medium Neomycin Other (See comments) 06/18/2025 Nickel Other (See comments) 06/18/2025 Nystatin Other (See comments) 06/18/2025 nystatin Povidone-Iodine Other (See comments) 06/18/2025 Red Dye Other (See comments) 06/18/2025 Sulfamethoxazole-Trimethop rim Other (See comments) 06/18/2025 Tetracycline Other (See comments) 06/18/2025 Umeclidinium-Vilanterol Other (See comments) Anoro Valsartan Unknown Low 05/10/2009 Yellow Dye Other (See comments) 06/18/2025 Medications potassium chloride ER (KLOR-CON M20) 20 mEq CR tablet Take one by mouth one time per day 0 0 0 Active cinnamon bark (CINNAMON) 500 mg capsule Take 1 a day 30 3 0 Active blood-glucose meter (FREESTYLE FREEDOM LITE) kit test once a day 0 kit 0 6 Active LORazepam (ATIVAN) 0.5 mg tablet Take as directed 0 0 6 Active Additional Information Patient not taking.Reported on 06/18/2025 glimepiride (AMARYL) 2 mg tablet take 2 tablets po am and 1 tab po pm 120 2 0 Active Additional Information Patient not taking.Reported on 06/18/2025 VITAMIN D2 50,000 unit capsule 3 7 Active spironolactone (ALDACTONE) 100 mg tablet Take 1 tablet (100 mg total) by mouth daily 3 7 Active triamcinolone (KENALOG) 0.1 % cream 2 7 Active furosemide (LASIX) 40 mg tablet Take 1 tablet (40 mg total) by mouth daily 3 7 Active blood-glucose meter kitIndications:T ype 2 diabetes mellitus with hyperglycemia, without long-term current use of insulin (HCC) Use to test blood sugar once a day 1 each 7 Active fluticasone (FLONASE) 50 mcg/actuation nasal spray 1 7 Active canagliflozin (INVOKANA) 100 mg tabletIndication s:type 2 diabetes mellitus Take 1 tablet (100 mg total) by mouth daily. 30 tablet 4 7 Active blood glucose diagnostic (glucose blood) strip Check blood sugar four times a day or as directed 100 each 11 7 Active canagliflozin (INVOKANA) 100 mg tabletIndication s:type 2 diabetes mellitus Take 1 tablet (100 mg total) by mouth daily. LOT# [id number] Exp. 03-22 100mg x4 boxes x5tab per box =20 20 tablet 7 Active Corlanor 5 mg tablet Take 1 tablet (5 mg total) by mouth 2 (two) times a day 4 Active tiotropium bromide (SPIRIVA RESPIMAT) 2.5 mcg/actuation inhaler Inhale 2 puffs daily Active famotidine (PEPCID) 40 mg tablet Take 1 tablet (40 mg total) by mouth daily Active beclomethasone dipropionate (Qvar RediHaler) 40 mcg/actuation inhaler Inhale 1 puff 2 (two) times a day Rinse mouth with water after use. Do not swallow. 1 each 3 4 Active beclomethasone dipropionate (QVAR REDIHALER) 40 mcg/actuation inhaler Inhale 2 puffs 2 (two) times a day Rinse mouth with water after use. Do not swallow. 1 each 11 4 07/23/20 25 Active aspirin 81 mg capsule Take 2 capsules every day by oral route. Active cyanocobalamin (Vitamin B-12) 1,[address] 1 tablet every day by sublingual route for 90 days. Active cycloSPORINE (Restasis) 0.05 % ophthalmic emulsion 1 drop 2 (two) times a day Active dicyclomine (BENTYL) 20 mg tablet Take by mouth 3 (three) times a day as needed Active levoFLOXacin (LEVAQUIN) 500 mg tablet Take 1 tablet (500 mg total) by mouth daily 5 Active metoprolol tartrate (LOPRESSOR) 25 mg immediate release tablet 2 (two) times a day 5 Active albuterol HFA (PROVENTIL HFA,VENTOLIN HFA,PROAIR HFA) 90 mcg/actuation inhaler Inhale 2 puffs every 6 (six) hours as needed for wheezing or shortness of breath 2 each 5 Active spironolactone (ALDACTONE) 50 mg tablet TAKE ONE TABLET TWICE DAILY EVERY MORNING & EVENING 5 Active glimepiride (AMARYL) 4 mg tablet 5 Active Active Problems Problem Noted Date Diagnosed Date Recurrent respiratory infection 01/22/2025 Assessment & Plan (01/22/2025 3:51 PM CDT): She may need immunoglobulin testing in the future, I will reassess her in 2-3 months Moderate persistent asthma without complication 09/19/2024 Assessment & Plan (06/22/2025 9:58 AM CDT): She was never a never smoker and has a normal diffusion capacity She did have a positive methacholine challenge based on PC 20 More recent pulmonary function testing was done without bronchodilator Spiriva Respimat is the only inhaled therapy thus far that she has been able to tolerate and provides perceived clinical benefit. She has tried and failed multiple ICS with adverse effects and side effects. She will continue Spiriva Respimat 2.5 two puffs daily at the same time Last eosinophil count was 220 She does not have frequent exacerbations Albuterol 2 puffs every 4-6 hours as needed only, we have discussed indications for use She is aware of signs and symptoms that would require earlier evaluation or change to her plan of care Assessment & Plan (04/02/2025 3:37 PM CDT): She was never a never smoker and has a normal diffusion capacity She did have a positive methacholine challenge based on PC 20 Spiriva Respimat is not NILESH directed medical recommendation however this is the only inhaled therapy thus far that she has been able to tolerate and provides perceived clinical benefit. She has tried and failed multiple ICS with adverse effects and side effects. QVAR caused her lungs to l ock up She does not have frequent exacerbations however she has had persistent sinus congestion and illness since October Last eosinophil count I am able to view was 250 Continue Spiriva Respimat 2 puffs daily at the same time Albuterol 2 puffs every 4-6 hours as needed only, we have discussed indications for use She is aware of signs and symptoms that would require earlier evaluation or change to her plan of care Assessment & Plan (01/22/2025 3:50 PM CDT): She was never a never smoker and has normal diffusion capacity She did have a positive methacholine challenge based on PC 20 Spiriva Respimat is not NILESH directed medical recommendation however this is the only inhaled therapy thus far that she has been able to tolerate and provides perceived clinical benefit. She has tried and failed multiple ICS She does not have frequent exacerbations however she has had a persistent illness since October Last eosinophil count I am able to view was 250 We will continue Spiriva Respimat 2 puffs daily at this time Check CBC Albuterol as needed only, we have discussed indications for use She is aware of signs and symptoms that would require earlier evaluation or change to her plan of care Assessment & Plan (09/19/2024 11:33 AM SHOT CORE DRILL OPERATOR HELPER): She was never a never smoker and has normal diffusion capacity She did have a positive methacholine challenge based on PC 20 While Spiriva Respimat alone is not NILESH directed medical recommendation, this is the only inhaled therapy thus far that she has been able to tolerate and provides perceived clinical benefit. She does not have frequent exacerbations Last eosinophil count I have access to was 250 We will continue Spiriva Respimat 2 puffs daily at this time Request recent labs Albuterol as needed only, we have discussed indications for use She is aware of signs and symptoms that would require earlier evaluation or change to her plan of care Severe systolic congestive heart failure 024 Assessment & Plan (06/22/2025 10:12 AM CDT): Her decompensated severe chronic systolic heart failure is certainly a contributing factor to her dyspnea. I have chart notes from her vault clerk documenting an EF of 19% in April of 2025 Continued guideline directed medical therapy and Cardiology follow-up Assessment & Plan (04/02/2025 3:38 PM CDT): Her decompensated severe chronic systolic heart failure is certainly a contributing factor to her dyspnea. She had a recent echocardiogram with her vault clerk, I will call to request results. Her most recent ejection fraction was estimated at 20% with a severely dilated LV cavity Continued guideline directed medical therapy and Cardiology follow-up I will order a walk test to ensure adequate oxygenation at rest and with activity. Assessment & Plan (01/22/2025 3:50 PM CDT): Her decompensated severe chronic systolic heart failure is certainly a contributing factor to her dyspnea Her most recent ejection fraction was estimated at 20% with a severely dilated LV cavity Continued guideline directed medical therapy and Cardiology follow-up Assessment & Plan (09/19/2024 11:34 AM SHOT CORE DRILL OPERATOR HELPER): Most of her symptoms are likely attributable to decompensated severe chronic systolic heart failure Her most recent ejection fraction was estimated at 20% with a severely dilated LV cavity Continued guideline directed medical therapy and Cardiology follow-up Non morbid obesity due to excess calories 2016 Assessment & Plan (07/20/2017 1:00 PM CDT): Importance of following diet and exercising discussed. Right upper quadrant abdominal pain 07/20/2017 Assessment & Plan (07/20/2017 1:01 PM CDT): Check CMP. Advised follow up with PCP or Gi. Hyperlipidemia 07/19/2017 Assessment & Plan (07/20/2017 1:00 PM CDT): At goal on current medications. Type 2 diabetes mellitus 03/21/2014 Overview (02/08/2017): DMII WO CMP UNCNTRLD Assessment & Plan (10/25/2017 2:13 PM SHOT CORE DRILL OPERATOR HELPER): Hba1c was 8.8 today, indicating worsening DM control 1800 calorie, consistent carb diet recommended 30 min daily aerobic and resistance exercise recommended Prevention and treatment of hyypoglcyemia discussed. Blood glucose monitoring with fingers sticks 1-2 x day . Start Invokana, 100 mg daily Pt declining use of insulin Assessment & Plan (07/20/2017 12:59 PM CDT): A1c 8.4. Suspect that increased A1c is d/t pc excursions and pt's many concepts about diet. Needs to check BG daily rotating times ac. Will consider CGM evaluation. Needs generic strips not ch for 1 mo Use CGM Many concepts 137-202 Hypertension 03/21/2014 Overview (02/10/2017): HYPERTENSION NOS Assessment & Plan (10/25/2017 2:14 PM SHOT CORE DRILL OPERATOR HELPER): Goal blood pressure is less than 140/85 Low salt diet recommended Daily aerobic exercise Assessment & Plan (07/20/2017 1:00 PM CDT): Controlled on current medications. Encounters Date Type Department Care Team Description 06/19/2025 Telephone [facility] at [address] [place] [address] Gladys Suarez CMA 06/18/2025 2:00 PM CDT Office Visit [facility] at [address] [place] [phone] Abigail Cruz NP Moderate persistent asthma without complication (Primary Dx); Severe systolic congestive heart failure (HCC) 05/22/2025 Telephone [facility] at [address] [place] [phone] Starla Aldana LPN 04/23/2025 Telephone [facility] at [address] [place] [address] Starla Aldana LPN unable to contact 04/02/2025 1:30 PM CDT Office Visit [facility] at [address] [place] [phone] Abigail Cruz NP Severe systolic congestive heart failure (HCC) (Primary Dx); Moderate persistent asthma without complication from Last 3 Months Surgical History Surgery Date Site/Laterality Comments MASTECTOMY Mastectomy CARPAL TUNNEL RELEASE Carpal tunnel release CARDIAC PACEMAKER PLACEMENT 11/05/2008 - 11/04/2009 Cardiac pacemaker CHOLECYSTECTOMY Medical History Medical History Date Comments Hypertension Hypertension Hx Other Medical Knee surgery Malignant neoplasm of female breast (HCC) Cancer, breast Diabetes mellitus (HCC) Diabetes Hx Other Medical TIA; Comments: [facility] 07/18/2016 - Hx Other Medical heart attack; C omments: [facility] 07/18/2016 - Hx Other Medical L knee surgery; Comments: [facility] 07/18/2016 - Pancreatitis 2016 Stroke (HCC) Kidney disease Arthritis Severe systolic congestive h eart failure (HCC) 09/19/2024 Family History Medical History Relation Name Comments Cancer Brother Cancer Father Diabetes Father Heart disease Father Hypertension Father Cancer Mother Diabetes Mother Heart disease Mother Hypertension Mother Diabetes type II Other Family hist ory of Diabetes -Type II; Cancer Sister Relation Name Status Comments Brother Father Mother Other Sister Social History Tobacco Use Types Packs/Day Years Used Date Smoking Tobacco: Never Smokeless Tobacco: Never Tobacco Cessation:Counseling Given: Not Answered Alcohol Use Standard Drinks/Week Comments No 0 (1 standard drink = 0.6 oz pur e alcohol) AUDIT-C Answer Date Recorded Q1: How often do you have a drink containing alcohol? Patient declined 01/22/2025 Q2: How many drinks containi ng alcohol do you have on a typical day when you are drinking? Patient does not drink Frequency of Binge Drinking Not on file 01/04 Comments Unknown Sex and Gender Information Value Date Recorded Sex Assigned at Not on file Legal Sex Female 9:13 AM SHOT CORE DRILL OPERATOR HELPER Gender Identity Not on file Sexual Orientation Not on file Obstetrics History Last Filed Vital Signs Vital Sign Reading Time Taken Comments Blood Pressure 122/58 06/18/2025 2:12 PM CDT Pulse 75 06/18/2025 2:12 PM CDT Temperature 36.4 C (97.5 F) 06/18/2025 2:12 PM CDT Respiratory Rate 20 06/18/2025 2:12 PM CDT Oxygen Saturation 96% 06/18/2025 2:12 PM CDT Inhaled Oxygen Concentration - - Weight 88.2 kg (194 lb 6.4 oz) 06/18/2025 2:12 P M CDT Height 167.6 cm (5' 6) 06/18/2025 2:12 PM CDT Body Mass Index 31.38 06/18/2025 2:12 PM CDT Plan of Treatment Health Maintenance Due Date Last Done Comments Albumin Creatinine Ratio, Urine 1945 Fall Risk Assessment 1945 Hepatitis C Screening 1945 Osteoporosis Screening-Bone Density Scan 1945 eGFR 1945 Dilated Eye Exam 1945 DTaP/Tdap/Td Vaccine (1 - Tdap) 1958 Hepatitis B Screening 1965 Zoster Vaccine (1 of 2) 1997 Well Visit 65+ 2012 Hemoglobin A1C 04/25/2018 10/25/2017, 07/06, 04/19/2017 Depression Screening 07/19/2018 07/19/2017, 04/19/20 17 Lipid Panel 07/25/2018 07/25/2017 Foot Exam 10/25/2018 10/25/2017 Influenza Vaccine (#1) 2025 3, 08/16/2022, 08/03/2021, Additional history exists Pneumococcal vaccine 65+ Completed 07/19/2015, 07/06 Procedures Procedure Name Priority Date/Time Associated Diagnosis Comments POCT GLYCOSYLATED HEMOGLOBIN (HGB A1C), HOME MONITOR Routine 10/25/2017 1:37 PM SHOT CORE DRILL OPERATOR HELPER Type 2 diabetes mellitus with hyperglycemia, without long-term current use of insulin (HCC) LIPID PANEL Routine 07/25/2017 3:14 PM CDT from Last 3 Months or Most Recently Relevant to Health Maintenance Results * POCT glycosylated hemoglobin (Hb A1C) (10/25/2017 1:37 PM SHOT CORE DRILL OPERATOR HELPER) Hemoglobin A1C, POC 8.8 Blood specimen (specimen) Venous blood specimen / Unknown 10/25/2017 1:37 PM SHOT CORE DRILL OPERATOR HELPER us Ninfa Fernandez MD POINT OF CARE TEST ORDERABLES Fi nal Result * (ABNORMAL) Lipid panel (07/25/2017 3:14 PM CDT) SCRIBED Cholesterol, Total 260(A) 0 - 200 EXTERNAL LAB SCRIBED HDL 36(A) 39 - 100 EXTERNAL LAB SCRIBED LDL n/a 0 - 100 EXTERNAL LAB SCRIBED Triglycerides 602(A) 0 - 150 EXTERNAL LAB Blood specimen (specimen) us Ninfa Fernandez MD LAB BLOOD ORDERABLES Edited Resu lt - Final EXTERNAL LAB from Last 3 Months or Most Recently Relevant to Health Maintenance Insurance [facility] MEDICARE ADVANTAGE [facility] MEDIC[facility] Address: [facility] [address] [place] [address] Care Teams Channel Development Manager Relationship Specialty Start Date End Date Pancho Velazquez MD PCP - General 02/02/17
--- OUTSIDE RECORDS SUMMARY | 2025-06-30 12:29 | XMS_ITS | Patient Health Record ---
Author Organization [facility] Address [address] [facility] [address] [place] [address] Care Team Providers Care Wirer Maintenance Name Role Phone Marjorie Manning Unavailable [phone] Reason For Referral No Information Medications Medication [...] Hyperglycemia due to type 2 diabetes mellitus (912441735329184) Type 2 diabetes mellitus with hyperglycemia (E11.65) Active confirmed Problem Vitamin D deficiency (49257980) Vitamin D deficiency, unspecified (E55.9) Active confirmed Problem Hyperlipidemia (34337314) Hyperlipidemia, unspecified (E78.5) Active confirmed Problem 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 and tophaceous disease (699343532) 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 and tophaceous disease (E79.0) Active confirmed Problem Essential hypertension (61538140) Essential (primary) hypertension (I10) Active confirmed Problem Chronic kidney disease stage 3 (disorder) (591655289) Chronic kidney disease, stage 3 unspecified (N18.30) Active confirmed Problem Chronic kidney disease stage 3A (disorder) (979795482) Chronic kidney disease, stage 3a (N18.31) Active confirmed Problem Chronic kidney disease stage 3B (disorder) (627234001) Chronic kidney disease, stage 3b (N18.32) Active confirmed Encounters Encounter Location Date Provider Diagnosis [place] [facility] [address] [facility] [address] [place] [address] 07/21/2024 Marjorie Manning Chronic kidney disea se, stage 3a N18.31 ; Type 2 diabetes mellitus with hyperglycemia E11.65 ; 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 and tophaceous disease E79.0 and Essential (primary) hypertension I10 [facility] [address] [address] 02/23/2025 Marjorie Manning Chronic kidney disea se, stage 3b N18.32 ; Type 2 diabetes mellitus with hyperglycemia E11.65 ; Essential (primary) hypertension I10 and Hyperlipidemia, unspecified E78.5 [facility] [address] [address] 05/25/2025 Marjorie Manning Chronic kidney disea se, [...] [address], [place], [address],
[2025-06-30 13:39] LABS: Alanine Aminotransferase 11 U/L (6-35); Albumin Level 4.4 g/dL (3.5-5.1); Alkaline Phosphatase 107 U/L (38-126); Anion Gap 8 mmol/L (4-12); Aspartate Amino Transferase 28 U/L (14-36); Bilirubin,Total 1.6 mg/dL (0.2-1.3); Blood Urea Nitrogen 34 mg/dL (7-17); Calcium 9.9 mg/dL (8.4-10.2); Carbon Dioxide 31 mmol/L (22-30); Chloride 100 mmol/L (98-107); Estimated Glomerular Filt Rate 31; Glucose 85 mg/dL (65-110); Magnesium 2.4 mg/dL (1.6-2.3); Potassium 4.1 mmol/L (3.4-5.0); Sodium 139 mmol/L (137-145); Total Protein 8.1 g/dL (6.3-8.2)
[2025-06-30 13:47] LABS: NT Pro B Type Natriuretic Pept 7520 pg/mL (19.9-100)
[2025-06-30 13:55] LABS: Free T4 Free Thyroxine 1.36 ng/dL (0.78-2.19)
[2025-06-30 14:09] LABS: Thyroid Stimulating Hormone 1.890 uIU/mL (0.465-4.680)
== END 2025-06-30 12:25 | disposition home or self-care (01) ==
PROVIDERS: PCP Internal Medicine; Referring Provider Internal Medicine Cardiovascular Disease; Visit Provider Internal Medicine
DX: E11.9 Type 2 diabetes mellitus without complications (principal); E04.2 Nontoxic multinodular goiter; E78.5 Hyperlipidemia, unspecified; I42.0 Dilated cardiomyopathy; R00.2 Palpitations; R42 Dizziness and giddiness; I50.9 Heart failure, unspecified
CPT/HCPCS: 36415; 80053; 83735; 83880; 84439; 84443

== ENCOUNTER 2025-09-17 15:01 | Outpatient (CLI) | payer MEDICARE, SELFPAY ==
--- OUTSIDE RECORDS SUMMARY | 2024-04-14 08:15 | XMS_ITS ---
Author Organization [facility] Office Address [address] [place] [address] Care Team Providers Care Vamp Wetter Name Role Phone Marjorie Hernadez Unavailable [phone] Medications Medication SIG (Take, Route, Frequency, Duration) Notes Start Date End Date Status Hydroxychloroquine Sulfate 2 00 MG as directed Orally 05/22/2022 Active Paxlovid (150/100) 10 x 150 MG & 10 x 100MG 1 pack as directed Orally 1 pack; Duration: 5 days 06/29/2023 Active Social History Sex Assigned At : Social History Observation Description Sex Assigned At Female Encounters Encounter Location Date Provider Diagnosis [facility] [place] [facility] [address] [place] [address] 04/14/2024 Marjorie Hernadez Chronic kidney disease, stage 3 unspecified N18.30 ; Essential (primary) hypertension I10 ; Type 2 diabetes mellitus with hyperglycemia E11.65 ; 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 and tophaceous disease E79.0 and Vitamin D deficiency, unspecified E55.9 Assessments Encounter Date Diagnosis (ICD Code) Assessment Notes Treatment Notes Treatment Clinical Notes Section Notes 04/14/2024 Chronic kidney disease, stage 3 unspecified (ICD-10 - N18.30) 04/14/2024 Essential (primary) hypertension (ICD-10 - I10) 04/14/2024 Type 2 diabetes mellitus with hyperglycemia (ICD-10 - E11.65) 04/14/2024 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 and tophaceous disease (ICD-10 - E79.0) 04/14/2024 Vitamin D deficiency, unspecified (ICD-10 - E55.9) Plan Of Treatment Next Appt Details Provider Name:Marjorie padilla, 09/21/2025 02:45:00 PM, 2043 [facility], [facility] [[email or web address]] 15, [place], [address], Provider Name:Marjorie Flynn valerie, 10/19/2025 04:00:00 PM, 2043 [facility], [facility] [[email or web address]] 15, [place], [address], Progress Notes * BISMARK VÁSQUEZOB:1945 ( 80 yo F)Acc No.[id number]:04/14/2024 Progress Notes Patient: ADDY AGUILERA Provider: Valerie HERNADEZ M.D :1945 A ge:78 Y S ex:Female Date:04/14/2024 Address:[address] [place], [place] [phone] Subjective: * Chief Complaints: * * Medical History: * Medications: T aking Hydroxychloroquine Sulfate 200 MG Tablet as directed Orally , Taking Paxlovid (150/100) 10 x 150 MG & 10 x 100MG Tablet Therapy Pack 1 pack as directed Orally 1 pack Objective: * Vitals: Assessment: * Assessment: 1. C hronic kidney disease, stage 3 unspecified - N18.30 (Primary) 2 . E ssential (primary) hypertension - I10 3 . T ype 2 diabetes mellitus with hyperglycemia - E11.65 4 . H yperuricemia without signs of inflammatory arthritis and tophaceous disease - E79.0 5 . V itamin D deficiency, unspecified - E55.9 ? Plan: * Treatment: * Billing Information: * Visit Code: 02483 Office Visit, Est Pt., Level 3. * Procedure Codes: * Electronic signature of Santiago Hernadez MD on 09/17/2025 at 03:06 PM SUPERVISOR LAST MODEL DEPARTMENT Sign off status: Pending * Provider: Valerie HERNADEZ M.D Date: 04/14/2024 Generated for Darren yuan/Dharmesh/Akilasmleah on: 11/17/2024 03:06 PM SUPERVISOR LAST MODEL DEPARTMENT
--- OUTSIDE RECORDS SUMMARY | 2024-07-21 09:30 | XMS_ITS ---
Author Organization [facility] Address 1400 [facility] [address] [place] [address] Care Team Providers Care College Dean Name Role Phone Marjorie Hernadez Unavailable [phone] Social History Sex Assigned At : Social History Observation Description Sex Assigned At Female Problems Problem Type SNOMED Code ICD Code Onset Dates Problem Status W/U Status Risk Notes Problem Chronic kidney disease stage 3A (disorder) (203475154) Chronic kidney disease, stage 3a (N18.31) Active confirmed Encounters Encounter Location Date Provider Diagnosis [place] [facility] 2043 [facility] 15 [place] [address] 07/21/2024 Marjorie Hernadze Chronic kidney disea se, stage 3a N18.31 ; Type 2 diabetes mellitus with hyperglycemia E11.65 ; 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 and tophaceous disease E79.0 and Essential (primary) hypertension I10 Assessments Encounter Date Diagnosis (ICD Code) Assessment Notes Treatment Notes Treatment Clinical Notes Section Notes 07/21/2024 Chronic kidney disease, stage 3a (ICD-10 - N18.31) 07/21/2024 Type 2 diabetes mellitus with hyperglycemia (ICD-10 - E11.65) 07/21/2024 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 and tophaceous disease (ICD-10 - E79.0) 07/21/2024 Essential (primary) hypertension (ICD-10 - I10) Plan Of Treatment Next Appt Details Provider Name:Marjorie Caden Gee padilla, 09/21/2025 02:45:00 PM, 2043 [facility], [facility] 15, [place], [address], Provider Name:Marjorie padilla, 10/19/2025 04:00:00 PM, 2043 [facility], [facility] [address] [place] [address], [address], Progress Notes * BISMARK VÁSQUEZOB:1945 ( 80 yo F)Acc No.[id number]:07/21/2024 Progress Notes Patient: ADDY AGUILERA Provider: Kerry HERNADEZ M.D :1945 A ge:78 Y S ex:Female Date:07/21/2024 Address:[address] [place], [place] [id number] Subjective: * Chief Complaints: * * Medical History: Objective: * Vitals: Assessment: * Assessment: 1. C hronic kidney disease, stage 3a - N18.31 (Primary) 2 . T ype 2 diabetes mellitus with hyperglycemia - E11.65 3 . H yperuricemia without signs of inflammatory arthritis and tophaceous disease - E79.0 4 . E ssential (primary) hypertension - I10 Plan: * Treatment: * Billing Information: * Visit Code: 74844 Office Visit, Est Pt., Level 3. * Procedure Codes: * Electronic signature of Santiago Hernadez MD on 09/17/2025 at 03:06 PM CORPORATE DIRECTOR Sign off status: Pending * Provider: Kerry HERNADEZ M.D Date: 0 07/21/2024 Generated for Darren yuan/Dharmesh/eTransmitting on: 11/17/2024 03:06 PM CORPORATE DIRECTOR
--- OUTSIDE RECORDS SUMMARY | 2024-10-20 10:00 | XMS_ITS ---
Author Organization [facility] Address 1400 [facility] [address] [place] [address] Care Team Providers Care Timber Packer Name Role Phone NigelSadeMarjorie Unavailable [phone] Social History Sex Assigned At : Social History Observation Description Sex Assigned At Female Encounters Encounter Location Date Provider Diagnosis [place] [facility] [address] [address] 10/20/2024 Marjorie Hernadez Plan Of Treatment Next Appt Details Provider Name:Marjorie padilla, 09/21/2025 02:45:00 PM, [address] [place] [address], [place], [address], Provider Name:Marjorie padilla, 10/19/2025 04:00:00 PM, [address] [address], [place], [address], Progress Notes * BISMARK VÁSQUEZOB:1945 ( 80 yo F)Acc No.[id number]:10/20/2024 Progress Notes Patient: ADDY AGUILERA Provider: Kerry HERNADEZ M.D :1945 A ge:79 Y S ex:Female Date:10/20/2024 Address:[address] [place], [place] [id number] Subjective: * Chief Complaints: * * Medical History: Objective: * Vitals: Assessment: Plan: * Treatment: * Billing Information: * Visit Code: * Procedure Codes: * Electronic signature of Santiago Hernadez MD on 09/17/2025 at 03:06 PM MOTORBOAT MECHANIC Sign off status: Pending * Provider: Kerry HERNADEZ M.D Date: 12/21/2023 Generated for Darren yuan/Dharmesh/Radha on: 11/17/2024 03:06 PM MOTORBOAT MECHANIC
--- OUTSIDE RECORDS SUMMARY | 2024-11-17 08:15 | XMS_ITS ---
Author Organization [facility] Address [address] [place] [address] Care Team Providers Care Issue Clerk Name Role Phone Marjorie Hernadez Unavailable [phone] REASON FOR VISIT lvm about appt Social History Sex Assigned At : Social History Observation Description Sex Assigned At Female Encounters Encounter Location Date Provider Diagnosis [place] [facility] [address] [place] [address] 15 [place] [address] 11/17/2024 Marjorie Hernadez Plan Of Treatment Next Appt Details Provider Name:Marjorie padilla, 09/21/2025 02:45:00 PM, 2043 [facility], [facility] 15, [place], [address], Provider Name:Marjorie padilla, 10/19/2025 04:00:00 PM, 2043 [facility] 15, [place], [address], Progress Notes * BISMARK VÁSQUEZOB:1945 ( 80 yo F)Acc No.[id number]:11/17/2024 Progress Notes Patient: ADDY AGUILERA Provider: Kerry HERNADEZ M.D :1945 A ge:79 Y S ex:Female Date:11/17/2024 Address:[address] [place], [place] [phone] Subjective: * Chief Complaints: * 1 . Lvm about appt. * Medical History: Objective: * Vitals: Assessment: Plan: * Treatment: * Billing Information: * Visit Code: * Procedure Codes: * Electronic signature of Santiago Hernadez MD on 09/17/2025 at 03:05 PM QUALITY ASSURANCE TEST PROGRAM MANAGER Sign off status: Pending * Provider: Kerry HERNADEZ M.D Date: 0 11/17/2024 Generated for Darren yuan/Trey on: 11/17/2024 03:05 PM QUALITY ASSURANCE TEST PROGRAM MANAGER
--- OUTSIDE RECORDS SUMMARY | 2025-02-23 10:00 | XMS_ITS ---
Author Organization [facility] Address [address] [place] [address] Care Team Providers Care Tire Mounter Name Role Phone Marjorie Hernadez Unavailable [phone] Social History Sex Assigned At : Social History Observation Description Sex Assigned At Female Problems Problem Type SNOMED Code ICD Code Onset Dates Problem Status W/U Status Risk Notes Problem Chronic kidney disease stage 3B (disorder) (193795770) Chronic kidney disease, stage 3b (N18.32) Active confirmed Problem Hyperlipidemia (25566194) Hyperlipidemia, unspecified (E78.5) Active confirmed Encounters Encounter Location Date Provider Diagnosis [place] [facility] 2043 [facility] [address] [place] [address] 02/23/2025 Marjorie Hernadez Chronic kidney disea se, stage 3b N18.32 ; Type 2 diabetes mellitus with hyperglycemia E11.65 ; Essential (primary) hypertension I10 and Hyperlipidemia, unspecified E78.5 Assessments Encounter Date Diagnosis (ICD Code) Assessment Notes Treatment Notes Treatment Clinical Notes Section Notes 02/23/2025 Chronic kidney disease, stage 3b (ICD-10 - N18.32) 02/23/2025 Type 2 diabetes mellitus with hyperglycemia (ICD-10 - E11.65) 02/23/2025 Essential (primary) hypertension (ICD-10 - I10) 02/23/2025 Hyperlipidemia, unspecified (ICD-10 - E78.5) Plan Of Treatment Next Appt Details Provider Name:Marjorie Caden Christyzack padilla, 09/21/2025 02:45:00 PM, 2043 [facility], [facility] 15, [place], [address], Provider Name:Marjorie padilla, 10/19/2025 04:00:00 PM, 2043 [facility], [facility] [address] [place] [address], [address], Progress Notes * BISMARK VÁSQUEZOB:1945 ( 80 yo F)Acc No.[id number]:02/23/2025 Progress Notes Patient: ADDY AGUILERA Provider: Kerry HERNADEZ M.D :1945 A ge:79 Y S ex:Female Date:02/23/2025 Address:[address] [place], [place] [phone] Subjective: * Chief Complaints: * * Medical History: Objective: * Vitals: Assessment: * Assessment: 1. C hronic kidney disease, stage 3b - N18.32 (Primary) 2 . T ype 2 diabetes mellitus with hyperglycemia - E11.65 3 . E ssential (primary) hypertension - I10 4 . H yperlipidemia, unspecified - E78.5 Plan: * Treatment: * Billing Information: * Visit Code: 97008 Office Visit, Est Pt., Level 3. * Procedure Codes: * Electronic signature of Santiago Hernadez MD on 09/17/2025 at 03:05 PM LICENSING DIRECTOR Sign off status: Pending * Provider: Kerry HERNADEZ M.D Date: 0 02/23/2025 Generated for Darren yuan/Dharmesh/Debbiitting on: 11/17/2024 03:05 PM LICENSING DIRECTOR
--- OUTSIDE RECORDS SUMMARY | 2025-05-25 09:00 | XMS_ITS ---
Author Organization [facility] Address [address] [place] [address] Care Team Providers Care Fence Rider Name Role Phone Sade Hernadezhit Unavailable [phone] Social History Sex Assigned At : Social History Observation Description Sex Assigned At Female Encounters Encounter Location Date Provider Diagnosis [place] [facility] 2043 [facility] 15 [place] [address] 05/25/2025 Marjorie Hernadez Chronic kidney disea se, [...] Provider Name:Marjorie padilla, 09/21/2025 02:45:00 PM, 2043 [facility], [place], [address], Provider Name:Marjorie padilla, 10/19/2025 04:00:00 PM, 2043 [facility] [address], [place], [address], Progress Notes * BISMARK VÁSQUEZOB:1945 ( 80 yo F)Acc No.[id number]:05/25/2025 Progress Notes Patient: ADDY AGUILERA Provider: Kerry HERNADEZ M.D :1945 A ge:79 Y S ex:Female Date:05/25/2025 Address:[address] [place], [place] [address] Subjective: * Chief Complaints: * * Medical History: Objective: * Vitals: Assessment: * Assessment: 1. C hronic kidney disease, stage 3b - N18.32 (Primary) 2 . T ype 2 diabetes mellitus with hyperglycemia - E11.65 3 . E ssential (primary) hypertension - I10 4 . H yperlipidemia, unspecified - E78.5 Plan: * Treatment: * Billing Information: * Visit Code: 67920 Office Visit, Est Pt., Level 3. * Procedure Codes: * Electronic signature of Santiago Hernadez MD on 09/17/2025 at 03:06 PM SENIOR ENGINEERING TECHNICIAN Sign off status: Pending * Provider: Kerry HERNADEZ M.D Date: 0 05/25/2025 Generated for Darren yuan/Dharmesh/Akilasmitting on: 11/17/2024 03:06 PM SENIOR ENGINEERING TECHNICIAN
--- OUTSIDE RECORDS SUMMARY | 2025-09-17 15:06 | XMS_ITS | Clinical Summary ---
Author Organization [facility] Address [address] [place] [address] Care Team Providers Care Belt Lacer Name Role Phone Pancho Velazquez MD Primary Care Provider [phone] Allergies Active Allergy Reactions Criticality Noted Date Comments Amoxicillin Azithromycin Blue Dye Other (See comments) 06/18/2025 Yzmbibpvxv-Dtfqtpjb-Ehbmip erin Other (See comments) 06/18/2025 Buspirone Other [...] (100 mg total) by mouth daily. LOT# [id number] Exp. 03-22 100mg x4 boxes x5tab per [...] Do not swallow. 1 each 11 4 Active aspirin 81 mg capsule Take 2 [...] care Assessment & Plan (09/19/2024 11:33 AM ENGINE INSTALLER): She was never a never smoker and [...] dyspnea. I have chart notes from her top closer documenting an EF of 19% in April of 2025 Continued guideline directed medical therapy and Cardiology follow-up Assessment & Plan (04/02/2025 3:38 PM CDT): Her decompensated severe chronic systolic heart failure is certainly a contributing factor to her dyspnea. She had a recent echocardiogram with her top closer, I will call to request results. Her [...] follow-up Assessment & Plan (09/19/2024 11:34 AM ENGINE INSTALLER): Most of her symptoms are likely attributable [...] UNCNTRLD Assessment & Plan (10/25/2017 2:13 PM ENGINE INSTALLER): Hba1c was 8.8 today, indicating worsening DM [...] NOS Assessment & Plan (10/25/2017 2:14 PM ENGINE INSTALLER): Goal blood pressure is less than 140/85 Low salt diet recommended Daily aerobic exercise Assessment & Plan (07/20/2017 1:00 PM CDT): Controlled on current medications. Encounters Date Type Department Care Team Description 06/19/2025 Telephone [facility] at [address] [place] [address] Gladys Suarez CMA 06/18/2025 2:00 PM CDT Office Visit [facility] at [address] [place] [address] Abigail Cruz NP Moderate persistent asthma without complication (Primary Dx); Severe systolic congestive heart failure (HCC) from Last 3 Months Surgical History Surgery Date Site/Laterality Comments MASTECTOMY Mastectomy CARPAL TUNNEL RELEASE Carpal tunnel release CARDIAC PACEMAKER PLACEMENT 11/05/2008 - 11/04/2009 Cardiac pacemaker CHOLECYSTECTOMY Medical History Medical History Date Comments Hypertension Hypertension Hx Other Medical Knee surgery Malignant neoplasm of female breast (HCC) Cancer, breast Diabetes mellitus Diabetes Hx Other Medical TIA; Comments: [facility] 07/18/2016 - Hx Other Medical heart attack; C omments: [facility] 07/18/2016 - Hx Other Medical L knee surgery; Comments: [facility] 07/18/2016 - Pancreatitis 2016 Stroke (HCC) Kidney [...] on file Legal Sex Female 9:13 AM ENGINE INSTALLER Gender Identity Not on file Sexual Orientation Not on file Last Filed Vital Signs Vital Sign Reading [...] 07/06, 04/19/2017 Depression Screening 07/19/2018 07/19/2017, 04/19/20 Lipid Panel 07/25/2018 07/25/2017 Foot Exam 10/25/2018 10/25/2017 Influenza Vaccine (#1) 2025 3, 08/16/2022, 08/03/2021, Additional history exists Pneumococcal vaccine 65+ Completed 07/19/2015, 07/06 Procedures Procedure Name Priority Date/Time Associated Diagnosis Comments POCT GLYCOSYLATED HEMOGLOBIN (HGB A1C), HOME MONITOR Routine 10/25/2017 1:37 PM ENGINE INSTALLER Type 2 diabetes mellitus with hyperglycemia, without long-term current use of insulin (HCC) LIPID PANEL Routine 07/25/2017 3:14 PM CDT from Last 3 Months or Most Recently Relevant to Health Maintenance Results * POCT glycosylated hemoglobin (Hb A1C) (10/25/2017 1:37 PM ENGINE INSTALLER) Hemoglobin A1C, POC 8.8 Blood specimen (specimen) Venous blood specimen / Unknown 10/25/2017 1:37 PM ENGINE INSTALLER Ninfa Fernandez MD POINT OF CARE TEST ORDERABLES Fi nal Result * (ABNORMAL) Lipid panel (07/25/2017 3:14 PM CDT) SCRIBED Cholesterol, Total 260(A) 0 - 200 EXTERNAL LAB SCRIBED HDL 36(A) 39 - 100 EXTERNAL LAB SCRIBED LDL n/a 0 - 100 EXTERNAL LAB SCRIBED Triglycerides 602(A) 0 - 150 EXTERNAL LAB Blood specimen (specimen) Ninfa Fernandez MD LAB BLOOD ORDERABLES Edited Resu lt - Final EXTERNAL LAB from Last 3 Months or Most Recently Relevant to Health Maintenance Insurance [facility] MEDICARE ADVANTAGE Care Teams Belt Lacer Relationship Specialty Start Date End Date Pancho Velazquez MD PCP - General 02/02/17
--- OUTSIDE RECORDS SUMMARY | 2025-09-17 15:06 | XMS_ITS | Patient Health Record ---
Author Organization [facility] Address [address] [place] [address] Care Team Providers Care Publisher Assistant Name Role Phone Marjorie Manning Unavailable [phone] Reason For Referral No Information Medications Medication [...] Hyperglycemia due to type 2 diabetes mellitus (347590785202502) Type 2 diabetes mellitus with hyperglycemia (E11.65) Active confirmed Problem Vitamin D deficiency (43201729) Vitamin D deficiency, unspecified (E55.9) Active confirmed Problem Hyperlipidemia (43067379) Hyperlipidemia, unspecified (E78.5) Active confirmed Problem 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 and tophaceous disease (219129717) 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 and tophaceous disease (E79.0) Active confirmed Problem Essential hypertension (31826966) Essential (primary) hypertension (I10) Active confirmed Problem Chronic kidney disease stage 3 (disorder) (048906438) Chronic kidney disease, stage 3 unspecified (N18.30) Active confirmed Problem Chronic kidney disease stage 3A (disorder) (247664491) Chronic kidney disease, stage 3a (N18.31) Active confirmed Problem Chronic kidney disease stage 3B (disorder) (006030425) Chronic kidney disease, stage 3b (N18.32) Active confirmed Encounters Encounter Location Date Provider Diagnosis [facility] [address] [facility] [address] [place] [address] 02/23/2025 Marjorie Manning Chronic kidney disea se, stage 3b N18.32 ; Type 2 diabetes mellitus with hyperglycemia E11.65 ; Essential (primary) hypertension I10 and Hyperlipidemia, unspecified E78.5 [facility] [address] [facility] [address] [place] [address] 05/25/2025 Marjorie Manning Chronic kidney disea se, [...] E78.5) 02/23/2025 Hyperlipidemia, unspecified (ICD-10 - E78.5) Plan Of Treatment Next Appt Details Provider Name:Marjorie padilla, 09/21/2025 02:45:00 PM, [address] [facility], [address], [place], [address],
--- OUTSIDE RECORDS SUMMARY | 2025-09-17 15:07 | XMS_ITS | Data Portability ---
Author Organization [facility] [employer], Main Office Address [address] [place] [address] Care Team Providers Care Valve Pipe Irrigator Name Role Phone MANUEL VELAZQUEZ Primary Care Provider MANUEL VELAZQUEZ Referring Provider [phone] MANUEL VELAZQUEZ Primary Care Provider Assessment Encounter Date Assessment Date Assessment LastModified by Organization Details LastModified Time 09/10/2025 09/10/2025 The patient has new right knee pain with a mild knee joint effusion. Her x-rays show moderately severe primary osteoarthritis she denies any trauma or injury no signs of infection. We talked about treatment options for her right knee today in detail she wanted proceed with cortisone therefore under sterile conditions I injected the patient's right knee joint in the office with 4 cc of 0.5% bupivacaine and 20 mg of triamcinolone. The patient tolerated procedure well. The patient also has chronic low back pain and right hip trochanteric bursitis type pain we talked about treatment options for that in detail today she wanted proceed with cortisone both sites therefore under sterile conditions I injected the patient's right sacroiliac bursa and also the right hip trochanteric bursa in the office with 4 cc of 0.5% bupivacaine and 20 mg of triamcinolone each. The patient tolerated all 3 injections well today. I will see her back as needed if her symptoms worsen or change she will call. She requested a course of oral prednisone as she can not take NSAIDs she will take this for a short course keep an eye on her blood sugars. She voiced understanding agrees with the above plan she will call for any further problems difficulties or questions. [email or web address] Not available 09/10/2025 16:28:16 Plan of Treatment Reminders Order Date Submit Date Provider Last Modified By Organization Details Last Modified Time Details Appointments Any 15 2024 02:00P M Manuel Velazquez MD Not available Not available Not available Lab None recorded. Referral None recorded. Procedures injection /aspirati on joint/bur sa (PROC) 2024 025 [email or web address] In-Office Order, Internal Use Only DO Not Attach Compendium DO Not Attach Compendium, Do Not Delete/merge, [id number] 09/10/2025 15:25:48 injection /aspirati on joint/bur sa (PROC) 2024 025 [email or web address] In-Office Order, Internal Use Only DO Not Attach Compendium DO Not Attach Compendium, Do Not Delete/merge, [id number] 09/10/2025 15:25:48 injection /aspirati on joint/bur sa (PROC) 2024 025 [email or web address] In-Office Order, Internal Use Only DO Not Attach Compendium DO Not Attach Compendium, Do Not Delete/merge, [id number] 09/10/2025 15:25:48 Surgeries None recorded. Imaging XR, lumbar spine 2024 025 [email or web address] [facility] [place], [address] [facility] [address], [place], [address], 09/10/2025 16:30:57 XR, knee, 3 view 2024 025 [email or web address] [facility] [place], [address], [place], [address], 09/10/2025 16:33:34 MAMMO, screening , bilateral 2024 025 [email or web address] [facility], [address], [address] [address], [place], [address], 08/24/2025 12:21:53 Medication Orders bupivacai ne HCl 0.5 % (5 mg/mL) injection solution 2024 025 [email or web address] [facility], [address] [place] [address], [address], 09/10/2025 16:17:25 triamcino lone acetonide 40 mg/mL suspensio n for injection 2024 025 [email or web address] [facility] [address], [address], 09/10/2025 16:17:25 bupivacai ne HCl 0.5 % (5 mg/mL) injection solution 2024 025 [email or web address] [facility] [address], [address], 09/10/2025 16:17:25 triamcino lone acetonide 40 mg/mL suspensio n for injection 2024 025 [email or web address] [facility] [address], [address], 09/10/2025 16:17:25 bupivacai ne HCl 0.5 % (5 mg/mL) injection solution 2024 025 [email or web address] [facility] [address], [address], 09/10/2025 16:17:25 triamcino lone acetonide 40 mg/mL suspensio n for injection 2024 025 [email or web address] [facility] [address], [address], 09/10/2025 16:17:25 levofloxa palomo 500 mg tablet 2024 025 [email or web address] [facility] [address], [address], 03/09/2025 14:29:47 Patient TargetsNo targets recorded. 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 [email or web address] Not available 03/09/2025 15:00:16 Discussed medication compliance. Patient refusal of advise at this time. Discussed healthy diet. Patient will follow up with cardiology. Not available 03/09/2025 14:59:47 05/19/2025 [id number] looks like she had old stroke willing to take Plavix does not want to take any cho meds as rec has appt with neuro dr ratliff [email or web address] Not available 05/19/2025 14:49:55 Reason for Referral None Reported. Results Created Date Observation Date Name Description Value Unit Range Abnormal Flag Note LastModifiedBy Organization Detail LastModifiedTime 04/02/20 25 04/02/2025 US, echoc ardio gram, trans thora cic, compl ete, w/ color flow No observ ation record ed. [email or web address] Doe Middleton MD [address], [address], 04/07/2025 11:11:49 06/16/20 25 06/15/2025 US, thyro id No observ ation record ed. [email or web address] Not Available 2024 12:44:12 09/10/20 25 XR, lumba r spine No observ ation record ed. [email or web address] [facility] [place] [address], [place], [address], 09/10/2025 16:30:56 09/10/20 25 XR, knee, 3 view No observ ation record ed. [email or web address] [facility] [place] [address], [place], [address], 09/10/2025 16:33:33 Result Notes None recorded. Problems Name Problem SNOMED Code Status Onset Date Resolution Date Notes Provider Name and Address Organization Details Recorded Time Benign essentia l hyperten jered 3099839 Completed 07/16/2023 Cristel grijalva RMKerry null, [place] - [facility] [employer] [facility] 3 15:35:52 Cellulit is 243718810 Completed Not Available [facility] 3 03:03:22 Disorder of sacrum 00743801 Completed Not Available [facility] 3 03:03:22 Chronic back pain 602210904 Active Bulging disc lumber, thoraic, work related Not Available [facility] 3 16:45:06 Constipa tion 64445993 Completed Not Available [facility] 3 03:03:22 Anxiety disorder 594081137 Completed 07/16/2023 MARCO A Barajas null, [facility] [employer] [facility] 3 15:35:54 Localize d, 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 760989433 Completed Not Available [facility] 3 03:03:23 Abdomina l pain 29009948 Completed Not Available [facility] 3 03:03:23 Gastroes ophageal reflux disease 273749593 Active Not Available [facility] 3 16:45:06 Thyroid nodule 831405916 Active Not Available [facility] 3 16:45:06 Malignan t neoplasm of breast 815407722 Active s/p mastecto my Not Available [facility] 3 16:45:06 Edema 820548655 Completed Not Available [facility] 3 03:03:24 Eruption 022952086 Completed Not Available [facility] 3 03:03:24 Proteinu karon 81111348 Completed Not Available [facility] 3 03:03:24 Vaginiti s 77288538 Completed Not Available [facility] 3 03:03:24 Pain associat ed with prosthes is of hip joint 228196502 Completed Not Available [facility] 3 03:03:25 Sinusiti s 65518099 Completed ELAINA Abarca, [place] - [facility] [place] [employer] [facility] 4 09:12:59 Malignan t 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 Active right leg 15 years ago Not Available [facility] 3 16:45:06 Paronych ia of toe 079853973 Completed Not Available [facility] 3 03:03:26 Umbilica l hernia 064413256 Active Not Available [facility] 3 16:45:06 Rosacea 138076705 Active Not Available [facility] 3 16:45:06 Tinea cruris 612185736 Completed Not Available [facility] 3 03:03:26 Obesity 237763144 Active Not Available [facility] 3 16:45:06 Pain in eye 85878334 Completed Not Available [facility] 3 03:03:27 Furuncle 648149097 Completed Not Available [facility] 3 03:03:27 Itching of skin 902702630 Completed Not Available [facility] 3 03:03:27 Congesti ve heart failure 52890383 Active EF 15-20% Not Available [facility] 3 16:45:06 Pain of hip region 82766569 Completed Not Available [facility] 3 03:03:27 Dysuria 96335927 Completed Not Available [facility] 3 03:03:28 Upper respirat ory infectio n 86751000 Completed Not Available [facility] 3 03:03:28 Essentia l hyperten jered 35514435 Active Not Available [facility] 3 16:45:06 Disorder of coccyx 03368670 Completed Not Available [facility] 3 03:03:28 Allergic rhinitis 53327888 Completed Not Available [facility] 3 03:03:28 Urinary tract infectio us disease 97663941 Completed Not Available [facility] 3 03:03:28 Pancreat itis 28987193 Completed Not Available [facility] 3 03:03:29 Neck pain 72920735 Completed Not Available [facility] 3 03:03:29 Fatigue 86159091 Completed Not Available [facility] 3 03:03:29 Cardiomy opathy 43448997 Active s/p pace maker, ICD Not Available [facility] 3 16:45:06 Disorder of skin 99725626 Completed Not Available [facility] 3 03:03:30 Chest pain 26875354 Completed 201806/29/2022 Not Available [facility] 3 03:03:24 Acute sinusiti s 99657051 Completed 201906/29/2022 Manuel Velazquez MD [address] [place] [address], [address] [address], [place], [address] , [facility] [employer] [facility] 4 16:18:15 Bilatera l knee pain Completed 201906/29/2022 Not Available [facility] 3 03:03:22 Dyspnea 583305852 Completed 201906/29/2022 Not Available [facility] 3 03:03:24 Right medial elbow tendinop athy 59420493290 9109 Completed 202006/29/2022 Not Available [facility] 3 03:03:25 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 24095098 Completed 202006/29/2022 Not Available [facility] 3 03:03:25 Parotiti s 44449645 Completed 202006/29/2022 Not Available [facility] 3 03:03:22 Adhesive capsulit is of right shoulder 74590070873 9109 Completed 202006/29/2022 Not Available [facility] 3 03:03:24 Dependen ce on suppleme ntal oxygen 64069798199 7 Active 2021 Not Available [facility] 3 16:45:06 Irritabl e bowel syndrome 18574469 Active 2021 Not Available [facility] 3 16:45:06 Candidia sis of vagina 72907513 Completed 202106/29/2022 Not Available [facility] 3 03:03:29 Fatigue 35406285 Completed 202106/29/2022 Not Available [facility] 3 03:03:29 Right flank pain 824844725 Completed 202106/29/2022 Not Available [facility] 3 03:03:22 Seroposi tive rheumato id arthriti s 137699700 Active 2021 Not Available [facility] 3 16:45:06 Dyslipid emia 919617369 Active 2021 Not Available [facility] 3 16:45:06 Acute sinusiti s 69765899 Completed 202111/02/2022 Manuel Velazquez MD [address], [place], [address] , [employer] [facility] [employer] [facility] 4 16:18:15 Mammogra phy abnormal 406038277 Completed 202111/02/2022 Not Available [facility] 3 03:03:22 Deliveri es by 220581063 Active 2022 Not Available [facility] 3 16:45:06 Gestatio nal hyperten jered Completed 202207/16/2023 MARCO A Barajas, [employer] [facility] [employer] [facility] 3 15:35:17 Uncontro lled type 2 diabetes mellitus 066451958 Completed 202207/16/2023 Cristel grijalva RMKerry null, [employer] [facility] 3 15:35:01 Renal insuffic iency 976011251 Active 2022 Not Available [facility] 3 16:45:06 Thick sputum 105390647 Completed 202207/16/2023 Brent Donato MD [address], [place], [address] , [facility] 4 15:19:28 Diabetic peripher al neuropat hy 935306037 Active 2022 Not Available [facility] 3 16:45:06 COVID-19 606684250 Active 2022 Not Available [facility] 3 16:45:06 Congesti on of nasal sinus 07610069 Completed 202207/16/2023 Brent Donato MD [address], [place], [address] , [facility] 4 17:14:40 Anxiety 63386980 Active 2022 Paulina Kowalski MA null, [facility] 3 12:11:54 Fibromya lgia 907184197 Active 2023 Cristel grijalva RMA null, [facility] 4 14:59:00 Osteoart hritis 632084682 Active 2023 Cristel grijalva RMA null, [facility] 4 14:59:00 Mild persiste nt asthma 443358223 Active 2023 Brent Donato MD [address], [place], [address] , [facility] 4 16:34:05 Weakness of bilatera l lower limb Active 2023 Manuel Velazquez MD [address], [place], [address] , [facility] 4 15:44:46 Asthma 994837075 Active 2023 Manuel Velazquez MD [address], [place], [address] , [facility] 4 15:47:31 Candidia sis of skin 48404448 Active 2023 Cristel grijalva RMA null, [facility] 4 17:28:27 Diabetes mellitus 90846789 Active 2023 Cristel grijalva, RMA null, [place] [facility] [place] [facility] 4 15:40:44 Dyspnea on exertion 73499269 Active 2023 Cristel Burnetta n, RMA null, [place] [facility] [place] [facility] 4 15:40:44 Chronic obstruct anabela pulmonar y disease 28683451 Active 2023 Cristel Burnetta n, RMA null, [place] [facility] [place] [facility] 4 15:40:44 Kidney disease 92542657 Active 2023 Cristel grijalva, RMA null, [place] [facility] [place] [facility] 4 15:40:44 Acute sinusiti s 26712398 Active 2023 Manuel Velazquez MD [address], [place], [address] , [facility] 4 16:18:15 Impacted cerumen in left ear 06496780921 [address]57 Active 2023 Manuel Velazquez MD [address], [place], [address] , [facility] 4 16:19:04 Sinusiti s 09900853 Active 2023 Florida Richmond MA null, [facility] [place] [facility] 4 09:12:59 Abrasion and/or friction burn of skin 758105414 Active 2024 Manuel Velazquez MD [address], [place], [address] , [facility] 5 17:05:12 Low back pain 194316809 Active 2024 Paulina Parnell ATC L null, [place] [facility] [place] [facility] 5 14:39:00 Pain of hip region 68731173 Active 2024 Paulina Parnell ATC L null, [place] [facility] [place] [facility] 14:39:21 Bilatera l trochant damaris bursitis 33105470831 284219 Active 2024 Paulina Parnell ATC L null, [place] [facility] [place] [facility] 14:39:45 Pain in right sacroili ac joint 53524878440 541318 Active 2024 Paulina Parnell ATC L null, [place] [facility] [place] [facility] 14:40:20 Lumbar spondylo sis 655902562 Active 2024 Paulina Parnell ATC L null, [place] [facility] [place] [facility] 14:40:36 Pain of right knee region 06719161289 4105 Active 2024 Paulina Parnell ATC L null, [place] [facility] [place] [facility] 14:41:32 Primary gonarthr osis, saraa l 074206672 Active 2024 CAMILO Laws [address] [place] [address], [facility] [address], [place], [address] , [facility] [place] [facility] 16:33:58 Notes:Medical History: Rosac ea Anxiety/Depression Migraine headaches [...] placements 2008, 2016, 2023 Occupational History: Retired [employer] Problem Notes Documentation Provider Name and Address Organization Details Recorded Time Orthopedic Consult Note : [facility] [employer] [facility] [address], [place] [address]PQL[place], Sandra J (id #[id number], : 1945) Documents sent via fax will include the following message: This fax may contain sensitive and confidential personal health information that is being sent for the sole use of the intended recipient. Unintended recipients are directed to securely destroy any materials received. You are hereby notified that the unauthorized disclosure or other unlawful use of this fax or any personal health information is prohibited. To the extent patient information contained in this fax is subject to 42 CFR Part 2, this regulation prohibits unauthorized disclosure of these records. If you received this fax in error, please visit [email or web address] to notify the sender and confirm that the information will be destroyed. If you do not have internet access, please call to notify the sender and confirm that the information will be destroyed. Thank you for your attention and cooperation. [ID:[id number]] , Date: 09/10/2025RE: An Guevara MD, I would like to thank you for referring Eloina Vásquez to me for consultation and evaluation of Bilateral osteoarthritis of the knee, Bilateral knee pain, Low back pain , on 09/10/2025. I have enclosed a copy of the office assessment and plan for your records. Once again, thank you for allowing me to participate in the care of this patient. Sincerely, Electronically Signed by: CAMILO LAWS, PATTI Assessment/Garry patient has new right knee pain with a mild knee joint effusion. Her x-rays show moderately severe primary osteoarthritis she denies any trauma or injury no signs of infection. We talked about treatment options for her right knee today in detail she wanted proceed with cortisone therefore under sterile conditions I injected the patient's right knee joint in the office with 4 cc of 0.5% bupivacaine and 20 mg of triamcinolone. The patient tolerated procedure well.The patient also has chronic low back pain and right hip trochanteric bursitis type pain we talked about treatment options for that in detail today she wanted proceed with cortisone both sites therefore under sterile conditions I injected the patient's right sacroiliac bursa and also the right hip trochanteric bursa in the office with 4 cc of 0.5% bupivacaine and 20 mg of triamcinolone each. The patient tolerated all 3 injections well today. I will see her back as needed if her symptoms worsen or change she will call. She requested a course of oral prednisone as she can not take NSAIDs she will take this for a short course keep an eye on her blood sugars. She voiced understanding agrees with the above plan she will call for any further problems difficulties or questions. 1.Bilateral low back pain, unspecified chronicity, unspecified whether sciatica nqtndxdB06.50: Low back pain, unspecified XR, LUMBAR SPINE 2.Bilateral hip painM25.551: Pain in right hip M25.552: Pain in left hip 3.Trochanteric bursitis of both hips- EgpzkqcmqB31.61: Trochanteric bursitis, right hip M70.62: Trochanteric bursitis, left hip bupivacaine HCl 0.5 % (5 mg/mL) injection solution - Take 20 mg by injection route. Quantity: (20) mg Lot #: [id number] Route: Injection Exp Date: 08/05/2027 Administered INJECTION/ASPIRATION JOINT/BURSA (PROC) triamcinolone acetonide 40 mg/mL suspension for injection - Take 0.5 mL by injection route. Quantity: (0.5) mL Lot #: [id number] Exp Date: 04/05/2026 Administered 4.Pain of right sacroiliac fcflxK56.3: Sacrococcygeal disorders, not elsewhere classified bupivacaine HCl 0.5 % (5 mg/mL) injection solution - Take 20 mg by injection route. Quantity: (20) mg Lot #: [id number] Route: Injection Exp Date: 08/05/2027 Administered INJECTION/ASPIRATION JOINT/BURSA (PROC) triamcinolone acetonide 40 mg/mL suspension for injection - Take 0.5 mL by injection route. Quantity: (0.5) mL Lot #: [id number] Exp Date: 04/05/2026 Administered 5.Lumbar nolhzainqbiO56.816: Spondylosis without myelopathy or radiculopathy, lumbar region 6.Right knee pain, unspecified gvgijkircpR16.561: Pain in right knee XR, KNEE, 3 VIEW Side: RIGHT bupivacaine HCl 0.5 % (5 mg/mL) injection solution - Take 20 mg by injection route. Quantity: (20) mg Lot #: [id number] Route: Injection Exp Date: 08/05/2027 Administered INJECTION/ASPIRATION JOINT/BURSA (PROC) triamcinolone acetonide 40 mg/mL suspension for injection - Take 0.5 mL by injection route. Quantity: (0.5) mL Lot #: [id number] Exp Date: 04/05/2026 Administered 7.Primary osteoarthritis of both knees- EfyndfgphJ82.0: Bilateral primary osteoarthritis of knee XR, LUMBAR SPINE X-rays done today in the office as read by nv AP pelvis AP lateral lumbar spine the spot view of the sacrum demonstrates moderately severe primary osteoarthritis of both femoroacetabular joints. The right and left both show hypertrophic bone formation off the superior lateral edge of the acetabuli. The right femoral head shows a small subchondral cyst without evidence of collapse along the superior weight-bearing surface. Moderate sclerotic changes noted throughout the hip joints bilaterally. The left hip shows similar findings without significant cystic formation. Bilateral trochanteric regions are fairly unremarkable. No evidence of fracture lesion mass is seen in the pelvis. Lumbar spine shows bridging hypertrophic changes anteriorly particularly at L3-4 and L2-3. There is significant narrowing of the intervertebral disc spaces more in the thoracic lower regions. No spondylolisthesis is noted. There appears there may be some loss of the vertebral body height at T11 this does not appear to be acute. X-rays are otherwise unremarkable. XR, KNEE, 3 VIEW Side: RIGHT X-rays done today in the office as read by nv AP lateral skyline view right knee demonstrates moderately severe narrowing of the tibial femoral articulations medially and laterally. Patellofemoral articulation shows essentially asbx-xf-temj changes lateral facet with mild osteophyte formation off the medial and lateral edges of the patellofemoral articulation. The left knee actually shows more advanced xaee-fd-lftf changes in the medial compartment along the edge as well as hypertrophic spurring off the lateral joint line. The left patellofemoral articulation is also yqtt-nb-wgje off the lateral facet with hypertrophic changes more significantly medially and laterally then the right patellofemoral articulation. No recent x-rays were available for comparison x-rays done 3 years ago show fairly similar findings. Return to Office Manuel Velazquez MD for Any 15 at [facility] on 09/17/2025 at 02:00 PM SAMANTHA Acevedo [address] [facility], [facility] [address], [place], [address], [facility] [employer] [facility] 09/11/2025 08:52:36 Procedures Surgical History Date Name Laterality Status Provider Name and Address Organization Details Recorded Time Pacemaker completed Not Available [facility] 0 01/03/2023 02:55:59 lumpectomy of left breast completed Not Available [facility] 01/03/2023 02:55:59 [facility]opedic [facility] 02:55:59 other completed Not Available [facility] 11/2022 02:55:59 tonsillectomy completed Not Available [facility] [facility] 02:55:59 Masectomy completed Not Available [facility] 0 01/03/2023 02:55:59 Ingrown Toenail completed Not Available [facility] 01/03/2023 02:55:59 Imaging Results None recorded. Procedure Notes None recorded. Medical Equipment None Reported. Allergies Allergen ID Allergen Name Allergen Category Reaction Reaction Severity Criticality Documentation Date Start Date Code Code System Note Provider Name and Address Organization Details Recorded Time 5495 yellow dye medicatio n Not available Not available Not available 01/03/2023 Not Available [facility] 3 03:13:31 5496 Substance with tetracycl ine structure (substanc e) medicatio n Not available Not available Not available 01/03/2023 03019 8001 SNOMED Not Available [facility] 3 03:13:31 5497 red dye food,medi cation Not available Not available Not available 01/03/2023 Not Available [facility] 3 03:13:31 5498 Product containin g penicilli n (product) medicatio n Not available Not available Not available 01/03/2023 35500 8001 SNOMED Not Available [facility] 3 03:13:31 5499 nystatin medicatio n Not available Not available Not available 01/03/2023 7597 RxNorm cream for funga l- Nysta tin made it worse Not Available [facility] 3 03:13:31 5500 nickel environme nt Not available Not available Not available 01/03/2023 37774 29 RxNorm Not Available [facility] 3 03:13:31 5501 neomycin medicatio n Not available Not available Not available 01/03/2023 7299 RxNorm Not Available [facility] 3 03:13:31 5502 Mucinex medicatio n [facility] Not available Not available 01/03/2023 20372 7 RxNorm Not Available [facility] 3 03:13:31 5503 Keflex medicatio n Not available Not available Not available 01/03/2023 72677 7 RxNorm Not Available [facility] 3 03:13:31 5504 iodine medicatio n Not available Not available Not available 01/03/2023 5933 RxNorm Not Available [facility] 3 03:13:31 5505 Iodinated contrast media (substanc e) medicatio n Not available Not available Not available 01/03/2023 49531 2004 SNOMED Not Available [facility] 3 03:13:31 5506 Ceftin medicatio n Not available Not available Not available 01/03/2023 01465 6 RxNorm Not Available [facility] 3 03:13:31 5507 Buspar medicatio n Not available Not available Not available 01/03/2023 84291 0 RxNorm Not Available [facility] 3 03:13:31 5508 blue dye medicatio n Not available Not available Not available 01/03/2023 Not Available [facility] 3 03:13:32 5509 Biaxin medicatio n Not available Not available Not available 01/03/2023 80833 9 RxNorm Not Available [facility] 3 03:13:32 5510 Bevespi medicatio n Not available Not available Not available 01/03/2023 42613 40 RxNorm Gives her the shake s Not Available [facility] 3 03:13:32 5511 Betadine medicatio n Not available Not available Not available 01/03/2023 85023 0 RxNorm Not Available [facility] 3 03:13:32 5512 Bactrim medicatio n Not available Not available Not available 01/03/2023 23362 9 RxNorm Not Available [facility] 3 03:13:32 5513 Anoro medicatio n Not available Not available Not available 01/03/2023 99901 20 RxNorm gives her the shake s Not Available [facility] 3 03:13:32 5514 amoxicill in medicatio n Not available Not available Not available 01/03/2023 723 RxNorm Not Available [facility] 3 03:13:32 5515 clindamyc in Not available Not available Not available Not available 01/03/2023 2582 RxNorm Not Available [facility] 3 03:13:32 22751 Breztri medicatio n Not available Not available Not available 02/28/2023 45851 25 [facility] [employer] 3 15:25:51 05127 ciproflox acin medicatio n other Not available Not available 02/11/2024 2551 RxNorm contr aindi catio n to heart med Corla nor [facility] [employer] 4 16:02:40 72960 Cymbalta medicatio n Not available Not available Not available 09/02/2024 43241 4 RxNorm [facility] [employer] 4 15:46:01 Medications Name Sig Start Date [...] Not Available atorvasta tin 80 mg tablet 05/19 completed cardiolo gy Not Available Not Available Not Available nystatin 100,000 unit/mL oral suspensio n 04/12 completed Not Available Not Available Not Available potassium chloride ER 10 mEq capsule,e xtended release 05/06 completed does not take every day. Not Available Not Available Not Available carvedilo l 6.25 mg tablet TAKE 1 TABLET BY MOUTH TWICE A DAY 05/19 completed Not Available Not Available Not Available prednison e 10 mg tablet 02/03 [...] completed Not Available Not Available Not Available bupivacai ne HCl 0.5 % (5 mg/mL) injection solution Take 20 mg by injectio n route. 2024 active Not Available Not Available Not Avai lable prednison e 20 mg tablet Take 1 [...] Not Available clopidogr el 75 mg tablet 05/19 completed cardiolo gy Not Available Not Available Not [...] COAT TO AFFECTED AREA TWICE A DAY 05/06 completed Not Available Not Available Not Available spironola ctone 25 mg tablet 12/03 [...] mg by injectio n route. 02/09 completed [facility]: [phone] Not Available Not Available Not Available amitripty line 10 mg tablet TAKE 2 TABLETS (20MG) BY MOUTH EVERYDAY AT BEDTIME 02/06 completed Not Available Not Available Not Available benzonata te 100 mg capsule Take 1 capsule 3 times a day by oral route. 04/25 completed Not Available Not Available Not Available triamcino lone acetonide 40 mg/mL suspensio n for injection Take 0.5 mL by injectio n route. 2024 active Not Available Not Available Not Avai lable econazole nitrate 1 % topical cream Apply [...] PLEASE SEE ATTACHED FOR DETAILED DIRECTIO NS 09/10 completed cardiolo gy Not Available Not Available Not [...] by sublingu al route for 90 days. 05/06 completed Not Available Not Available Not Available pravastat in 20 mg tablet Take [...] completed Not Available Not Available Not Available azelastin e 137 mcg (0.1 %) nasal spray SPRAY 1-2 SPRAYS IN EACH NOSTRIL EVERY 12 HOURS. AIM BACK/UP/ OUT. active Not Available Not Available No t Available hydroxych loroquine 200 mg tablet TAKE 2 TABLETS BY MOUTH EVERY DAY 09/25 completed CURRENTL Y STOPPED 07/31/23 Not Available Not Available Not Available levofloxa palomo 500 mg tablet TAKE 1 TABLET BY MOUTH EVERY DAY FOR 7 DAYS 09/07 completed Not Available Not Available Not Available [...] DROP INTO BOTH EYES TWICE A DAY 05/19 completed Not Available Not Available Not Available OraMagicR x mouthwash Take 15 mL [...] 1 TABLET BY MOUTH TWICE A DAY 05/19 completed Not Available Not Available Not Available ORTHOVISC 30 mg/2 mL intra-art icular syringe Injectio ns given in the office by the doctor 07/06 completed [facility]: [phone] Not Available Not Available Not Available duloxetin e 20 mg capsule,d elayed release TAKE 1 CAPSULE BY ONCE A DAY 05/19 completed Not Available Not Available Not Available duloxetin e 30 mg capsule,d elayed release Take 1 capsule every day by oral route in the morning for 90 days. 04/04 completed Not Available Not Available Not Available Flovent HFA 110 mcg/actua tion aerosol inhaler Inhale 2 puffs twice a day by inhalati on route. 05/19 completed Not Available Not Available Not Available Metrogel 1 % topical APPLY TO THE [...] n administ ered by the provider active [facility]: [phone] 04-21 Not Available Not Available Not Available Januvia 25 mg tablet Take 1 tablet every day by oral route in the morning for 30 days. 08/25 completed Not Available Not Available Not Available Symbicort 80 mcg-4.5 mcg/actua tion HFA aerosol inhaler INHALE 2 PUFFS BY MOUTH 2 TIMES A DAY RINSE MOUTH WITH WATER AFTER USE. DO NOT SWALLOW. 05/06 completed Not Available Not Available Not Available potassium gluconate 595 mg (99 mg) tablet 08/25 completed Not Available Not Available Not Available Mucinex 1,200 mg tablet, extended release Take 1 tablet twice a day by oral route as directed for 30 days. 05/05 completed Not Available Not Available Not Available Probiotic qd 08/25 completed Not Available Not Available Not Available Orencia 125 mg/mL subcutane ous syringe 05/19 completed Not Available Not Available Not Available Contour Next Test Strips USE 4 TIMES A DAY active Not Available Not Available No t Available Vascepa 1 gram capsule Take 2 [...] in the office by the doctor active [facility]: [phone] 44-1 Not Available Not Available Not Available Bevespi Aerospher e 9 mcg-4.8 mcg HFA aerosol inhaler INHALE 2 PUFFS INTO THE LUNGS TWICE A DAY DIRECTED FOR 30 DAYS 07/06 completed Not Available Not Available Not Available Contour Next One Meter USE TO CHECK BLOOD SUGAR DIRECTED active Not Available Not Available No t Available Qvar RediHaler 40 mcg/actua tion HFA [...] Updated DateTime 5 167.64 cm 30.3 kg/m2 54067.3 7 g 97.6 [degF] 72 /min 98 % 98 % Kiesha ford [facility] [employer] [facility] 5 14:52:15 Date Recorded Body height Body mass index (BMI) Body weight Body temperature Heart rate Oxygen saturation Oxygen saturation in Arterial blood by Pulse oximetry Systolic And Diastolic Provider Name and Address Organization Details Last Updated DateTime 5 167.64 cm 30.7 kg/m2 77369.5 5 g 97.4 [degF] 74 /min 96 % 96 % 120/70 mm[Hg] Cristel arreola Kerry [facility] [employer] [facility] 5 14:21:18 Date Recorded Body height Body mass index (BMI) Body weight Body temperature Heart rate Oxygen saturation Oxygen saturation in Arterial blood by Pulse oximetry Systolic And Diastolic Provider Name and Address Organization Details Last Updated DateTime 5 167.64 cm 29.9 kg/m2 90575.5 9 g 97.6 [degF] 87 /min 96 % 96 % 128/82 mm[Hg] Kiesha ford [facility] [employer] [facility] 5 16:47:42 Date Recorded Body height Body mass index (BMI) Body weight Body temperature Heart rate Oxygen saturation Oxygen saturation in Arterial blood by Pulse oximetry Systolic And Diastolic Provider Name and Address Organization Details Last Updated DateTime 5 167.64 cm 30.7 kg/m2 79212.5 5 g 97.6 [degF] 82 /min 97 % 97 % 116/70 mm[Hg] Cristel arreola Kerry [facility] [employer] [facility] 5 14:45:49 Date Recorded Body height Body mass index (BMI) Body weight Provider Name and Address Organization Details Last Updated DateTime 09/10/2025 167.64 cm 31.3 kg/m2 43670.92 g Paulina Parnell [facility] [place] [employer] [facility] 09/10/2025 14:36:38 Social History Question Answer Notes LastModified by Organizat ion Details LastModified Time Tobacco Smoking Status Never Smoker Not Available [employer] 01/03/2023 02:53:40 Do You Have An Advance Directive? Yes MIGRATION.85650 59190 Information not available 01/03/2023 Are You Blind Or Do You Have Difficulty Seeing? No MIGRATION.94029 03227 Information not available 01/03/2023 What Is Your Level Of Caffeine Consumption? Moderate MIGRATION.16292 38919 Information not available 01/03/2023 How Much Tobacco Do You Chew? None MIGRATION.91983 47791 Information not available 01/03/2023 In The 14 Days Before Symptom Onset, Have You Had Close Contact With A Laboratory-confir med COVID-19 While That Case Was Ill? No MIGRATION.49576 93851 Information not available 01/03/2023 In The 14 Days Before Symptom Onset, Have You Had Close Contact With A Person Who Is Under Investigation For COVID-19 While That Person Was Ill? No MIGRATION.67450 44822 Information not available 01/03/2023 Are You Deaf Or Do You Have Serious Difficulty Hearing? No MIGRATION.64474 47487 Information not available 01/03/2023 What Type Of Diet Are You Following? REGULAR MIGRATION.34497 04773 Information not available 01/03/2023 Which Illicit Or Recreational Drugs Have You Used? None MIGRATION.98195 95412 Information not available 01/03/2023 Do You Have An Electrostatic Air Filter? Yes MIGRATION.19043 90558 Information not available 01/03/2023 Are There Any Guns Present In Your Home? No MIGRATION.21912 69344 Information not available 01/03/2023 Where Do You Live? [place] MIGRATION.09716 65097 Information not available 01/03/2023 Do You Have A Medical Power Of Dairy Products Maker? Yes MIGRATION.49019 93357 Information not available 01/03/2023 Do You Have Moisture Problems In Your Home? No MIGRATION.33286 66456 Information not available 01/03/2023 What Was The Date Of Your Most Recent Tobacco Screening? 09/07/2021 MIGRATION.40892 50700 Information not available 01/03/2023 Do You Have Any Pets? Yes MIGRATION.87672 42998 Information not available 01/03/2023 What Is Your Relationship Status? MIGRATION.86268 57119 Information not available 01/03/2023 Do You Use Your Seat Belt Or Car Seat Routinely? Yes MIGRATION.57626 02392 Information not available 01/03/2023 Do You Have Smoke And Carbon Monoxide Detectors In Your Home? Yes MIGRATION.86015 64965 Information not available 01/03/2023 Are You Passively Exposed To Smoke? No MIGRATION.67611 89765 Information not available 01/03/2023 Do You Use Sunscreen Routinely? No MIGRATION.65916 28742 Information not available 01/03/2023 Have You Recently Traveled Abroad? No MIGRATION.74024 33324 Information not available 01/03/2023 Do You Have Difficulty Walking Or Climbing Stairs? Yes MIGRATION.90074 31165 Information not available 01/03/2023 Sex: Female Functional Status Question Answer Note LastModified by OrganExmove[employer] ion Details LastModified Time Do you use any illicit or recreational drugs? No MIGRATION.426155 2068 Information not available 01/03/2023 What is your level of alcohol consumption? None MIGRATION.782667 5816 Information not available 01/03/2023 Do you or have you ever used smokeless tobacco? Never used smokeless tobacco MIGRATION.044121 9406 Information not available 01/03/2023 Do you have transportation difficulties? No MIGRATION.178798 5769 Information not available 01/03/2023 Are you able to walk independently without assistance or assistive devices? YESASSIST MIGRATION.177071 5813 Information not available 01/03/2023 Do you have difficulty doing errands alone? No MIGRATION.200007 6199 Information not available 01/03/2023 Are you able to care for yourself independently? Yes MIGRATION.724522 2259 Information not available 01/03/2023 What is your occupation? RETIRED MIGRATION.047966 2694 Information not available 01/03/2023 Do you have difficulty dressing, bathing, grooming, or toileting? No MIGRATION.850662 8023 Information not available 01/03/2023 Do you or have you ever used e-cigarettes or vape? Never used electronic cigarettes MIGRATION.112418 0644 Information not available 01/03/2023 What is your exercise level? None MIGRATION.021744 5190 Information not available 01/03/2023 Mental Status Question Answer Note LastModified by Organizat ion Details LastModified Time Do you have difficulty concentrating, remembering or making decisions? No MIGRATION.023500444 6 Information not available 01/03/2023 Family History Relationship Description Onset Age of this Age Resolved Age Notes LastModified by Organization Details LastModified Time Paternal Grandfather Diabetes mellitus MIGRATION.611 [id number] Not available 01/03/2023 02:56:05 Paternal Grandfather Essential hypertension MIGRATION.275 1396003 Not available 01/03/2023 02:56:05 Father Diabetes mellitus MIGRATION.873 [id number] Not available 01/03/2023 02:56:05 Father Essential hypertension MIGRATION.958 8079964 Not available 01/03/2023 02:56:05 Father Malignant neoplasm of prostate MIGRATION.414 [id number] Not available 01/03/2023 02:56:05 Mother Diabetes mellitus MIGRATION.411 2587051 Not available 01/03/2023 02:56:05 Mother Essential hypertension MIGRATION.800 4648612 Not available 01/03/2023 02:56:05 Brother Malignant neoplasm of colon MIGRATION.361 7480175 Not available 01/03/2023 02:56:05 Father Heart disease [...] HAVE YOU BEEN HOSPITALIZED OR SEEN IN [facility] ER IN THE PAST YEAR ? Y ATHEROSCLEROSIS N BREAST PROBLEMS N HERNIATED DISC N DIALYSIS N FIBROMYALGIA N OSTEOPOROSIS Y ARTHRITIS Y NO SIGNIFICANT PAST MEDICAL HISTORY N DIABETES, TYPE Y SEASONAL ALLERGIES N HEARTBURN / REFLUX N PLEURISY N ADD/ADHD N Bronchoscopy N HEPATITIS / LIVER DISEASE N PULMONARY DISEASE Y GOUT Y SLEEP DISORDER N ALZHEIMER'S DISEASE N FATIGUE [...] PF 3 completed Not Available [facility] 07/27/2023 00:56:29 Influenza, high-dose, quadrivalent, PF 1 completed Not Available [facility] 07/27/2023 00:56:29 Pneumococcal conjugate PCV 13 5 completed Not Available [facility] 07/27/2023 00:56:29 Influenza, high-dose, quadrivalent, PF 0 completed Not Available [facility] 07/27/2023 00:56:29 Influenza, high-dose, trivalent, PF 8 completed Not Available [facility] 07/27/2023 00:56:29 Influenza, high-dose, trivalent, PF 6 completed Not Available [facility] 07/27/2023 00:56:29 Influenza, high-dose, trivalent, PF 7 completed Not Available [facility] 07/27/2023 00:56:29 pneumococcal polysaccharide PPV23 5 completed Not Available [facility] 07/27/2023 00:56:29 Influenza, high-dose, trivalent, PF 9 completed Not Available [facility] 07/27/2023 00:56:29 Past Encounters Encounter ID Performer Location Encounter Start Date Encounter Closed Date Diagnosis/Indication Diagnosis SNOMED-CT Code Diagnosis ICD10 Code Diagnosis IMO Codes Diagnosis Note [id number] MD LOUISA Negron IGRATION_ DEFAULT_1 _1 , 02/03/2021 00:00:00 02/03/2021 18:46:06 [id number] Beto King MD [facility] [place] [address] [facility] [address] [place] [address] 02/15/2021 00:00:00 02/15/2021 15:53:43 [id number] Manuel Velazquez MD [facility] [address] [address] 03/10/2021 00:00:00 03/10/2021 17:29:31 [id number] [facility] [address] [address] 03/22/2021 00:00:00 03/22/2021 16:50:39 [id number] MD LOUISA Negron IGRATION_ DEFAULT_1 _1 , 05/05/2021 00:00:00 05/05/2021 18:45:23 [id number] Manuel Velazquez MD [facility] [address] [place] [place] [address] 06/30/2021 00:00:00 06/30/2021 17:35:42 [id number] [facility] [place] [address] [place] [address] 08/03/2021 00:00:00 08/03/2021 16:59:33 [id number] MD LOUISA Negron IGRATION_ DEFAULT_1 _1 , 08/25/2021 00:00:00 08/25/2021 17:40:18 [id number] [facility] [place] [address] [place] [address] 09/07/2021 00:00:00 09/07/2021 16:19:53 [id number] Beto King MD [facility] [place] [address] [place] [address] 09/20/2021 00:00:00 09/20/2021 15:32:48 [id number] Beto King MD [facility] [place] [address] [place] [address] 10/04/2021 00:00:00 10/04/2021 15:23:14 [id number] Manuel Velazquez MD [facility] Internal [facility] [address] [place] [address] 10/06/2021 00:00:00 10/06/2021 17:37:08 [id number] Beto King MD [facility] [place] [address] [place] [address] 10/11/2021 00:00:00 10/11/2021 15:27:35 [id number] Beto King MD [facility] [place] [address] [place] [address] 10/18/2021 00:00:00 10/18/2021 16:17:34 [id number] Beto King MD [facility] [place] [address] [place] [address] 10/25/2021 00:00:00 10/25/2021 15:33:42 [id number] Beto King MD [facility] [place] [address] [place] [address] 11/01/2021 00:00:00 11/01/2021 15:23:37 [id number] Krissy Hayward MD _ATHNABIL_ IGRATION_ DEFAULT_1 _1 , 12/01/2021 00:00:00 12/01/2021 18:06:05 [id number] [facility] [place] [address] [place] [address] 12/05/2021 00:00:00 12/05/2021 21:23:42 [id number] Manuel Velazquez MD [facility] Internal [facility] [address] [facility] [place] [address] 03/02/2022 00:00:00 03/02/2022 16:32:51 [id number] [facility] _ATHENA_M IGRATION_ DEFAULT_1 _1 , 03/30/2022 00:00:00 03/30/2022 17:21:31 [id number] [facility] [place] [address] [place] [address] 04/04/2022 00:00:00 04/04/2022 16:03:45 [id number] EMMA Woodruff [facility] [place] [address] [place] [address] 05/17/2022 00:00:00 05/17/2022 15:56:16 [id number] Manuel Velazquez MD [facility] Internal [facility] [address] [place] [address] 07/06/2022 00:00:00 07/06/2022 15:34:22 [id number] EMMA Woodruff [facility] [place] [address] [place] [address] 08/30/2022 00:00:00 08/30/2022 16:39:05 [id number] Krissy Hayward MD [facility] [place] [address] [place] [address] 09/07/2022 00:00:00 09/07/2022 20:13:28 [id number] EMMA Woodruff [facility] [place] [address] [place] [address] 02/28/2023 15:03:29 03/02/2023 08:32:13 Thick sputum 881685264 R09.3 Start flutter valve Chronic ob structive pulmonary disease 46213746 J44.9 Mild expiratory coving on original PFT, [...] all normalMult ifactoral Dependence on supplemental oxygen 3969906999 07 Z99.81 2 liters with sleepDiscu ssed the risks of hypoxia, including [id number] Krissy Hayward MD [facility] [place] [address] [place] [address] 03/02/2023 15:32:41 03/02/2023 16:41:10 Well controlled type 2 diabetes mellitus 538211104 E11.9 a1c of 6.6%- sugars are running [...] Recommende d patient to utilize the diabetesfo [employer].Syntaxin from the ADA website to help with food preparatio n as this presents ideal carb content per meal so this will make carb counting much easier for patient. Recommende d she incorporat e natural insulin stock house worker s such as pears, apples, cinnamon, jose david and sweet potatoes to help mobilize her endogenous insulin. Recommende d up to 150 minutes of moderate level activity/e xercise weekly. Dyslipidemia 422915368 E 78.5 Continue rosuvastat in -patient encouraged to take daily as she has been inconsiste nt as a result LDL is not in ideal range. Diabetic p eripheral neuropathy 556811096 E11.40 Will change her duloxetine to once [...] she chooses to go outside of the [facility] system to obtain labwork she was [...] in her case. She voiced understand ing. [id number] Manuel Velazquez MD [facility] [address] [facility] [place] [address] 07/16/2023 15:15:43 07/16/2023 16:12:44 Diabetes mellitus 70191419 E11.9 under control Congestive heart failure 30793402 I50.9 Farxiga 5 mg , samples Dyspnea on exertion 6084 5006 R06.09 on o2 prn Essential hypertension 80730258 I10 under control Fibromyalgia 524149630 M 79.7 Gastroesop hageal reflux disease 592161681 K21.9 stable Irritable bowel syndrome 58860540 K58.9 watching diet Kidney disease 13069631 N08 seeing nephrology u Malignant neoplasm of breast 422199839 C50.919 nl ultra sound Obesity 264522744 E66.9 has Osteoarthritis 444614525 M19.90 Thyroid nodule 726189201 E04.1 Umbilical hernia 1620746 07 K42.9 Diabetic p eripheral neuropathy 744609147 E11.40 Chronic ob structive pulmonary disease 68454789 J44.9 stable Chronic back pain 320273 002 G89.29 otc tylenol Adult heal th examination 841833759 Z00.00 COVID-19 925517215 U07.1 has recovered Cardiomyopathy 46126857 I42.9 on meds [id number] Krissy Hayward MD [facility] [place] [address] [place] [address] 07/31/2023 15:55:40 08/01/2023 13:58:30 Well controlled type 2 diabetes mellitus 695127791 E11.9 a1c of 6.3% down from 6.7% [...] to endocrinol ogy per patient request. Dyslipidemia 174447091 E 78.5 patient encouraged to restart rosuvastat [...] answered and refills necessary at visit today. [id number] Manuel Velazquez MD [facility] Internal Med [facility] [address] [facility] [place] [address] 08/13/2023 15:03:47 08/13/2023 15:35:39 Contusion [id number] T14.8XXA bruise due to being on asa, reassured Impacted c erumen of bilateral ears [id number] 314603 H61.23 she is going to see ENT [id number] Abigail Cruz, COMPUTER SECURITY SPECIALIST-[facility] Pulmonolo gy [place] [address] [place] [address] 08/31/2023 15:34:18 08/31/2023 16:23:48 Chronic obstructive pulmonary disease 94384604 J44.9 Mild expiratory coving on original PFT, [...] follow up in 6 months Thick sputum 219590699 R 09.3 Continue flutter valve Dyspnea on exertion 6084 5006 R06.09 Quantifero n GOLD, IGE, IGGs, RAST, Alpha 1 all normalMult ifactoral Dependence on supplemental oxygen 9313778075 07 Z99.81 2 liters with sleepDiscu ssed the risks of hypoxia, including [id number] Manuel Velazquez MD [facility] Internal Med [address] [facility] [place] [address] 09/25/2023 14:01:18 09/25/2023 14:36:17 Insomnia 063314934 G47.00 Neuropathy due to diabetes mellitus 970759934 E11.40 try low dose duloxetine [id number] Manuel Velazquez MD [facility] Internal Med [address] [facility] [place] [address] 11/15/2023 15:30:20 11/15/2023 16:12:14 Diabetes mellitus 66756502 E11.9 under control, keep taking Glimepride , has not seen new endo yet Congestive heart failure 99757244 I50.9 Farxiga 5 mg , samples were given, did not take, does not want to take Dyspnea on exertion 6084 5006 R06.09 on o2 prn Essential hypertension 91120154 I10 under control Fibromyalgia 676720609 M 79.7 Gastroesop hageal reflux disease 781770929 K21.9 stable Irritable bowel syndrome 00149994 K58.9 watching diet Kidney disease 96760490 N08 seeing nephrology Malignant neoplasm of breast 772033540 C50.919 nl ultra sound Obesity 477253655 E66.9 Osteoarthritis 693502830 M19.90 otc Thyroid nodule 547263584 E04.1 Umbilical hernia 8569057 07 K42.9 no pain Diabetic p eripheral neuropathy 596998492 E11.40 does not want meds Chronic ob structive pulmonary disease 63860417 J44.9 stable Chronic back pain 878160 002 G89.29 otc tylenol Adult [facility] th examination 146295036 Z00.00 Mammogram( doesn't want them)Dexa( hasn't had one in yrs) doesn't wantColono scopy (doesn't want it)Pneumov ax 07/2015Prev taty 07/19/2015F MICHELLE- OVID Vacc- MOTIVATED TO GET IT Cardiomyopathy 89802125 I42.9 seeing cardiology [id number] Manuel Velazquez MD [facility] Internal Med [address] [facility] [place] [address] 11/29/2023 14:33:49 11/29/2023 15:08:06 Anterior chest wall pain 280774607 R07.89 likely fx, take precaution s,heat applicatio nct chest recommende d as pain is not much better, wants to wait,take tramadol 1/2 tab prn [id number] Chico Flores MD [facility] [place] [address] [place] [address] 02/07/2024 14:59:34 02/07/2024 16:27:51 Low back pain 489689441 M54.50 Pain of bi lateral hip joints 0604169305 7782414 M25.551 M25.552 Bilateral trochanteric bursitis 2306749167 2578629 M70.61 M70.62 Pain in ri ght sacroiliac joint 0653208936 3156544 M53.3 Lumbar spondylosis 49044 0009 M47.655 [id number] Manuel Velazquez MD [facility] Internal Med [address] [facility] [place] [address] 03/13/2024 14:54:23 03/13/2024 15:37:13 Diabetes mellitus 01825269 E11.9 under control, Congestive heart failure 47678748 I50.9 stable Dyspnea on exertion 6084 5006 R06.09 on o2 prn Essential hypertension 71971750 I10 under control Fibromyalgia 136149676 M 79.7 Gastroesop hageal reflux disease 310279777 K21.9 stable Irritable bowel syndrome 90043247 K58.9 watching diet Kidney disease 56796638 N08 seeing nephrology , GFR low but stable Malignant neoplasm of breast 962330333 C50.919 nl ultra sound Obesity 601233969 E66.9 advised to lose Osteoarthritis 647244511 M19.90 otc Thyroid nodule 238583545 E04.1 Umbilical hernia 1079403 07 K42.9 no pain Diabetic p eripheral neuropathy 796887701 E11.40 does not want meds Chronic ob structive pulmonary disease 22868333 J44.9 stable Chronic back pain 337706 002 G89.29 otc tylenol Adult heal th examination 984529045 Z00.00 Mammogram( doesn't want them)Dexa( hasn't had one in yrs) doesn't wantColono scopy (doesn't want it)Pneumov ax 07/2015Prev taty 07/19/2015F MICHELLE- 3COVID Vacc- MOTIVATED TO GET IT Cardiomyopathy 78084357 I42.9 seeing cardiology , battery was just changed [id number] Brent Donato MD [facility] [address] [address] 04/08/2024 14:01:12 04/09/2024 09:49:28 Dyspnea on exertion 81221795 R06.09 [id number] Brent Donato MD [facility] [address] [address] 04/16/2024 16:11:32 04/17/2024 09:04:20 Mild persistent asthma 470706397 J45.30 [id number] Manuel Velazquez MD [facility] Internal Med [address] [address] 05/13/2024 15:08:48 05/13/2024 16:00:31 Congestive heart failure 50018150 I50.9 stable Asthma 751991489 J45.90 9 on inhalers [id number] Manuel Velazquez MD [facility] Internal Med [address] [address] 09/02/2024 15:34:19 09/02/2024 16:18:20 Diabetes mellitus 46419423 E11.9 under control, Congestive heart failure 30467980 I50.9 watching diet Dyspnea on exertion 6084 5006 R06.09 on o2 prn Essential hypertension 47809959 I10 under control Fibromyalgia 997562882 M 79.7 Gastroesop hageal reflux disease 647107467 K21.9 stable Irritable bowel syndrome 79139290 K58.9 watching diet Kidney disease 41942834 N08 seeing nephro Malignant neoplasm of breast 450652495 C50.919 nl ultra sound Obesity 073968078 E66.9 advised to lose Osteoarthritis 509924790 M19.90 otc Thyroid nodule 036182581 E04.1 Umbilical hernia 2707958 07 K42.9 no pain Diabetic p eripheral neuropathy 762706293 E11.40 does not want meds Chronic ob structive pulmonary disease 54274912 J44.9 stable Chronic back pain 027459 002 G89.29 otc tylenol Adult heal th examination 212152769 Z00.00 Mammogram- nl in 01/26Dexa(h asn't had one in yrs) doesn't wantColono scopy (doesn't want it)Pneumov ax 07/2015Prev taty 07/19/2015F MICHELLE- 3COVID Vacc- MOTIVATED TO GET IT Cardiomyopathy 40362066 I42.9 no symptoms Rosacea 351835859 L71.9 Candidiasis of skin 4988 3006 B37.2 Acute sinusitis 10500579 J01.90 Impacted c erumen in left ear 1767001508 483862 H61.22 care discussed [id number] Manuel Velazquez MD [facility] Internal Med [address] [place] [address] 11/06/2024 14:01:40 11/06/2024 14:37:20 Acute sinusitis 00540981 J01.90 completed the levaquin and still having head and ear pressure and congestion ; discussed may need assistance getting into ENT soonerdoes not feel well enough to go now [id number] Manuel Velazquez MD [facility] Internal Med [address] [address] 11/25/2024 14:38:10 11/25/2024 15:26:46 Acute sinusitis 23708349 J01.90 she is allergic to many abx Candidiasis of skin 4988 3006 B37.2 under the breasts [id number] Manuel Velazquez MD [facility] Internal Med [address] [address] 01/21/2025 14:45:14 01/21/2025 15:31:20 Diabetes mellitus 92742810 E11.9 under control, Congestive heart failure 10113947 I50.9 unchanged Dyspnea on exertion 6084 5006 R06.09 on o2 prn Essential hypertension 19530432 I10 under control Fibromyalgia 842754897 M 79.7 Gastroesop hageal reflux disease 038118857 K21.9 stable Irritable bowel syndrome 49229354 K58.9 watching diet Kidney disease 72793204 N08 seeing nephrology Malignant neoplasm of breast 076112208 C50.919 nl ultra sound Obesity 501358118 E66.9 Osteoarthritis 386103846 M19.90 otc Thyroid nodule 595988393 E04.1 Umbilical hernia 5247799 07 K42.9 no pain Diabetic p eripheral neuropathy 343106128 E11.40 does not want meds Chronic ob structive pulmonary disease 79278296 J44.9 stable Chronic back pain 573983 002 G89.29 otc tylenol Adult heal th examination 396277989 Z00.00 Mammogram- nl in 01/26Dexa(h asn't had one in yrs) doesn't wantColono scopy (doesn't want it)Pneumov ax 07/2015Prev taty 07/19/2015F MICHELLE- OVID Vacc- MOTIVATED TO GET IT Cardiomyopathy 84807172 I42.9 no symptoms Rosacea 471333011 L71.9 Candidiasis of skin 4988 3006 B37.2 under the breasts Acute sinusitis 18203362 J01.90 [id number] Manuel Velazquez MD [facility] Internal Med [address] [address] 03/09/2025 14:06:32 03/13/2025 14:33:22 [id number] Manuel Velazquez MD [facility] Internal Med [address] [address] 05/06/2025 16:15:47 05/06/2025 17:12:53 Abrasion and/or friction burn of skin 973066613 T14.8XXA 744500 wound cleaned, local care discussed with abx ointment [id number] Manuel Velazquez MD [facility] Internal Med [address] [address] 05/19/2025 14:37:06 05/19/2025 15:29:29 Diabetes mellitus 81496793 E11.9 under control, gets labs at endo Congestive heart failure 82340200 I50.9 stable Dyspnea on exertion 6084 5006 R06.09 on o2 prn Essential hypertension 88425819 I10 under control Fibromyalgia 522181320 M 79.7 Gastroesop hageal reflux disease 952432880 K21.9 stable Irritable bowel syndrome 80299752 K58.9 watching diet Kidney disease 04961471 N08 seeing nephrology , gets labs Malignant neoplasm of breast 341019735 C50.919 nl ultra sound Osteoarthritis 693943474 M19.90 otc Thyroid nodule 266434826 E04.1 Umbilical hernia 0459554 07 K42.9 no pain Diabetic p eripheral neuropathy 972624350 E11.40 does not want meds Chronic ob structive pulmonary disease 67613859 J44.9 stable with inhalers Chronic back pain 366787 002 G89.29 otc tylenol Adult heal th examination 478308729 Z00.00 Mammogram- nl in 01/26Dexa(h asn't had one in yrs) doesn't wantColono scopy (doesn't want it)Pneumov ax 07/2015Prev taty 07/19/2015F MICHELLE- 3COVID Vacc- MOTIVATED TO GET IT Cardiomyopathy 64723144 I42.9 some baseline sob Rosacea 548738650 L71.9 better with meds Screening mammography 24 346621 Z12.31 [id number] Chico Flores MD [facility] [place] [address] [place] [address] 09/10/2025 13:58:19 09/10/2025 15:37:57 Low back pain 595952354 M54.50 5262314309 Pain of hip region 05346 002 M25.551 M25.552 872814 Bilateral trochanteric bursitis 5901752422 2414031 M70.61 M70.62 43512245 Pain in ri ght sacroiliac joint 2722962481 1273472 M53.3 72284738 Lumbar spondylosis 61453 0009 M47.816 07125 Pain of ri ght knee region 6612022917 18894 M25.561 54775854 Primary go narthrosis, bilateral 194597733 M17.0 [id number] Health Concerns Section Related Observation LastModified by Organization Detai ls LastModified Time None Recorded Concern Status LastModified by Organization Details LastModified Time None Recorded Advance Directives Directive Y: Payers Insurance Date Sequence Insurance Name Policy Number Policy Foster Covered Member ID Foster Member ID Guarantor Name 09/16/2025 1 [facility] (MEDICARE REPLACEMENT/A DVANTAGE - HMO) [id number] Eloina Vásquez [id number] Eloina Vásquez Notes Date Note Type Note Provider Name and Address Organization Details Recorded Time 01/21/2025 text/html Here for routine f/u, compliant to meds.Needs you to looks at feet Pt is having a lot of sinus drainage, mucus color is white/yellow sometimes. Sore throat, bilateral ear pain has had abx since october. Her last round was in November clindamycin and prednisone but didn't help. Pt is not fasting.. ([facility]) Neurologist - @ [facility]- diet is [...] injections from Dr. King Hyperlipidemia- was on RosuvastatinMeds-Dewayne rvastatin 80 mg was rec, does not want [...] does not want to take zolpidem Manuel Velazquez MD [address] [facility], [facility] [address], [place], [address], [employer] 01/21/2025 15:58:11 03/09/2025 text/html Patient is 79y/o female who is here for hospital follow up. Patient reports not taking medications as directed. Patient is aware or risks and problems due to medication compliance. Patient denies chest pain or fevers. REFUSED all advise at this time. States she will call cardiology for appointment. lasix 80mg & 40 at night - Patient states that Dr. Velazquez advised to not take doubled dose recommended by hospital group segment consultant. Refusal of all medications. Needs to call Cardiology for follow up. SAMANTHA Acevedo [address], [facility] [address], [place], [address], [employer] 03/09/2025 15:01:04 05/06/2025 text/html pt is here for leg laceration from trying to step over a box and ended up tearing the skin tissue on the top of her left ankle, red, bruised,yellow secretions Possibly infected onset 4 days cleaning with peroxide and saline ,and using antibiotic cream and wrapping up afterwards *Wants to know f she should take b12 still,has high levels, does not need Manuel Velazquez MD [address], [place] [address], [place], [address], [employer] 05/06/2025 17:06:16 05/19/2025 text/html Here for routine f/u, compliant to meds.PT IS NOT FASTING ( [facility] ) Also follow up on her left leg, has some swelling no drainageNo energy, Always wanting to sleepHas a productive cough dark yellow phlegm DM- diet is under control, getting eye exam,accu checks are better, 86-100 in the morning and as high as 200 in the [id number] was nl, Dr Sierra eye exam- 4Does have numbness in both of her feet, not every day , does not want to take medsMeds- Glimepiride 4 mg bid, has taken Jardiance in the past Diabetic neuropathy- does not want meds Kidney disease- 33 GFR , has seen nephrology dr buckely HTN- under control COPD- under control, using o2, alb and spiriva , sees [employer] [facility]- Spiriva 2.5mg, alb prn Qvar 40mcg Knee pain- had knee injections from Dr. King Hyperlipidemia- was on RosuvastatinMeds-Dewayne rvastatin 80 mg was rec, does not want to take due to joint pain Cardiomyopathy/CHF- s/p AICD, on lasix 40 mg 2 in am, 1 in pm, dr Urrutia- Furosemide and Spironolactone 50 mg BID, Ivabradine 5mg BID Osteoarthritis/ back pain- using crutches Rheumatoid arthritis- Sees Dr. Westbrook and was on Plaquenil , not any more Edema- Has been wearing TIANNA hoses, stableMeds- on Furosemide H/O melanoma- does not want to see derm, recommended to f/u, needs derm every year Anxiety- stable, not on meds any moreCymbalta was too strong, GERD- better with otc pepcid Breast cancer- in 1989 s/p mastectomy, did not want any chemo/RT, had abn mammogram 10/26 but ultra sound was nl, last mammogram 01/26 Rosacea- better with medMeds- Triamcinolone cream Thyroid nodule- seen ENT, no biopsy was recommended, ultra sound 02/25, all rhinitis- otcMeds- Flonase Insomnia- does not want to take zolpidem Neurologist - @ [facility]- [facility]- Dr. Panda- Dr. Nigel Velazquez MD [address] [facility], [facility] [address], [place], [address], [place] [employer] 05/19/2025 15:26:25 09/10/2025 text/html The patient returns with multiple complaints today. She is having new right knee pain previously her left knee was 1 that bothers her the most. She has denies any specific trauma or injury. She states if she sitting in her car trying to get out and stand from a sitting position causes significant right knee discomfort. She states the knee feels tight puffy and swollen denies any erythema heat fevers chills no signs of infection. She has trouble with standing or walking for long periods states the pain is quite severe at times other times it is a little better. She reports throbbing aching about a 6 on a scale of 1-10. She can not take NSAIDs because she has chronic kidney disease stage 3. She has pretty good range of motion but more pain with trying to flex her knee then extend it fully. Despite ice and activity modification her symptoms continue. She does use a crutch on the right side instead of a cane she thinks this gives her more stability when she ambulates she has used this for a long time. Her right knee has been bothering her for a month or 2 now she would like to have this evaluated today. The patient also has chronic low back pain and chronic sacroiliac tenderness and pain. She states today the right side is bothering her she had this injected about 7 months ago. This gave her pretty good relief for quite awhile however her pain has returned. She denies any radicular pain down the legs no numbness tingling or weakness. She reports that she has a history of rheumatoid arthritis has chronic aches and pains at multiple sites. We got x-rays of her back today which show degenerative levoscoliosis and spurring and disc space narrowing with bridging osteophytes off the anterior bodies of the lower lumbar region. The patient has a pacemaker so we could not get an MRI scan we talked about getting a CT myelogram but she states she gets by with conservative measures she is also allergic to dye for the myelogram after further discussion so this basically rules out both of those options. She would like to have her right sacroiliac region injected today she also has pain and tenderness over the right trochanteric region consistent with chronic bursitis. She denies any weakness she states she can not sleep on her right side because it is very tender. She does have some chronic groin pain both hips her previous and current x-rays show moderate degenerative changes in both hip joints. She is not interested in surgical intervention her main complaint is the sacroiliac region and right lateral trochanteric region pain with regards to her back and hip. A new past medical history sheet was reviewed and signed on the intake sheet of today's date drug allergies current medications family social history previous surgical history 10 point review of systems was reviewed and discussed in detail today with the patient. CAMILO Laws [address], [facility] [address], [place], [address], [place] [employer] [facility] 09/10/2025 16:35:55 OBGyn Episode No OBEpisode recorded.
--- OUTSIDE RECORDS SUMMARY | 2025-09-17 15:07 | XMS_ITS | Continuity of Care Document ---
Author Organization [facility], [facility] Internal Med [facility] Address [address] [place] [address] Care Team Providers Care Hog Killer Name Role Phone MANUEL OLGUIN Primary Care Provider MANUEL OLGUIN Referring Provider MANUEL OLGUIN Primary Care Provider [phone] Assessment No assessment recorded. Plan of Treatment Reminders Order Date Submit Date Provider Last Modified By Organization Details Last Modified Time Details Appointments Any 15 025 02:00PM Manuel Olguin MD Not available Not available Not available Any 15 026 02:00PM Manuel Olguin MD Not available Not available Not available Lab None record ed. Referral None record ed. Procedures None record ed. Surgeries None record ed. Imaging None record ed. Medication Orders None record ed. Patient TargetsNo targets recorded. Patient Instructions Encounter Date Encounter Id Patient Instructions Last Modified By Organization Details Last Modified Time 09/17/2025 [id number] looks like she had old stroke willing to take Plavix does not want to take any cho meds as rec has appt with neuro dr evy patel Not available 09/17/2025 15:00:33 Reason for Referral None Reported. Results Created Date Observation Date Name Description Value Unit Range Abnormal Flag Note LastModifiedBy Organization Detail LastModifiedTime 09/10/20 25 XR, lumba r spine No observ ation record ed. [email or web address] [facility] [place] [address], [place], [address], 09/10/2025 16:30:56 09/10/20 25 XR, knee, 3 view No observ ation record ed. [email or web address] [facility] [place] [address], [place], [address], 09/10/2025 16:33:33 Result Notes None recorded. Problems Name Problem SNOMED Code Status Onset Date Resolution Date Notes Provider Name and Address Organization Details Recorded Time Benign essentia l hyperten jered 1137021 Completed 07/16/2023 MARCO A Barajas null, [employer] [facility] [employer] [facility] 3 15:35:52 Cellulit is 611645984 Completed Not Available [facility] 3 03:03:22 Disorder of sacrum 80689199 Completed Not Available [facility] 3 03:03:22 Chronic back pain 350268062 Active Bulging disc lumber, thoraic, work related Not Available [facility] 3 16:45:06 Constipa tion 97413784 Completed Not Available [facility] 3 03:03:22 Anxiety disorder 881063911 Completed 07/16/2023 MARCO A Barajas null, [employer] 3 15:35:54 Localize d, 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 662284202 Completed Not Available [facility] 3 03:03:23 Abdomina l pain 96163113 Completed Not Available [facility] 3 03:03:23 Gastroes ophageal reflux disease 915708472 Active Not Available [facility] 3 16:45:06 Thyroid nodule 545268903 Active Not Available [facility] 3 16:45:06 Malignan t neoplasm of breast 194992107 Active s/p mastecto my Not Available [facility] 3 16:45:06 Edema 869207554 Completed Not Available [facility] 3 03:03:24 Eruption 720169202 Completed Not Available [facility] 3 03:03:24 Proteinu karon 28839621 Completed Not Available [facility] 3 03:03:24 Vaginiti s 32111056 Completed Not Available [facility] 3 03:03:24 Pain associat ed with prosthes is of hip joint 032305911 Completed Not Available [facility] 3 03:03:25 Sinusiti s 22412288 Completed ELAINA Abarca[place] [employer] [facility] 4 09:12:59 Malignan t melanoma 694875452 Active right leg 15 years ago Not Available [facility] 3 16:45:06 Paronych ia of toe 977821482 Completed Not Available [facility] 3 03:03:26 Umbilica l hernia 261154077 Active Not Available [facility] 3 16:45:06 Rosacea 649427112 Active Not Available [facility] 3 16:45:06 Tinea cruris 046417860 Completed Not Available [facility] 3 03:03:26 Obesity 697000653 Active Not Available [facility] 3 16:45:06 Pain in eye 01997425 Completed Not Available [facility] 3 03:03:27 Furuncle 476749002 Completed Not Available [facility] 3 03:03:27 Itching of skin 110247028 Completed Not Available [facility] 3 03:03:27 Congesti ve heart failure 71306453 Active EF 15-20% Not Available [facility] 3 16:45:06 Pain of hip region 48200318 Completed Not Available [facility] 3 03:03:27 Dysuria 01418721 Completed Not Available [facility] 3 03:03:28 Upper respirat ory infectio n 98813197 Completed Not Available [facility] 3 03:03:28 Essentia l hyperten jered 11210080 Active Not Available [facility] 3 16:45:06 Disorder of coccyx 85250315 Completed Not Available [facility] 3 03:03:28 Allergic rhinitis 98252421 Completed Not Available [facility] 3 03:03:28 Urinary tract infectio us disease 62679936 Completed Not Available [facility] 3 03:03:28 Pancreat itis 90459828 Completed Not Available [facility] 3 03:03:29 Neck pain 21203781 Completed Not Available [facility] 3 03:03:29 Fatigue 49897926 Completed Not Available [facility] 3 03:03:29 Cardiomy opathy 05741744 Active s/p pace maker, ICD Not Available [facility] 3 16:45:06 Disorder of skin 59966354 Completed Not Available [facility] 3 03:03:30 Chest pain 53075866 Completed 201806/29/2022 Not Available [facility] 3 03:03:24 Acute sinusiti s 53140670 Completed 201906/29/2022 Manuel Olguin MD [address] [place] [address], [place] [address], [place], [address] , [facility] [employer] [facility] 4 16:18:15 Bilatera l knee pain Completed 201906/29/2022 Not Available [facility] 3 03:03:22 Dyspnea 573774306 Completed 201906/29/2022 Not Available [facility] 3 03:03:24 Right medial elbow tendinop athy 40278451061 9109 Completed 202006/29/2022 Not Available [facility] 3 03:03:25 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 34209310 Completed 202006/29/2022 Not Available [employer] 3 03:03:25 Parotiti s 83282830 Completed 202006/29/2022 Not Available [facility] 3 03:03:22 Adhesive capsulit is of right shoulder 17354902040 9109 Completed 202006/29/2022 Not Available [facility] 3 03:03:24 Dependen ce on suppleme ntal oxygen 54499133539 7 Active 2021 Not Available [facility] 3 16:45:06 Irritabl e bowel syndrome 16532715 Active 2021 Not Available [facility] 3 16:45:06 Candidia sis of vagina 03688056 Completed 202106/29/2022 Not Available [facility] 3 03:03:29 Fatigue 37706122 Completed 202106/29/2022 Not Available [facility] 3 03:03:29 Right flank pain 490389895 Completed 202106/29/2022 Not Available [facility] 3 03:03:22 Seroposi tive rheumato id arthriti s 774564203 Active 2021 Not Available [facility] 3 16:45:06 Dyslipid emia 612103167 Active 2021 Not Available [facility] 3 16:45:06 Acute sinusiti s 00446168 Completed 202111/02/2022 Manuel Olguin MD [address] [place] [address], [address], [address] , [employer] 4 16:18:15 Mammogra phy abnormal 604608516 Completed 202111/02/2022 Not Available [facility] 3 03:03:22 Deliveri es by 610479769 Active 2022 Not Available [facility] 3 16:45:06 Gestatio nal hyperten jered Completed 202207/16/2023 rCistel grijalva RMA null, [employer] [facility] [employer] 3 15:35:17 Uncontro lled type 2 diabetes mellitus 343771706 Completed 202207/16/2023 Cristel grijalva RMA null, [employer] 3 15:35:01 Renal insuffic iency 396716147 Active 2022 Not Available [facility] 3 16:45:06 Thick sputum 419469217 Completed 202207/16/2023 Brent Donato MD [address], [place], [address] , [facility] 4 15:19:28 Diabetic peripher al neuropat hy 930044564 Active 2022 Not Available [facility] 3 16:45:06 COVID-19 463074115 Active 2022 Not Available [facility] 3 16:45:06 Congesti on of nasal sinus 07145939 Completed 202207/16/2023 Brent Donato MD [address], [address], [place], [address] , [facility] 4 17:14:40 Anxiety 92360828 Active 2022 Paulina Kowalski MA null, [facility] 3 12:11:54 Fibromya lgia 761325614 Active 2023 Cristel grijalva RMA null, [facility] 4 14:59:00 Osteoart hritis 175387874 Active 2023 Cristel grijalva RMA null, [place] [facility] 4 14:59:00 Mild persiste nt asthma 238449308 Active 2023 Brent Donato MD [address], [address], [place], [address] , [facility] 4 16:34:05 Weakness of bilatera l lower limb Active 2023 Manuel Olguin MD [address], [place], [address] , [facility] 4 15:44:46 Asthma 410216187 Active 2023 Manuel Olguin MD [address], [place], [address] , [facility] 4 15:47:31 Candidia sis of skin 45815990 Active 2023 Cristel Holden n, RMA null, [place] [facility] 4 17:28:27 Diabetes mellitus 68168764 Active 2023 Cristel Burnetta n, RMA null, [place] [facility] 4 15:40:44 Dyspnea on exertion 49512492 Active 2023 Cristel Burnetta n, RMA null, [place] [facility] 4 15:40:44 Chronic obstruct anabela pulmonar y disease 94793710 Active 2023 Cristel grijalva, RMA null, [place] [facility] 4 15:40:44 Kidney disease 32404376 Active 2023 Cristel grijalva, RMA null, [place] [facility] 4 15:40:44 Acute sinusiti s 97955265 Active 2023 Manuel Olguin MD [address], [address], [place], [address] , [facility] 4 16:18:15 Impacted cerumen in left ear 49507770467 70003 Active 2023 Manuel Olguin MD [address], [place], [address] , [facility] 4 16:19:04 Sinusiti s 81592498 Active 2023 [place] MA null, [place] [facility] 4 09:12:59 Abrasion and/or friction burn of skin 425217151 Active 2024 Manuel Olguin MD [address], [place], [address] , [facility] 5 17:05:12 Low back pain 399489794 Active 2024 Paulina Parnell, SUSANNA L null, [place] [facility] 14:39:00 Pain of hip region 41722457 Active 2024 Paulina Parnell ATC L null, [place] [facility] 14:39:21 Bilatera l trochant damaris bursitis 51900754092 182276 Active 2024 Paulina Parnell ATC L null, [place] [facility] 14:39:45 Pain in right sacroili ac joint 33634975913 034923 Active 2024 Paulina Parnell ATC L null, [place] [facility] 14:40:20 Lumbar spondylo sis 013442321 Active 2024 Paulina Parnell ATC L null, [place] [facility] 14:40:36 Pain of right knee region 91684475246 4105 Active 2024 Paulina Parnell ATC L null, [facility] 14:41:32 Primary gonarthr osis, bilatera l 615829338 Active 2024 CAMILO Laws [address] [place] [address], [place], [address] , [facility] 16:33:58 Notes:Medical History: Rosac ea Anxiety/Depression Migraine [...] placements 2008, 2016, 2023 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 Procedures Surgical History Date Name Laterality Status Provider Name and Address Organization Details Recorded Time Pacemaker completed Not Available [facility] 0 01/03/2023 02:55:59 lumpectomy of left breast completed Not Available [facility] 01/03/2023 02:55:59 Orthopedic Surgery completed Not Available [facility] 01/03/2023 02:55:59 other completed Not Available [facility] 11/2022 02:55:59 tonsillectomy completed Not Available [facility] 01/03/2023 02:55:59 Masectomy completed Not Available [facility] 0 01/03/2023 02:55:59 Ingrown Toenail completed Not Available [facility] 01/03/2023 02:55:59 Imaging Results None recorded. Procedure Notes None recorded. Medical Equipment None Reported. Allergies Allergen ID Allergen Name Allergen Category Reaction Reaction Severity Criticality Documentation Date Start Date Code Code System Note Provider Name and Address Organization Details Recorded Time 5495 yellow dye medicatio n Not available Not available Not available 01/03/2023 Not Available [facility] 3 03:13:31 5496 Substance with tetracycl ine structure (substanc e) medicatio n Not available Not available Not available 01/03/2023 80401 8001 SNOMED Not Available [facility] 3 03:13:31 5497 red dye food,medi cation Not available Not available Not available 01/03/2023 Not Available [facility] 3 03:13:31 5498 Product containin g penicilli n (product) medicatio n Not available Not available Not available 01/03/2023 81183 8001 SNOMED Not Available [facility] 3 03:13:31 5499 nystatin medicatio n Not available Not available Not available 01/03/2023 7597 RxNorm cream for funga l- Nysta tin made it worse Not Available [facility] 3 03:13:31 5500 nickel environme nt Not available Not available Not available 01/03/2023 15938 29 RxNorm Not Available [facility] 3 03:13:31 5501 neomycin medicatio n Not available Not available Not available 01/03/2023 7299 RxNorm Not Available [facility] 3 03:13:31 5502 Mucinex medicatio n lighthead edness Not available Not available 01/03/2023 42291 7 RxNorm Not Available [facility] 3 03:13:31 5503 Keflex medicatio n Not available Not available Not available 01/03/2023 78344 7 RxNorm Not Available [facility] 3 03:13:31 5504 iodine medicatio n Not available Not available Not available 01/03/2023 5933 RxNorm Not Available [facility] 3 03:13:31 5505 Iodinated contrast media (substanc e) medicatio n Not available Not available Not available 01/03/2023 11260 2004 SNOMED Not Available [facility] 3 03:13:31 5506 Ceftin medicatio n Not available Not available Not available 01/03/2023 67416 6 RxNorm Not Available [facility] 3 03:13:31 5507 Buspar medicatio n Not available Not available Not available 01/03/2023 79126 0 RxNorm Not Available [facility] 3 03:13:31 5508 blue dye medicatio n Not available Not available Not available 01/03/2023 Not Available [facility] 3 03:13:32 5509 Biaxin medicatio n Not available Not available Not available 01/03/2023 67274 9 RxNorm Not Available [facility] 3 03:13:32 5510 Bevespi medicatio n Not available Not available Not available 01/03/2023 96603 40 RxNorm Gives her the shake s Not Available [facility] 3 03:13:32 5511 Betadine medicatio n Not available Not available Not available 01/03/2023 58099 0 RxNorm Not Available [facility] 3 03:13:32 5512 Bactrim medicatio n Not available Not available Not available 01/03/2023 35795 9 RxNorm Not Available [facility] 3 03:13:32 5513 Anoro medicatio n Not available Not available Not available 01/03/2023 81110 20 RxNorm gives her the shake s Not Available [facility] 3 03:13:32 5514 amoxicill in medicatio n Not available Not available Not available 01/03/2023 723 RxNorm Not Available [facility] 3 03:13:32 5515 clindamyc in Not available Not available Not available Not available 01/03/2023 2582 RxNorm Not Available [facility] 3 03:13:32 55111 Breztri medicatio n Not available Not available Not available 02/28/2023 70777 25 RxNorm Aleisha Aldana null, [facility] [employer] [facility] 3 15:25:51 09699 ciproflox acin medicatio n other Not available Not available 02/11/2024 2551 RxNorm contr aindi catio n to heart med Corla nor [place] MA null, [facility] [employer] [facility] 4 16:02:40 96913 Cymbalta medicatio n Not available Not available Not available 09/02/2024 96775 4 RxNorm MARCO A Chun null, [facility] [employer] [facility] 4 15:46:01 Medications Name Sig Start Date [...] Available predn[facility] completed Not Available Not Available Not [...] mg by injectio n route. 02/09 completed [facility]: [phone] Not Available Not Available Not [...] the office by the doctor 07/06 completed [facility]: [id number] 001 Not Available Not Available Not Available [...] n administ ered by the provider active [facility]: [phone] Not Available Not Available Not Available Januvia [...] 40 mg capsule,d elayed release EVERY DAY 01/27 /2022 completed Not Available Not Available Not Available [...] in the office by the doctor active [facility]: [phone] Not Available Not Available Not Available [...] and Address Organization Details Last Updated DateTime 09/17/2025 167.64 cm 31 kg/m2 60216.74 g Kiesha Luna [place] [facility] 09/17/2025 15:01:47 Social History Question Answer Notes LastModified by Organizat ion Details LastModified Time Tobacco Smoking Status Never Smoker Not Available [facility] 01/03/2023 02:53:40 Do You Have An Advance Directive? Yes MIGRATION.10884 39126 Information not available 01/03/2023 Are You Blind Or Do You Have Difficulty Seeing? No MIGRATION.32698 26145 Information not available 01/03/2023 What Is Your Level Of Caffeine Consumption? Moderate MIGRATION.54192 43712 Information not available 01/03/2023 How Much Tobacco Do You Chew? None MIGRATION.95730 28341 Information not available 01/03/2023 In The 14 Days Before Symptom Onset, Have You Had Close Contact With A Laboratory-confir med COVID-19 While That Case Was Ill? No MIGRATION.42632 64940 Information not available 01/03/2023 In The 14 Days Before Symptom Onset, Have You Had Close Contact With A Person Who Is Under Investigation For COVID-19 While That Person Was Ill? No MIGRATION.43006 29358 Information not available 01/03/2023 Are You Deaf Or Do You Have Serious Difficulty Hearing? No MIGRATION.08299 03195 Information not available 01/03/2023 What Type Of Diet Are You Following? REGULAR MIGRATION.70189 16737 Information not available 01/03/2023 Which Illicit Or Recreational Drugs Have You Used? None MIGRATION.09729 39111 Information not available 01/03/2023 Do You Have An Electrostatic Air Filter? Yes MIGRATION.56807 29857 Information not available 01/03/2023 Are There Any Guns Present In Your Home? No MIGRATION.13042 36290 Information not available 01/03/2023 Where Do You Live? [place] MIGRATION.64278 64531 Information not available 01/03/2023 Do You Have A Medical Power Of Cook Apprentice? Yes MIGRATION.26910 60825 Information not available 01/03/2023 Do You Have Moisture Problems In Your Home? No MIGRATION.92514 92464 Information not available 01/03/2023 What Was The Date Of Your Most Recent Tobacco Screening? 09/07/2021 MIGRATION.36619 86871 Information not available 01/03/2023 Do You Have Any Pets? Yes MIGRATION.46269 28469 Information not available 01/03/2023 What Is Your Relationship Status? MIGRATION.33571 22201 Information not available 01/03/2023 Do You Use Your Seat Belt Or Car Seat Routinely? Yes MIGRATION.10120 32173 Information not available 01/03/2023 Do You Have Smoke And Carbon Monoxide Detectors In Your Home? Yes MIGRATION.93198 43597 Information not available 01/03/2023 Are You Passively Exposed To Smoke? No MIGRATION.73201 35160 Information not available 01/03/2023 Do You Use Sunscreen Routinely? No MIGRATION.02197 48985 Information not available 01/03/2023 Have You Recently Traveled Abroad? No MIGRATION.21431 79517 Information not available 01/03/2023 Do You Have Difficulty Walking Or Climbing Stairs? Yes MIGRATION.62756 37058 Information not available 01/03/2023 Sex: Female Functional Status Question Answer Note LastModified by Organizat ion Details LastModified Time Do you use any illicit or recreational drugs? No MIGRATION.020402 3503 Information not available 01/03/2023 What is your level of alcohol consumption? None MIGRATION.448013 3587 Information not available 01/03/2023 Do you or have you ever used smokeless tobacco? Never used smokeless tobacco MIGRATION.939339 6472 Information not available 01/03/2023 Do you have transportation difficulties? No MIGRATION.023315 9101 Information not available 01/03/2023 Are you able to walk independently without assistance or assistive devices? YESASSIST MIGRATION.414535 7389 Information not available 01/03/2023 Do you have difficulty doing errands alone? No MIGRATION.182692 7990 Information not available 01/03/2023 Are you able to care for yourself independently? Yes MIGRATION.915900 8382 Information not available 01/03/2023 What is your occupation? RETIRED MIGRATION.388410 1011 Information not available 01/03/2023 Do you have difficulty dressing, bathing, grooming, or toileting? No MIGRATION.864220 4875 Information not available 01/03/2023 Do you or have you ever used e-cigarettes or vape? Never used electronic cigarettes MIGRATION.408272 0415 Information not available 01/03/2023 What is your exercise level? None MIGRATION.620961 8200 Information not available 01/03/2023 Mental Status Question Answer Note LastModified by Organizat ion Details LastModified Time Do you have difficulty concentrating, remembering or making decisions? No [id number] Information not available 01/03/2023 Family History Relationship Description Onset Age of this Age Resolved Age Notes LastModified by Organization Details LastModified Time Paternal Grandfather Diabetes mellitus [id number] Not available 01/03/2023 02:56:05 Paternal Grandfather Essential hypertension MIGRATION.477 [id number] Not available 01/03/2023 02:56:05 Father Diabetes mellitus MIGRATION.380 [id number] Not available 01/03/2023 02:56:05 Father Essential hypertension MIGRATION.075 [id number] Not available 01/03/2023 02:56:05 Father Malignant neoplasm of prostate MIGRATION.553 [id number] Not available 01/03/2023 02:56:05 Mother Diabetes mellitus MIGRATION.978 [id number] Not available 01/03/2023 02:56:05 Mother Essential hypertension MIGRATION.969 [id number] Not available 01/03/2023 02:56:05 Brother Malignant neoplasm of colon MIGRATION.493 [id number] Not available 01/03/2023 02:56:05 Father Heart disease [...] BLINDNESS N POLIO N LUNG DISEASE/DISORDER Y RADIATION / CHEMOTHERAPY N COPD Y BLOOD DISEASES N EAR OR HEARING PROBLEMS N BOWEL PROBLEMS Y DEPRESSION (INCLUDING POST ) N FEMALE PROBLEMS / INFECTIONS N STROKE/TIA Y CHEST CT N ULCERS [...] HAVE YOU BEEN HOSPITALIZED OR SEEN IN [facility] IN THE PAST YEAR ? Y ATHEROSCLEROSIS N BREAST PROBLEMS N HERNIATED DISC N DIALYSIS N FIBROMYALGIA N OSTEOPOROSIS Y ARTHRITIS Y NO SIGNIFICANT PAST MEDICAL HISTORY N DIABETES, TYPE Y SEASONAL ALLERGIES N HEARTBURN / REFLUX N PLEURISY N ADD/ADHD N Bronchoscopy N HEPATITIS / LIVER DISEASE N PULMONARY DISEASE Y GOUT Y ALZHEIMER'S DISEASE N SLEEP DISORDER N FATIGUE N DEMENTIA N HERPES N RETINOPATHY N HEADACHES/MIGRAINES N SEIZURES/EPILEPSY N SLEEP STUDY N VASCULAR DISEASE N DIZZINESS N HEAD TRAUMA OR INJURY N HEART DISEASE/HEART PROBLEMS Y MULTIPLE SCLEROSIS N PULMONARY FUNCTION TEST N CANCER: SPECIFY Y CARDIAC ARRHYTHMIA N ANESTHESIA COMPLICATIONS N PNEUMONIA N ATRIAL FIBRILLATION N PULMONARY EMBOLISM N AUTOIMMUNE DISEASE N Gynecological HistoryNo gynecological history recorded. Obstetrics History GPAL:G 0 P 0 0 0 0 Immunizations Vaccine Type Date Status Note Provider Nam e and Address Organization Details Recorded Time Influenza, high-dose, trivalent, PF 3 completed Not Available [facility] 07/27/2023 00:56:29 Influenza, high-dose, quadrivalent, PF 1 completed Not Available [facility] 07/27/2023 00:56:29 Pneumococcal conjugate PCV 13 5 completed Not Available [facility] 07/27/2023 00:56:29 Influenza, high-dose, quadrivalent, PF 0 completed Not Available [facility] 07/27/2023 00:56:29 Influenza, high-dose, trivalent, PF 8 completed Not Available [facility] 07/27/2023 00:56:29 Influenza, high-dose, trivalent, PF 6 completed Not Available [facility] 07/27/2023 00:56:29 Influenza, high-dose, trivalent, PF 7 completed Not Available [facility] 07/27/2023 00:56:29 pneumococcal polysaccharide PPV23 5 completed Not Available [facility] 07/27/2023 00:56:29 Influenza, high-dose, trivalent, PF 9 completed Not Available [facility] 07/27/2023 00:56:29 Influenza, high-dose, quadrivalent, PF 2 completed Not Available [facility] 09/17/2025 14:57:37 Influenza, adjuvanted, quadrivalent, PF 3 completed Not Available [facility] 09/17/2025 14:57:37 Influenza, high-dose, trivalent, PF 4 completed Not Available [facility] 09/17/2025 14:57:37 Influenza, high-dose, trivalent, PF 5 completed Not Available [facility] 09/17/2025 14:57:37 Past Encounters Encounter ID Performer Location Encounter Start Date Encounter Closed Date Diagnosis/Indication Diagnosis SNOMED-CT Code Diagnosis ICD10 Code Diagnosis IMO Codes Diagnosis Note [id number] Chico Flores MD [facility] [place] [address] [place] [address] 09/10/2025 13:58:19 09/10/2025 15:37:57 Low back pain 738691980 M54.50 [id number] Pain of hip region 66226 002 M25.551 M25.552 125626 Bilateral trochanteric bursitis 2168052023 5432479 M70.61 M70.62 33917490 Pain in ri ght sacroiliac joint 4089843852 3364837 M53.3 59181474 Lumbar spondylosis 62800 0009 M47.816 14808 Pain of ri ght knee region 2517380397 27160 M25.561 73491598 Primary go narthrosis, bilateral 658526589 M17.0 1009995 [id number] Manuel Olguin MD [facility] Internal Med [facility] [address] [place] [address] 09/17/2025 14:57:11 09/17/2025 15:34:06 Diabetes mellitus 57203491 E11.9 under control Congestive heart failure 57805645 I50.9 under control Dyspnea on exertion 6084 5006 R06.09 on o2 prn Essential hypertension 26092728 I10 under control Fibromyalgia 192039107 M 79.7 Gastroesop hageal reflux disease 964288858 K21.9 stable Irritable bowel syndrome 91742037 K58.9 watching diet Kidney disease 94538199 N08 low but stable GFR Malignant neoplasm of breast 693906866 C50.919 advised to get mammogram Osteoarthritis 939619810 M19.90 otc Thyroid nodule 730809770 E04.1 needs biopsy Umbilical hernia 8569122 07 K42.9 no symptoms Diabetic p eripheral neuropathy 845594551 E11.40 does not want meds Chronic ob structive pulmonary disease 80735175 J44.9 stable with inhalers Chronic back pain 213360 002 G89.29 otc tylenol Adult heal th examination 034846749 Z00.00 Mammogram- nl in 01/26Dexa(h asn't had one in yrs) doesn't wantColono scopy (doesn't want it)Pneumov ax 07/2015Prev taty 07/19/2015F MICHELLE- 2022 ,08/29COVI D Vacc- MOTIVATED TO GET IT Cardiomyopathy 83054210 I42.9 some baseline sob Rosacea 929674899 L71.9 better with meds Health Concerns Section Related Observation LastModified by Organization Detai ls LastModified Time None Recorded Concern Status LastModified by Organization Details LastModified Time None Recorded Payers Encounter Date Sequence Insurance Name Policy Number Policy Foster Covered Member ID Foster Member ID Guarantor Name 09/17/2025 1 [facility] (MEDICARE REPLACEMENT/A DVANTAGE - HMO) [id number] Eloina Kang [id number] Eloina Kang Notes Date Note Type Note Provider Name and Address Organization Details Recorded Time 09/17/2025 text/html Here for routine f/u, compliant to meds.PT IS NOT FASTING ( [facility] ) DM- diet is under control, getting eye exam,accu checks are better, 100-120 in the morning and as high as 200 in the gsmgpnaD0b was 6.5 Dr Sierra eye exam- oes have numbness in both of her feet, not every day , does not want to take medsMeds- Glimepiride 4 mg bid, has taken Jardiance in the past Diabetic neuropathy- does not want meds Kidney disease- 37 GFR , has seen nephrology dr buckley HTN- under control COPD- under control, using o2, alb and spiriva , sees PULLEY WORKER EmilyMeds- Spiriva 2.5mg, alb prn Qvar 40mcg Hyperlipidemia- was on RosuvastatinMeds-Dewayne rvastatin 80 mg was rec, does not want to take due to joint pain Cardiomyopathy/CHF- s/p AICD, on lasix 40 mg 2 in am, 1 in pm, dr Urrutia- Furosemide and Spironolactone 50 mg BID, Ivabradine 5mg BID Osteoarthritis/ back pain- using crutches, had knee injections from Dr. King Rheumatoid arthritis- Sees Dr. Westbrook and was [...] but ultra sound was nl, last mammogram 01/26, was ordered, Rosacea- better with medMeds- Triamcinolone cream Thyroid nodule- seen ENT, no biopsy was recommended, ultra sound 06/29, biopsy was rec, still has not decided all rhinitis- otcMeds- Flonase Insomnia- does not want to take zolpidem Neurologist - @ [facility]- [facility] KnoxEndocrinology- Dr. Panda- Dr. Nigel Olguin MD [address] [facility], [facility] [address], [place], [address], [place] - [facility] [employer] 09/17/2025 15:25:02 OBGyn Episode No OBEpisode recorded.
--- OUTSIDE RECORDS SUMMARY | 2025-09-17 15:07 | XMS_ITS | Clinical Summary ---
Author Organization [facility] Address [address] [place] [address] Care Team Providers Care Medical Clinic Manager Name Role Phone Unavailable Primary Care Provider [...] - 1-dose 75+ series) 2022 COVID-19 Vaccine ( - 2024-2 6 season) 2025 Influenza Adult (#1) 2025 Hepatitis A Vaccines Aged Out No long er eligible based on patient's age to complete this topic Meningococcal B Vaccine Aged Out No l onger eligible based on patient's age to complete this topic Meningococcal Vaccine Aged Out No yue cherelle eligible based on patient's age to complete this topic RSV Immunizations Under 20 Months Aged Out No longer eligible based on patient's age to complete this topic Advance Directives Documents on File Type Date Recorded Patient Mortgage Closer Expl anation Advance Directives and Living Will 08/14/2016 12:00 AM POWER OF WELT STITCHER [facility] C[facility] Advance Directives and Living Will 08/14/2016 12:00 AM LIVING WILL Advance Directives and Living Will 08/14/2016 12:00 AM POWER OF WELT STITCHER [facility] Advance Directives and Living Will 08/14/2016 12:00 AM LIVING WILL Advance Directives and Living Will 08/14/2016 12:00 AM POWER OF WELT STITCHER FO R HEALTH CARE Advance Directives and Living Will 08/14/2016 12:00 AM POWER OF WELT STITCHER [facility]
[2025-09-17 15:40] LABS: Hematocrit 42.2 % (37.0-47.0); Hemoglobin 13.6 g/dL (12.0-15.0); Immature Granulocyte Percent A 1.2 % (0-0.5); Lymphocytes Absolute Auto 1.77 K/mm3 (0.9-3.2); Mean Corpuscular HGB Conc 32.2 g/dl (32-36); Mean Corpuscular Hemoglobin 30.8 pg (26-34); Mean Corpuscular Volume 95.7 fl (80-100); Nucleated Red Blood Cells Absolute Auto 0.000 K/mm3 (0.0-0.012); Nucleated Red Blood Cells Perc 0.0 % (0.0-0.2); Platelet Count Result 204 k/mm3 (150-375); Red Blood Count 4.41 M/mm3 (4.2-5.4); White Blood Count 13.7 K/mm3 (4.5-10.0)
[2025-09-17 15:49] LABS: Add Urine Microscopic? YES; Appearance Urine Clear (Clear); Glucose Urine UA Negative (Negative); Leukocyte Esterase Ur 2+ LEU/UL (Negative); Nitrate Urine Negative (Negative); Non Pathogenic Casts 0-2; Specific Grav Ur 1.019 (1.001-1.035)
[2025-09-17 15:52] LABS: Magnesium 2.5 mg/dL (1.6-2.3); Uric Acid 8.5 mg/dL (2.5-7.5)
[2025-09-17 15:53] LABS: Alanine Aminotransferase 22 U/L (6-35); Albumin Level 4.4 g/dL (3.5-5.1); Alkaline Phosphatase 101 U/L (38-126); Anion Gap 7 mmol/L (4-12); Aspartate Amino Transferase 29 U/L (14-36); Bilirubin,Total 1.7 mg/dL (0.2-1.3); Blood Urea Nitrogen 40 mg/dL (7-17); Calcium 9.6 mg/dL (8.4-10.2); Carbon Dioxide 31 mmol/L (22-30); Chloride 100 mmol/L (98-107); Estimated Glomerular Filt Rate 37; Glucose 177 mg/dL (65-110); Potassium 4.4 mmol/L (3.4-5.0); Sodium 138 mmol/L (137-145); Total Protein 8.0 g/dL (6.3-8.2)
[2025-09-17 16:10] LABS: Free T4 Free Thyroxine 1.31 ng/dL (0.78-2.19)
[2025-09-17 16:25] LABS: Thyroid Stimulating Hormone 1.470 uIU/mL (0.465-4.680)
[2025-09-17 17:05] LABS: Total Protein Urine Random < 5 mg/dL
[2025-09-17 17:05] LABS: Parathyroid Intact 104.7 pg/mL (14.5-75.2)
[2025-09-17 17:06] LABS: Ur Ttl Prot Creatinine Ratio < 0.05 mg/mg (0-0.20)
== END 2025-09-17 15:02 | disposition home or self-care (01) ==
PROVIDERS: PCP Internal Medicine; Referring Provider Internal Medicine Nephrology; Visit Provider Internal Medicine
DX: E04.2 Nontoxic multinodular goiter (principal); E78.5 Hyperlipidemia, unspecified; Z71.3 Dietary counseling and surveillance; E11.42 Type 2 diabetes mellitus with diabetic polyneuropathy; I11.0 Hypertensive heart disease with heart failure; I12.9 Hypertensive chronic kidney disease with stage 1 through stage 4 chronic kidney disease, or unspecified chronic kidney disease; N18.30 Chronic kidney disease, stage 3 unspecified; I50.9 Heart failure, unspecified
CPT/HCPCS: 36415; 80053; 81001; 82306; 82570; 83735; 83970; 84100; 84156; 84439; 84443; 84550; 85025; 87086

== ENCOUNTER 2025-10-23 10:06 | Outpatient (CLI) | payer MEDICARE, SELFPAY ==
--- OUTSIDE RECORDS SUMMARY | 2024-07-21 09:30 | XMS_ITS ---
Author Organization [facility] Address [address] [place] [address] Care Team Providers Care Shop Mechanic Name Role Phone Marjorie Hernadez Unavailable [phone] Social History Sex Assigned At : Social History Observation Description Sex Assigned At Female Problems Problem Type SNOMED Code ICD Code Onset Dates Problem Status W/U Status Risk Notes Problem Chronic kidney disease stage 3A (disorder) (050732259) Chronic kidney disease, stage 3a (N18.31) Active confirmed Encounters Encounter Location Date Provider Diagnosis [facility] 2043 [facility] 15 [place] [address] 07/21/2024 Marjorie Hernadez Chronic kidney disea se, stage 3a N18.31 [...] Treatment Next Appt Details Provider Name:Marjorie padilla, 12/21/2025 02:45:00 PM, 2043 [facility], [address], [place], [address], Progress Notes * BISMARK VÁSQUEZOB:1945 ( 80 yo F)Acc No.[id number]:07/21/2024 Progress Notes Patient: W ISE, ADDY Provider: Kerry HERNADEZ M.D :1945 A ge:78 Y S ex:Female Date:07/21/2024 Address:[address] [place], [place] [address] Subjective: * Chief Complaints: * * Medical [...] Treatment: * Billing Information: * Visit Code: 96644 Office Visit, Est Pt., Level 3. * Procedure Codes: * Electronic signature of Santiago Hernadez MD on 10/23/2025 at 10:42 AM OFFICE NURSE Sign off status: Pending * Provider: Kerry HERNADEZ M.D Date: 0 07/21/2024 Generated for Darren yuan/Dharmesh/eTransmitting on: 1 12/24/2024 10:42 AM OFFICE NURSE
--- OUTSIDE RECORDS SUMMARY | 2024-10-20 10:00 | XMS_ITS ---
Author Organization [facility] Address 1400 [facility] 61 [facility] [[email or web address]] [address] [place] [address] Care Team Providers Care Manager Project Name Role Phone Nigel Marjorie Unavailable [phone] Social History Sex Assigned At : Social History Observation Description Sex Assigned At Female Encounters Encounter Location Date Provider Diagnosis [place] [facility] [address] [place] [id number] 10/20/2024 Marjorie Hernadez Plan Of Treatment Next Appt Details Provider Name:Marjorie padilla, 12/21/2025 02:45:00 PM, 2043 [facility] 15, [place], [address], Progress Notes * BISMARK VÁSQUEZOB:1945 ( 80 yo F)Acc No.[id number]:10/20/2024 Progress Notes Patient: ADDY AGUILERA Provider: Kerry HERNADEZ M.D :1945 A ge:79 Y S ex:Female Date:10/20/2024 Address:[address] [place] [address] Subjective: * Chief Complaints: * * Medical History: Objective: * Vitals: Assessment: Plan: * Treatment: * Billing Information: * Visit Code: * Procedure Codes: * Electronic signature of Santiago Hernadez MD on 10/23/2025 at 10:42 AM VICE PRESIDENT OF CONTRACTS Sign off status: Pending * Provider: Kerry HERNADEZ M.D Date: 12/21/2023 Generated for Darren yuan/Dharmesh/eTransmitting on: 12/24/2024 10:42 AM VICE PRESIDENT OF CONTRACTS
--- OUTSIDE RECORDS SUMMARY | 2024-11-17 08:15 | XMS_ITS ---
Author Organization [facility] Address 1400 [facility] 61 [facility] [address] [place] [address] Care Team Providers Care Manager Of Quality Name Role Phone NigelSade martinezhit Unavailable [phone] REASON FOR VISIT lvm about appt Social History Sex Assigned At : Social History Observation Description Sex Assigned At Female Encounters Encounter Location Date Provider Diagnosis [place] [facility] [address] [place] [address] 15 [place] [address] 11/17/2024 Marjorie Hernadez Plan Of Treatment Next Appt Details Provider Name:Marjorie padilla, 12/21/2025 02:45:00 PM, 2043 [facility], [facility] 15, [place], [address], Progress Notes * BISMARK VÁSQUEZOB:1945 ( 80 yo F)Acc No.[id number]:11/17/2024 Progress Notes Patient: ADDY AGUILERA Provider: Kerry HERNADEZ M.D :1945 A ge:79 Y S ex:Female Date:11/17/2024 Address:[address] [place] [address] Subjective: * Chief Complaints: * 1 . Lvm about appt. * Medical History: Objective: * Vitals: Assessment: Plan: * Treatment: * Billing Information: * Visit Code: * Procedure Codes: * Electronic signature of Santiago Hernadez MD on 10/23/2025 at 10:42 AM RESPIRATORY SERVICES MANAGER Sign off status: Pending * Provider: Kerry HERNADEZ M.D Date: 0 11/17/2024 Generated for Darren yuan/Dharmesh/eTransmitting on: 12/24/2024 10:42 AM RESPIRATORY SERVICES MANAGER
--- OUTSIDE RECORDS SUMMARY | 2025-02-23 10:00 | XMS_ITS ---
Author Organization [facility] Address 1400 [facility] 61 [facility] [address] [place] [address] Care Team Providers Care Mold Shifter Name Role Phone NigelSade martinezhit Unavailable [phone] Social History Sex Assigned At : Social History Observation Description Sex Assigned At Female Problems Problem Type SNOMED Code ICD Code Onset Dates Problem Status W/U Status Risk Notes Problem Chronic kidney disease stage 3B (disorder) (910391061) Chronic kidney disease, stage 3b (N18.32) Active confirmed Problem Hyperlipidemia (10927345) Hyperlipidemia, unspecified (E78.5) Active confirmed Encounters Encounter Location Date Provider Diagnosis [place] [facility] 2043 [facility] [address] [place] [address] 02/23/2025 Marjorie Hernadez Chronic kidney disea se, [...] Provider Name:Marjorie padilla, 12/21/2025 02:45:00 PM, 2043 [facility], [address], [place], [address], Progress Notes * BISMARK VÁSQUEZOB:1945 ( 80 yo F)Acc No.[id number]:02/23/2025 Progress Notes Patient: W ISE, ADDY Provider: Kerry HERNADEZ M.D :1945 A ge:79 Y S ex:Female Date:02/23/2025 Address:[address] [place], [place] [address] Subjective: * Chief Complaints: * * Medical History: Objective: * Vitals: Assessment: * Assessment: 1. C hronic kidney disease, stage 3b - N18.32 (Primary) 2 . T ype 2 diabetes mellitus with hyperglycemia - E11.65 3 . E ssential (primary) hypertension - I10 4 . H yperlipidemia, unspecified - E78.5 Plan: * Treatment: * Billing Information: * Visit Code: 00639 Office Visit, Est Pt., Level 3. * Procedure Codes: * Electronic signature of Santiago Hernadez MD on 10/23/2025 at 10:42 AM HOG TENDER Sign off status: Pending * Provider: Kerry HERNADEZ M.D Date: 0 02/23/2025 Generated for Darren yuan/Dharmesh/eTransmitting on: 1 12/24/2024 10:42 AM HOG TENDER
--- OUTSIDE RECORDS SUMMARY | 2025-05-25 09:00 | XMS_ITS ---
Author Organization [facility] Address 1400 [facility] 61 [facility] [address] [place] [address] Care Team Providers Care Metalsmith Name Role Phone NigelSade martinezhit Unavailable [phone] Social History Sex Assigned At : Social History Observation Description Sex Assigned At Female Encounters Encounter Location Date Provider Diagnosis [place] [facility] [address] [facility] 15 [place] [address] 05/25/2025 Marjorie Hernadez Chronic kidney disea se, stage 3b N18.32 ; Type 2 diabetes mellitus with hyperglycemia E11.65 ; Essential (primary) hypertension I10 and Hyperlipidemia, unspecified E78.5 Assessments Encounter Date Diagnosis (ICD Code) Assessment Notes Treatment Notes Treatment Clinical Notes Section Notes 05/25/2025 Chronic kidney disease, stage 3b (ICD-10 - N18.32) 05/25/2025 Type 2 diabetes mellitus with hyperglycemia (ICD-10 - E11.65) 05/25/2025 Essential (primary) hypertension (ICD-10 - I10) 05/25/2025 Hyperlipidemia, unspecified (ICD-10 - E78.5) Plan Of Treatment Next Appt Details Provider Name:Marjorie padilla, 12/21/2025 02:45:00 PM, 2043 [facility], [facility] [place] [address], [place], [address], Progress Notes * THALIA DENISENIKOSOB:1945 ( 80 yo F)Acc No.[id number]:05/25/2025 Progress Notes Patient: ADDY AGUILERA Provider: Kerry HERNADEZ M.D :1945 A ge:79 Y S ex:Female Date:05/25/2025 Address:[address] [place] [address] [place], [place] Subjective: * Chief Complaints: * * Medical History: Objective: * Vitals: Assessment: * Assessment: 1. C hronic kidney disease, stage 3b - N18.32 (Primary) 2 . T ype 2 diabetes mellitus with hyperglycemia - E11.65 3 . E ssential (primary) hypertension - I10 4 . H yperlipidemia, unspecified - E78.5 Plan: * Treatment: * Billing Information: * Visit Code: 20720 Office Visit, Est Pt., Level 3. * Procedure Codes: * Electronic signature of Santiago Hernadez MD on 10/23/2025 at 10:43 AM INDIGO VAT TENDER CLOTH Sign off status: Pending * Provider: Kerry HERNADEZ M.D Date: 0 05/25/2025 Generated for Darren yuan/Dharmesh/Radha on: 1 12/24/2024 10:43 AM INDIGO VAT TENDER CLOTH
--- OUTSIDE RECORDS SUMMARY | 2025-09-21 08:45 | XMS_ITS ---
Author Organization [facility] Address [address] [facility] [address] [facility] [address] [place] [address] Care Team Providers Care Agency Director Name Role Phone Nigel Marjorie Unavailable [phone] REASON FOR VISIT [facility] Social History Sex Assigned At : Social History Observation Description Sex Assigned At Female Encounters Encounter Location Date Provider Diagnosis [place] [facility] [address] [facility] [address] [place] [address] 09/21/2025 Marjorie Hernadez Chronic kidney disea se, stage 3b N18.32 ; Type 2 diabetes mellitus with hyperglycemia E11.65 ; Essential (primary) hypertension I10 and Hyperlipidemia, unspecified E78.5 Assessments Encounter Date Diagnosis (ICD Code) Assessment Notes Treatment Notes Treatment Clinical Notes Section Notes 09/21/2025 Chronic kidney disease, stage 3b (ICD-10 - N18.32) 09/21/2025 Type 2 diabetes mellitus with hyperglycemia (ICD-10 - E11.65) 09/21/2025 Essential (primary) hypertension (ICD-10 - I10) 09/21/2025 Hyperlipidemia, unspecified (ICD-10 - E78.5) Plan Of Treatment Next Appt Details Provider Name:Marjorie padilla, 12/21/2025 02:45:00 PM, [address] [facility], [facility] [address], [place], [address], Progress Notes * BISMARK VÁSQUEZOB:1945 ( 80 yo F)Acc No.[id number]:09/21/2025 Progress Notes Patient: ADDY AGUILERA Provider: Kerry HERNADEZ M.D :1945 A ge:80 Y S ex:Female Date:09/21/2025 Address:[address] [place], [place] [address], [facility] Subjective: * Chief Complaints: * 1 . [facility]. * Medical History: Objective: * Vitals: Assessment: * Assessment: 1. C hronic kidney disease, stage 3b - N18.32 (Primary) 2 . T ype 2 diabetes mellitus with hyperglycemia - E11.65 3 . E ssential (primary) hypertension - I10 4 . H yperlipidemia, unspecified - E78.5 Plan: * Treatment: * Billing Information: * Visit Code: 20197 Office Visit, Est Pt., Level 3. * Procedure Codes: * Electronic signature of Santiago Hernadez MD on 10/23/2025 at 10:42 AM FIRE FIGHTER CR[employer] RESCUE Sign off status: Pending * Provider: Kerry HERNADEZ M.D Date: 11/21/2024 Generated for Darren yuan/Dharmesh/Debbiitting on: 12/24/2024 10:42 AM FIRE FIGHTER [employer] RESC[employer]
--- NOTE | ~2025-10-23 | US_ITS ---
EXAMINATION: US FNA w image guidance DATE: 10/23/2025 11:31 INDICATION: Nontoxic single thyroid nodule TECHNIQUE: A time-out was performed to verify the patient's name, date of , and procedure to be performed. The procedure and its benefits and risks were discussed with the patient. Risks specifically discussed included bleeding and infection. The patient understood the risks and agreed to proceed. The neck was prepped and draped in the usual sterile manner. 3 mL 1% lidocaine was used for local anesthesia. 4 passes were made with a 25G needle into the lesion. Appropriate needle location was documented with continuous sonographic guidance. A sterile bandage was applied. There were no immediate complications. FINDINGS: Grayscale ultrasound images demonstrate biopsy needles advanced into a 2.2 cm solid hypoechoic nodule with coarse shadowing calcifications in the mid to inferior right thyroid lobe. IMPRESSION: 1. Successful ultrasound-guided fine needle aspiration of the 2.2 cm TI-RADS 4 right thyroid nodule of concern. Reviewed, dictated and finalized at location A. ATOR INSPECTOR
--- OUTSIDE RECORDS SUMMARY | 2025-10-23 10:42 | XMS_ITS | Patient Health Record ---
Author Organization [facility] Address [address] [place] [address] Care Team Providers Care Social Services Counselor Name Role Phone Marjorie Manning Unavailable [phone] Reason For Referral No Information Medications Medication [...] Hyperglycemia due to type 2 diabetes mellitus (243467147385735) Type 2 diabetes mellitus with hyperglycemia (E11.65) Active confirmed Problem Vitamin D deficiency (16616771) Vitamin D deficiency, unspecified (E55.9) Active confirmed Problem Hyperlipidemia (85272221) Hyperlipidemia, unspecified (E78.5) Active confirmed Problem 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 and tophaceous disease (629582091) 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 and tophaceous disease (E79.0) Active confirmed Problem Essential hypertension (89133231) Essential (primary) hypertension (I10) Active confirmed Problem Chronic kidney disease stage 3 (disorder) (292671510) Chronic kidney disease, stage 3 unspecified (N18.30) Active confirmed Problem Chronic kidney disease stage 3A (disorder) (295016616) Chronic kidney disease, stage 3a (N18.31) Active confirmed Problem Chronic kidney disease stage 3B (disorder) (119300575) Chronic kidney disease, stage 3b (N18.32) Active confirmed Encounters Encounter Location Date Provider Diagnosis [place] [facility] [address] [facility] [address] [place] [address] 02/23/2025 Marjorie Manning Chronic kidney disea se, stage 3b N18.32 ; Type 2 diabetes mellitus with hyperglycemia E11.65 ; Essential (primary) hypertension I10 and Hyperlipidemia, unspecified E78.5 [place] [facility] [address] [facility] [address] [place] [address] 05/25/2025 Marjorie Manning Chronic kidney disea se, stage 3b N18.32 ; Type 2 diabetes mellitus with hyperglycemia E11.65 ; Essential (primary) hypertension I10 and Hyperlipidemia, unspecified E78.5 [place] [facility] [address] [facility] [address] [place] [address] 09/21/2025 Marjorie Manning Chronic kidney disea se, stage 3b N18.32 ; Type 2 diabetes mellitus with hyperglycemia E11.65 ; Essential (primary) hypertension I10 and Hyperlipidemia, unspecified E78.5 Assessments Encounter Date Diagnosis (ICD Code) Assessment Notes Treatment Notes Treatment Clinical Notes Section Notes 02/23/2025 Chronic kidney disease, stage 3b (ICD-10 - N18.32) 05/25/2025 Chronic kidney disease, stage 3b (ICD-10 - N18.32) 09/21/2025 Chronic kidney disease, stage 3b (ICD-10 - N18.32) 09/21/2025 Type 2 diabetes mellitus with hyperglycemia (ICD-10 - E11.65) 05/25/2025 Type 2 diabetes mellitus with hyperglycemia (ICD-10 - E11.65) 02/23/2025 Type 2 diabetes mellitus with hyperglycemia (ICD-10 - E11.65) 02/23/2025 Essential (primary) hypertension (ICD-10 - I10) 05/25/2025 Essential (primary) hypertension (ICD-10 - I10) 09/21/2025 Essential (primary) hypertension (ICD-10 - I10) 09/21/2025 Hyperlipidemia, unspecified (ICD-10 - E78.5) 05/25/2025 Hyperlipidemia, unspecified (ICD-10 - E78.5) 02/23/2025 Hyperlipidemia, unspecified (ICD-10 - E78.5) Plan Of Treatment Next Appt Details Provider Name:Marjorie padilla, 12/21/2025 02:45:00 PM, [address] [facility], [facility] [address], [place], [address],
--- OUTSIDE RECORDS SUMMARY | 2025-10-23 10:43 | XMS_ITS | Clinical Summary ---
Author Organization [facility] Address [address] [place] [address] Care Team Providers Care Refractory Repairer Name Role Phone Pancho Velazquez MD Primary Care Provider [phone] Allergies Active Allergy Reactions Criticality Noted Date Comments Amoxicillin Azithromycin Blue Dye Other (See comments) 06/18/2025 Zzxisiaokw-Szloeigz-Qtwqgp erin Other (See comments) 06/18/2025 Buspirone Other [...] (100 mg total) by mouth daily. LOT# [id number] Exp. 03-22 100mg x4 boxes x5tab per [...] care Assessment & Plan (09/19/2024 11:33 AM PLC ENGINEER): She was never a never smoker and [...] dyspnea. I have chart notes from her camera person documenting an EF of 19% in April of 2025 Continued guideline directed medical therapy and Cardiology follow-up Assessment & Plan (04/02/2025 3:38 PM CDT): Her decompensated severe chronic systolic heart failure is certainly a contributing factor to her dyspnea. She had a recent echocardiogram with her camera person, I will call to request results. Her [...] follow-up Assessment & Plan (09/19/2024 11:34 AM PLC ENGINEER): Most of her symptoms are likely attributable [...] UNCNTRLD Assessment & Plan (10/25/2017 2:13 PM PLC ENGINEER): Hba1c was 8.8 today, indicating worsening DM [...] NOS Assessment & Plan (10/25/2017 2:14 PM PLC ENGINEER): Goal blood pressure is less than 140/85 Low salt diet recommended Daily aerobic exercise Assessment & Plan (07/20/2017 1:00 PM CDT): Controlled on current medications. Surgical History Surgery Date Site/Laterality Comments MASTECTOMY Mastectomy CARPAL TUNNEL RELEASE Carpal tunnel release CARDIAC PACEMAKER PLACEMENT 11/05/2008 - 11/04/2009 Cardiac pacemaker CHOLECYSTECTOMY Medical History Medical History Date Comments Hypertension Hypertension Hx Other Medical Knee surgery Malignant neoplasm of female breast (HCC) Cancer, breast Diabetes mellitus Diabetes Hx Other Medical TIA; Comments: [facility] 07/18/2016 - Hx Other Medical heart attack; C omments: [facility] 07/18/2016 - Hx Other Medical L knee surgery; Comments: [facility] 07/18/2016 - Pancreatitis 2016 Stroke (HCC) [...] on file Legal Sex Female 9:13 AM PLC ENGINEER Gender Identity Not on file Sexual Orientation [...] A1C), HOME MONITOR Routine 10/25/2017 1:37 PM PLC ENGINEER Type 2 diabetes mellitus with hyperglycemia, without long-term current use of insulin (HCC) LIPID PANEL Routine 07/25/2017 3:14 PM CDT from Last 3 Months or Most Recently Relevant to Health Maintenance Results * POCT glycosylated hemoglobin (Hb A1C) (10/25/2017 1:37 PM PLC ENGINEER) Pathologist [facility] Hemoglobin A1C, POC 8.8 Blood specimen (specimen) Venous blood specimen / Unknown 10/25/2017 1:37 PM PLC ENGINEER Ninfa Fernandez MD POINT OF CARE TEST [...] Most Recently Relevant to Health Maintenance Insurance [facility] MEDICARE ADVANTAGE Care Teams Refractory Repairer Relationship Specialty Start Date End Date Pancho Velazquez MD PCP - General 02/02/17
--- OUTSIDE RECORDS SUMMARY | 2025-10-23 10:43 | XMS_ITS | Clinical Summary ---
Author Organization [facility] Address [address] [place] [address] Care Team Providers Care Ammunition Assembly I Laborer Name Role Phone Unavailable Primary Care Provider [...] Documents on File Type Date Recorded Patient Liquid Flavor Compounder Expl anation Advance Directives and Living Will 08/14/2016 12:00 AM POWER OF HEATING OPERATORS ENGINEER FO R HEALTH CARE Advance Directives and Living Will 08/14/2016 12:00 AM LIVING WILL Advance Directives and Living Will 08/14/2016 12:00 AM POWER OF HEATING OPERATORS ENGINEER FO R HEALTH CARE Advance Directives and Living Will 08/14/2016 12:00 AM LIVING WILL Advance Directives and Living Will 08/14/2016 12:00 AM POWER OF HEATING OPERATORS ENGINEER FO R HEALTH CARE Advance Directives and Living Will 08/14/2016 12:00 AM POWER OF HEATING OPERATORS ENGINEER [facility]
--- NOTE | 2025-10-23 11:26 | CY_PTH ---
PATIENT: Eloina Kang LOC: [facility] U#:[id number] AGE/SX: 80/F ROOM: RE10/23/[address]: Ruben Graff MD : 1945 BED: DIS: 10/23/2025 SPEC #: [id number] RECD: 10/23/25 11:28 STATUS: VANESSA STANFORD #: [id number] JESSICA: 10/23/25 11:[address]: Ruben Graff DEPT: [facility] Cytology RECD BY: Janel Henriquez ENTERED: 10/23/25 11:28 SP TYPE: Cytology OTHR DR: Pancho Velazquez, Tissues: A - FNA Thyroid Procedures: Hematoxylin and Eosin Stain Cell Block Fine Needle Aspiration Evaluation Fine Needle Aspiration Pathologist
== END 2025-10-23 10:07 | disposition home or self-care (01) ==
PROVIDERS: PCP Internal Medicine; Visit Provider Otolaryngology
DX: E04.1 Nontoxic single thyroid nodule (principal)
CPT/HCPCS: 10005; 88172; 88173; 88305